=== PATIENT | female | born 2000 | race Caucasian/White ===

== ENCOUNTER 2023-02-05 13:00 | Observation (INO) | payer BC, SELFPAY ==
[2023-02-05 13:21] VITALS: BP 109/66; PULSE 72
--- NOTE | 2023-02-05 14:09 | PC.NURSE ---
Lab called at this time to see if any availability to come draw pt.s bloodwork. Lab states they will be up magda and green tube needed (none in dept.)
--- NOTE | 2023-02-05 14:15 | PC.NURSE ---
Pt. updated on plan of care and lab delay. Apologies made and pt. given snack and more water.
--- NOTE | 2023-02-05 14:45 | PC.NURSE ---
Lab in room to draw pt.s blood, urine specimen taken down as well.
[2023-02-05 15:00] LABS: Basophils Percent Auto 0.1 % (0.2-2.0); Eosinophils Percent Auto 0.2 % (0.9-7.0); Hematocrit 33.5 % (36.0-48.0); Immature Granulocytes Abs Auto 0.04 10^3/uL (0.00-0.03); Immature Granulocytes Pct Auto 0.5 % (0.0-0.5); Lymphocytes Absolute Auto 1.3 10^3/uL (1.2-3.8); Lymphocytes Percent Auto 15.5 % (20.5-60.0); Mean Corpuscular HGB Conc 32.8 g/dL (29.9-35.2); Mean Corpuscular Hemoglobin 30.5 pg (26.7-34.0); Mean Corpuscular Volume 92.8 fL (81.0-99.0); Mean Platelet Volume 9.8 fL (9.5-13.5); Monocytes Absolute Auto 0.6 10^3/uL (0.3-0.8); Monocytes Percent Auto 6.9 % (1.7-12.0); Neutrophils Absolute Auto 6.5 10^3/uL (1.4-6.5); Neutrophils Percent Auto 76.8 % (43.0-75.0); Platelet Count 220 10^3/uL (150-450); Red Blood Count 3.61 10^6/uL (4.20-5.40); Red Cell Distribution Width 11.9 % (11.0-15.0); White Blood Count 8.5 10^3/uL (4.0-11.0)
[2023-02-05 15:17] LABS: Alanine Aminotransferase 23 U/L (14-59); Albumin Globulin Ratio 0.6; Albumin Level 2.4 g/dL (3.4-5.0); Alkaline Phosphatase 124 U/L (46-116); Anion Gap 9.3; Aspartate Amino Transferase 20 U/L (15-37); BUN Creatinine Ratio 17.8; Bilirubin Total 0.2 mg/dL (0.2-1.0); Calcium 8.8 mg/dL (8.5-10.1); Carbon Dioxide 24.7 mmol/L (21.0-32.0); Chloride 103 mmol/L (98-107); Estimated GFR (African America >60 (>=60); Estimated GFR (Non-African Ame >60 (>=60); Globulin 3.9 g/dL; Glucose 92 mg/dL (74-106); Sodium 133 mmol/L (136-145); Total Protein 6.3 g/dL (6.4-8.2)
[2023-02-05 15:41] LABS: Bilirubin Urine NEGATIVE (NEGATIVE); Blood Urine NEGATIVE (NEGATIVE); Clarity Urine CLEAR (CLEAR); Color Urine LT. YELLOW (YELLOW); Glucose Urine UA NEGATIVE (NEGATIVE); Ketones Urine NEGATIVE (NEGATIVE); Leukocyte Esterase Urine MODERATE (NEGATIVE); Nitrite Urine NEGATIVE (NEGATIVE); Protein Urine NEGATIVE (NEG/TRACE); Urobilinogen Urine 0.2 EU/dL (0.2-1.0); pH Urine 7.5 (5.0-9.0)
[2023-02-05 15:42] LABS: Urine Microscopic Indicated YES
[2023-02-05 16:05] LABS: Bacteria Urine SMALL #/HPF (NONE SEEN); Cast Seen? NONE SEEN #/LPF (NONE SEEN); Crystals Seen? None Seen #/HPF (None Seen); Mucus Urine TRACE (NONE SEEN); RBC Urine 0-2 #/HPF (0-2); Squamous Epithelial Cell Urine FEW #/LPF (NONE/RARE)
[2023-02-05 16:06] LABS: Urine Culture Indicated YES
== END 2023-02-05 16:01 | disposition home or self-care (01) ==
LOC: FBC 13:03
PROVIDERS: Admitting Provider Midwife; PCP Family Medicine; Visit Provider Midwife
DX: O26.893 Other specified pregnancy related conditions, third trimester (principal); R42 Dizziness and giddiness; H53.8 Other visual disturbances; G90.A Postural orthostatic tachycardia syndrome [POTS]; Z3A.30 30 weeks gestation of pregnancy
CPT/HCPCS: 36415; 59025; 80053; 81001; 85025; 87086; G0378; G0379

== ENCOUNTER 2023-02-18 10:59 | Emergency (ER) | payer BC, SELFPAY ==
[2023-02-18 11:06] VITALS: BP 107/74; PULSE 100; RESP 18; TEMP 36.8; O2SAT 99; BMI 26.6
[2023-02-18 11:16] LABS: Glucometer 112 mg/dL (74-106)
--- NOTE | 2023-02-18 11:24 | ED.NAVMDI1 ---
HPI - Nausea/Vomiting/Diarrhea General Chief complaint: Nausea/Vomiting/Diarrhea Stated complaint: NAUSEA Time Seen by Provider: 02/18/23 11:20 Source: patient Mode of arrival: walk-in Limitations: no limitations History of Present Illness HPI Narrative: to 2-year-old female who is 32 weeks presents for nausea and vomiting. She has had no contractions today or any bleeding. She was seen in a hospital in another state yesterday for similar circumstances. She has not had known ill contacts and has not had a fever. no diarrhea. Related Data Home Medications Medication Instructions Recorded Confirmed docusate sodium 100 mg capsule 100 mg PO BID 02/18/23 02/18/23 ferrous sulfate 325 mg (65 mg 325 mg PO DAILY 02/18/23 02/18/23 iron) tablet (FeroSul) Previous Rx's Medication Instructions Recorded ondansetron 4 mg disintegrating 4 mg PO Q6H PRN nausea and 02/18/23 tablet vomiting #20 tabs Allergies Allergy/AdvReac Type Severity Reaction Status Date / Time Sulfa (Sulfonamide Allergy Intermediate Verified 02/18/23 11:09 Antibiotics) Review of Systems ROS Narrative A ten point review of systems is negative except as noted above. PFSH PFSH Social History Smoking status: Never smoker Exam Narrative Exam Narrative: Nurses note and vital signs reviewed and patient is not hypoxic. General: The patient appears well and in no apparent distress. Patient is resting comfortably on cart. Skin: Warm, dry, no pallor noted. There is no rash noted. Head: Normocephalic, atraumatic Eye: Normal conjunctiva, no drainage Ears, Nose, Mouth, and Throat: oral mucosa is moist. Nares patent. Cardiovascular: Regular Rate and Rhythm Respiratory: Patient is in no distress, no accessory muscle use, lungs are clear to auscultation, no wheezing, rales or rhonchi Back: non-tender GI: gravid and nontender Musculoskeletal: The patient has no evidence of calf tenderness, no pitting edema, symmetrical pulses noted bilaterally Neurological: A&O, normal speech Psychiatric: Cooperative Constitutional Vital Signs, click to edit/add: Last Vital Signs Temp 98.3 F 02/18/23 11:06 Pulse 95 H 02/18/23 12:52 Resp 16 02/18/23 12:52 BP 117/89 02/18/23 12:52 Pulse Ox 98 02/18/23 12:52 O2 Del Method Room Air 02/18/23 11:06 Course Vital Signs Vital signs: Vital Signs Temperature 98.3 F 02/18/23 11:06 Pulse Rate 100 H 02/18/23 11:06 Respiratory Rate 18 02/18/23 11:06 Blood Pressure 107/74 02/18/23 11:06 Pulse Oximetry 99 02/18/23 11:06 Oxygen Delivery Method Room Air 02/18/23 11:06 Temperature 98.3 F 02/18/23 11:06 Pulse Rate 95 H 02/18/23 12:52 Respiratory Rate 16 02/18/23 12:52 Blood Pressure 117/89 02/18/23 12:52 Pulse Oximetry 98 02/18/23 12:52 Oxygen Delivery Method Room Air 02/18/23 11:06 MDM - Nausea/Vomiting/Diarrhea MDM Narrative Medical decision making narrative: the patient's laboratory analysis is unremarkable. She feels improved and is able to be discharged home. Treatment diagnosis and follow-up were discussed with the patient. Differential Diagnosis Differential diagnosis: Likely food poisoning, gastroenteritis and dehydration Lab Data Attestation: I reviewed the patient's lab results. Labs: Lab Results 02/18/23 02/18/23 Range/Units 11:15 11:31 WBC 8.1 (4.0-11.0) 10^3/uL RBC 3.11 L (4.20-5.40) 10^6/uL Hgb 9.6 L (12.0-16.0) g/dL Hct 29.6 L (36.0-48.0) % MCV 95.2 (81.0-99.0) fL MCH 30.9 (26.7-34.0) pg MCHC 32.4 (29.9-35.2) g/dL RDW 12.1 (11.0-15.0) % Plt Count 200 (150-450) 10^3/uL MPV 9.6 (9.5-13.5) fL Neut % (Auto) 84.2 H (43.0-75.0) % Lymph % (Auto) 9.5 L (20.5-60.0) % [place] % (Auto) 5.6 (1.7-12.0) % Eos % (Auto) 0.0 L (0.9-7.0) % Baso % (Auto) 0.1 L (0.2-2.0) % Neut # (Auto) 6.8 H (1.4-6.5) 10^3/uL Lymph # (Auto) 0.8 L (1.2-3.8) 10^3/uL [place] # (Auto) 0.5 (0.3-0.8) 10^3/uL Eos # (Auto) 0.0 (0.0-0.7) 10^3/uL Baso # (Auto) 0.0 (0.0-0.1) 10^3/uL Abs Immat Gran (auto) 0.05 H (0.00-0.03) 10^3/uL Imm/Tot Granulo (auto) 0.6 H (0.0-0.5) % Sodium 136 (136-145) mmol/L Potassium 3.3 L (3.5-5.1) mmol/L Chloride 103 (98-107) mmol/L Carbon Dioxide 23.5 (21.0-32.0) mmol/L Anion Gap 12.8 BUN 9.0 (7.0-18.0) mg/dL Creatinine 0.70 (0.55-1.02) mg/dL Est GFR ( Amer) >60 (>=60) Est GFR (Non-Af Amer) >60 (>=60) BUN/Creatinine Ratio 12.9 Glucose 107 H (74-106) mg/dL Calcium 8.1 L (8.5-10.1) mg/dL Urine Color Yellow (YELLOW) Urine Clarity Slightly cloudy A (CLEAR) Urine pH 6.5 (5.0-9.0) Ur Specific [place] 1.025 (1.005-1.025) Urine Protein 30 A (NEG/TRACE) mg/dL Urine Glucose (UA) Negative (NEGATIVE) mg/dL Urine Ketones >=80 A (NEGATIVE) mg/dL Urine Occult Blood Moderate A (NEGATIVE) Urine Nitrite Negative (NEGATIVE) Urine Bilirubin Negative (NEGATIVE) Urine Urobilinogen 0.2 (0.2-1.0) EU/dL Ur Leukocyte Esterase Trace A (NEGATIVE) Urine RBC 0-2 (0-2) #/HPF Urine WBC 0-2 A (NONE SEEN) #/HPF Ur Squamous Epith Cells Moderate A (NONE/RARE) #/LPF Urine Crystals None seen (None Seen) #/HPF Urine Bacteria Moderate A (NONE SEEN) #/HPF Urine Casts None seen (NONE SEEN) #/LPF Urine Mucus None seen (NONE SEEN) Ur Culture Indicated? Yes POC Glucose 112 H (74-106) mg/dL Discharge Plan Discharge Chief Complaint: Nausea/Vomiting/Diarrhea Clinical Impression: Nausea and vomiting during Patient Disposition: Home, Self-Care Time of Disposition Decision: 13:20 Condition: Good Mode of Transportation: Private Vehicle Prescriptions / Home Meds: New ondansetron 4 mg tablet,disintegrating 4 mg PO Q6H PRN (Reason: nausea and vomiting) Qty: 20 0RF No Action ferrous sulfate [FeroSul] 325 mg (65 mg iron) tablet 325 mg PO DAILY docusate sodium 100 mg capsule 100 mg PO BID Instructions: Nausea and Vomiting in (ED) Stand Alone Forms: Portal Instructions Referrals: EVELYN VALDES [Primary Care Provider] - 1 week
[2023-02-18] MEDS: ONDANSETRON PF 4 MG/2 ML VIAL IV (11:38)
[2023-02-18] MEDS: 0.9 % SODIUM CHLORIDE 1,000 ML 1000 ML IV (11:38)
[2023-02-18 11:41] LABS: Basophils Percent Auto 0.1 % (0.2-2.0); Hematocrit 29.6 % (36.0-48.0); Hemoglobin 9.6 g/dL (12.0-16.0); Immature Granulocytes Abs Auto 0.05 10^3/uL (0.00-0.03); Immature Granulocytes Pct Auto 0.6 % (0.0-0.5); Lymphocytes Absolute Auto 0.8 10^3/uL (1.2-3.8); Lymphocytes Percent Auto 9.5 % (20.5-60.0); Mean Corpuscular HGB Conc 32.4 g/dL (29.9-35.2); Mean Corpuscular Hemoglobin 30.9 pg (26.7-34.0); Mean Corpuscular Volume 95.2 fL (81.0-99.0); Mean Platelet Volume 9.6 fL (9.5-13.5); Monocytes Absolute Auto 0.5 10^3/uL (0.3-0.8); Monocytes Percent Auto 5.6 % (1.7-12.0); Neutrophils Absolute Auto 6.8 10^3/uL (1.4-6.5); Neutrophils Percent Auto 84.2 % (43.0-75.0); Platelet Count 200 10^3/uL (150-450); Red Blood Count 3.11 10^6/uL (4.20-5.40); Red Cell Distribution Width 12.1 % (11.0-15.0); White Blood Count 8.1 10^3/uL (4.0-11.0)
[2023-02-18 11:45] LABS: Bilirubin Urine NEGATIVE (NEGATIVE); Blood Urine MODERATE (NEGATIVE); Clarity Urine SLIGHTLY CLOUDY (CLEAR); Color Urine YELLOW (YELLOW); Glucose Urine UA NEGATIVE (NEGATIVE); Ketones Urine >=80 mg/dL (NEGATIVE); Leukocyte Esterase Urine TRACE (NEGATIVE); Nitrite Urine NEGATIVE (NEGATIVE); Protein Urine 30 mg/dL (NEG/TRACE); Specific Gravity Urine 1.025 (1.005-1.025); Urobilinogen Urine 0.2 EU/dL (0.2-1.0); pH Urine 6.5 (5.0-9.0)
[2023-02-18 11:46] LABS: Anion Gap 12.8; BUN Creatinine Ratio 12.9; Calcium 8.1 mg/dL (8.5-10.1); Carbon Dioxide 23.5 mmol/L (21.0-32.0); Chloride 103 mmol/L (98-107); Estimated GFR (African America >60 (>=60); Estimated GFR (Non-African Ame >60 (>=60); Glucose 107 mg/dL (74-106); Potassium 3.3 mmol/L (3.5-5.1); Sodium 136 mmol/L (136-145)
[2023-02-18 11:50] LABS: Bacteria Urine MODERATE #/HPF (NONE SEEN); Crystals Seen? None Seen #/HPF (None Seen); Mucus Urine NONE SEEN (NONE SEEN); RBC Urine 0-2 #/HPF (0-2); Squamous Epithelial Cell Urine MODERATE #/LPF (NONE/RARE); WBC Urine 0-2 #/HPF (NONE SEEN)
[2023-02-18 11:51] LABS: Cast Seen? NONE SEEN #/LPF (NONE SEEN); Urine Culture Indicated YES
[2023-02-18 12:52] VITALS: BP 117/89; PULSE 95; RESP 16; O2SAT 98
[2023-02-18 13:29] VITALS: BP 104/74; PULSE 84; RESP 16; O2SAT 98
== END 2023-02-18 13:31 | disposition home or self-care (01) ==
PROVIDERS: Emergency Provider Emergency Medicine; PCP Family Medicine
DX: O26.893 Other specified pregnancy related conditions, third trimester (principal); R11.2 Nausea with vomiting, unspecified; Z3A.32 32 weeks gestation of pregnancy
CPT/HCPCS: 36415; 80048; 81001; 85025; 87086; 96361; 96374; 99285

== ENCOUNTER 2023-04-02 17:15 | Observation (INO) | payer BC, SELFPAY ==
[2023-04-04 22:11] LABS: Neisseria gonorrhoeae, NAA Negative (Negative)
== END 2023-04-02 17:50 | disposition home or self-care (01) ==
LOC: FBC 17:16
PROVIDERS: Admitting Provider Midwife; PCP Family Medicine; Visit Provider Midwife
DX: O36.8390 Maternal care for abnormalities of the fetal heart rate or rhythm, unspecified trimester, not applicable or unspecified (principal); Z3A.00 Weeks of gestation of pregnancy not specified
CPT/HCPCS: 59025; 87491; 87591; G0378; G0379

== ENCOUNTER 2023-04-06 05:23 | Inpatient (IN) | payer BC, SELFPAY ==
[2023-04-06] VITALS (41 sets, daily range): BP systolic 105–151; BP diastolic 54–105; PULSE 64–84; RESP 6–55; TEMP 36.3–36.9; O2SAT 98–100
[2023-04-06] MEDS: LACTATED RINGER'S SOLUTION 1,000 ML 1000 ML IV ×2 (05:59→07:30)
[2023-04-06 06:17] LABS: Basophils Percent Auto 0.1 % (0.2-2.0); Eosinophils Percent Auto 0.3 % (0.9-7.0); Hematocrit 37.3 % (36.0-48.0); Hemoglobin 12.5 g/dL (12.0-16.0); Immature Granulocytes Abs Auto 0.04 10^3/uL (0.00-0.03); Immature Granulocytes Pct Auto 0.5 % (0.0-0.5); Lymphocytes Absolute Auto 2.2 10^3/uL (1.2-3.8); Lymphocytes Percent Auto 27.9 % (20.5-60.0); Mean Corpuscular HGB Conc 33.5 g/dL (29.9-35.2); Mean Corpuscular Hemoglobin 31.6 pg (26.7-34.0); Mean Corpuscular Volume 94.2 fL (81.0-99.0); Mean Platelet Volume 11.7 fL (9.5-13.5); Monocytes Absolute Auto 0.7 10^3/uL (0.3-0.8); Monocytes Percent Auto 8.2 % (1.7-12.0); Platelet Count 153 10^3/uL (150-450); Red Blood Count 3.96 10^6/uL (4.20-5.40); Red Cell Distribution Width 13.5 % (11.0-15.0); White Blood Count 7.9 10^3/uL (4.0-11.0)
[2023-04-06 06:20] LABS: Bilirubin Urine NEGATIVE (NEGATIVE); Blood Urine NEGATIVE (NEGATIVE); Clarity Urine CLEAR (CLEAR); Color Urine LT. YELLOW (YELLOW); Glucose Urine UA NEGATIVE (NEGATIVE); Ketones Urine NEGATIVE (NEGATIVE); Leukocyte Esterase Urine MODERATE (NEGATIVE); Nitrite Urine NEGATIVE (NEGATIVE); Protein Urine NEGATIVE (NEG/TRACE); Urobilinogen Urine 0.2 EU/dL (0.2-1.0)
[2023-04-06 06:28] LABS: Amphetamine Screen Urine NEGATIVE (NEGATIVE); Bacteria Urine MODERATE #/HPF (NONE SEEN); Barbiturates Screen Urine NEGATIVE (NEGATIVE); Benzodiazepines Screen Urine NEGATIVE (NEGATIVE); Buprenorphine Screen Urine NEGATIVE (NEGATIVE); Cannabinoid Screen Urine NEGATIVE (NEGATIVE); Cast Seen? NONE SEEN #/LPF (NONE SEEN); Cocaine Screen Urine NEGATIVE (NEGATIVE); Crystals Seen? None Seen #/HPF (None Seen); Methadone Screen Urine NEGATIVE (NEGATIVE); Methamphetamines Screen Urine NEGATIVE (NEGATIVE); Mucus Urine NONE SEEN (NONE SEEN); Opiate Screen Urine NEGATIVE (NEGATIVE); Oxycodone Screen Urine NEGATIVE (NEGATIVE); Phencyclidine Screen Urine NEGATIVE (NEGATIVE); RBC Urine 0-2 #/HPF (0-2); Squamous Epithelial Cell Urine FEW #/LPF (NONE/RARE); Tricyclic Antidepressant Urine NEGATIVE (NEGATIVE); Urine Culture Indicated YES
--- NOTE | 2023-04-06 07:08 | P.OBHP_ITS ---
OB - H&P: HPI History of Present Illness Chief complaint: INDUCTION : 1 Para: 0 Gestational age based on last menstrual period: 38.4 History of Present Dating criteria: LMP confirmed by 1st trimester US care: good care Ultrasounds: normal 1st trimester US and normal mid trimester US complications: gestational diabetes and other (anxiety, POTS, gestational diabetes ) Narrative: POTS, gestational diabetes Labs Blood type: O (+) positive Rubella: nonimmune RPR/VDLR: nonreactive GBS status: negative HBsAG: negative Review of Systems ROS Status of ROS 10 or more systems reviewed and unremarkable except as noted in history and below [facility] Medical History (Updated 04/06/23 @ 07:13 by BRYSON COLVIN APRN, CNM) POTS (postural orthostatic tachycardia syndrome) ?G90.A - Postural orthostatic tachycardia syndrome [POTS] (ICD-10) Seizure ?R56.9 - Unspecified convulsions (ICD-10) Surgical History (Updated 04/06/23 @ 06:02 by Lindsay Frias) History of removal of cyst ?Z98.890 - Other specified postprocedural states (ICD-10) [place] teeth extracted ?K08.409 - Partial loss of teeth, unspecified cause, unspecified class (ICD- 10) Family History (Updated 04/06/23 @ 06:03 by Lindsay Frias) Grandmother Family history of CHF (congestive heart failure) Family history of COPD (chronic obstructive pulmonary disease) Grandfather Family history of CHF (congestive heart failure) Family history of COPD (chronic obstructive pulmonary disease) Family history of cancer Other Family history of hypertension Family history of myocardial infarction Family history of stroke Social History (Updated 04/06/23 @ 06:05 by Lindsay Frias) Within the past year, how often did you have a drink containing alcohol: monthly or less Within the past year, how many standard drinks containing alcohol did you have on a typical day: 1 or 2 Within the past year, how often did you have six or more drinks on one occasion: never Total score: 0 Score interpretation: A score less than 3 is consistent with normal alcohol consumption. Smoking status: Never smoker Non-prescribed substance use: denies use Highest level of school completed/degree received: Associate degree: academic program Are you now , , , , never or living with a partner: Little interest or pleasure in doing things: not at all Feeling down, depressed, or hopeless: not at all Feel stressed/tense/nervous/anxious/difficulty sleeping: not at all Do you think of yourself as: straight/heterosexual Gender Identity: female Meds Home Medications and Allergies Home Medications Medication Instructions Recorded Confirmed Type docusate sodium 100 mg capsule 100 mg PO BID 02/18/23 04/06/23 History ferrous sulfate 325 mg (65 mg 325 mg PO DAILY 02/18/23 04/06/23 History iron) tablet (FeroSul) ondansetron 4 mg disintegrating 4 mg PO Q6H PRN nausea and 02/18/23 Rx tablet vomiting #20 tabs vit no.95-ferrous 1 tab PO DAILY 04/06/23 04/06/23 History fumarate 28 mg-folic acid 800 mcg tablet () Allergies Allergy/AdvReac Type Severity Reaction Status Date / Time Sulfa (Sulfonamide Allergy Intermediate Verified 02/18/23 11:09 Antibiotics) Exam Constitutional Vital Signs, click to edit/add: Last Vital Signs Temp 97.3 F L 04/06/23 05:55 Resp 16 04/06/23 05:44 Common normals: no apparent distress and oriented x3 General appearance: cooperative Orientation/consciousness: Yes awake HENMT Common normals: normocephalic Eye Common normals: EOMs intact bilaterally Neck & C-Spine Common normals: full ROM Lymph Lymphatic: no lymphadenopathy noted Chest Common normals: inspection of chest normal Respiratory Common normals: normal respiratory effort Cardio Common normals: regular rate and regular rhythm Rate: regular rate Rhythm: regular rhythm GI Common normals: Normal to inspection, nondistended, normoactive bowel sounds present Back & Pelvis Common normals: no CVA tenderness Extremity Common normals: normal to inspection and full ROM Neuro Common normals: oriented x3 Sensorium/orientation: awake, alert, oriented to person, oriented to place and oriented to time Psych Common normals: mental status grossly normal, thought process normal, cooperative, affect normal and speech normal Results Labs Labs: Short CBC 04/06/23 Range/Units 05:51 WBC 7.9 (4.0-11.0) 10^3/uL Hgb 12.5 (12.0-16.0) g/dL Hct 37.3 (36.0-48.0) % Plt Count 153 (150-450) 10^3/uL Urine 04/06/23 Range/Units 05:40 Urine Color Lt. yellow (YELLOW) Urine Clarity Clear (CLEAR) Urine pH 7.0 (5.0-9.0) Ur Specific [place] 1.010 (1.005-1.025) Urine Protein Negative (NEG/TRACE) mg/dL Urine Glucose (UA) Negative (NEGATIVE) mg/dL OB - A/P Assessment and Plan (1) Term : (2) Gestational diabetes:
[2023-04-06] MEDS: METOCLOPRAMIDE HCL 10 MG/2 ML VIAL IVP (07:20)
[2023-04-06] MEDS: FAMOTIDINE/PF 20 MG/2 ML VIAL IV (07:20)
[2023-04-06] MEDS: CITRIC ACID/SODIUM CITRATE 30 ML SOLUTION ORACIT SHOHL'S SOLN PO (07:21)
[2023-04-06] MEDS: CEFAZOLIN SODIUM/DEXTROSE,ISO 2 GM/50 ML PIGGYBACK IV ×2 (07:31→14:03)
--- NOTE | 2023-04-06 07:32 | W.PC.ACHO ---
Registration Status: ADM IN Primary Language: Mauritanian Preferred Language: Mauritanian Report given to Ayaka Simon. Active Medications Generic Name Dose Route Start Last Admin Trade Name Freq PRN Reason Stop Dose Admin Lactated Ringer's 1,000 mls @ 125 mls/hr 04/06/23 05:30 Lactated Ringers IV .Q8H CORNELIUS Consults Category Date Time Status Consult to Anesthesiology Routine Cons 04/06/23 Ordered IV Insertion/Site Date of IV Line Insertion [ 04/06/23 Short PIV (<1.75 in) 20g left Hand] IV Insertion Time [Short PIV ( 05:50 <1.75 in) 20g left Hand] Neurology Patient orientation (short person,place,time,situation list)
--- NOTE | 2023-04-06 08:32 | PM.ONB ---
Brief Operative Note Date of procedure: 04/06/23 Pre-op diagnosis: iup at 38 4/7wks, gdm a1, elective c/s Post-op diagnosis: same as pre-op Procedure: NAME OF PROCEDURE: [ section ] PROCEDURE: Patient was taken back to the Operating Room where she was given a spinal anesthesia with Duramorph without difficulty. She was prepped and draped in the normal sterile fashion. A Pfannenstiel skin incision was then made 2 cm above the symphysis pubis and carried down to underlying rectus fascia using a Bovie. The fascia was incised in the midline and extended laterally using Ruiz scissors. Two [place] clamps were placed on the superior aspect of the fascia and dissected off the underlying rectus muscles. The same was performed on the inferior aspect as well. The muscles were then in the midline. Peritoneum was identified and entered bluntly. The peritoneum was then extended superiorly and inferiorly with good visualization of the bladder. The bladder blade was inserted. A low transverse incision was made on the patient's uterus and extended laterally digitally. The infant was then delivered atraumatically after the bladder blade was removed in the cephalic position. The cord was clamped and cut. Cord blood was obtained. The infant was handed off to awaiting team. The patient's placenta was spontaneously delivered. The uterus was then exteriorized. The uterus was cleared of all clots and debris. The bladder blade was reinserted. The patient's uterine incision was closed using #0 Vicryl in a running lock fashion. Excellent hemostasis was assured. The uterus was then returned to the patient's abdomen. The patient's abdomen was copiously irrigated using warm saline. Peritoneal gutters were cleared of all clots and debris. Again excellent hemostasis was assured. The patient's peritoneum was closed using 3-0 Vicryl in a running fashion. The patient's fascia was closed using #0 Vicryl in a running fashion. The patient's skin was closed using 4-0 Vicryl subcuticularly. The patient tolerated the procedure well. Sponge, lap, and needle counts were correct x2. The patient was taken to the Recovery Room in stable condition. Anesthesia: spinal Surgeon: John Garcia Mower Mechanic: BRYSON COLVIN Estimated blood loss (mL): 575 Pathology: other (placenta) Condition: stable Disposition: PACU
--- NOTE | 2023-04-06 08:34 | PM.OBPRCCS ---
Procedure Pre-op/Post-op diagnoses: Pre-Op/Post-Op Diagnoses Operation Date: 04/06/23 07:30 <No data on this case meets the specified criteria> Procedure: Procedures Operation Date: 04/06/23 07:30 Actual Procedure Side Surgeon p , viable baby girl born Not Applicable John Garcia DO Establishment Guide: BRYSON COLVIN Estimated blood loss (mL): 575 Disposition: PACU Anesthesia type: Spinal
[2023-04-06] MEDS: OXYTOCIN/0.9 % SODIUM CHLORIDE 20 UNITS/1,000 ML PLAST..BAG 200 UNIT IV (09:13)
--- NOTE | 2023-04-06 11:42 | P.EN_ITS ---
Event Note Event Note: [employer]erg[employer] Ski Maker Note: i first assisted Dr Garcia with primary elective section. I first assisted as directed by physician. I independently closed the SQ layer with 3-0 vicryl without difficulty. I then independently closed the skin incision with 4-0 vicryl Kevin needle without difficulty. Hemostasis noted at completion. Patient tolerated procedure well.
[2023-04-06] MEDS: KETOROLAC TROMETHAMINE 30 MG/ML VIAL IVP ×2 (15:16→22:06)
--- NOTE | 2023-04-06 16:17 | RESP.RT ---
Done per nursing
[2023-04-07 05:55] LABS: Basophils Percent Auto 0.2 % (0.2-2.0); Eosinophils Percent Auto 0.2 % (0.9-7.0); Hematocrit 31.2 % (36.0-48.0); Hemoglobin 10.4 g/dL (12.0-16.0); Immature Granulocytes Abs Auto 0.04 10^3/uL (0.00-0.03); Immature Granulocytes Pct Auto 0.4 % (0.0-0.5); Lymphocytes Absolute Auto 1.8 10^3/uL (1.2-3.8); Lymphocytes Percent Auto 17.4 % (20.5-60.0); Mean Corpuscular HGB Conc 33.3 g/dL (29.9-35.2); Mean Corpuscular Hemoglobin 31.8 pg (26.7-34.0); Mean Corpuscular Volume 95.4 fL (81.0-99.0); Mean Platelet Volume 11.2 fL (9.5-13.5); Monocytes Absolute Auto 0.8 10^3/uL (0.3-0.8); Monocytes Percent Auto 7.5 % (1.7-12.0); Neutrophils Absolute Auto 7.8 10^3/uL (1.4-6.5); Neutrophils Percent Auto 74.3 % (43.0-75.0); Platelet Count 130 10^3/uL (150-450); Red Blood Count 3.27 10^6/uL (4.20-5.40); Red Cell Distribution Width 13.6 % (11.0-15.0); White Blood Count 10.5 10^3/uL (4.0-11.0)
[2023-04-07] MEDS: KETOROLAC TROMETHAMINE 30 MG/ML VIAL IVP ×3 (05:57→20:08)
--- NOTE | 2023-04-07 07:13 | PC.NURSE ---
Report given to Sergio Trinh RN.
[2023-04-07 08:25] VITALS: RESP 16; TEMP 36.8
[2023-04-07 08:27] VITALS: BP 120/66
[2023-04-07] MEDS: DOCUSATE SODIUM 100 MG CAPSULE PO ×2 (09:44→20:08)
[2023-04-07] MEDS: ACETAMINOPHEN 500 MG TABLET 1000 MG PO ×3 (09:44→21:20)
[2023-04-07] MEDS: ONDANSETRON 4 MG RAPDIS TABLET PO (09:59)
--- NOTE | 2023-04-07 11:40 | PC.NURSE ---
0950 c/o headache 4-5 and medicated for same, then feels nauseated and medicated for same, pumps breasts as baby is reluctant to eat presently
--- NOTE | 2023-04-07 11:41 | PC.NURSE ---
104 Headache improving, nausea gone, finger feeds baby with syringe with assist
--- NOTE | 2023-04-07 11:49 | PM.OBPN ---
OB - PN: Subj Subjective Patient comments: no complaints Wilson status: doing well Wilson feeding status: breast and bottle feeding Exam Constitutional Vital Signs, click to edit/add: Last Vital Signs Temp 98.3 F 04/07/23 08:25 Pulse 68 04/06/23 09:40 Resp 16 04/07/23 08:25 BP 120/66 04/07/23 08:27 Pulse Ox 99 04/06/23 11:30 O2 Del Method Room Air 04/06/23 23:45 Documenting provider has reviewed patient's vital signs: yes Common normals: no apparent distress, oriented x3 and no limitations HENMT Common normals: normocephalic and head/scalp atraumatic Eye Pupil: PERRL and accommodation reflex normal Neck & C-Spine Common normals: full ROM and supple Respiratory Common normals: normal respiratory effort Cardio Common normals: regular rate and regular rhythm GI Common normals: Normal to inspection, nondistended, normoactive bowel sounds present Common normals: no CVA tenderness Extremity Common normals: normal to inspection, full ROM, no clubbing, cyanosis or edema and no calf tenderness Neuro Common normals: CN's II-XII intact bilaterally, moves all extremities, no focal motor deficits and no sensory deficits noted Results Labs Labs: Short CBC 04/07/23 Range/Units 05:38 WBC 10.5 (4.0-11.0) 10^3/uL Hgb 10.4 L (12.0-16.0) g/dL Hct 31.2 L (36.0-48.0) % Plt Count 130 L (150-450) 10^3/uL OB - PN: A/P Assessment and Plan (1) Delivery by section: Assessment and Plan: POST OP DAY ONE DOING WELL. AFEBRILE, VSS. VOICING NO COMPLAINTS Plan ROUTINE POST POST C SECTION CARE Plan - day: 1 Plan: routine postop care Time Spent with Patient Time: Total time spent is greater than 50% in coordination of care (as documented) at patient's floor/unit and/or counseling patient: Total time spent with greater than 50% in coordination of care (as documented) at patient's floor/unit and/or counseling patient: less than 15 minutes
--- NOTE | 2023-04-07 13:43 | PC.NURSE ---
states headache is getting worse again, medicated with toradol and two ice packs given-denies visual distubances and denies change in headache with positioning, family at [facility]
[2023-04-07 16:06] VITALS: BP 131/85; RESP 18; TEMP 36.4
[2023-04-07 16:19] VITALS: RESP 18
--- NOTE | 2023-04-07 17:58 | RESP.RT ---
Rx given per nursing
[2023-04-07 20:00] VITALS: BP 114/81
[2023-04-08 00:22] VITALS: BP 106/54; PULSE 80; TEMP 36.2
[2023-04-08 00:25] VITALS: RESP 18; TEMP 36.2; O2SAT 99
[2023-04-08] MEDS: KETOROLAC TROMETHAMINE 30 MG/ML VIAL IVP (04:12)
[2023-04-08] MEDS: OXYCODONE HCL/ACETAMINOPHEN 5MG/325MG 1 TAB PO ×2 (04:39→10:08)
--- NOTE | 2023-04-08 04:56 | PC.NURSE ---
0410- Patient states Headache is getting worse. Rates pain 6-7/10 at this time. States it is across the forehead and gets better while lying flat. Denies visual changes.
[2023-04-08 05:35] VITALS: TEMP 36.1
[2023-04-08 05:36] VITALS: BP 108/54; PULSE 67
--- NOTE | 2023-04-08 05:45 | PC.NURSE ---
0545- Patient states her headache is improving after the Percocet. taken to nursery so mom may rest.
[2023-04-08 07:15] VITALS: RESP 14; TEMP 37.1
[2023-04-08 07:18] VITALS: BP 127/66; PULSE 82
[2023-04-08] MEDS: DOCUSATE SODIUM 100 MG CAPSULE PO (10:08)
[2023-04-08] MEDS: IBUPROFEN 400 MG TABLET 800 MG PO (10:08)
--- NOTE | 2023-04-08 10:54 | PM.OBDS ---
DS: Providers Provider Date of admission: 04/06/23 05:23 Primary care physician: EVELYN VALDES Attending physician on admission: John Garcia Consults: 04/06/23 Consult to Anesthesiology Routine Consulting Provider: Jose Antonio Sears Reason for consultation: Spinal Attending physician on discharge: Christi Cook DS: Diagnosis Discharge Diagnosis (1) Delivery by section: Assessment and plan: CONDITION GOOD, REQUESTING DISCHARGE Plan S/P ELECTIVE CS. CLINICAL EXAM NONFOCAL. INSTRUCTIONS GIVEN WITH STATED UNDERSTANDING. FOLLOW UP IN ONE WEEK FOR INCISION CHECK. SCRIPTS PROVIDED FOR PAIN AND COLACE. OB - DS: Summary Hospital Course Hospital Course: UNCOMPLICATED Time spent discussing smoking cessation with patient: 3 to 10 minutes Peripartum Data - Procedures: Procedures Operation Date: 04/06/23 07:30 Actual Procedure Side Surgeon p , viable baby girl born Not Applicable John Garcia DO Peripartum Data - Vaginal Delivery Procedures: Procedures Operation Date: 04/06/23 07:30 Actual Procedure Side Surgeon p , viable baby girl born Not Applicable John Garcia DO Complications complications: none Delivery method: elective section Gender: female Discharge plan: home Status at Discharge Functional status at discharge: independent ambulation Overall status at discharge: patient is back to baseline Time Spent with Patient Time attestation: Total time spent providing and/or coordinating discharge services: Time spent: less than 30 minutes Exam Constitutional Vital Signs, click to edit/add: Last Vital Signs Temp 98.8 F 04/08/23 07:15 Pulse 82 04/08/23 07:18 Resp 14 04/08/23 07:15 BP 127/66 04/08/23 07:18 Pulse Ox 99 04/08/23 00:25 O2 Del Method Room Air 04/08/23 07:15 Documenting provider has reviewed patient's vital signs: yes Common normals: no apparent distress, oriented x3, healthy appearing and alert General appearance: cooperative, comfortable and well kempt HENMT Common normals: normocephalic and head/scalp atraumatic Eye Pupil: PERRL and accommodation reflex normal Neck & C-Spine Common normals: full ROM and supple Respiratory Common normals: normal respiratory effort Cardio Common normals: regular rate and regular rhythm GI Common normals: Normal to inspection, nondistended, normoactive bowel sounds present Common normals: no CVA tenderness Extremity Common normals: normal to inspection, full ROM and no calf tenderness Neuro Common normals: CN's II-XII intact bilaterally, moves all extremities, no focal motor deficits and no sensory deficits noted Psych Common normals: mental status grossly normal, thought process normal, cooperative and affect normal Discharge Plan Discharge Disposition: Home, Self-Care Condition: Good Assessment: HEADACHE RESOLVED WITH PERCOCET, VSS, AFEBRILE, INCISION DRY AND INTACT, AMBULATING VOIDING AND EATING, READY FOR DISCHARGE Discharge Medications: Continued ferrous sulfate [FeroSul] 325 mg (65 mg iron) tablet 325 mg PO DAILY docusate sodium 100 mg capsule 100 mg PO BID PNV cmb#95-ferrous fumarate-FA [] 28 mg iron- 800 mcg tablet 1 tab PO DAILY Activity: resume usual activities as tolerated Diet: regular diet Patient Instructions: (DC) Forms: Portal Instructions Follow Up Appointments: SCHEDULE INCISION CHECK IN ONE WEEK Discharge location: HOME
== END 2023-04-08 12:18 | disposition home or self-care (01) | DRG 787 ==
PROVIDERS: Obstetrics & Gynecology; Admitting Provider Midwife; PCP Family Medicine; Visit Provider Obstetrics & Gynecology
PROC: 10D00Z1 Extraction of Products of Conception, Low, Open Approach (ICD-10-PCS; CPT 59514; principal; 2023-04-06 07:30)
DX: O24.420 Gestational diabetes mellitus in childbirth, diet controlled (principal); O99.354 Diseases of the nervous system complicating childbirth; G90.A Postural orthostatic tachycardia syndrome [POTS]; O99.02 Anemia complicating childbirth; D50.9 Iron deficiency anemia, unspecified; Z3A.38 38 weeks gestation of pregnancy; Z37.0 Single live birth; Z23 Encounter for immunization; Z88.2 Allergy status to sulfonamides; Z79.899 Other long term (current) drug therapy; Z82.61 Family history of arthritis
CPT/HCPCS: 36415; 80307; 81001; 85025; 86850; 86900; 86901; 87086; 88307; 94667; 94668; 96374; 96375; 96376

== ENCOUNTER 2023-04-10 08:56 | Outpatient (OUT) | payer BC, SELFPAY ==
--- NOTE | 2023-04-10 11:59 | PC.NURSE ---
Family arrives for follow up visit, Parents states doing well, we think States has support at home and mom has been able to rest. Dad is hands on assisting with diapers and care. Sloane states continues to breastfeed, baby is getting better at latching well each feed. Still difficult to latch on right breast. Feeds every 3-4 hours, for 20 min total, usually both breasts per feed. Encouraged parents to feed baby every 2-3 hours or on demand for 8-12 feeds in 24 hours. Verbalized understanding. Baby to right breast slight adjustments to positioning made, nipple to nose and asymmetrical latch demo'd with doll and mom able to return demo independently. Right nipple noted to have blisters on time and is tender with latch. Using lanolin and soothies well. No further concerns noted. Family aware of MOMS group and to call for questions or concerns as needed.
[2023-04-10 12:05] VITALS: BP 122/78; PULSE 90; RESP 18; TEMP 36.8; O2SAT 97
--- NOTE | 2023-04-10 12:20 | PC.NURSE ---
Pt states it feels like a lot of fluid moving back and forth here points to area of incision and just above. No redness or drainage noted no edema of incision felt. Area clean, dry, no bruising or redness, steri strips intact.
== END 2023-04-10 11:45 | disposition home or self-care (01) ==
LOC: FBCO 08:59
PROVIDERS: PCP Family Medicine; Visit Provider Obstetrics & Gynecology
DX: Z39.2 Encounter for routine postpartum follow-up (principal)

== ENCOUNTER 2024-06-05 12:55 | Outpatient (OUT) | payer BC, SELFPAY ==
--- NOTE | 2024-06-05 12:57 | US_ITS ---
[place] [id number] Patient Name: ARMANDO HAMPTON MRN: [id number] date: 2000 Sex: F Assigned Patient Location: US Current Patient Location: US Accession/Order Number: [id number] Exam Date: 06/05/2024 13:00 Report Date: 06/05/2024 13:56 At the request of: BRYSON COLVIN Procedure: US OB transvaginal EXAMINATION: US OB transvaginal HISTORY: Amenorrhea, Positive Test COMPARISON: No relevant comparison available. FINDINGS: [place] intrauterine gestation Gestational sac: 2.23 cm, 6 weeks 6 CRL: 8.2 mm, 6 weeks 5 days Yolk sac: 2.2 mm Heart rate: Not visualized The uterus is normal, anteverted The right ovary is not visualized. The left ovary measures 2.1 x 2.1 x 1.5 cm Cervix, closed, 3.9 cm Clinical age: 8 weeks 6 days Clinical JAS: 01/09/2025 Ultrasound age: 6 weeks 5 days Ultrasound JAS: 01/24/2025 US/US OB transvaginal IMPRESSION: No cardiac activity observed, possibly related to early gestation. Continued surveillance recommended Electronically authenticated by: ADALBERTO MELTON Date: 06/05/2024 13:56
== END 2024-06-05 12:56 | disposition home or self-care (01) ==
LOC: US 12:55
PROVIDERS: PCP Family Medicine; Visit Provider Midwife
DX: Z32.01 Encounter for pregnancy test, result positive (principal); N91.2 Amenorrhea, unspecified
CPT/HCPCS: 76817

== ENCOUNTER 2024-06-19 08:23 | Outpatient (OUT) | payer OTHER, SELFPAY ==
--- NOTE | 2024-06-19 08:25 | US_ITS ---
[address] [address] Patient Name: ARMANDO HAMPTON MRN: [id number] date: 2000 Sex: F Assigned Patient Location: [place] Current Patient Location: US Accession/Order Number: [id number] Exam Date: 06/19/2024 08:35 Report Date: 06/19/2024 09:39 At the request of: BRYSON COLVIN Procedure: US OB transvaginal EXAMINATION: US OB transvaginal HISTORY: Amenorrhea COMPARISON: 06/05/24 FINDINGS: [place] intrauterine gestation Findings gestational sac: 2.28 cm, 6 weeks 6 days CRL: 8.6 mm, 6 weeks 6 days Yolk sac: Not visualized Heart rate: Cardiac activity not observed Cervix: Closed, 3.8 cm The uterus is normal, anteverted The ovaries are not visualized Clinical age: 10 weeks 6 days Clinical JAS: 01/09/2025 Ultrasound age: 6 weeks 6 days Ultrasound JAS: 02/06/2025 US/US OB transvaginal IMPRESSION: No interval growth in 2 weeks. Findings are consistent with demise Electronically authenticated by: ADALBERTO MELTON Date: 06/19/2024 09:39
--- OUTSIDE RECORDS SUMMARY | 2024-06-19 08:31 | XMS_ITS | CCD ---
Author Organization [facility] Inform ion Partnership [facility] Care Team Providers Care Microsoft Dynamics Manager Architect Name Role Phone Unavailable Primary Care Provider Unavailag Rosario MD, Joey Hinojosa Unavailable Gris Valdes MD Primary Care Provider BRYSON LARSEN Attending Unavailable GRIS VALDES Attending Unavailable BRYSON LARSEN Attending Unavailable BRYSON LARSEN Referring Unavailable Allergies Allergy Classification Reported Allergen(s) Allergy Type Date of Onset Reaction(s) Facility (1 source) Sulfacetamide Drug Allergy 05-11-20 20 [facility] Work Phone: (6 sources) Sulfamethoxazole / Trimethoprim Drug Allergy 01-02-20 17 [facility] (6 sources) Sulfonamides (Antibiotic) Drug Intolerance 01-02-20 17 Unknown [facility] Medications Current Medications Medication Drug Class(es) Dates Sig (Normalized) Sig (Original) fluticasone propionate 0.05 mg/actuat metered dose nasal spray (6 sources) Corticosteroid Start: 09-25-2023 End: 09-24-2024 take 1 spray(s) nasal route once daily fluticasone (Flonase) 50 MCG/ACT nasal spray Indications: Nasal congestion Administer 1 spray into each nostril Daily Shake gently. Before first use, prime pump. After use, clean tip and replace cap. 16 g 2 09/25/2023 09/24/2024 Active LORazepam 0.5 mg oral tablet (5 sources) Benzodiazepine Start: 04-30-2024 End: 05-10-2024 take 1 tablet by mouth every six hours as needed for anxiety and anxiety and anxiety LORazepam (Ativan) 0.5 MG tablet Indications: Anxiety Take 1 tablet (0.5 mg) by mouth every 6 (six) hours if needed for anxiety for up to 10 days 10 tablet 04/30/2024 Active Completed/Discontinued Medications Medication Drug Class(es) Dates Sig (Normalized) Sig (Original) meloxicam 15 mg oral tablet (1 source) Nonsteroidal Anti-inflammatory Drug Start: 05-14-2020 MOBIC 15 MG TABS one a day MELOXICAM [id number] Joey Rosario MD norethindrone 0.35 mg oral tablet (5 sources) Start: 01-14-2024 End: 01-13-2025 take 1 tablet by mouth once daily norethindrone (Micronor) 0.35 MG tablet Indications: Encounter for surveillance of contraceptive pills Take 1 tablet (0.35 mg) by mouth Daily 28 tablet 11 01/14/2024 05/06/2024 Discontinued (Therapy completed) 12 hr orphenadrine citrate 100 mg extended release oral tablet (1 source) Muscle Relaxant Start: 05-11-2020 ORPHENADRINE CITRATE ER 100 MG [id number]-LRT 1 tablet twice daily ORPHENADRINE CITRATE [id number] Zoe Savage LPN predniSONE 10 mg oral tablet (1 source) Start: 05-11-2020 PREDNISONE 10 MG TABS 4 tablets once daily PREDNISONE [id number] Zoe Savage LPN Problems Active Problems Problem Classification Problem Date Documented Date Episodic/Chronic Anxiety disorders (7 sources) Anxiety; Translations: [Anxiety disorder, unspecified] Onset: 09-25-2023 09-25-2023 Chronic Cardiac dysrhythmias (6 sources) Postural orthostatic tachycardia syndrome ; Translations: [Postural orthostatic tachycardia syndrome] Onset: 01-04-2023 09-25-2023 Chronic Esophageal disorders (6 sources) Gastroesophageal reflux disease; Translations: [Gastro-esophageal reflux disease without esophagitis] Onset: 09-25-2023 09-25-2023 Chronic Menstrual disorders (14 sources) Disorder of menstruation; Translations: [Irregular menstruation, unspecified] Onset: 09-25-2023 09-25-2023 Chronic Other acquired deformities (6 sources) Scoliosis deformity of spine; Translations: [Scoliosis, unspecified] Onset: 09-25-2023 09-25-2023 Chronic Other endocrine disorders (6 sources) Hypoglycemia; Translations: [Hypoglycemia, unspecified] Onset: 09-25-2023 09-25-2023 Chronic Past or Other Problems Problem Classification Problem Date Documented Da te Episodic/Chronic Diabetes or abnormal glucose tolerance complicating ; childbirth; or the puerperium (6 sources) Gestational diabetes mellitus; Translations: [Gestational diabetes mellitus in , unspecified control] Onset: 09-25-2023 09-25-2023 Episodic Other complications of (6 sources) Vomiting of , unspecified; Translations: [Unspecified vomiting of , unspecified as to episode of care or not applicable] Onset: 09-25-2023 09-25-2023 Episodic Other and delivery including normal (6 sources) Term ; Translations: [Encounter for supervision of normal , unspecified, unspecified trimester] Onset: 09-25-2023 09-25-2023 Episodic Spondylosis; intervertebral disc disorders; other back problems (19 sources) Low back pain; Translations: [Acute back pain with sciatica] Onset: 05-14-2020 05-14-2020 Episodic Tuberculosis (6 sources) Tuberculosis of vertebral column; Translations: [Tuberculosis of spine] Onset: 09-25-2023 09-25-2023 Episodic Unclassified (1 source) Problem Results Test Name Value Interpretation Reference Range Facility HCG ( test) Ql (U)o n 05-06-2024 Interpretation and review of laboratory results Normal [facility] Preg Test, Ur Negative Negative [facility] US OB < 14 WEEKS EARLYon US OB < 14 WEEKS EARLY EXAM: Pelvic Ultrasound, Transvaginal. REASON FOR EXAM: Dates. COMPARISON: None TECHNIQUE: High-resolution ultrasound is performed in the pelvis with color Doppler. FINDINGS: Transabdominal Imaging Not performed. Transvaginal Imaging: Endometrium is thickened at 1.2 cm. No intrauterine gestation is demonstrated. No gestational sac, pole, yolk sac or cardiac activity are present at this time. A cleft in the anterior myometrium relates to prior . Neither ovary is visualized. Measurements: Uterus: 8.6 x 5.2 x 4.3 cm EM: 1.2 cm Right Ovary: Not visualized Left Ovary: Not visualized Cervix: 3 cm IMPRESSION: No intrauterine gestation is demonstrated at this time. Recommend clinical follow-up and surveillance. If is clinically confirmed, repeat ultrasound in 1-2 weeks could be used to reassess. *This report is generated using voice recognition reporting (Deolan). On occasion [employer] erroneously drops words from the report or replaces the spoken word with similar sounding words. Please call with any questions/concerns regarding this report.* Dictated and transcribed 05/07/24/dpd This report has been electronically signed and approved by the interpreting radiologist. Normal Not Available XR Knee Complete Left*on XR Knee Complete Left* FINDINGS: Minimal patellofemoral joint space loss. No cortical or subchondral fracture. No suprapatellar effusion. IMPRESSION: 1. Minimal arthritis. 2. No cortical or subchondral fracture or effusion. Report reported and signed by Maksim Shukla on 03/30/2022 1345 Normal [facility] XR Knee Complete Right*on XR Knee Complete Right* FINDINGS: Minimal patellofemoral joint space loss. No cortical or subchondral fracture. No suprapatellar effusion IMPRESSION: 1. Minimal arthritis. 2. No cortical or subchondral fracture or effusion. Report reported and signed by Maksim Shukla on 03/30/2022 1346 Normal [facility] Complete Blood Counton 09-08 Erythrocyte distribution width (RBC) [Ratio] 11.7 % Normal 11.0-15.0 [facility] Comment on above: Performed By: #### E SR, CBC, RF, CMP #### [facility] [address], [place] [id number] Hematocrit (Bld) [Volume fraction] 43.8 % Normal 35.0-47.0 [facility] Comment on above: Performed By: #### E SR, CBC, RF, CMP #### [facility] [address], [place] [id number] Hemoglobin (Bld) [Mass/Vol] 14.3 g/dL Normal 11.6-15.5 [facility] Specialist Comment on above: Performed By: #### E SR, CBC, RF, CMP #### [facility] [address], [place] [id number] MCH (RBC) [Entitic mass] 30.3 pg Normal 27.0-33.0 [facility] Special[facility] Comment on above: Performed By: #### E SR, CBC, RF, CMP #### [facility] [address], [place] [id number] MCHC (RBC) [Mass/Vol] 32.6 g/dL Normal 32.0-36.0 [facility] Comment on above: Performed By: #### E SR, CBC, RF, CMP #### [facility] [address], [place] [id number] MCV (RBC) [Entitic vol] 93 fL Normal 80-100 [facility] Comment on above: Performed By: #### E SR, CBC, RF, CMP #### [facility] [address], [place] [id number] Platelet mean volume (Bld) [Entitic vol] 9.60 fL Normal 7.50-12.50 [facility] Comment on above: Performed By: #### E SR, CBC, RF, CMP #### [facility] [address], [place] [id number] Platelets (Bld) [#/Vol] 267 10*3/uL Normal 140-400 [facility] Comment on above: Performed By: #### E SR, CBC, RF, CMP #### [facility] [address], [place] [id number] RBC (Bld) [#/Vol] 4.72 10*6/uL Normal 3.90-5.20 [facility] Comment on above: Performed By: #### E SR, CBC, RF, CMP #### [facility] [address], [place] [id number] RDW-SD 40.3 fL Normal 37.0-50.0 [facility] Comment on above: Performed By: #### E SR, CBC, RF, CMP #### [facility] [address], [place] [id number] WBC (Bld) [#/Vol] 7.1 10*3/uL Normal 3.8-11.0 [facility] Comment on above: Performed By: #### E SR, CBC, RF, CMP #### [facility] [address], [place] [id number] Comprehensive Metabolic Pane amy 09-08-2021 Albumin [Mass/Vol] 5.0 g/dL Normal 3.6-5.1 [facility] Comment on above: Performed By: #### E SR, CBC, RF, CMP #### [facility] [address], [place] [id number] Albumin/Globulin [Mass ratio] 1.9 {ratio} Normal 1.0-2.5 [facility] Comment on above: Performed By: #### E SR, CBC, RF, CMP #### [facility] [address], [place] [id number] ALP [Catalytic activity/Vol] 91 U/L Normal 35-119 [facility] Comment on above: Performed By: #### E SR, CBC, RF, CMP #### [facility] [address], [place] [id number] ALT [Catalytic activity/Vol] 12 U/L Normal 6-33 [facility] Comment on above: Result Comment: 04/27 Female reference range changed. Performed By: #### E SR, CBC, RF, CMP #### [facility] [address], [place] [id number] Anion gap [Moles/Vol] 19 mmol/L Normal 12-20 [facility] Comment on above: Result Comment: Effe ctive 06/02/2019 reference range changed. Performed By: #### E SR, CBC, RF, CMP #### [facility] [address], [place] [id number] AST [Catalytic activity/Vol] 19 U/L Normal 9-34 [facility] Comment on above: Performed By: #### E SR, CBC, RF, CMP #### [facility] [address], [place] [id number] Bilirubin [Mass/Vol] 0.74 mg/dL Normal 0.30-1.20 [facility] Comment on above: Performed By: #### E SR, CBC, RF, CMP #### [facility] [address], [place] [id number] BUN/CREA 22 Ratio Normal 6-22 [facility] Comment on above: Performed By: #### E SR, CBC, RF, CMP #### [facility] [address], [place] [id number] Calcium [Mass/Vol] 9.7 mg/dL Normal 8.6-10.2 [facility] Comment on above: Performed By: #### E SR, CBC, RF, CMP #### [facility] [address], [place] [id number] Chloride [Moles/Vol] 104 mmol/L Normal 98-107 [facility] Comment on above: Performed By: #### E SR, CBC, RF, CMP #### [facility] [address], [place] [id number] CO2 [Moles/Vol] 22 mmol/L Normal 20-31 [facility] Comment on above: Performed By: #### E SR, CBC, RF, CMP #### [facility] [address], [place] [id number] Creatinine [Mass/Vol] 0.6 mg/dL Normal 0.6-1.4 [facility] Comment on above: Performed By: #### E SR, CBC, RF, CMP #### [facility] [address], [place] [id number] eGFRAA 156 mL/min/1.73m2 Normal >60 [facility] Specialist Comment on above: Performed By: #### E SR, CBC, RF, CMP #### [facility] [address], [place] [id number] eGFRNAA 129 mL/min/1.73m2 Normal >60 [facility] Specialist Comment on above: Performed By: #### E SR, CBC, RF, CMP #### [facility] [address], [place] [id number] Globulin (S) [Mass/Vol] 2.7 g/dL Normal 1.9-3.7 [facility] Comment on above: Performed By: #### E SR, CBC, RF, CMP #### [facility] [address], [place] [id number] Glucose [Mass/Vol] 79 mg/dL Normal 65-99 [facility] Comment on above: Result Comment: For FASTING Glucose --- ADA reference ranges: Normal 65-99 mg/dl Prediabetes 100-125 Diabetes >/= 126 Performed By: #### E SR, CBC, RF, CMP #### [facility] [address], [place] [id number] Potassium [Moles/Vol] 4.1 mmol/L Normal 3.5-5.5 [facility] Comment on above: Performed By: #### E SR, CBC, RF, CMP #### [facility] [address], [place] [id number] Protein [Mass/Vol] 7.7 g/dL Normal 6.1-8.1 [facility] Comment on above: Performed By: #### E SR, CBC, RF, CMP #### [facility] [address], [place] [id number] Sodium [Moles/Vol] 141 mmol/L Normal 135-146 [facility] Comment on above: Performed By: #### E SR, CBC, RF, CMP #### [facility] [address], [place] [id number] Urea nitrogen [Mass/Vol] 13 mg/dL Normal 7-25 [facility] Comment on above: Performed By: #### E SR, CBC, RF, CMP #### [facility] [address], [place] [id number] Q - LORRIE SCREEN IFA W/RFL TIT ER AND PATTERNon 09-08-2021 LORRIE SCREEN, IFA Negative Normal NEGATIVE [facility] Comment on above: Order Comment: [facility] performed at: [facility], [facility], [address] [place] [address], [address] [place] [address], [phone], [employer]: Kurt Cardona MD [facility] Date/Time: [id number] [facility] Results Received Date/Time: [id number] [facility] Reported Date/Time: Result Comment: LORRIE IFA is a first line screen for detecting the presence of up to approximately 150 autoantibodies in various autoimmune diseases. A negative LORRIE IFA result suggests an LORRIE-associated autoimmune disease is not present at this time, but is not definitive. If there is high clinical suspicion for Sjogren's syndrome, testing for anti-SS-A/Ro antibody should be considered. Anti-Lilia-1 antibody should be considered for clinically suspected inflammatory myopathies. AC-0: Negative International Consensus on LORRIE Patterns (https://doi.org/10.1515/zvhs-0040-6867) For additional information, please refer to http://education.Analytics Engines/faq/RPW819 (This link is being provided for informational/ educational purposes only.) Performed By: #### 2 49 #### [facility] [address] [place] [address] RBC Sedimentation Rateon ESR (Bld) [Velocity] 15.00 mm/h Normal 0.00-20.00 [facility] Special[facility] Comment on above: Performed By: #### E SR, CBC, RF, CMP #### [facility] [address] [place], [place] [id number] Rheumatoid Factoron 09-09-19 RF <10 Normal [facility] Special[facility] Comment on above: Performed By: #### E SR, CBC, RF, CMP #### [facility] [address] [place], [place] [id number] Q - THINPREP(R) TIS AND HPV MRNA E6/E7 RFL HPV 16/18/45on 06-13-2021 CLINICAL INFORMATION: None given Normal [facility] Comment on above: Order Comment: [facility] performed at: [email or web address], [address] [place] [address], [address] [place] [address], [phone], [place] [place] [employer]: Kurt Cardona MD [facility] Date/Time: [facility] Results Received Date/Time: [facility] Reported Date/Time: Performed By: #### 9 1414 #### [facility] [address] [place] [address] COMMENT SEE NOTE Normal [facility] Comment on above: Order Comment: [facility] performed at: [email or web address], [address] [place] [address], [address] [place] [address], [phone], [place] [place] [employer]: Kurt Cardona MD [facility] Date/Time: [facility] Received Date/Time: [facility] Reported Date/Time: Result Comment: EXPL ANATORY NOTE: The Pap is a screening test for cervical cancer. It is not a diagnostic test and is subject to false negative and false positive results. It is most reliable when a satisfactory sample, regularly obtained, is submitted with relevant clinical findings and history, and when the Pap result is evaluated along with historic and current clinical information. Performed By: #### 9 1414 #### [facility] [address] [place] [address] COMMENT: This Pap test has be en evaluated with computer assisted technology. Normal [facility] Comment on above: Order Comment: [facility] performed at: [facility], [address] [place] [address], [address] [place] [address], [address] [place] [address], [place] [place] [employer]: Kurt Cardona MD [facility] Date/Time: [facility] Received Date/Time: [facility] Reported Date/Time: Performed By: #### 9 1414 #### [facility] [address] [place] [address] SAND WHEELER: SEE NOTE Normal [facility] Specialist Comment on above: Order Comment: [facility] performed at: [facility], [address] [place] [address], [address] [place] [address], [address] [place] [address], [place] [place] [employer]: Kurt Cardona MD [facility] Date/Time: [facility] Results Received Date/Time: [facility] Reported Date/Time: Result Comment: DMK, CT(ASCP) CT screening location: [place] [address]. Performed By: #### 9 1414 #### [facility] [address] [place] [address] HPV mRNA E6/E7 Not detected Normal Not Detected [facility] Comment on above: Order Comment: [facility] performed at: [facility], [address] [place] [address], [address] [place] [address], [phone], [place]: Kurt Cardona MD [facility] Date/Time: [facility] Results Received Date/Time: [facility] Reported Date/Time: Result Comment: Meth odology: Job Site Superintendent-Mediated Amplification This assay detects E6/E7 viral messenger RNA (mRNA) from 14 high-risk HPV types (16,18,31,33,35,39,45,51,52,56,58,59,66,68). The analytical performance characteristics of this assay have been determined by [employer]. The modifications have not been cleared or approved by the FDA. This assay has been validated pursuant to the CLIA regulations and is used for clinical purposes. For additional information, please refer to http://education.Zomato/faq/WDX592c3 (This link if provided for information/ educational purposes only.) Performed By: #### 9 1414 #### [facility] [address] [place] [address] INTERPRETATION/RE SULT: Negative Normal [facility] Specialist Comment on above: Order Comment: [facility] performed at: [id number], [phone], [place] [employer]: Kurt Cardona MD [facility] Date/Time: [facility] Results Received Date/Time: [facility] Reported Date/Time: Performed By: #### 9 1414 #### [facility] [address] [place] [address] LMP: None given Normal [facility] Comment on above: Order Comment: [facility] performed at: [id number], [phone], [place] [place] [employer]: Kurt Cardona MD [facility] Date/Time: [facility] Results Received Date/Time: [facility] Reported Date/Time: Performed By: #### 9 1414 #### [facility] [address] [place] [address] PREV. BX: None given Normal [facility] Special[facility] Comment on above: Order Comment: [facility] performed at: [employer], [facility], [address] [place] [address], [address] [place] [address], [address] [place] [address], [place] [place] [employer]: Kurt Cardona MD [facility] Date/Time: [facility] Results Received Date/Time: [facility] Reported Date/Time: Performed By: #### 9 1414 #### [facility] [address] [place] [address] PREV. PAP: None given Normal [facility] Comment on above: Order Comment: [facility] performed at: [email or web address], [facility], [address] [place] [address], [address] [place] [address], [address] [place] [address], [place] [place] [employer]: Kurt Cardona MD [facility] Date/Time: [facility] Results Received Date/Time: [facility] Reported Date/Time: Performed By: #### 9 1414 #### [facility] [address] [place] [id number] SOURCE: None given Normal [facility] Comment on above: Order Comment: [facility] performed at: [facility], [facility], [address] [place] [address], [address] [place] [address], [address] [place] [address], [place] [place] [employer]: Kurt Cardona MD [facility] Date/Time: [facility] Results Received Date/Time: [facility] Reported Date/Time: Performed By: #### 9 1414 #### [facility] [address] [place] [address] STATEMENT OF ADEQUACY: SEE NOTE Normal [facility] Comment on above: Order Comment: [facility] performed at: [email or web address], [facility], [address] [place] [address], [address] [place] [address], [address] [place] [address], [place] [place] [employer]: Kurt Cardona MD [facility] Date/Time: [id number] [facility] Results Received Date/Time: [id number] [facility] Reported Date/Time: Result Comment: Sati sfactory for evaluation. Endocervical/transformation zone component present. Performed By: #### 9 1414 #### [facility] [address] [place] [address] Q - FSHon 05-12-2021 FSH 6.3 mIU/mL Normal [facility] Specialist Comment on above: Order Comment: [facility] performed at: [employer], [employer] [facility], [address] [place] [address], [address] [place] [address], [phone], [place] [place] [employer]: Kurt Cardona MD [facility] Date/Time: [facility] Results Received Date/Time: [facility] Reported Date/Time: FASTING: NO Result Comment: Refe rence Range Follicular Phase 2.5-10.2 Mid-cycle Peak 3.1-17.7 Luteal Phase 1.5- 9.1 Postmenopausal 23.0-116.3 Performed By: #### 2 [id number], [id number], [id number] #### [facility] [address] [place] [address] Q - LHon 05-12-2021 LH 2.6 mIU/mL Normal [facility] Comment on above: Order Comment: [facility] performed at: [employer] [facility], [address] [place] [address], [address] [place] [address], [phone], [place] [place] [employer]: Kurt Cardona MDQuest Collection Date/Time: [id number] Results Received Date/Time: [id number] Reported Date/Time: FASTING: NO Result Comment: Refe rence Range Follicular Phase 1.9-12.5 Mid-Cycle Peak 8.7-76.3 Luteal Phase 0.5-16.9 Postmenopausal 10.0-54.7 Performed By: #### E SR, CBC, RF, CMP #### [facility] [address] [place], [place] [id number] Q - TESTOSTERONE TOTAL LC/MS /MSon 05-12-2021 TESTOSTERONE, TOTAL, MS 20 ng/dL Normal 2-45 [facility] Comment on above: Order Comment: [facility] performed at: [facility], [facility], [address], [place], [place], , [place]: Damir Chavarria M.D.,PhDQuest Collection Date/Time: [id number] Results Received Date/Time: [id number] Reported Date/Time: [id number] FASTING: NO Result Comment: For additional information, please refer to http://education.Zomato/faq/ JtfmcOvfvqjzdaadlPZBZUKOPX585 (This link is being provided for informational/ educational purposes only.) This test was developed and its analytical performance characteristics have been determined by [employer] [place], [place]. It has not been cleared or approved by the U.S. Food and Drug Administration. This assay has been validated pursuant to the CLIA regulations and is used for clinical purposes. Performed By: #### E SR, CBC, RF, CMP #### [facility] [address] [place] [id number] TSH w/ Reflex to Free T4on 1 07-13-2020 TSH 0.644 uIU/mL Normal 0.400-4.500 [facility] [employer] Comment on above: Performed By: #### T SH reflex FT4 #### [facility] [address], [place] [id number] Clinical Summary: HMSPatient IDon 05-14-2020 OOP [facility] jean claude [facility] Work Phone: Clinical Summary: Scanned Hi story Summaryon 05-14-2020 adl form etoh alcohol performance beer, wine, liquor [facility] Work Phone: Beta HCG ( test) Ql (U) 1 time per year [facility] Work Phone: consumes three or more drinks of alcohol (beer, wine, liquor) daily or almost daily less than 1 drink per day Sandie huizar [facility] Work Phone: Data entered by patient, additional medical problems Tachycardia arrhythmia [facility] Work Phone: data entered by patient, alcohol (ethanol or ETOH) use Yes [facility] Work Phone: Data entered by patient, allergy list Sulfa drugs [facility] Work Phone: data entered by patient, drug (of abuse) use No [facility] Work Phone: data entered by patient, Employer Name employed [facility] Work Phone: data entered by patient, exercise history No [facility] Work Phone: data entered by patient, father's medical history ArthritisHigh blood pressureOsteoporosis [facility] Work Phone: Data entered by patient, history of past surgeries Wrist surgery [facility] Work Phone: Data entered by patient, medication list [id number] [facility] Work Phone: data entered by patient, mother's medical history Arthritis [facility] Work Phone: data entered by patient, past medical history ArthritisSeizuresStomach ulcers [facility] Work Phone: data entered by patient, 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, current smoker never smoker [facility] Work Phone: data entered by patient, 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, marital status single 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 Work Phone: father of patient is alive or Alive [facility] Work Phone: Housing Type: apartment, house, prison, trailer, none house [facility] Work Phone: housing unit size (asthma environmental history, housing) (from single family to don't know) [address] [facility] Work Phone: mother of patient is alive or Alive [facility] Work Phone: Number of dependent children No [facility] Work Phone: Office Visit: New - visi t with practice, Rm: 2305-14-2020 NEGATED: Highlighted rowMRI (magnetic resonance imaging) history of the Lumbar spine on 05/07/2020 at [facility] imaging [facility] Work Phone: Clinical Lists Update: Prelo ad Extendedon 05-11-2020 Tobacco smoking status NHIS Tobacco smoking status [facility] Work Phone: Clinical Summary: Scanned Hi story Summaryon 05-11-2020 adl form etoh alcohol performance beer, wine, liquor [facility] Work Phone: Beta HCG ( test) Ql (U) 1 time per year [facility] Work Phone: consumes three or more drinks of alcohol (beer, wine, liquor) daily or almost daily less than 1 drink per day Sandie [facility] Work Phone: Data entered by patient, additional medical problems Tachycardia arrhythmia [facility] Work Phone: data entered by patient, alcohol (ethanol or ETOH) use Yes [facility] Work Phone: Data entered by patient, allergy list Sulfa drugs [facility] Work Phone: data entered by patient, drug (of abuse) use No [facility] Work Phone: data entered by patient, Employer Name employed [facility] Work Phone: data entered by patient, exercise history No [facility] Work Phone: data entered by patient, father's medical history ArthritisHigh blood pressureOsteoporosis [facility] Work Phone: Data entered by patient, history of past surgeries Wrist surgery [facility] Work Phone: Data entered by patient, medication list [id number] [facility] Work Phone: data entered by patient, mother's medical history Arthritis [facility] Work Phone: data entered by patient, past medical history ArthritisSeizuresStomach ulcers [facility] Work Phone: data entered by patient, 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, current smoker never smoker [facility] Work Phone: data entered by patient, 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, marital status single 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 Work Phone: father of patient is alive or Alive [facility] Work Phone: Housing Type: apartment, house, prison, trailer, none house [facility] Work Phone: housing unit size (asthma environmental history, housing) (from single family to don't know) [address] [facility] Work Phone: mother of patient is alive or Alive [facility] Work Phone: Number of dependent children No [facility] Work Phone: adl form etoh alcohol performance beer, wine, liquor [facility] Work Phone: Beta HCG ( test) Ql (U) 1 time per year [facility] Work Phone: consumes three or more drinks of alcohol (beer, wine, liquor) daily or almost daily less than 1 drink per day Sandie [facility] Work Phone: Data entered by patient, additional medical problems Tachycardia arrhythmia [facility] Work Phone: data entered by patient, alcohol (ethanol or ETOH) use Yes [facility] Work Phone: Data entered by patient, allergy list Sulfa drugs [facility] Work Phone: data entered by patient, drug (of abuse) use No [facility] Work Phone: data entered by patient, Employer Name employed [facility] Work Phone: data entered by patient, exercise history No [facility] Work Phone: data entered by patient, father's medical history ArthritisHigh blood pressureOsteoporosis [facility] Work Phone: Data entered by patient, history of past surgeries Wrist surgery [facility] Work Phone: Data entered by patient, medication list [id number] [facility] Work Phone: data entered by patient, mother's medical history Arthritis [facility] Work Phone: data entered by patient, past medical history ArthritisSeizuresStomach ulcers [facility] Work Phone: data entered by patient, 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, current smoker never smoker 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 Work Phone: Housing Type: apartment, house, prison, trailer, none house [facility] Work Phone: housing unit size (asthma environmental history, housing) (from single family to don't know) 2 floors [facility] Work Phone: mother of patient is alive or Alive [facility] Work Phone: Number of dependent children No [facility] Work Phone: Vital Signs Date Time Vital Sign Value Performing Clinician Facility 05-06-2024 11:33-0500 Body mass index (BMI) [Ratio] 24.98 kg/m2 [facility] Work Phone: [facility] 05-06-2024 11:33-0500 Body weight 63.96 kg [facility] Work Phone: [facility] NEGATED: Highlighted [id number] 08:24-0500 BMI (Body Mass Index) 23.11 kg/m2 Natalia Ruiz [facility] Work Phone: NEGATED: Highlighted [id number] 08:24-0500 Body weight 58.97 kg Natalia Ruiz [facility] Work Phone: NEGATED: Highlighted [id number] 08:24-0500 Body weight 59 kg Natalia Ruiz COUNTY MANAGER [facility] Work Phone: NEGATED: Highlighted [id number] 08:24-0500 Height 160.02 cm Natalia Ruiz [facility] Work Phone: NEGATED: Highlighted [id number] 08:24-0500 Height 160 cm Natalia Ruiz LPN [facility] [place] [facility] Work Phone: Encounters Encounter Date Encounter Type Care Provider Facility Start: 06-05-2024 End: 06-05-2024 Telephone encounter Gris Valdes MD Work Phone: [facility] Start: 05-06-2024 End: 05-06-2024 Bamboo flowsheet Bryson L Floro CNM Work Phone: [facility] Start: 05-06-2024 End: 05-06-2024 Bamboo flowsheet Bryson L Floro CNM Work Phone: [facility] Start: 05-06-2024 End: 05-06-2024 ambulatory BRYSON L FLORO Not Available Start: 05-06-2024 End: 05-06-2024 Office outpatient visit 15 minutes Bryson L Floro CNM Work Phone: [facility] Comment on above: GA: [id number] Start: 05-06-2024 End: 05-06-2024 ambulatory BRYSON L FLORO Not Available Start: 04-30-2024 End: 04-30-2024 Telephone encounter Gris Valdes MD Work Phone: [facility] Comment on above: Anxiety (Primary Dx) Start: 09-25-2023 End: 09-25-2023 ambulatory GRIS VALDES Not Available Start: 05-23-2023 End: 05-23-2023 ambulatory BRYSON L FLORO Not Available Start: 05-14-2020 End: 05-14-2020 Patient encounter procedure Joey Rosario MD Work Phone: [facility] Work Phone: Start: 05-14-2020 End: 05-14-2020 Pt evaluation Joey Rosario MD Work Phone: [facility] Work Phone: Start: 05-10-2020 End: 05-10-2020 Patient encounter procedure External Provider [facility] Start: 05-10-2020 Results Only External Provider Exter nal-NonCCF Procedures Date Procedure Procedure Detail Performing Clinician Start: 05-06-2024 Urine test visual color cmprsn rob Larsen CNM Work Phone: Start: 05-14-2020 End: 05-14-2020 Blood pressure screening not performed - reason not given Joey Rosario MD Work Phone: Start: 05-14-2020 End: 05-14-2020 BMI documented within normal parameters - no follow-up plan is required Joey Rosario MD Work Phone: Start: 05-14-2020 End: 05-14-2020 Documentation of current medications Joey Rosario MD Work Phone: Start: 05-14-2020 End: 05-14-2020 Pain assessment documented as positive - follow-up documented Joey Rosario MD Work Phone: Start: 05-14-2020 End: 05-14-2020 Tobacco non-user Joey Rosario MD Work Phone: Start: 05-10-2020 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 al Provider NEGATED: Highlighted rowStart: 05-14-2020 End: 05-14-2020 Documentation of current medications Natalia Ruiz COUNTY MANAGER Plan of Treatment Date Care Activity Detail Author Start: 05-06-2024 End: 05-06-2025 US for [facility] Work Phone: Comment on above: Expected: 05/06/2024 , Expires: 05/06/2025 Start: 05-06-2024 End: 05-06-2024 ambulatory 05/06/2024 11:15 AM EST Initial [facility] [address] [place] [address] Bryson Larsen CNM [address] [place] [address] Arrived [facility] Comment on above: Arrived Start: 01-27-2024 Influenza vaccination Influenza Vacc ine (#1) [facility] Start: 05-14-2020 End: 05-14-2020 Appointment Appointment [facility] Work Phone: Patient Education Medications [facility] Work Phone: Payers Date Payer Category Payer Blue Cross Blue Shield [id number] 2019 Unknown [employer] PPO [id number] 2019-Present PPO [id number] 2019 Unknown [id number] 1998 Unknown [id number] 1998 Unknown [id number] 1998 Unknown [id number] 1998 Unknown [id number] Social History Date Type Detail Facility Tobacco smoking stat [facility] Unknown if ever smoked [facility] Start: 2000 Sex Assigned At Not on file [facility] Start: 05-14-2020 End: 05-14-2020 Assertion Unknown if ever smoked [facility] Work Phone: Start: 10-26-2022 Tobacco smoking status MOIS Never smoked tobacco [facility] Start: 10-26-2022 Tobacco use and exposure Smokeless tobacco non-user [facility] Start: 09-25-2023 End: 05-06-2024 Alcoholic beverage intake Lifetime non-drinker (finding) [facility] Start: 05-23-2023 End: 09-25-2023 History of Social function [facility] Start: 05-23-2023 End: 09-25-2023 Tobacco use panel [facility] The thought of merle quiroz myself has occurred to me Never [facility] Start: 11-27-2022 Alcohol Comment caffeine: none; drinks herbal teas [facility] Start: 2000 Sex assigned at Female [facility] Start: 09-15-2023 Gender identity Identifies as female gender (finding) [facility] Start: 09-15-2023 Sexual orientation Heterosexual (finding) [facility] Start: 02-28-2024 [facility] Telephone encounter Note 06-05-2024 Telephone Encounter - Kenya Argenis - 06/05/2024 4:31 PM EST Note Date & Type Note Facility 06-05-2024 Telephone encount er Note Hugo left at 4:27 Hi, this is Page Beechy. I needed a makeup appointment with Elicia Larsen. My phone number is [phone], thank you. [facility] Note 06-05-2024 Telephone Encounter - Kenya More - 06/05/2024 4:31 PM EST Note Date & Type Note Facility 06-05-2024 Miscellaneous Notes Formattin g of this note might be different from the original. Hugo left at 4:27 Hi, this is Page Beechy. I needed a makeup appointment with Elicia Larsen. My phone number is [phone], thank you. documented in this encounter [facility] History of Present illness Narrative 05-06-2024 Bryson Larsen CNM - 05/06/2024 11:15 AM EST Note Date & Type Note Facility 05-06-2024 History of Presen t illness Narrative Subjective Sloane Solis is a 24 y.o. at Unknown with a working estimated date of delivery of Not found. who presents for an initial visit. Patient Care Team: Gris Valdes MD as PCP - General (Family Medicine) OB History Para Term AB Living 2 1 1 1 1 SAB IAB Ectopic Multiple Live Births 1 1 # Outcome Date GA Lbr Jony/2nd Weight Sex Type Anes PTL Lv 2 Term 04/06/23 38w4d 6 lb 14 oz F CS-LTranv KARLA 1 SAB Her is complicated by: unsure of LMP Urine test in office is negative US done today in office today is negative for intrauterine Gynecology History Last Pap 06/13/21 The following portions of the chart were reviewed this encounter and updated as appropriate: @RULESMARTLINK([id number],TOBYESPROV)@@R ULESMARTLINK([id number],ALGYESPROV)@@RUL ESM ARTLINK([id number],MEDYESPROV)@@RULESMAR TLINK([id number],PROBYESPROV)@@RULESMART NICOLE K([id number],MHYESPROV)@@RULESMARTLINK([id number],SHYESPROV)@@RULESMARTLINK([id number], FHYESPROV)@@RULESMARTLINK([id number],SOH YESPROV)@ Review of Systems Negative Objective Physical Exam Expected Total Weight Gain: Could not be calculated Pregravid BMI: Could not be calculated Urine protein Urine glucose Labs Assessment/Plan Problem List Items Addressed This Visit Genitourinary Amenorrhea Relevant Orders POCT , urine (Completed) US OB less than 14 weeks early documented in this encounter [facility] Telephone encounter Note 04-30-2024 Telephone Encounter - Debbie Mahoney - 04/30/2024 9:52 AM EST Note Date & Type Note Facility 04-30-2024 Telephone encount er Note Pt said she is hoping to get her Lorazepam filled. She said it's been a couple years since it's been filled. I did let her know that she may have to be seen since it's been so long since she's been on it... and she hasn't been here in 8 months. :) But I told her that I will send this off to you and we can let her know what you decide. [facility] Note 04-30-2024 Telephone Encounter - Debbie Mahoney - 04/30/2024 9:52 AM EST Note Date & Type Note Facility 04-30-2024 Miscellaneous Notes Formattin g of this note might be different from the original. Pt said she is hoping to get her Lorazepam filled. She said it's been a couple years since it's been filled. I did let her know that she may have to be seen since it's been so long since she's been on it... and she hasn't been here in 8 months. :) But I told her that I will send this off to you and we can let her know what you decide. documented in this encounter [facility] Evaluation note Note Date & Type Note Facility Evaluation note Diagnosis Anxiety- Primary Anxiety state, unspecified documented in this encounter [facility] Evaluation note Note Date & Type Note Facility Evaluation note Diagnosis Amenorrhea Absence of menstruation documented in this encounter [facility] Chief Complaint Chief Complaint Description Start Date lower back pain Preliminary chief co mplaint data, not yet signed by the author as of Instructions Instruction Description Start Date Completed Advance Directives There may be information available, but it has not been provided by the sender. No Advanced Directives Records FoundNo Advanced Directives Records Found Assessments There may be information available, but it has not been provided by the sender. Review of System There may be information available, but it has not been provided by the sender. Family History There may be information available, but it has not been provided by the sender.No Family History Records FoundNo Family History Records Found History of Present Illness There may be information available, but it has not been provided by the sender. Summary Purpose Additional Source Comments Source Comments (unrecognize d section and content) In the event this informatio n is protected by the Federal Confidentiality of Alcohol and Drug Abuse Patient Records regulations: The Federal rules restrict any use of the information to criminally investigate or prosecute any alcohol or drug abuse patient.[facility] Reason for Visit (unrecogniz ed section and content) Reason For Visit Description New - 1st visit with practice Preliminary reason f or visit data, not yet signed by the author as of lower back pain INFORMATION SOURCE (unrecogn ized section and content) DATE CREATED AUTHOR 03/31/2022 [facility] dical Specialist DATE CREATED AUTHOR AUTHOR'S ORGANIZ ATION 05/12/2024 [facility] dical Specialists EPIC Care Teams (unrecognized sec tion and content) [employer] Manager Architect Relationship Specialty Start Date End Date Gris Valdes MD [address] [place] [address] PCP - General Family Medicine 10/26/22 [employer] Manager Architect Relationship Specialty Start Date End Date Gris Valdes MD [address] [place] [address] PCP - General Family Medicine 10/26/22 [employer] Manager Architect Relationship Specialty Start Date End Date Gris Valdes MD [address] [place] [address] PCP - General Family Medicine 10/26/22 FOR RECORDS PERTAINING TO PATIENTS WHO ARE OR HAVE BEEN ENROLLED IN A CHEMICAL DEPENDENCY/SUBSTANCEABUSE PROGRAM, SOME INFORMATION MAY BE OMITTED. This clinical summary was aggregated from multiple sources. Caution should be exercised in using it in the provision of clinical care. This summary normalizes information from multiple sources, and as a consequence, information in this document may materially change the coding, format and clinical context of patient data. In addition, data may be omitted in some cases. CLINICAL DECISIONS SHOULD BE BASED ON THE PRIMARY CLINICAL RECORDS. [facility] [employer] provides no warranty or guarantee of the accuracy or completeness of information in this document.
== END 2024-06-19 08:24 | disposition home or self-care (01) ==
PROVIDERS: PCP Family Medicine; Visit Provider Midwife
DX: Z32.01 Encounter for pregnancy test, result positive (principal); N91.2 Amenorrhea, unspecified; Z01.818 Encounter for other preprocedural examination; O02.1 Missed abortion
CPT/HCPCS: 76817; G0463

== ENCOUNTER 2024-06-19 14:27 | Outpatient (OUT) | payer OTHER, SELFPAY ==
--- NOTE | 2024-06-19 14:56 | PM.PRESUREVA ---
History of Present Illness History of Present Illness Chief complaint: missed AB Narrative: Mrs. Sloane Solis a 24 year old female presents to presurgical testing for diagnosis of missed AB. She had an in office ultrasound done which was negative for intrauterine she presents today for D&C with suction. Review of Systems ROS Narrative REVIEW OF SYSTEMS: Negative except as stated in HPI, ten or more systems reviewed. Constitutional: No fever, chills, weakness ENT: No sore throat or epistaxis Cardiovascular: No edema, chest pain, palpitations, or activity intolerance Respiratory: No shortness of breath, cough, or wheezing Musculoskeletal: No joint pain or swelling Gastrointestinal: No abdominal pain, constipation, diarrhea, or vomiting Genitourinary: No dysuria or hematuria Neurological: No numbness, tingling, weakness, or headache Psychiatric: No mood changes PFSH PFSH Medical History (Updated 06/19/24 @ 14:59 by Eun Cardozo) Seizure ?R56.9 - Unspecified convulsions (ICD-10) POTS (postural orthostatic tachycardia syndrome) ?G90.A - Postural orthostatic tachycardia syndrome [POTS] (ICD-10) Surgical History History of section ?Z98.891 - History of uterine scar from previous surgery (ICD-10) History of removal of cyst ?Z98.890 - Other specified postprocedural states (ICD-10) [place] teeth extracted ?K08.409 - Partial loss of teeth, unspecified cause, unspecified class (ICD-10) Family History (Updated 06/19/24 @ 14:43 by Eun Cardozo) Grandmother Family history of CHF (congestive heart failure) Family history of COPD (chronic obstructive pulmonary disease) Grandfather Family history of cancer Family history of CHF (congestive heart failure) Family history of COPD (chronic obstructive pulmonary disease) Other Family history of MS (multiple sclerosis) Family history of brain cancer Family history of hypertension Family history of myocardial infarction Family history of stroke Social History (Updated 06/19/24 @ 14:41 by Eun Cardozo) Within the past year, how often did you have a drink containing alcohol: monthly or less Within the past year, how many standard drinks containing alcohol did you have on a typical day: 1 or 2 Within the past year, how often did you have six or more drinks on one occasion: never Total score: 0 Score interpretation: A score less than 3 is consistent with normal alcohol consumption. Smoking status: Never smoker Non-prescribed substance use: denies use Previous occupational history: [employer] Highest level of school completed/degree received: Associate degree: academic program Are you now , , , , never or living with a partner: Little interest or pleasure in doing things: not at all Feeling down, depressed, or hopeless: not at all Feel stressed/tense/nervous/anxious/difficulty sleeping: not at all Do you think of yourself as: straight/heterosexual Gender Identity: female Meds Home Medications and Allergies Allergies Allergy/AdvReac Type Severity Reaction Status Date / Time Sulfa (Sulfonamide Allergy Severe Anaphylaxis Verified 06/19/24 14:40 Antibiotics) Exam Narrative Exam Narrative: Constitutional: Awake, alert, comfortable, well-appearing, nontoxic, interactive, vital signs as charted Head: Normocephalic, atraumatic Eyes: Conjunctiva and lids normal to inspection, pupils normal ENT: Tympanic membranes pearly echeverria, nonerythematous, noninjected, naris patent, posterior oropharynx clear, oral mucosa moist Neck: Supple, normal appearance, normal range of motion, no meningeal signs, no lymphadenopathy Respiratory: No respiratory distress, breath sounds clear Cardiovascular: Regular rate and rhythm, strong and regular heart tones Abdomen: Nontender, normal bowel sounds, soft, no CVA tenderness Musculoskeletal: Normal gait, no swelling or edema Skin: No rashes or induration, no lesions, only visible skin inspected Neuro: No neurological deficits, normal sensation Psychiatric: Oriented ?3, normal affect Assessment and Plan Assessment and Plan (1) Missed : Plan Mrs. Solis is scheduled for D&C with suction with Dr. Garcia on 06/20/2024 for the diagnosis of missed AB.
== END 2024-06-19 14:28 | disposition home or self-care (01) ==
LOC: PST 14:29
PROVIDERS: PCP Family Medicine; Visit Provider Obstetrics & Gynecology
DX: Z01.818 Encounter for other preprocedural examination (principal); O02.1 Missed abortion
CPT/HCPCS: G0463

== ENCOUNTER 2024-06-20 09:43 | Day surgery (SDC) | payer OTHER, SELFPAY ==
[2024-06-19 14:41] VITALS: PULSE 76; TEMP 36.4; O2SAT 100; BMI 24.4
--- OUTSIDE RECORDS SUMMARY | 2024-06-20 09:49 | XMS_ITS | CCD ---
Author Organization [facility] Inform ion Partnership [facility] Care Team Providers Care Escalator Installer Name Role Phone Unavailable Primary Care Provider Unavailag Rosario MD, Joey Hinojosa Unavailable [phone] Gris Valdes MD Primary Care Provider BRYSON LARSEN Attending Unavailable GRIS VALDES Attending Unavailable BRYSON LARSEN Attending Unavailable BRYSON LARSEN Referring Unavailable Allergies Allergy Classification Reported Allergen(s) Allergy Type Date of Onset Reaction(s) Facility (1 source) Sulfacetamide Drug Allergy 05-11-20 20 [facility] Work Phone: (6 sources) Sulfamethoxazole / Trimethoprim Drug Allergy 01-02-20 17 [facility] Healthcare (6 sources) Sulfonamides (Antibiotic) Drug Intolerance 01-02-20 17 Unknown [facility] Healthcare Medications Current Medications Medication Drug Class(es) [...] 15 MG TABS one a day MELOXICAM [id number] Joey Rosario MD norethindrone 0.35 mg oral [...] Start: 05-11-2020 ORPHENADRINE CITRATE ER 100 MG [id number] 1 tablet twice daily ORPHENADRINE CITRATE [id number] Zoe Savage LPN predniSONE 10 mg oral tablet (1 source) Start: 05-11-2020 PREDNISONE 10 MG TABS 4 tablets once daily PREDNISONE [id number] Zoe Savage LPN Problems Active Problems Problem [...] Interpretation and review of laboratory results Normal [facility] Preg Test, Ur Negative Negative [facility] US OB < 14 WEEKS EARLYon US [...] report is generated using voice recognition reporting ([employer]). On occasion [employer] erroneously drops words from the report or [...] by Maksim Shukla on 03/30/2022 1345 Normal [facility] XR Knee Complete Right*on XR Knee Complete Right* FINDINGS: Minimal patellofemoral joint space loss. No cortical or subchondral fracture. No suprapatellar effusion IMPRESSION: 1. Minimal arthritis. 2. No cortical or subchondral fracture or effusion. Report reported and signed by Maksim Shukla on 03/30/2022 1346 Normal [facility] Complete Blood Counton 09-08 Erythrocyte distribution width (RBC) [Ratio] 11.7 % Normal 11.0-15.0 [facility] Comment on above: Performed By: #### E SR, CBC, RF, CMP #### [facility] [address], [place] [id number] Hematocrit (Bld) [Volume fraction] 43.8 % Normal 35.0-47.0 [facility] Comment on above: Performed By: #### E SR, CBC, RF, CMP #### [facility] [address], [place] [id number] Hemoglobin (Bld) [Mass/Vol] 14.3 g/dL Normal 11.6-15.5 [facility] Comment on above: Performed By: #### E SR, CBC, RF, CMP #### [facility] [address], [place] [id number] MCH (RBC) [Entitic mass] 30.3 pg Normal 27.0-33.0 [facility] Comment on above: Performed By: #### E SR, CBC, RF, CMP #### [facility] [address], [place] [id number] MCHC (RBC) [Mass/Vol] 32.6 g/dL Normal 32.0-36.0 [facility] Comment on above: Performed By: #### E SR, CBC, RF, CMP #### [facility] [address], [place] [id number] MCV (RBC) [Entitic vol] 93 fL Normal 80-100 [facility] Comment on above: Performed By: #### E SR, CBC, RF, CMP #### [facility] [address], [place] [id number] Platelet mean volume (Bld) [Entitic vol] 9.60 fL Normal 7.50-12.50 [facility] Comment on above: Performed By: #### E SR, CBC, RF, CMP #### [facility] [address], [place] [id number] Platelets (Bld) [#/Vol] 267 10*3/uL Normal 140-400 [facility] Comment on above: Performed By: #### E SR, CBC, RF, CMP #### [facility] [address], [place] [id number] RBC (Bld) [#/Vol] 4.72 10*6/uL Normal 3.90-5.20 [facility] Comment on above: Performed By: #### E SR, CBC, RF, CMP #### [facility] [address], [place] [id number] RDW-SD 40.3 fL Normal 37.0-50.0 [facility] Comment on above: Performed By: #### E SR, CBC, RF, CMP #### [facility] [address], [place] [id number] WBC (Bld) [#/Vol] 7.1 10*3/uL Normal 3.8-11.0 [facility] Comment on above: Performed By: #### E SR, CBC, RF, CMP #### [facility] [address], [place] [id number] Comprehensive Metabolic Pane amy 09-08-2021 Albumin [Mass/Vol] 5.0 g/dL Normal 3.6-5.1 [facility] Comment on above: Performed By: #### E SR, CBC, RF, CMP #### [facility] [address], [place] [id number] Albumin/Globulin [Mass ratio] 1.9 {ratio} Normal 1.0-2.5 [facility] Comment on above: Performed By: #### E SR, CBC, RF, CMP #### [facility] [address], [place] [id number] ALP [Catalytic activity/Vol] 91 U/L Normal 35-119 [facility] Comment on above: Performed By: #### E SR, CBC, RF, CMP #### [facility] [address], [place] [id number] ALT [Catalytic activity/Vol] 12 U/L Normal 6-33 [facility] Comment on above: Result Comment: 04/27 Female reference range changed. Performed By: #### E SR, CBC, RF, CMP #### [facility] [address], [place] [id number] Anion gap [Moles/Vol] 19 mmol/L Normal 12-20 [facility] Comment on above: Result Comment: Effe ctive 06/02/2019 reference range changed. Performed By: #### E SR, CBC, RF, CMP #### [facility] [address], [place] [id number] AST [Catalytic activity/Vol] 19 U/L Normal 9-34 [facility] Comment on above: Performed By: #### E SR, CBC, RF, CMP #### [facility] [address], [place] [id number] Bilirubin [Mass/Vol] 0.74 mg/dL Normal 0.30-1.20 [facility] Comment on above: Performed By: #### E SR, CBC, RF, CMP #### [facility] [address], [place] [id number] BUN/CREA 22 Ratio Normal 6-22 [facility] Comment on above: Performed By: #### E SR, CBC, RF, CMP #### [facility] [address], [place] [id number] Calcium [Mass/Vol] 9.7 mg/dL Normal 8.6-10.2 [facility] Comment on above: Performed By: #### E SR, CBC, RF, CMP #### [facility] [address], [place] [id number] Chloride [Moles/Vol] 104 mmol/L Normal 98-107 [facility] Comment on above: Performed By: #### E SR, CBC, RF, CMP #### [facility] [address], [place] [id number] CO2 [Moles/Vol] 22 mmol/L Normal 20-31 [facility] Comment on above: Performed By: #### E SR, CBC, RF, CMP #### [facility] [address], [place] [id number] Creatinine [Mass/Vol] 0.6 mg/dL Normal 0.6-1.4 [facility] Comment on above: Performed By: #### E SR, CBC, RF, CMP #### [facility] [address], [place] [id number] eGFRAA 156 mL/min/1.73m2 Normal >60 [facility] Comment on above: Performed By: #### E SR, CBC, RF, CMP #### [facility] [address], [place] [id number] eGFRNAA 129 mL/min/1.73m2 Normal >60 [facility] Comment on above: Performed By: #### E SR, CBC, RF, CMP #### [facility] [address], [place] [id number] Globulin (S) [Mass/Vol] 2.7 g/dL Normal 1.9-3.7 [facility] Comment on above: Performed By: #### E SR, CBC, RF, CMP #### [facility] [address], [place] [id number] Glucose [Mass/Vol] 79 mg/dL Normal 65-99 [facility] Comment on above: Result Comment: For FASTING Glucose --- ADA reference ranges: Normal 65-99 mg/dl Prediabetes 100-125 Diabetes >/= 126 Performed By: #### E SR, CBC, RF, CMP #### [facility] [address], [place] [id number] Potassium [Moles/Vol] 4.1 mmol/L Normal 3.5-5.5 [facility] Comment on above: Performed By: #### E SR, CBC, RF, CMP #### [facility] [address], [place] [id number] Protein [Mass/Vol] 7.7 g/dL Normal 6.1-8.1 [facility] Comment on above: Performed By: #### E SR, CBC, RF, CMP #### [facility] [address], [place] [id number] Sodium [Moles/Vol] 141 mmol/L Normal 135-146 [facility] Comment on above: Performed By: #### E SR, CBC, RF, CMP #### [facility] [address], [place] [id number] Urea nitrogen [Mass/Vol] 13 mg/dL Normal 7-25 [facility] Comment on above: Performed By: #### E SR, CBC, RF, CMP #### [facility] [address], [place] [id number] Q - LORRIE SCREEN IFA W/RFL TIT ER AND PATTERNon 09-08-2021 LORRIE SCREEN, IFA Negative Normal NEGATIVE [facility] Comment on above: Order Comment: [facility] performed at: [facility], [facility], [address] [place] [address], [address] [place] [address], [phone], Gamma Operator: Kurt Cardona MD [facility] Collection Date/Time: [id number] [facility] Results Received Date/Time: [id number] [facility] Reported Date/Time: Result Comment: LORRIE IFA [...] AC-0: Negative International Consensus on LORRIE Patterns (https://doi.org/10.1515/wrns-7286-6920) For additional information, please refer to http://education.Navdy/faq/LUX671 (This link is being provided for informational/ educational purposes only.) Performed By: #### 2 49 #### [facility] [address] [place] [address] RBC Sedimentation Rateon ESR (Bld) [Velocity] 15.00 mm/h Normal 0.00-20.00 [facility] Comment on above: Performed By: #### E SR, CBC, RF, CMP #### [facility] [address] [place], [place] [id number] Rheumatoid Factoron 09-09-19 RF <10 Normal [facility] Comment on above: Performed By: #### E SR, CBC, RF, CMP #### [facility] [address] [place], [place] [id number] Q - THINPREP(R) TIS AND HPV MRNA E6/E7 RFL HPV 16/18/45on 06-13-2021 CLINICAL INFORMATION: None given Normal [facility] Comment on above: Order Comment: [facility] performed at: [facility], [address] [place] [address], [address] [place] [address], [phone], Gamma Operator: Kurt Cardona MD [facility] Date/Time: [facility] Results Received Date/Time: [facility] Reported Date/Time: Performed By: #### 9 1414 #### [facility] [address] [place] [address] COMMENT SEE NOTE Normal [facility] Comment on above: Order Comment: [facility] performed at: [facility], [address] [place] [address], [address] [place] [address], [phone], Gamma Operator: Kurt Cardona MD [facility] Date/Time: [facility] [...] 9 1414 #### [facility] [address] [place] [address] COMMENT: This Pap test has be en evaluated with computer assisted technology. Normal [facility] Comment on above: Order Comment: [facility] performed at: [facility], [address] [place] [address], [address] [place] [address], [address] [place] [address], Gamma Operator: Kurt Cardona MD [facility] Date/Time: [facility] Results Received Date/Time: [facility] Reported Date/Time: Performed By: #### 9 1414 #### [facility] [address] [place] [address] NEEDLE GRINDER: SEE NOTE Normal [facility] Comment on above: Order Comment: [facility] performed at: [facility], [address] [place] [address], [address] [place] [address], [address] [place] [address], Gamma Operator: Kurt Cardona MD [facility] Date/Time: [facility] Results Received Date/Time: [facility] Reported Date/Time: Result Comment: DMK, CT(ASCP) CT screening location: [facility] [place] [address]. Performed By: #### 9 1414 #### [facility] [address] [place] [address] HPV mRNA E6/E7 Not detected Normal Not Detected [facility] Comment on above: Order Comment: [facility] performed at: [facility], [address] [place] [address], [address] [place] [address], [phone], Gamma Operator: Kurt Cardona MD [facility] Date/Time: [facility] Results Received Date/Time: [facility] Reported Date/Time: Result Comment: Meth odology: Superintendent Recreation-Mediated Amplification This assay detects E6/E7 viral messenger RNA (mRNA) from 14 high-risk HPV types (16,18,31,33,35,39,45,51,52,56,58,59,66,68). The analytical performance characteristics of this assay have been determined by [facility]. The modifications have not been cleared or approved by the FDA. This assay has been validated pursuant to the CLIA regulations and is used for clinical purposes. For additional information, please refer to http://education.Omaha/faq/RUM682j6 (This link if provided for information/ educational purposes only.) Performed By: #### 9 1414 #### [facility] [address] [place] [address] INTERPRETATION/RE SULT: Negative Normal [facility] Comment on above: Order Comment: [facility] performed at: [facility], [phone], Gamma Operator: Kurt Cardona MD [facility] Date/Time: [facility] Results Received Date/Time: [facility] Reported Date/Time: Performed By: #### 9 1414 #### [facility] [address] [place] [address] LMP: None given Normal [facility] Comment on above: Order Comment: [facility] performed at: [facility], [phone], Gamma Operator: Kurt Cardona MD [facility] Date/Time: [facility] Results Received Date/Time: [facility] Reported Date/Time: Performed By: #### 9 1414 #### [facility] [address] [place] [address] PREV. BX: None given Normal [facility] Comment on above: Order Comment: [facility] performed at: [facility], [facility], [address] [place] [address], [address] [place] [address], [address] [place] [address], Gamma Operator: Kurt Cardona MD [facility] Collection Date/Time: [facility] Results Received Date/Time: [facility] Reported Date/Time: Performed By: #### 9 1414 #### [facility] [address] [place] [address] PREV. PAP: None given Normal [facility] Comment on above: Order Comment: [facility] performed at: [facility], [facility], [address] [place] [address], [address] [place] [address], [address] [place] [address], Gamma Operator: Kurt Cardona MD [facility] Date/Time: [facility] Results Received Date/Time: [facility] Reported Date/Time: Performed By: #### 9 1414 #### [facility] [address] [place] [id number] SOURCE: None given Normal [facility] Comment on above: Order Comment: [facility] performed at: [facility], [facility], [address] [place] [address], [address] [place] [address], [address] [place] [address], Gamma Operator: Kurt Cardona MD [facility] Date/Time: [facility] Results Received Date/Time: [facility] Reported Date/Time: Performed By: #### 9 1414 #### [facility] [address] [place] [address] STATEMENT OF ADEQUACY: SEE NOTE Normal [facility] Comment on above: Order Comment: [facility] performed at: [facility], [facility], [address] [place] [address], [address] [place] [address], [address] [place] [address], Gamma Operator: Kurt Cardona MD [facility] Collection Date/Time: [id number] [facility] Results Received Date/Time: [id number] [facility] Reported Date/Time: Result Comment: Sati sfactory for evaluation. Endocervical/transformation zone component present. Performed By: #### 9 1414 #### [facility] [address] [place] [address] Q - FSHon 05-12-2021 FSH 6.3 mIU/mL Normal [facility] Comment on above: Order Comment: [facility] performed at: [employer], [facility], [address] [place] [address], [address] [place] [address], [phone], Gamma Operator: Kurt Cardona MD [facility] Date/Time: [facility] Results Received Date/Time: [facility] Reported Date/Time: FASTING: NO Result Comment: Refe rence Range Follicular Phase 2.5-10.2 Mid-cycle Peak 3.1-17.7 Luteal Phase 1.5- 9.1 Postmenopausal 23.0-116.3 Performed By: #### 2 [id number], 40214H, 52409Y #### [facility] [address] [place] [address] Q - LHon 05-12-2021 LH 2.6 mIU/mL Normal [facility] Comment on above: Order Comment: [facility] performed at: [address] [facility], [address] [place] [address], [address] [place] [address], [phone], Gamma Operator: Kurt Cardona MDQuest Collection Date/Time: [id number] Results Received Date/Time: [id number] Reported Date/Time: FASTING: NO Result Comment: Refe rence Range Follicular Phase 1.9-12.5 Mid-Cycle Peak 8.7-76.3 Luteal Phase 0.5-16.9 Postmenopausal 10.0-54.7 Performed By: #### E SR, CBC, RF, CMP #### [facility] [address] [place], [place] [id number] Q - TESTOSTERONE TOTAL LC/MS /MSon 05-12-2021 TESTOSTERONE, TOTAL, MS 20 ng/dL Normal 2-45 [facility] Comment on above: Order Comment: [facility] performed at: [facility], [facility], [address], [place], [place], , Gamma Operator: Damir Chavarria M.D.,PhDQuest Collection Date/Time: [id number] Results Received Date/Time: [id number] Reported Date/Time: [id number] FASTING: NO Result Comment: For additional information, please refer to http://education.[place]maha/faq/ HgxzbTulatzqfrfoyJPDGAIKIZ895 (This link is being provided for informational/ educational purposes only.) This test was developed and its analytical performance characteristics have been determined by [facility] [place], [place]. It has not been cleared or approved by the U.S. Food and Drug Administration. This assay has been validated pursuant to the CLIA regulations and is used for clinical purposes. Performed By: #### E SR, CBC, RF, CMP #### [facility] [address], [place] [id number] TSH w/ Reflex to Free T4on 1 07-13-2020 TSH 0.644 uIU/mL Normal 0.400-4.500 [facility] Comment on above: Performed By: #### T SH reflex FT4 #### [facility] [address], [place] [id number] Clinical Summary: HMSPatient IDon 05-14-2020 OOP [facility] jean claude [facility] Work Phone: Clinical Summary: Scanned Hi story Summaryon 05-14-2020 adl form etoh alcohol performance beer, wine, liquor [facility] Work Phone: Beta HCG ( test) Ql (U) 1 time per year [facility] Work Phone: consumes three or more drinks of alcohol (beer, wine, liquor) daily or almost daily less than 1 drink per day Sandie huizar [facility] Work Phone: Data entered by patient, additional medical problems Tachycardia arrhythmia [facility] Work Phone: data entered by patient, alcohol (ethanol or ETOH) use Yes [facility] Work Phone: Data entered by patient, allergy list Sulfa drugs [facility] Work Phone: data entered by patient, drug (of abuse) use No [facility] Work Phone: data entered by patient, Employer Name employed [facility] Work Phone: data entered by patient, exercise history No [facility] Work Phone: data entered by patient, father's medical history ArthritisHigh blood pressureOsteoporosis [facility] Work Phone: Data entered by patient, history of past surgeries Wrist surgery [facility] Work Phone: Data entered by patient, medication list [id number] [facility] Work Phone: data entered by patient, mother's medical history Arthritis [facility] Work Phone: data entered by patient, past medical history ArthritisSeizuresStomach ulcers [facility] Work Phone: data entered by patient, 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, current smoker never smoker [facility] Work Phone: data entered by patient, 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, marital status single [facility] Work Phone: data entered by patient, 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 Work Phone: housing unit size (asthma environmental history, housing) (from single family to don't know) 2 floors [facility] Work Phone: mother of patient is alive or Alive [facility] Work Phone: Number of dependent children No [facility] Work Phone: Office Visit: New - visi t with practice, Rm: [id number] NEGATED: Highlighted rowMRI (magnetic resonance imaging) history of the Lumbar spine on 05/07/2020 at [facility] imaging [facility] Work Phone: Clinical Lists Update: Prelo ad Extendedon 05-11-2020 Tobacco smoking status NHIS Tobacco smoking status [facility] Work Phone: Clinical Summary: Scanned Hi story Summaryon 05-11-2020 adl form etoh alcohol performance beer, wine, liquor [facility] Work Phone: Beta HCG ( test) Ql (U) 1 time per year [facility] Work Phone: consumes three or more drinks of alcohol (beer, wine, liquor) daily or almost daily less than 1 drink per day Sandie [facility] Work Phone: Data entered by patient, additional medical problems Tachycardia arrhythmia [facility] Work Phone: data entered by patient, alcohol (ethanol or ETOH) use Yes [facility] Work Phone: Data entered by patient, allergy list Sulfa drugs [facility] Work Phone: data entered by patient, drug (of abuse) use No [facility] Work Phone: data entered by patient, Employer Name employed [facility] Work Phone: data entered by patient, exercise history No [facility] Work Phone: data entered by patient, father's medical history ArthritisHigh blood pressureOsteoporosis [facility] Work Phone: Data entered by patient, history of past surgeries Wrist surgery [facility] Work Phone: Data entered by patient, medication list [id number] [facility] Work Phone: data entered by patient, mother's medical history Arthritis [facility] Work Phone: data entered by patient, past medical history ArthritisSeizuresStomach ulcers [facility] Work Phone: data entered by patient, 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, current smoker never smoker [facility] Work Phone: data entered by patient, 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, marital status single [facility] Work Phone: data entered by patient, 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, 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 [facility] Work Phone: father of patient is alive or Alive [facility] Work Phone: Housing Type: apartment, house, retirement, trailer, none house [facility] Work Phone: housing unit size (asthma environmental history, housing) (from single family to don't know) 2 floors [facility] Work Phone: mother of patient is alive or Alive [facility] Work Phone: Number of dependent children No [facility] Work Phone: adl form etoh alcohol performance beer, wine, liquor [facility] Work Phone: Beta HCG ( test) Ql (U) 1 time per year [facility] Work Phone: consumes three or more drinks of alcohol (beer, wine, liquor) daily or almost daily less than 1 drink per day Sandie [facility] Work Phone: Data entered by patient, additional medical problems Tachycardia arrhythmia [facility] Work Phone: data entered by patient, alcohol (ethanol or ETOH) use Yes [facility] Work Phone: Data entered by patient, allergy list Sulfa drugs [facility] Work Phone: data entered by patient, drug (of abuse) use No [facility] Work Phone: data entered by patient, Employer Name employed [facility] Work Phone: data entered by patient, exercise history No [facility] Work Phone: data entered by patient, father's medical history ArthritisHigh blood pressureOsteoporosis [facility] Work Phone: Data entered by patient, history of past surgeries Wrist surgery [facility] Work Phone: Data entered by patient, medication list [id number] [facility] Work Phone: data entered by patient, mother's medical history Arthritis [facility] Work Phone: data entered by patient, past medical history ArthritisSeizuresStomach ulcers [facility] Work Phone: data entered by patient, 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, current smoker never smoker [facility] Work Phone: data entered by patient, 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, marital status single [facility] Work Phone: data entered by patient, 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, 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 [facility] Work Phone: father of patient is alive or Alive [facility] Work Phone: Housing Type: apartment, house, retirement, trailer, none house [facility] Work Phone: housing unit size (asthma environmental history, housing) (from single family to don't know) 2 floors [facility] Work Phone: mother of patient is alive or Alive [facility] Work Phone: Number of dependent children No [facility] Work Phone: Vital Signs Date Time Vital Sign Value Performing Clinician Facility 05-06-2024 11:33-0500 Body mass index (BMI) [Ratio] 24.98 kg/m2 [facility] Work Phone: [facility] 05-06-2024 11:33-0500 Body weight 63.96 kg [facility] Work Phone: [facility] NEGATED: Highlighted [id number] 08:24-0500 BMI (Body Mass Index) 23.11 kg/m2 Natalia Ruiz [facility] Work Phone: NEGATED: Highlighted [id number] 08:24-0500 Body weight 58.97 kg Natalia Ruiz [facility] Work Phone: NEGATED: Highlighted [id number] 08:24-0500 Body weight 59 kg 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 [facility] Work Phone: NEGATED: Highlighted [id number] 08:24-0500 Height 160.02 cm Natalia Ruiz [facility] Work Phone: NEGATED: Highlighted [id number] 08:24-0500 Height 160 cm Natalia Ruiz LPN [facility] Work Phone: Encounters [...] encounter procedure Joey Rosario MD Work Phone: [facility] Work Phone: Start: 05-14-2020 End: 05-14-2020 Pt evaluation Joey Rosario MD Work Phone: [facility] Work Phone: Start: 05-10-2020 End: 05-10-2020 Patient encounter procedure External Provider [facility] Start: 05-10-2020 Results Only External Provider Exter [...] MD Work Phone: Start: 05-10-2020 EXTERNAL IMAGING Access Liaison al Provider NEGATED: Highlighted rowStart: 05-14-2020 End: 05-14-2020 Documentation of current medications 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 Plan of Treatment Date Care Activity Detail Author Start: 05-06-2024 End: 05-06-2025 US for [facility] Work Phone: Comment on above: Expected: 05/06/2024 , Expires: 05/06/2025 Start: 05-06-2024 End: 05-06-2024 ambulatory 05/06/2024 11:15 AM EST Initial [facility] [address] [place] [address] Bryson Larsen CNM [address] [place] [address] Arrived [facility] Comment on above: Arrived Start: 01-27-2024 Influenza vaccination Influenza Vacc ine (#1) [facility] Start: 05-14-2020 End: 05-14-2020 Appointment Appointment [facility] Work Phone: Patient Education Medications [facility] Work Phone: Payers Date Payer Category Payer Blue [employer] Blue Shield [id number] 2019 Unknown [employer] PPO [id number] 2019-Present PPO [id number] 2019 Unknown [id number] 1998 Unknown [id number] 1998 Unknown [id number] 1998 Unknown [id number] 1998 Unknown [id number] Social History Date Type Detail Facility Tobacco smoking stat [facility] Unknown if ever smoked [facility] Start: 2000 Sex Assigned At Not on file [facility] Start: 05-14-2020 End: 05-14-2020 Assertion Unknown if ever smoked [facility] Work Phone: Start: 10-26-2022 Tobacco smoking status SDIS Never smoked tobacco [facility] Start: 10-26-2022 Tobacco use and exposure Smokeless tobacco non-user [facility] Start: 09-25-2023 End: 05-06-2024 Alcoholic beverage intake Lifetime non-drinker (finding) [facility] Start: 05-23-2023 End: 09-25-2023 History of Social function [facility] Start: 05-23-2023 End: 09-25-2023 Tobacco use panel [facility] The thought of merle quiroz myself has occurred to me Never [facility] Start: 11-27-2022 Alcohol Comment caffeine: none; drinks herbal teas [facility] Start: 2000 Sex assigned at Female [...] with Elicia Larsen. My phone number is [phone], thank you. [facility] Note 06-05-2024 Telephone Encounter - Kenya More - 06/05/2024 4:31 PM EST Note Date & Type Note Facility 06-05-2024 Miscellaneous Notes Formattin g of this note might be different from the original. Hugo left at 4:27 Hi, this is Page Beechy. I needed a makeup appointment with Elicia Larsen. My phone number is [phone], thank you. documented in this encounter [facility] History of Present illness Narrative 05-06-2024 Bryson [...] reviewed this encounter and updated as appropriate: @RULESMARTLINK([id number],TOBYESPROV)@@R ULESMARTLINK([id number],ALGYESPROV)@@RUL ESM ARTLINK([id number],MEDYESPROV)@@RULESMAR TLINK([id number],PROBYESPROV)@@RULESMART NICOLE K([id number],MHYESPROV)@@RULESMARTLINK([id number],SHYESPROV)@@RULESMARTLINK([id number], FHYESPROV)@@RULESMARTLINK([id number],SOH YESPROV)@ Review of Systems Negative Objective Physical Exam Expected Total Weight Gain: Could not be calculated Pregravid BMI: Could not be calculated Urine protein Urine glucose Labs Assessment/Plan Problem List Items Addressed This Visit Genitourinary Amenorrhea Relevant Orders POCT , urine (Completed) US OB less than 14 weeks early documented in this encounter [facility] Telephone encounter Note 04-30-2024 Telephone Encounter [...] can let her know what you decide. [facility] Note 04-30-2024 Telephone Encounter - Debbie [...] what you decide. documented in this encounter [facility] Evaluation note Note Date & Type Note Facility Evaluation note Diagnosis Anxiety- Primary Anxiety state, unspecified documented in this encounter [facility] Evaluation note Note Date & Type Note Facility Evaluation note Diagnosis Amenorrhea Absence of menstruation documented in this encounter [facility] Chief Complaint Chief Complaint Description Start [...] or prosecute any alcohol or drug abuse patient.[facility] Reason for Visit (unrecogniz ed section and content) Reason For Visit Description New - 1st visit with practice Preliminary reason f or visit data, not yet signed by the author as of lower back pain INFORMATION SOURCE (unrecogn ized section and content) DATE CREATED AUTHOR 03/31/2022 [facility] DATE CREATED AUTHOR AUTHOR'S ORGANIZ ATION 05/12/2024 [facility] EPIC Care Teams (unrecognized sec tion and content) Escalator Installer Relationship Specialty Start Date End Date Gris Valdes MD [address] [place] [address] PCP - General Family Medicine 10/26/22 Escalator Installer Relationship Specialty Start Date End Date Gris Valdes MD [address] [place] [address] PCP - General Family Medicine 10/26/22 Escalator Installer Relationship Specialty Start Date End Date Gris Valdes MD [address] [place] [address] PCP - General Family Medicine 10/26/22 FOR [...] BE BASED ON THE PRIMARY CLINICAL RECORDS. [facility] [employer] provides no warranty or guarantee of the accuracy or completeness of information in this document.
[2024-06-20 09:59] LABS: Basophils Percent Auto 0.3 % (0.2-2.0); Eosinophils Percent Auto 0.6 % (0.9-7.0); Hematocrit 42.7 % (36.0-48.0); Hemoglobin 14.3 g/dL (12.0-16.0); Immature Granulocytes Abs Auto 0.01 10^3/uL (0.00-0.03); Immature Granulocytes Pct Auto 0.1 % (0.0-0.5); Lymphocytes Absolute Auto 2.3 10^3/uL (1.2-3.8); Lymphocytes Percent Auto 32.6 % (20.5-60.0); Mean Corpuscular HGB Conc 33.5 g/dL (29.9-35.2); Mean Corpuscular Hemoglobin 30.4 pg (26.7-34.0); Mean Corpuscular Volume 90.9 fL (81.0-99.0); Monocytes Absolute Auto 0.5 10^3/uL (0.3-0.8); Monocytes Percent Auto 6.8 % (1.7-12.0); Neutrophils Absolute Auto 4.2 10^3/uL (1.4-6.5); Neutrophils Percent Auto 59.6 % (43.0-75.0); Platelet Count 291 10^3/uL (150-450); Red Cell Distribution Width 12.1 % (11.0-15.0)
[2024-06-20 10:32] VITALS: BP 128/69; PULSE 77; TEMP 36.3; O2SAT 99; BMI 24.4
[2024-06-20 10:42] LABS: HCG Quantitative 26100 mIU/mL
[2024-06-20] MEDS: LACTATED RINGER'S SOLUTION 1,000 ML 50 ML IV (10:51)
--- NOTE | 2024-06-20 12:42 | PM.ONB ---
Brief Operative Note Date of procedure: 06/20/24 Pre-op diagnosis general: first trimester missed Post-op diagnosis: same as pre-op Procedure: NAME OF PROCEDURE: [D&C suction ] PROCEDURE: The patient was taken back to the OR where she was given general anesthesia without difficulty. She was then placed in dorsal lithotomy position, prepped and draped in the normal sterile fashion. A weighted speculum was placed in the patient's vagina and the anterior lip of the cervix was identified and grasped with a single-tooth tenaculum. The patient was then gently dilated using Hegar dilators after we had sounded roughly to 12 cm. The suction curette was then tested. The suction curette was then placed in the patient's uterus and products of conception were removed using an 10-Norwegian suction curette. ?Excellent hemostasis was noted. The patient tolerated the procedure well. Sponge, lap, and needle counts were correct x 2. All instruments were then removed from the patient's vagina. The patient was taken to the Recovery Room in stable condition. ?? Anesthesia: MAC Surgeon: John Garcia Estimated blood loss (mL): 10 Pathology: other (poc) Condition: stable Disposition: PACU Urinary Catheter Management Urinary Catheter Management Straight: Cath placed during this visit: no
[2024-06-20 12:47] VITALS: BP 117/75; PULSE 95; TEMP 36.4; O2SAT 99
[2024-06-20 13:02] VITALS: BP 124/77; PULSE 64; O2SAT 100
[2024-06-20] MEDS: HYDROCODONE/ACET 5-325 MG TABLET 1 TAB PO (13:07)
[2024-06-20 13:18] VITALS: BP 114/70; PULSE 74; O2SAT 100
[2024-06-20 13:33] VITALS: BP 110/74; PULSE 64; O2SAT 99
[2024-06-20 13:48] VITALS: BP 115/69; PULSE 62; O2SAT 99
== END 2024-06-20 13:55 | disposition home or self-care (01) ==
PROVIDERS: PCP Family Medicine; Visit Provider Obstetrics & Gynecology
PROC: (CPT 1965; principal; 2024-06-20 11:05)
DX: O02.1 Missed abortion (principal); G90.A Postural orthostatic tachycardia syndrome [POTS]
CPT/HCPCS: 59820; 36415; 84702; 85025; 88305; J1100; J1885; J2250; J2405; J2704; J3010

== ENCOUNTER 2024-06-24 22:49 | Emergency (ER) | payer OTHER, SELFPAY ==
[2024-06-24 22:53] VITALS: PULSE 75; TEMP 36.7; O2SAT 100; BMI 23.9
--- OUTSIDE RECORDS SUMMARY | 2024-06-24 22:54 | XMS_ITS | CCD ---
Author Organization [facility] Care Team Providers Care Package Drier Name Role Phone Unavailable Primary Care Provider Unavailag Rosario MD, Joey Hinojosa Unavailable Gris Valdes MD Primary Care Provider BRYSON LARSEN Attending Unavailable GRIS VALDES Attending Unavailable BRYSON LARSEN Attending Unavailable BRYSON LARSEN Referring Unavailable John Garcia Attending Unavailable John Garcia Admitting Unavailable John Garcia DO Attending Provider Allergies Allergy Classification Reported Allergen(s) Allergy Type Date of Onset Reaction(s) Facility (1 source) Sulfacetamide Drug Allergy 05-11-20 20 [facility] Work Phone: (7 sources) Sulfamethoxazole / Trimethoprim Drug Allergy 01-02-20 17 [facility] (7 sources) Sulfonamides (Antibiotic) Drug Intolerance 01-02-20 17 Unknown [facility] (1 source) Sulfonamides (Antibiotic) Drug allergy (disorder) 12-01-19 21 [facility] Repository Medications Current Medications Medication Drug Class(es) Dates Sig (Normalized) Sig (Original) fluticasone propionate 0.05 mg/actuat metered dose nasal spray (7 sources) Corticosteroid Start: 09-25-2023 End: 09-24-2024 take 1 spray(s) nasal route once daily fluticasone (Flonase) 50 MCG/ACT nasal spray Indications: Nasal congestion Administer 1 spray into each nostril Daily Shake gently. Before first use, prime pump. After use, clean tip and replace cap. 16 g 2 09/25/2023 09/24/2024 Active LORazepam 0.5 mg oral tablet (6 sources) Benzodiazepine Start: 04-30-2024 End: 05-10-2024 take [...] 15 MG TABS one a day MELOXICAM [id number] Joey Rosario MD norethindrone 0.35 mg oral [...] Start: 05-11-2020 ORPHENADRINE CITRATE ER 100 MG [id number] 1 tablet twice daily ORPHENADRINE CITRATE [id number] Zoe Savage LPN predniSONE 10 mg oral tablet (1 source) Start: 05-11-2020 PREDNISONE 10 MG TABS 4 tablets once daily PREDNISONE [id number] Zoe Savage LPN Problems Active Problems Problem Classification Problem Date Documented Date Episodic/Chronic Anxiety disorders (8 sources) Anxiety; Translations: [Anxiety disorder, unspecified] Onset: 09-25-2023 09-25-2023 Chronic Cardiac dysrhythmias (7 sources) Postural orthostatic tachycardia syndrome ; Translations: [Postural orthostatic tachycardia syndrome] Onset: 01-04-2023 09-25-2023 Chronic Esophageal disorders (7 sources) Gastroesophageal reflux disease; Translations: [Gastro-esophageal reflux disease without esophagitis] Onset: 09-25-2023 09-25-2023 Chronic Menstrual disorders (16 sources) Disorder of menstruation; Translations: [Irregular menstruation, unspecified] Onset: 09-25-2023 09-25-2023 Chronic Other acquired deformities (7 sources) Scoliosis deformity of spine; Translations: [Scoliosis, unspecified] Onset: 09-25-2023 09-25-2023 Chronic Other endocrine disorders (7 sources) Hypoglycemia; Translations: [Hypoglycemia, unspecified] Onset: 09-25-2023 09-25-2023 Chronic Past or Other Problems Problem Classification Problem Date Documented Da te Episodic/Chronic Diabetes or abnormal glucose tolerance complicating ; childbirth; or the puerperium (7 sources) Gestational diabetes mellitus; Translations: [Gestational diabetes mellitus in , unspecified control] Onset: 09-25-2023 09-25-2023 Episodic Other complications of (7 sources) Vomiting of , unspecified; Translations: [Unspecified vomiting of , unspecified as to episode of care or not applicable] Onset: 09-25-2023 09-25-2023 Episodic Other and delivery including normal (7 sources) Term ; Translations: [Encounter for supervision of normal , unspecified, unspecified trimester] Onset: 09-25-2023 09-25-2023 Episodic Spondylosis; intervertebral disc disorders; other back problems (20 sources) Low back pain; Translations: [Acute back pain with sciatica] Onset: 05-14-2020 05-14-2020 Episodic Tuberculosis (7 sources) Tuberculosis of vertebral column; Translations: [Tuberculosis of spine] Onset: 09-25-2023 09-25-2023 Episodic Unclassified (1 source) Problem Results Test Name Value Interpretation Reference Range Facility ALL CBC WITH AUTO DIFFon BASOPHILS ABSOLUTE AUTO 0 [facility] Basophils/100 WBC (Bld) 0.3 % 0.2 - 2.0 % [facility] Eosinophils/100 WBC (Bld) 0.6 % Low 0.9 - 7.0 % [facility] Erythrocyte distribution width (RBC) [Ratio] 12.1 % 11.0 - 15.0 % [facility] Hematocrit (Bld) [Volume fraction] 42.7 % 36.0 - 48.0 % [facility] Hemoglobin (Bld) [Mass/Vol] 14.3 g/dL 12.0 - 16.0 g/dL [facility] IMMATURE GRANULOCYTES ABS AUTO 0.01 [facility] Immature granulocytes/100 WBC (Bld) 0.1 % 0.0 - 0.5 % [facility] Interpretation and review of laboratory results Abnormal [facility] LYMPHOCYTES ABSOLUTE AUTO 2.3 [facility] Lymphocytes/100 WBC (Bld) 32.6 % 20.5 - 60.0 % [facility] MCH (RBC) [Entitic mass] 30.4 pg 26.7 - 34.0 pg [facility] MCHC (RBC) [Mass/Vol] 33.5 g/dL 29.9 - 35.2 g/dL [facility] MCV (RBC) [Entitic vol] 90.9 fL 81.0 - 99.0 fL [facility] MONOCYTES ABSOLUTE AUTO 0.5 [facility] Monocytes/100 WBC (Bld) 6.8 % 1.7 - 12.0 % [facility] NEUTROPHILS ABSOLUTE AUTO 4.2 [facility] Neutrophils/100 WBC (Bld) 59.6 % 43.0 - 75.0 % [facility] Platelet mean volume (Bld) [Entitic vol] 9 fL Low 9.5 - 13.5 fL [facility] TBH EO # 0 [facility] TBH PLT 291 [facility] RBC 4.7 [facility] WBC 7 [facility] HCG ( test) Ql (U)o n 05-06-2024 Interpretation and review of laboratory results Normal [facility] Preg Test, Ur Negative Negative [facility] US OB < 14 WEEKS EARLYon US [...] report is generated using voice recognition reporting ([email or web address]). On occasion [employer] erroneously drops words from the report or replaces the spoken word with similar sounding words. Please call with any questions/concerns regarding this report.* Dictated and transcribed 05/07/24/dpalicia This report has been electronically signed and approved by the interpreting radiologist. Normal Not Available XR Knee Complete Left*on XR Knee Complete Left* FINDINGS: Minimal patellofemoral joint space loss. No cortical or subchondral fracture. No suprapatellar effusion. IMPRESSION: 1. Minimal arthritis. 2. No cortical or subchondral fracture or effusion. Report reported and signed by Maksim Shukla on 03/30/2022 1345 Normal [facility] XR Knee Complete Right*on XR Knee Complete Right* FINDINGS: Minimal patellofemoral joint space loss. No cortical or subchondral fracture. No suprapatellar effusion IMPRESSION: 1. Minimal arthritis. 2. No cortical or subchondral fracture or effusion. Report reported and signed by Maksim Shukla on 03/30/2022 1346 Normal [facility] Complete Blood Counton 09-08 Erythrocyte distribution width (RBC) [Ratio] 11.7 % Normal 11.0-15.0 [facility] [employer] Comment on above: Performed By: #### E SR, CBC, RF, CMP #### [facility] [address] [place], [place] [id number] Hematocrit (Bld) [Volume fraction] 43.8 % Normal 35.0-47.0 [facility] Specialist Comment on above: Performed By: #### E SR, CBC, RF, CMP #### [facility] [address] [place], [place] [id number] Hemoglobin (Bld) [Mass/Vol] 14.3 g/dL Normal 11.6-15.5 [facility] Specialist Comment on above: Performed By: #### E SR, CBC, RF, CMP #### [facility] [address] [place], [place] [id number] MCH (RBC) [Entitic mass] 30.3 pg Normal 27.0-33.0 [facility] Specialist Comment on above: Performed By: #### E SR, CBC, RF, CMP #### [facility] [address] [place], [place] [id number] MCHC (RBC) [Mass/Vol] 32.6 g/dL Normal 32.0-36.0 [facility] Comment on above: Performed By: #### E SR, CBC, RF, CMP #### [facility] [address] [place], [place] [id number] MCV (RBC) [Entitic vol] 93 fL Normal 80-100 [facility] Comment on above: Performed By: #### E SR, CBC, RF, CMP #### [facility] [address] [place], [place] [id number] Platelet mean volume (Bld) [Entitic vol] 9.60 fL Normal 7.50-12.50 [facility] Comment on above: Performed By: #### E SR, CBC, RF, CMP #### [facility] [address] [place], [place] [id number] Platelets (Bld) [#/Vol] 267 10*3/uL Normal 140-400 [facility] Comment on above: Performed By: #### E SR, CBC, RF, CMP #### [facility] [address] [place], [place] [id number] RBC (Bld) [#/Vol] 4.72 10*6/uL Normal 3.90-5.20 [facility] Comment on above: Performed By: #### E SR, CBC, RF, CMP #### [facility] [address] [place], [place] [id number] RDW-SD 40.3 fL Normal 37.0-50.0 [facility] Comment on above: Performed By: #### E SR, CBC, RF, CMP #### [facility] [address] [place], [place] [id number] WBC (Bld) [#/Vol] 7.1 10*3/uL Normal 3.8-11.0 [facility] Comment on above: Performed By: #### E SR, CBC, RF, CMP #### [facility] [address] [place], [place] [id number] [facility] 09-08-2021 Albumin [Mass/Vol] 5.0 g/dL Normal 3.6-5.1 [facility] [employer] Comment on above: Performed By: #### E SR, CBC, RF, CMP #### [facility] [address] [place], [place] [id number] Albumin/Globulin [Mass ratio] 1.9 {ratio} Normal 1.0-2.5 [facility] [employer] Comment on above: Performed By: #### E SR, CBC, RF, CMP #### [facility] [address] [place], [place] [id number] ALP [Catalytic activity/Vol] 91 U/L Normal 35-119 [facility] Specialist Comment on above: Performed By: #### E SR, CBC, RF, CMP #### [facility] [address] [place], [place] [id number] ALT [Catalytic activity/Vol] 12 U/L Normal 6-33 [facility] Specialist Comment on above: Result Comment: 04/27 Female reference range changed. Performed By: #### E SR, CBC, RF, CMP #### [facility] [address] [place], [place] [id number] Anion gap [Moles/Vol] 19 mmol/L Normal 12-20 [facility] [employer] Comment on above: Result Comment: Effe ctive 06/02/2019 reference range changed. Performed By: #### E SR, CBC, RF, CMP #### [facility] [address] [place], [place] [id number] AST [Catalytic activity/Vol] 19 U/L Normal 9-34 [facility] [employer] Comment on above: Performed By: #### E SR, CBC, RF, CMP #### [facility] [address] [place], [place] [id number] Bilirubin [Mass/Vol] 0.74 mg/dL Normal 0.30-1.20 [facility] [employer] Comment on above: Performed By: #### E SR, CBC, RF, CMP #### [facility] [address] [place], [place] [id number] BUN/CREA 22 Ratio Normal 6-22 [facility] [employer] Comment on above: Performed By: #### E SR, CBC, RF, CMP #### [facility] [address] [place], [place] [id number] Calcium [Mass/Vol] 9.7 mg/dL Normal 8.6-10.2 [facility] Specialist Comment on above: Performed By: #### E SR, CBC, RF, CMP #### [facility] [address] [place], [place] [id number] Chloride [Moles/Vol] 104 mmol/L Normal 98-107 [facility] Specialist Comment on above: Performed By: #### E SR, CBC, RF, CMP #### [facility] [address] [place], [place] [id number] CO2 [Moles/Vol] 22 mmol/L Normal 20-31 [facility] Specialist Comment on above: Performed By: #### E SR, CBC, RF, CMP #### [facility] [address] [place], [place] [id number] Creatinine [Mass/Vol] 0.6 mg/dL Normal 0.6-1.4 [facility] Specialist Comment on above: Performed By: #### E SR, CBC, RF, CMP #### [facility] [address] [place], [place] [id number] eGFRAA 156 mL/min/1.73m2 Normal >60 [facility] Specialist Comment on above: Performed By: #### E SR, CBC, RF, CMP #### [facility] [address] [place], [place] [id number] eGFRNAA 129 mL/min/1.73m2 Normal >60 [facility] Specialist Comment on above: Performed By: #### E SR, CBC, RF, CMP #### [facility] [address] [place], [place] [id number] Globulin (S) [Mass/Vol] 2.7 g/dL Normal 1.9-3.7 [facility] Specialist Comment on above: Performed By: #### E SR, CBC, RF, CMP #### [facility] [address] [place], [place] [id number] Glucose [Mass/Vol] 79 mg/dL Normal 65-99 [facility] Specialist Comment on above: Result Comment: For FASTING Glucose --- ADA reference ranges: Normal 65-99 mg/dl Prediabetes 100-125 Diabetes >/= 126 Performed By: #### E SR, CBC, RF, CMP #### [facility] [address] [place], [place] [id number] Potassium [Moles/Vol] 4.1 mmol/L Normal 3.5-5.5 [facility] [employer] Comment on above: Performed By: #### E SR, CBC, RF, CMP #### [facility] [address] [place], [place] [id number] Protein [Mass/Vol] 7.7 g/dL Normal 6.1-8.1 [facility] [employer] Comment on above: Performed By: #### E SR, CBC, RF, CMP #### [facility] [address] [place], [place] [id number] Sodium [Moles/Vol] 141 mmol/L Normal 135-146 [facility] [employer] Comment on above: Performed By: #### E SR, CBC, RF, CMP #### [facility] [address] [place], [place] [id number] Urea nitrogen [Mass/Vol] 13 mg/dL Normal 7-25 [facility] [employer] Comment on above: Performed By: #### E SR, CBC, RF, CMP #### [facility] [address] [place], [place] [id number] Q - LORRIE SCREEN IFA W/RFL TIT ER AND PATTERNon 09-08-2021 LORRIE SCREEN, IFA Negative Normal NEGATIVE [facility] [employer] Comment on above: Order Comment: [facility] performed at: Q, [facility], [address] [place] [address], [address] [place] [address], [phone], Bmx Rider: Kurt Cardona MD [facility] Date/Time: [id number] [facility] Results Received Date/Time: [id number] [facility] Reported Date/Time: Result Comment: LORRIE IFA [...] AC-0: Negative International Consensus on LORRIE Patterns (https://doi.org/10.1515/dmtk-[email or web address]) For additional information, please refer to http://education.[employer]/faq/XGA821 (This link is being provided for informational/ educational purposes only.) Performed By: #### 2 49 #### [facility] [address] [place] [address] RBC Sedimentation Rateon ESR (Bld) [Velocity] 15.00 mm/h Normal 0.00-20.00 [facility] Specialist Comment on above: Performed By: #### E SR, CBC, RF, CMP #### [facility] [address] [place], [place] [id number] Rheumatoid Factoron 09-09-19 RF <10 Normal [facility] Specialist Comment on above: Performed By: #### E SR, CBC, RF, CMP #### [facility] [address] [place], [place] [id number] Q - THINPREP(R) TIS AND HPV MRNA E6/E7 RFL HPV 16/18/45on 06-13-2021 CLINICAL INFORMATION: None given Normal [facility] Specialist Comment on above: Order Comment: [facility] performed at: [email or web address], [address] [place] [address], [address] [place] [address], Bmx Rider: Kurt Cardona MD [facility] Date/Time: [facility] Results Received Date/Time: [facility] Reported Date/Time: Performed By: #### 9 1414 #### [facility] [address] [place] [address] COMMENT SEE NOTE Normal [facility] [employer] Comment on above: Order Comment: [facility] performed at: [email or web address], [address] [place] [address], [phone], Bmx Rider: Kurt Cardona MD [facility] Date/Time: [facility] [...] 9 1414 #### [facility] [address] [place] [address] COMMENT: This Pap test has be en evaluated with computer assisted technology. Normal [facility] [employer] Comment on above: Order Comment: [facility] performed at: [place] [email or web address], [address] [place] [address], [address] [place] [address], [address] [place] [address], Bmx Rider: Kurt Cardona MD [facility] Date/Time: [facility] Results Received Date/Time: [facility] Reported Date/Time: Performed By: #### 9 1414 #### [facility] [address] [place] [address] HOLISTIC NUTRITIONIST: SEE NOTE Normal [facility] Specialist Comment on above: Order Comment: [facility] performed at: [place] [email or web address] [facility], [address] [place] [address], [address] [place] [address], [address] [place] [address], Bmx Rider: Kurt Cardona MD [facility] Date/Time: [facility] Results Received Date/Time: [facility] Reported Date/Time: Result Comment: DMK, CT(ASCP) CT screening location: [place] [address]. Performed By: #### 9 1414 #### [facility] [address] [place] [address] HPV mRNA E6/E7 Not detected Normal Not Detected [facility] [employer] [facility] Comment on above: Order Comment: [facility] performed at: [place] [employer], [employer] [place], [address] [place] [address], [address] [place] [address], [address] [place] [address], Bmx Rider: Kurt Cardona MD [facility] Date/Time: [facility] Results Received Date/Time: [facility] Reported Date/Time: Result Comment: Meth odology: Outsole Cutter Machine-Mediated Amplification This assay detects E6/E7 viral messenger RNA (mRNA) from 14 high-risk HPV types (16,18,31,33,35,39,45,51,52,56,58,59,66,68). The analytical performance characteristics of this assay have been determined by [employer]. The modifications have not been cleared or approved by the FDA. This assay has been validated pursuant to the CLIA regulations and is used for clinical purposes. For additional information, please refer to http://education.[employer]/faq/VUU790a2 (This link if provided for information/ educational purposes only.) Performed By: #### 9 1414 #### [facility] [address] [place] [address] INTERPRETATION/RE SULT: Negative Normal [facility] Comment on above: Order Comment: [facility] performed at: [facility] [address], Bmx Rider: Kurt Cardona MD [facility] Date/Time: [facility] Results Received Date/Time: [facility] Reported Date/Time: Performed By: #### 9 1414 #### [facility] [address] [place] [address] LMP: None given Normal [facility] [place] Specialist Comment on above: Order Comment: [facility] performed at: [facility], [address] [place] [address], [phone], Bmx Rider: Kurt Cardona MD [facility] Date/Time: [facility] Results Received Date/Time: [facility] Reported Date/Time: Performed By: #### 9 1414 #### [facility] [address] [place] [address] PREV. BX: None given Normal [facility] [place] Specialist Comment on above: Order Comment: [facility] performed at: [employer], [employer] [place], [address] [place] [address], [address] [place] [address], [address] [place] [address], Bmx Rider: Kurt Cardona MD [facility] Date/Time: [facility] Results Received Date/Time: [facility] Reported Date/Time: Performed By: #### 9 1414 #### [facility] [address] [place] [address] PREV. PAP: None given Normal [facility] Specialist Comment on above: Order Comment: [facility] performed at: [employer], [employer], [address] [place] [address], [address] [place] [address], [address] [place] [address], Bmx Rider: Kurt Cardona MD [facility] Date/Time: [facility] Results Received Date/Time: [facility] Reported Date/Time: Performed By: #### 9 1414 #### [facility] [address] [place] [address] SOURCE: None given Normal [facility] [employer] Comment on above: Order Comment: [facility] performed at: [employer], [employer], [address] [place] [address], [address] [place] [address], [address] [place] [address], Bmx Rider: Kurt Cardona MD [facility] Date/Time: [facility] Results Received Date/Time: [facility] Reported Date/Time: Performed By: #### 9 1414 #### [facility] [address] [place] [address] STATEMENT OF ADEQUACY: SEE NOTE Normal [facility] [employer] Comment on above: Order Comment: [facility] performed at: [employer], [employer], [address] [place] [address], [address] [place] [address], [address] [place] [address], Bmx Rider: Kurt Cardona MD [facility] Date/Time: [facility] Results Received Date/Time: [facility] Reported Date/Time: Result Comment: Sati sfactory for evaluation. Endocervical/transformation zone component present. Performed By: #### 9 1414 #### [facility] [address] [place] [address] Q - FSHon 05-12-2021 FSH 6.3 mIU/mL Normal [facility] [employer] Comment on above: Order Comment: [facility] performed at: [employer], [employer] [facility], [address] [place] [address], [address] [place] [address], [address] [place] [address], Bmx Rider: Kurt Cardona MD [facility] Date/Time: [facility] Results Received Date/Time: [facility] Reported Date/Time: FASTING: NO Result Comment: Refe rence Range Follicular Phase 2.5-10.2 Mid-cycle Peak 3.1-17.7 Luteal Phase 1.5- 9.1 Postmenopausal 23.0-116.3 Performed By: #### 2 [id number], [id number], [id number] #### [facility] [address] [place] [address] Q - LHon 05-12-2021 LH 2.6 mIU/mL Normal [facility] [employer] Comment on above: Order Comment: [facility] performed at: [employer], [employer] [facility], [address] [place] [address], [address] [place] [address], [address] [place] [address], Bmx Rider: Kurt Cardona MDQuest Collection Date/Time: [id number] Results Received Date/Time: [id number] Reported Date/Time: FASTING: NO Result Comment: Refe rence Range Follicular Phase 1.9-12.5 Mid-Cycle Peak 8.7-76.3 Luteal Phase 0.5-16.9 Postmenopausal 10.0-54.7 Performed By: #### E SR, CBC, RF, CMP #### [facility] [address] [place], [place] [id number] Q - TESTOSTERONE TOTAL LC/MS /MSon 05-12-2021 TESTOSTERONE, TOTAL, MS 20 ng/dL Normal 2-45 [facility] [employer] Comment on above: Order Comment: [facility] performed at: [facility], [employer], [address], [place], [place], , Bmx Rider: Damir Chavarria M.D.,PhDQuest Collection Date/Time: [id number] Results Received Date/Time: [id number] Reported Date/Time: [id number] FASTING: NO Result Comment: For additional information, please refer to http://education.[employer]/faq/ XrjfbSxnqdefzlkczVLUOPPJNS004 (This link is being provided for informational/ educational purposes only.) This test was developed and its analytical performance characteristics have been determined by [employer] [place], [place]. It has not been cleared or approved by the U.S. Food and Drug Administration. This assay has been validated pursuant to the CLIA regulations and is used for clinical purposes. Performed By: #### E SR, CBC, RF, CMP #### [facility] [address] [place], [place] [id number] TSH w/ Reflex to Free T4on 1 07-13-2020 TSH 0.644 uIU/mL Normal 0.400-4.500 [facility] [employer] Comment on above: Performed By: #### T SH reflex FT4 #### [facility] [address] [place], [place] [id number] Clinical Summary: HMSPatient IDon 05-14-2020 OOP [facility] [facility] Work Phone: Clinical Summary: Scanned Hi story Summaryon 05-14-2020 adl form etoh alcohol performance beer, wine, liquor [facility] Work Phone: Beta HCG ( test) Ql (U) 1 time per year [facility] Work Phone: consumes three or more drinks of alcohol (beer, wine, liquor) daily or almost daily less than 1 drink per day Sandie [facility] Work Phone: Data entered by patient, additional medical problems Tachycardia arrhythmia [facility] Work Phone: data entered by patient, alcohol (ethanol or ETOH) use Yes [facility] Work Phone: Data entered by patient, allergy list Sulfa drugs [facility] Work Phone: data entered by patient, drug (of abuse) use No [facility] Work Phone: data entered by patient, Employer Name employed [facility] Work Phone: data entered by patient, exercise history No [facility] Work Phone: data entered by patient, father's medical history ArthritisHigh blood pressureOsteoporosis [facility] Work Phone: Data entered by patient, history of past surgeries Wrist surgery [facility] Work Phone: Data entered by patient, medication list [id number] [facility] Work Phone: data entered by patient, mother's medical history Arthritis [facility] Work Phone: data entered by patient, past medical history ArthritisSeizuresStomach ulcers [facility] Work Phone: data entered by patient, 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, current smoker never smoker [facility] Work Phone: data entered by patient, 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, marital status single [facility] Work Phone: data entered by patient, 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, 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 [facility] Work Phone: father of patient is alive or Alive [facility] Work Phone: Housing Type: apartment, house, correction, trailer, none house [facility] Work Phone: housing unit size (asthma environmental history, housing) (from single family to don't know) 2 floors [facility] Work Phone: mother of patient is alive or Alive [facility] Work Phone: Number of dependent children No [facility] Work Phone: Office Visit: New - 1st visi t with practice, Rm: [id number] NEGATED: Highlighted rowMRI (magnetic resonance imaging) history of the Lumbar spine on 05/07/2020 at [facility] Work Phone: Clinical Lists Update: Prelo ad Extendedon 05-11-2020 Tobacco smoking status NHIS Tobacco smoking status [facility] Work Phone: Clinical Summary: Scanned Hi story Summaryon 05-11-2020 adl form etoh alcohol performance beer, wine, liquor [facility] Work Phone: Beta HCG ( test) Ql (U) 1 time per year [facility] Work Phone: consumes three or more drinks of alcohol (beer, wine, liquor) daily or almost daily less than 1 drink per day [facility] Work Phone: Data entered by patient, additional medical problems Tachycardia arrhythmia [facility] Work Phone: data entered by patient, alcohol (ethanol or ETOH) use Yes [facility] Work Phone: Data entered by patient, allergy list Sulfa drugs [facility] Work Phone: data entered by patient, drug (of abuse) use No [facility] Work Phone: data entered by patient, Employer Name employed [facility] Work Phone: data entered by patient, exercise history No [facility] Work Phone: data entered by patient, father's medical history ArthritisHigh blood pressureOsteoporosis [facility] Work Phone: Data entered by patient, history of past surgeries Wrist surgery [facility] Work Phone: Data entered by patient, medication list [id number] [facility] Work Phone: data entered by patient, mother's medical history Arthritis [facility] Work Phone: data entered by patient, past medical history ArthritisSeizuresStomach ulcers [facility] Work Phone: data entered by patient, 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, current smoker never smoker [facility] Work Phone: data entered by patient, 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, marital status single [facility] Work Phone: data entered by patient, 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, 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 [facility] Work Phone: father of patient is alive or Alive [facility] Work Phone: Housing Type: apartment, house, correction, trailer, none house [facility] Work Phone: housing unit size (asthma environmental history, housing) (from single family to don't know) 2 floors [facility] Work Phone: mother of patient is alive or Alive [facility] Work Phone: Number of dependent children No [facility] Work Phone: adl form etoh alcohol performance beer, wine, liquor [facility] Work Phone: Beta HCG ( test) Ql (U) 1 time per year [facility] Work Phone: consumes three or more drinks of alcohol (beer, wine, liquor) daily or almost daily less than 1 drink per day Sandie [facility] Work Phone: Data entered by patient, additional medical problems Tachycardia arrhythmia [facility] Work Phone: data entered by patient, alcohol (ethanol or ETOH) use Yes [facility] Work Phone: Data entered by patient, allergy list Sulfa drugs [facility] Work Phone: data entered by patient, drug (of abuse) use No [facility] Work Phone: data entered by patient, Employer Name employed [facility] Work Phone: data entered by patient, exercise history No [facility] Work Phone: data entered by patient, father's medical history ArthritisHigh blood pressureOsteoporosis [facility] Work Phone: Data entered by patient, history of past surgeries Wrist surgery [facility] Work Phone: Data entered by patient, medication list [id number] [facility] Work Phone: data entered by patient, mother's medical history Arthritis [facility] Work Phone: data entered by patient, past medical history ArthritisSeizuresStomach ulcers [facility] Work Phone: data entered by patient, 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, current smoker never smoker [facility] Work Phone: data entered by patient, 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, marital status single [facility] Work Phone: data entered by patient, 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 Work Phone: Number of dependent children No [facility] Work Phone: Vital Signs Date Time Vital Sign Value Performing Clinician Facility 05-06-2024 11:33-0500 Body mass index (BMI) [Ratio] 24.98 kg/m2 [facility] Work Phone: [facility] 05-06-2024 11:33-0500 Body weight 63.96 kg [facility] Work Phone: [facility] NEGATED: Highlighted [id number] 08:24-0500 BMI (Body Mass Index) 23.11 kg/m2 Natalia Ruiz [facility] Work Phone: NEGATED: Highlighted [id number] 08:24-0500 Body weight 58.97 kg Natalia Ruiz [facility] Work Phone: NEGATED: Highlighted [id number] 08:24-0500 Body weight 59 kg Natalia Ruiz [facility] Work Phone: NEGATED: Highlighted [id number] 08:24-0500 Height 160.02 cm Natalia Ruiz [facility] Work Phone: NEGATED: Highlighted [id number] 08:24-0500 Height 160 cm Natalia Ruiz LPN [facility] Work Phone: Encounters Encounter Date Encounter Type Care Provider Facility Start: 06-20-2024 End: 06-20-2024 Clinisync Result Encounter Generic External Data Provider [facility] External Department Unsolicited Start: 06-20-2024 End: 06-20-2024 Clinisync Result Encounter Generic External Data Provider [facility] External [facility] Unsolicited Start: 06-20-2024 End: 06-20-2024 ambulatory John Radha Facility:[facility] Start: 06-20-2024 End: 06-20-2024 Departed Referred John Radha DO Work Phone: [facility] Start: 06-05-2024 End: 06-05-2024 Telephone encounter Gris [...] Available Start: 05-23-2023 End: 05-23-2023 ambulatory BRYSON LARSEN Not Available Start: 05-14-2020 End: 05-14-2020 Patient encounter procedure Joey Rosario MD Work Phone: [facility] Work Phone: Start: 05-14-2020 End: 05-14-2020 Pt evaluation Joey Rosario MD Work Phone: [facility] Work Phone: Start: 05-10-2020 End: 05-10-2020 Patient encounter procedure External Provider [facility] Start: 05-10-2020 Results Only External Provider Exter nal-NonCCF Procedures Date Procedure Procedure Detail Performing Clinician Start: 06-20-2024 ALL CBC WITH AUTO DIFF Johnspike Garcia DO Work Phone: Start: 05-06-2024 Urine test visual color cmprsn meths Bryson Larsen CNM Work Phone: Start: 05-14-2020 End: [...] MD Work Phone: Start: 05-10-2020 EXTERNAL IMAGING [employer] Provider NEGATED: Highlighted rowStart: 05-14-2020 End: 05-14-2020 Documentation of current medications Natalia Ruiz DIVER ASSISTANT Plan of Treatment Date Care Activity Detail Author Start: 05-06-2024 End: 05-06-2025 US for [facility] Work Phone: Comment on above: Expected: 05/06/2024 , Expires: 05/06/2025 Start: 05-06-2024 End: 05-06-2024 ambulatory 05/06/2024 11:15 AM EST Initial [facility] [address] [place] [address] Bryson Larsen, MARQUISM [address] [place] [address] Arrived [facility] Comment on above: Arrived Start: 01-27-2024 Influenza vaccination Influenza Vacc ine (#1) [facility] Start: 05-14-2020 End: 05-14-2020 Appointment Appointment [facility] Work Phone: Patient Education Medications [facility] Work Phone: Payers Date Payer Category Payer Self-pay 2019 [employer] Blue [employer] [id number] 2019 Unknown [employer] PPO [id number] 2019-Present PPO [id number] 2019 Unknown [id number] 1998 Unknown [id number] 1998 Unknown [id number] 1998 Unknown [id number] 1998 Unknown [id number] Social History Date Type Detail Facility Tobacco smoking stat us NHIS Unknown if ever smoked [facility] Start: 2000 Sex Assigned At Not on file [facility] Start: 05-14-2020 End: 05-14-2020 Assertion Unknown if ever smoked [facility] Work Phone: Start: 10-26-2022 Tobacco smoking status NHIS Never smoked tobacco [facility] Start: 10-26-2022 Tobacco use and exposure Smokeless tobacco non-user [facility] Start: 09-25-2023 End: 05-06-2024 Alcoholic beverage intake Lifetime non-drinker (finding) [facility] Start: 05-23-2023 End: 09-25-2023 History of Social function [facility] Start: 05-23-2023 End: 09-25-2023 Tobacco use panel [facility] The thought of merle quiroz myself has occurred to me Never [facility] Start: 11-27-2022 Alcohol Comment caffeine: none; drinks herbal teas [facility] Start: 2000 Sex assigned at Female [facility] Start: 09-15-2023 Gender identity Identifies as female gender (finding) [facility] Start: 09-15-2023 Sexual orientation Heterosexual (finding) [facility] Start: 02-28-2024 [facility] Start: 06-24-2024 Sex Female (finding) [facility] Telephone encounter Note 06-05-2024 Telephone Encounter - Kenya More - 06/05/2024 4:31 PM EST Note Date & Type Note Facility 06-05-2024 Telephone encount er Note Hugo left at 4:27 Hi, this is Page Beechy. I needed a makeup appointment with Elicia Larsen. My phone number is [phone], thank you. [facility] Note 06-05-2024 Telephone Encounter - Kenya More - 06/05/2024 4:31 PM EST Note Date & Type Note Facility 06-05-2024 Miscellaneous Notes Formattin g of this note might be different from the original. Vm left at 4:27 Hi, this is Page Beechy. I needed a makeup appointment with Elicia Larsen. My phone number is [phone], thank you. documented in this encounter [facility] History of Present illness Narrative 05-06-2024 Bryson [...] reviewed this encounter and updated as appropriate: @RULESMARTLINK([id number],TOBYESPROV)@@R RICHARDTLROMEO([id number],ALGYESPROV)@@RUL ESM ARTLINK([id number],MEDYESPROV)@@RULESMELISSA TLINK([id number],PROBYESPROV)@@BROOKE NICOLE K([id number],MHYESPROV)@@RULESMARTLINK([id number],SHYESPROV)@@RULESMARTLINK([id number], FHYESPROV)@@RULESMARTLINK([id number],SOH YESPROV)@ Review of Systems Negative Objective Physical Exam Expected Total Weight Gain: Could not be calculated Pregravid BMI: Could not be calculated Urine protein Urine glucose Labs Assessment/Plan Problem List Items Addressed This Visit Genitourinary Amenorrhea Relevant Orders POCT , urine (Completed) US OB less than 14 weeks early documented in this encounter [facility] Telephone encounter Note 04-30-2024 Telephone Encounter - Debbie Maru - 04/30/2024 9:52 AM EST Note Date [...] can let her know what you decide. [facility] Note 04-30-2024 Telephone Encounter - Debbie [...] what you decide. documented in this encounter [facility] Evaluation note Note Date & Type Note Facility Evaluation note Diagnosis Anxiety- Primary Anxiety state, unspecified documented in this encounter [facility] Evaluation note Note Date & Type Note Facility Evaluation note Diagnosis Amenorrhea Absence of menstruation documented in this encounter [facility] Evaluation note Note Date & Type Note Facility Evaluation note No assessment information availa [facility] Work Phone: Chief Complaint Chief Complaint Description Start Date lower back pain Preliminary chief co mplaint data, not yet signed by the author as of Instructions Instruction Description Start Date Completed Advance Directives There may be information available, but it has not been provided by the sender. No Advanced Directives Records FoundNo Advanced Directives Records FoundNo Advanced Directives Records Found Assessments There may be information available, but it has not been provided by the sender. Review of System There may be information available, but it has not been provided by the sender. Family History There may be information available, but it has not been provided by the sender.No Family History Records FoundNo Family History Records FoundNo Family History Records [...] or prosecute any alcohol or drug abuse patient.[facility] Reason for Visit (unrecogniz ed section and content) Reason For Visit Description New - 1st visit with practice Preliminary reason f or visit data, not yet signed by the author as of lower back pain INFORMATION SOURCE (unrecogn ized section and content) DATE CREATED AUTHOR 03/31/2022 [facility] dical Specialist DATE CREATED AUTHOR AUTHOR'S ORGANIZ ATION 05/12/2024 [facility] dical Specialists EPIC DATE CREATED AUTHOR AUTHOR'S ORGANIZ ATION 06/24/2024 [facility] Care Teams (unrecognized sec tion and content) Package Drier Relationship Specialty Start Date End Date Gris Valdes MD [address] [place] [address] PCP - General Family Medicine 10/26/22 Package Drier Relationship Specialty Start Date End Date Gris Valdes MD [address] [place] [address] PCP - General Family Medicine 10/26/22 Package Drier Relationship Specialty Start Date End Date Gris Valdes MD [address] [place] [address] PCP - General Family Medicine 10/26/22 Package Drier Relationship Specialty Start Date End Date Gris Valdes MD [address] [place] [address] PCP - General Family Medicine 10/26/22 Team Status: Inactive Member Role Status Dates John Garcia DO Attending Provider Active Start : June 20, 2024 End: June 20, 2024 Goals (unrecognized section and content) Goals may be documented in a n alternate section FOR RECORDS PERTAINING TO PATIENTS WHO ARE [...] BE BASED ON THE PRIMARY CLINICAL RECORDS. [facility] [employer] provides no warranty or guarantee of the accuracy or completeness of information in this document.
--- NOTE | 2024-06-24 23:15 | PC.NURSE ---
This nurse accompanied Dr. Wliburn during vaginal exam Pt tolerated procedure well and was given necessary supplies to clean and redress Pt then back to ER bed and given a warm blanket Pt's remains at bedside
[2024-06-24 23:31] LABS: Basophils Percent Auto 0.2 % (0.2-2.0); Eosinophils Absolute Auto 0.1 10^3/uL (0.0-0.7); Eosinophils Percent Auto 0.9 % (0.9-7.0); Hematocrit 38.1 % (36.0-48.0); Hemoglobin 12.5 g/dL (12.0-16.0); Immature Granulocytes Abs Auto 0.02 10^3/uL (0.00-0.03); Immature Granulocytes Pct Auto 0.2 % (0.0-0.5); Lymphocytes Absolute Auto 3.1 10^3/uL (1.2-3.8); Lymphocytes Percent Auto 34.3 % (20.5-60.0); Mean Corpuscular HGB Conc 32.8 g/dL (29.9-35.2); Mean Corpuscular Hemoglobin 30.1 pg (26.7-34.0); Mean Corpuscular Volume 91.8 fL (81.0-99.0); Mean Platelet Volume 8.9 fL (9.5-13.5); Monocytes Absolute Auto 0.7 10^3/uL (0.3-0.8); Monocytes Percent Auto 7.4 % (1.7-12.0); Neutrophils Absolute Auto 5.1 10^3/uL (1.4-6.5); Platelet Count 286 10^3/uL (150-450); Red Blood Count 4.15 10^6/uL (4.20-5.40); Red Cell Distribution Width 12.3 % (11.0-15.0)
--- NOTE | 2024-06-24 23:36 | ED_ITS ---
HPI HPI - General Adult General Chief complaint: OB/Uterine Contractions Stated complaint: vaginal bleeding Time Seen by Provider: 06/24/24 22:58 Source: patient Mode of arrival: walk-in Limitations: no limitations History of Present Illness HPI narrative: Patient presents with a 2-hour history of lower abdominal cramping and heavy vaginal bleeding. She has used more than 2 pads an hour. She is 3 para 1 AB 2. She underwent suction curettage for missed 4 days ago and was advised to come to the ED if she experiences heavy bleeding. Related Data Previous Rx's ?Medication ?Instructions ?Recorded doxycycline hyclate 100 mg capsule 100 mg PO BID 7 days #14 caps 06/20/24 ibuprofen 800 mg tablet 800 mg PO Q8H PRN pain 14 days #40 06/20/24 tabs Allergies Allergy/AdvReac Type Severity Reaction Status Date / Time Sulfa (Sulfonamide Allergy Severe Anaphylaxis Verified 06/24/24 22:55 Antibiotics) Opioid HPI Opioid Management Most Recent Opioid Data: Last Pain Scale 6 06/20/24 13:33 06/20/24 Last Pain Assessment 06/20/24 13:48 Last MAR Pain Assessment 06/20/24 13:07 Ur Phencyclidine Scrn Negative (NEGATIVE) 04/06/23 05:40 03/28 Review of Systems ROS Status of ROS 10 or more systems reviewed and unremark able except as noted in history and below PFSH PFSH Medical History Seizure ?R56.9 - Unspecified convulsions (ICD-10) POTS (postural orthostatic tachycardia syndrome) ?G90.A - Postural orthostatic tachycardia syndrome [POTS] (ICD-10) Surgical History History of section ?Z98.891 - History of uterine scar from previous surgery (ICD-10) History of removal of cyst ?Z98.890 - Other specified postprocedural states (ICD-10) [place] teeth extracted ?K08.409 - Partial loss of teeth, unspecified cause, unspecified class (ICD- 10) Family History Grandmother Family history of CHF (congestive heart failure) Family history of COPD (chronic obstructive pulmonary disease) Grandfather Family history of cancer Family history of CHF (congestive heart failure) Family history of COPD (chronic obstructive pulmonary disease) Other Family history of MS (multiple sclerosis) Family history of brain cancer Family history of hypertension Family history of myocardial infarction Family history of stroke Social History Within the past year, how often did you have a drink containing alcohol: monthly or less Within the past year, how many standard drinks containing alcohol did you have on a typical day: 1 or 2 Within the past year, how often did you have six or more drinks on one occasion: never Total score: 0 Score interpretation: A score less than 3 is consistent with normal alcohol consumption. Smoking status: Never smoker Non-prescribed substance use: denies use Previous occupational history: [employer] Highest level of school completed/degree received: Associate degree: academic program Are you now , , , , never or living with a partner: Little interest or pleasure in doing things: not at all Feeling down, depressed, or hopeless: not at all Feel stressed/tense/nervous/anxious/difficulty sleeping: not at all Do you think of yourself as: straight/heterosexual Gender Identity: female Exam Narrative Exam Narrative: Patient does not appear acutely distressed. She is not tachycardic or hypotensive. There is no pallor or icterus. HEENT exam is normal to inspection. Neck is supple. Lung sounds are clear to auscultation bilaterally with good air entry. Heart has regular rate and rhythm. S1 and S2 are normal. Abdomen is soft with some fullness over the lower abdomen and underlying tenderness. She does not have peritoneal signs. Pelvic examination reveals small amount of old blood staining the introitus. Speculum examination of the vault revealed dark blood and some blood clot but no fresh blood or active bleeding is noted. The cervix is closed. The uterus is bulky and tender. Constitutional Vital Signs, click to edit/add: Last Vital Signs Temp 98.0 F 06/24/24 22:53 Pulse 75 06/24/24 22:53 Resp 16 06/24/24 22:53 BP 121/79 06/24/24 23:38 Pulse Ox 100 06/24/24 22:53 O2 Del Method Room Air 06/24/24 22:53 Course Vital Signs Vital signs: Vital Signs Temperature 98.0 F 06/24/24 22:53 Pulse Rate 75 06/24/24 22:53 Respiratory Rate 16 06/24/24 22:53 Pulse Oximetry 100 06/24/24 22:53 Oxygen Delivery Method Room Air 06/24/24 22:53 Temperature 98.0 F 06/24/24 22:53 Pulse Rate 75 06/24/24 22:53 Respiratory Rate 16 06/24/24 22:53 Blood Pressure 121/79 06/24/24 23:38 Pulse Oximetry 100 06/24/24 22:53 Oxygen Delivery Method Room Air 06/24/24 22:53 Medical Decision Making MDM Narrative Medical decision making narrative: Patient presents with a short bout of heavy vaginal bleeding 3-1/2 days after she underwent suction curettage for missed . At the time my examination she is not actively bleeding. Her white count is 9000 with a hemoglobin of 12.5. Her quantitative hCG is down to 781 from a level greater than 12,003 days ago. Bleeding is not ongoing and she is not hemodynamically unstable. The likelihood of retained products of conception is low. This was discussed with Dr. Garcia. Patient was treated with IV Toradol and IV fluids in the ED. She feels better and does not feel that she is bleeding heavily anymore. She is discharged and is to contact Dr. Garcia's office in the morning to arrange for the follow-up. She is to return for any heavy bleeding. Lab Data Labs: Lab Results 06/24/24 Range/Units 23:20 WBC 9.0 (4.0-11.0) 10^3/uL RBC 4.15 L (4.20-5.40) 10^6/uL Hgb 12.5 (12.0-16.0) g/dL Hct 38.1 (36.0-48.0) % MCV 91.8 (81.0-99.0) fL MCH 30.1 (26.7-34.0) pg MCHC 32.8 (29.9-35.2) g/dL RDW 12.3 (11.0-15.0) % Plt Count 286 (150-450) 10^3/uL MPV 8.9 L (9.5-13.5) fL Neut % (Auto) 57.0 (43.0-75.0) % Lymph % (Auto) 34.3 (20.5-60.0) % Blaine % (Auto) 7.4 (1.7-12.0) % Eos % (Auto) 0.9 (0.9-7.0) % Baso % (Auto) 0.2 (0.2-2.0) % Neut # (Auto) 5.1 (1.4-6.5) 10^3/uL Lymph # (Auto) 3.1 (1.2-3.8) 10^3/uL Blaine # (Auto) 0.7 (0.3-0.8) 10^3/uL Eos # (Auto) 0.1 (0.0-0.7) 10^3/uL Baso # (Auto) 0.0 (0.0-0.1) 10^3/uL Abs Immat Gran (auto) 0.02 (0.00-0.03) 10^3/uL Imm/Tot Granulo (auto) 0.2 (0.0-0.5) % HCG, Quant 781 mIU/mL Discharge Plan Discharge Chief Complaint: OB/Uterine Contractions Clinical Impression: Vaginal bleeding Patient Disposition: Home, Self-Care Time of Disposition Decision: 00:03 Condition: Good Mode of Transportation: Private Vehicle Prescriptions / Home Meds: No Action doxycycline hyclate 100 mg capsule 100 mg PO BID 7 Days Qty: 14 0RF ibuprofen 800 mg tablet 800 mg PO Q8H PRN (Reason: pain) 14 Days Qty: 40 0RF Print Language: Indonesian Instructions: Abnormal (Dysfunctional) Uterine Bleeding (ED) Additional Instructions: Contact Dr. Garcia's office in the morning to arrange further follow-up. Return for heavy vaginal bleeding. Referrals: John Garcia DO [Physician] - As soon as possible EVELYN VALDES [Primary Care Provider] - 1 week
[2024-06-24 23:38] VITALS: BP 121/79
[2024-06-24] MEDS: 0.9 % SODIUM CHLORIDE 1,000 ML 1000 ML IV (23:39)
[2024-06-24] MEDS: KETOROLAC TROMETHAMINE 30 MG/ML VIAL 15 MG IVP (23:39)
[2024-06-24 23:54] LABS: HCG Quantitative 781 mIU/mL
== END 2024-06-25 00:26 | disposition home or self-care (01) ==
PROVIDERS: Emergency Provider Emergency Medicine; PCP Family Medicine
DX: N93.9 Abnormal uterine and vaginal bleeding, unspecified (principal); Z98.890 Other specified postprocedural states
CPT/HCPCS: 36415; 84702; 85025; 96374; 99284; J1885

== ENCOUNTER 2024-10-03 14:02 | Outpatient (OUT) | payer OTHER, SELFPAY ==
[2024-10-03 14:22] LABS: BOX Test Reference Lab UNITY; BOX Test Sent Out UNITY BOX
== END 2024-10-03 14:03 | disposition home or self-care (01) ==
LOC: LAB 14:03
PROVIDERS: PCP Family Medicine; Visit Provider Midwife
DX: Z36.0 Encounter for antenatal screening for chromosomal anomalies (principal)
CPT/HCPCS: 36415

== ENCOUNTER 2025-04-13 15:43 | Observation (INO) | payer OTHER, SELFPAY ==
--- OUTSIDE RECORDS SUMMARY | 2025-04-13 15:50 | XMS_ITS | CCD ---
Author Organization [facility] ion Partnership [facility] Care Team Providers Care Mate Relief Name Role Phone Unavailable Primary Care Provider Unavailag Rosario MD, Joey Hinojosa Unavailable Gris Valdes MD Primary Care Provider John Garcia DO Attending Provider John Garcia Attending Unavailable John Garcia Admitting Unavailable FLORO, BRYSON L Attending Unavailable FLORO, BRYSON L Referring Unavailable FLORO, BRYSON L Attending Unavailable FLORO, BRYSON L Attending Unavailable FLORO, BRYSON L Attending Unavailable FLORO, BRYSON L Referring Unavailable FLORO, BRYSON L Attending Unavailable FLORO, BRYSON L Referring Unavailable FLORO, BRYSON L Referring Unavailable FLORO, BRYSON L Attending Unavailable KAMPFERSILVINO Attending Unavailable FLORO, BRYSON L Attending Unavailable FLORO, BRYSON L Attending Unavailable FLORO, BRYSON L Referring Unavailable FLORO, BRYSON L Referring Unavailable FLORO, BRYSON L Attending Unavailable FLORO, BRYSON L Attending Unavailable FLORO, BRYSON L Referring Unavailable FLORO, BRYSON L Attending Unavailable FLORO, BRYSON L Attending Unavailable FLORO, BRYSON L Referring Unavailable Allergies Allergy ClassificationReported Allergen(s)Allergy TypeDate of OnsetReaction(s) Facility (1 source)SulfacetamideDrug Cehczgm23-45-2751Fxpfetg [facility] Work Phone: (20 sources)Sulfamethoxazole / TrimethoprimDrug Jlpyxtf99-61-5185[facility] (20 sources)Sulfonamides (Antibiotic)Drug Lozwjbvbdcr85-12-2374XarktgqXAQT Healthcare (1 source)Sulfonamides (Antibiotic)Drug allergy (disorder)99-80-1451OhvhffwzcOhiohealth [facility] Medications Current Medications MedicationDrug Class(es)DatesSig (Normalized)Sig (Original) Zvfzhhxl-Etz-Mf-FA ( 1 + IRON PO) (20 sources) Ocbmyagd-Huz-Uv-FA ( 1 + IRON PO) Take by mouth Active Completed/Discontinued Medications MedicationDrug Class(es)DatesSig (Normalized)Sig (Original)doxycycline hyclate 100 mg oral capsule (5 sources)Tetracycline-class DrugStart: 06-20-2024 End: 62-33-9450nkrn 1 capsule by mouth in the morningdoxycycline (Vibramycin) 100 MG capsule Take 100 mg by mouth in the morning and 100 mg before bedtime. 06/20/2024 09/11/2024 Discontinued (Therapy completed)fluticasone propionate 0.05 mg/actuat metered dose nasal spray (12 sources)CorticosteroidStart: 09-25-2023 End: 85-84-6405wjjr 1 spray(s) nasal route once dailyfluticasone (Flonase) 50 MCG/ACT nasal spray Indications: Nasal congestion Administer 1 spray into each nostril Daily Shake gently. Before first use, prime pump. After use, clean tip and replace cap.16 g 2 09/25/2023 09/11/2024 Discontinued (Therapy completed) LORazepam 0.5 mg oral tablet (11 sources)BenzodiazepineStart: 04-30-2024 End: 40-58-0971dpju 1 tablet by mouth every six hours as needed for anxiety and anxiety and anxietyLORazepam (Ativan) 0.5 MG tablet Indications: Anxiety Take 1 tablet (0.5 mg) by mouth every 6 (six)hours if needed for anxiety for up to 10 days 10 tablet 04/30/2024 09/11/2024 Discontinued (Therapycompleted)meloxicam 15 mg oral tablet (1 source)Nonsteroidal Anti-inflammatory DrugStart: 60-18-6483AYRFI 15 MG TABS one a day MELOXICAM [id number] Joey Rosario MDnorethindrone 0.35 mg oral tablet (5 sources)Start: 01-14-2024 End: 88-30-9366atjw 1 tablet by mouth once dailynorethindrone (Micronor) 0.35 MG tablet Indications: Encounter for surveillance of contraceptive pills Take 1 tablet (0.35 mg) by mouth Daily 28 tablet 11 01/14/2024 05/06/2024 Discontinued (Therapy completed)12 hr orphenadrine citrate 100 mg extended release oral tablet (1 source)Muscle RelaxantStart: 64-76-9760UAIOCUUKPCJD CITRATE ER 100 MG XR12H- TAB 1 tablet twice daily ORPHENADRINE CITRATE [id number] Zoe Savage LPNpredniSONE 10 mg oral tablet (1 source)Start: 86-95-2177VOTASEBDPG 10 MG TABS 4 tablets once daily PREDNISONE [id number] Zoe Savage LPNprogesterone 200 mg oral capsule (3 sources)ProgesteroneStart: 08-25-2024 End: 40-60-3444ennhjcplcsod 200 MG capsule Indications: History of loss in prior , currently in first trimester Use as directed- daily 90 capsule 3 08/25/2024 09/11/2024 Discontinued (Therapy completed) Problems Active Problems Problem ClassificationProblemDateDocumented DateEpisodic/ChronicAcute bronchitis (2 sources)Acute bronchitis; Translations: [Acute bronchitis, unspecified] 89-04-2863PvfbjuleCllgzmq disorders (20 sources)Anxiety; Translations: [Anxiety disorder, unspecified]Onset: 855241-14-2131FutesnsPeeepys dysrhythmias (20 sources)Postural orthostatic tachycardia syndrome ; Translations: [Postural orthostatic tachycardia syndrome]Onset: 370560-46-6012PmcsrjzQmuoncvy mellitus without complication (2 sources)Abnormal glucose tolerance test; Translations: [Other abnormal glucose]88-30-4177RymgqjigFlkacujihb disorders (20 sources)Gastroesophageal reflux disease; Translations: [Gastro-esophageal reflux disease without esophagitis]Onset: 196412-16-9403JslwnrwYkkmmvpxu disorders (20 sources)Disorder of menstruation; Translations: [Irregular menstruation, unspecified]Onset: 651125-03-4174YakkbvoDgmsm acquired deformities (20 sources)Scoliosis deformity of spine; Translations: [Scoliosis, unspecified] Onset: 230093-46-6607UqgtutjSpcfl complications of (1 source)History of with abortive outcome; Translations: [Supervision of with other poorreproductive or obstetric history, first trimester] 06-74-2649EhdynqtoFaqmz complications of (2 sources)Missed miscarriage; Translations: [Missed ]86-75-9953Hkioboty Other complications of (6 sources)Finding related to ; Translations: [ related conditions, unspecified, second trimester]11-87-3199VcygdytrXxnhv endocrine disorders (20 sources)Hypoglycemia; Translations: [Hypoglycemia, unspecified]Onset: 291411-13-3961BleuvgrKopnn lower respiratory disease (2 sources)Cough; Translations: [Acute cough]67-25-9540RhknmbmmJlnzc and delivery including normal (20 sources)Term ; Translations: [Encounter for supervision of normal , unspecified, unspecified trimester]Onset: EpisodicOther screening for suspected conditions (not mental disorders or infectious disease) (8 sources) care status; Translations: [Patient encounter status] 08-23-0328ZdjwxpopRwlifjzctipu (20 sources)OB RemindersOnset: [id number] Past or Other Problems Problem ClassificationProblemDateDocumented DateEpisodic/ChronicDiabetes or abnormal glucose tolerance complicating ; childbirth; or the puerperium (20 sources)Gestational diabetes mellitus; Translations: [Gestational diabetes mellitus in , unspecified control]Onset: 035398-77-6195Uxtgxmde Other complications of (20 sources)Vomiting of , unspecified; Translations: [Unspecified vomiting of , unspecified as to episode of care or not applicable] Onset: 165995-66-2193MfbyqfsvKgpaklfrqtq; intervertebral disc disorders; other back problems (20 sources)Low back pain; Translations: [Acute back pain with sciatica]Onset: 300211-22-9915OypvjvndPohvetpustji (20 sources)Tuberculosis of vertebral column; Translations: [Tuberculosis of spine]Onset: 557814-60-0279YywjsnkhQcnvdtqolsir (1 source)Problem Results Test NameValueInterpretationReference RangeFacilityUS OB FOLLOW UP TRANSABDOMINAL APPROACHon 99-52-5164LV OB FOLLOW UP TRANSABDOMINAL APPROACH FINDINGS: A single, live intrauterine is present with normal cardiac rate of 174 beats per minute. Normal activity and amniotic fluid volume. Amniotic fluid index is 14 cm. Morphology is grossly normal. The cervix is long and closed, 7.0 cm. The placenta is anterior, Grade 1 not associated with the cervical os. The current sonographic age is 30 weeks and 5 days, based on the followingmeasurements: BPD 7.7 cm (30 weeks, 5 days) Head Circumference 28.2cm ( 30 weeks,6 days) Abdominal Circumference 36.5cm ( 30weeks, 5 days) Femur Length 5.8cm ( 30weeks, 3days) Presentation Cephalic Placenta Grade 1 Weight (g) by Percentile 39.0% * These measurements result in an estimated date of delivery of April 24, 2025 The current estimated weight is 1607 grams ( 3 pound, 9 ounces). Prior examination of December 10, 2024 had a delivery date of April 28, 2025. IMPRESSION: Single, live intrauterine , current sonographic age of 30 weeks and 5 days, with an estimated date of delivery of April 24, 2025. * Estimated Weight (g) by Percentile is based upon an accurate estimated age based on last menstrual period. TRANSCRIBED BY: ELECTRONICALLY SIGNED BY: Maksim Shukla MDNormalNot AvailableLaboratory - Microbiology and Antimicrobial susceptibilityon 68-96-3068CNZF-CoV-2 (COVID-19) RNA TATE+probe Ql (Unsp spec)-[facility]OM[facility] HealthcareNo Panel Informationon 77-98-0959RTD A-NOMS HealthcareFLU B-NOMS HealthcareInterpretation and review of laboratory resultsNormalNOMS St. Rita'S HospitalNONH HealthcareUS for pregnancyon 42-88-7443Abxyet, live intrauterine , current sonographic age of 20 weeks and 1 days, with an estimated date of delivery of April 28, 2025. * Estimated Weight (g) by Percentile is based upon an accurate estimated age based on last menstrual period. TRANSCRIBED BY: ELECTRONICALLY SIGNED BY: Maksim Shukla MDIMAGINGEXAM: OB PELVIC US FINDINGS: A single, live intrauterine is present with normal cardiac rate of 139 beats per minute. Normal activity and amniotic fluid volume. Amniotic fluid index is 12.0 cm. Morphology is grossly normal. The cervix is long and closed, 5.0cm. The placenta is anterior, not associated with the cervical os. The current sonographic age is 20 weeks and 1 days, based on the following measurements: BPD 4.6cm ( 20weeks, 0days) Head Circumference 17.5cm (20 weeks, 0 days) Abdominal Circumference 15.2cm (22 weeks, 0days) Femur Length 3.3cm (20 weeks, 0 days) Presentation Cephalic Placenta Anterior Grade 0 Weight (g) by Percentile 31.9% * These measurements result in an estimated date of delivery of April 28, 2025 The current estimated weight is 347 grams ( pound,12 ounces). IMAGINGSpirMaksim ramos MD - 12/11/2024 EXAM: OB PELVIC US FINDINGS: A single, live intrauterine is present with normal cardiac rate of 139 beats per minute. Normal activity and amniotic fluid volume. Amniotic fluid index is 12.0 cm. Morphology is grossly normal. The cervix is long and closed, 5.0cm. The placenta is anterior, not associated with the cervical os. The current sonographic age is 20 weeks and 1 days, based on the following measurements: BPD 4.6cm ( 20weeks, 0days) Head Circumference 17.5cm (20 weeks, 0 days) Abdominal Circumference 15.2cm (22 weeks, 0days) Femur Length 3.3cm (20 weeks, 0 days) Presentation Cephalic Placenta Anterior Grade 0 Weight (g) by Percentile 31.9% * These measurements result in an estimated date of delivery of April 28, 2025 The current estimated weight is 347 grams ( pound,12 ounces). IMPRESSION: Single, live intrauterine , current sonographic age of 20 weeks and 1 days, with an estimated date of delivery of April 28, 2025. * Estimated Weight (g) by Percentile is based upon an accurate estimated age based on last menstrual period. TRANSCRIBED BY: ELECTRONICALLY SIGNED BY: Maksim Shukla MD NOMS HealthcareUS for pregnancyOrdered By: Maksim Shukla on 97-98-1184[facility] Work Phone: US OB 14+ WEEKS ANATOMY SCANon 40-06-0173AD OB 14+ WEEKS ANATOMY SCANEXAM: OB PELVIC US FINDINGS: A single, live intrauterine is present with normal cardiac rate of 139 beats per minute. Normal activity and amniotic fluid volume. Amniotic fluid index is 12.0 cm. Morphology is grossly normal. The cervix is long and closed, 5.0cm. The placenta is anterior, not associated with the cervical os. The current sonographic age is 20 weeks and 1 days, based on the following measurements: BPD 4.6cm ( 20weeks, 0days) Head Circumference 17.5cm (20 weeks, 0 days) Abdominal Circumference 15.2cm (22 weeks, 0days) Femur Length 3.3cm (20 weeks, 0 days) Presentation Cephalic Placenta Anterior Grade 0 Weight (g) by Percentile 31.9% * These measurements result in an estimated date of delivery of April 28, 2025 The current estimated weight is 347 grams ( pound,12 ounces). IMPRESSION: Single, live intrauterine , current sonographic age of 20 weeks and 1 days, with an estimated date of delivery of April 28, 2025. * Estimated Weight (g) by Percentile is based upon an accurate estimated age based on last menstrual period. TRANSCRIBED BY: ELECTRONICALLY SIGNED BY: Maksim Shukla MDNormalNot AvailableUS for pregnancyon 02-43-5733Uuylyaefw Study observation (narrative)NOMS HealthcareBOX TESTon 79-87-3499MSE TEST SENT OUTUNITY BOXNONH LgfrqyvjcqWSO7PFOROYBBC KfmwvbjpzpYVK92/9/25NONH HealthcareCLINISYNCNOMS HealthcareUS OB < 14 WEEKS EARLYon 02-88-8905EK OB < 14 WEEKS EARLYEXAM: US OB < 14 WEEKS EARLY HISTORY: Amenorrhea. COMPARISON: Ob ultrasound 05/06/2024. TECHNIQUE: Two-dimensional transvaginal grayscale ultrasound imaging of the pelvis was performed. Color Doppler evaluation of the ovaries was also performed. FINDINGS: The uterus measures 10.2 x 5.4 x 7.5 demonstrates a normal homogeneous echotexture. The cervix measures 3.9 cm in length and the cervical os is closed. The right ovary is not visualized due to overlying bowel gas. The left ovary measures 2.8 x 1.4 x 2.1 cm and demonstrates a normal echotexture. There is normal color Doppler flow. No fluid is present within the cul-de-sac. There is a single, live intrauterine gestation identified with a heart rate of 143 beats per minute and a crown-rump length measurement of 1.1 cm, correlating to a gestational age of 7 weeks 6 days. A yolk sac is visualized. There is no subchorionic hemorrhage visualized. IMPRESSION: 1. Single, live intrauterine gestation 7 weeks, 5 days by LMP. Today's ultrasound measurements correlate with a gestational age of 7 weeks 6 days. JAS by today's ultrasound is 03/24/2025. 2. Normal color Doppler evaluation of the left ovary, the right ovary was not visualized. Interpreted by: Electronically signed by CLARISSA SAHU II, MD, PHD at 13-Sep-2024 06:52:45 PM [facility] TeleradiologyNormalNot AvailableLaboratory - Chemistry and Chemistry - challengeon 30-97-2021KTF.beta subunit Qn50 m[IU]/mLHighmIU/mLNOMS HealthcareComment on above:Reference Range Non or premenopausal <5 Postmenopausal <10 Values from different assay methods may vary. The use of this assay to monitor or to diagnose patients with cancer or any condition unrelated to has not been cleared or approved by the FDA or the aircraft hydraulic equipment mechanic of the assay. No Panel Informationon 70-42-0550Rzuvkgmfwykvar and review of laboratory results ChristianaCarePerforming Organization Information Site ID: QPT Name: [facility] Address: [address] [place] [phone] Director: Kurt Cardona MDMercy Hospital Washington HealthcareALL CBC WITH AUTO DIFFon 05-38-7627TQBBQYTSF ABSOLUTE GYJC9STEB HealthcareBasophils/100 WBC (Bld)0.3 % 0.2 - 2.0 %NOMS HealthcareEosinophils/100 WBC (Bld)0.6 %Low0.9 - 7.0 %NOMS HealthcareErythrocyte distribution width (RBC) [Ratio]12.1 %11.0 - 15.0 %NOMS HealthcareHematocrit (Bld) [Volume fraction]42.7 %36.0 - 48.0 %[facility] Hemoglobin (Bld) [Mass/Vol]14.3 g/dL12.0 - 16.0 g/dLSullivan County Memorial HospitalIMMATURE GRANULOCYTES ABS AUTO0.01NOCitizens Memorial HealthcareImmature granulocytes/100 WBC (Bld)0.1 % 0.0 - 0.5 %[facility] HospitalInterpretation and review of laboratory results AbnormalSullivan County Memorial HospitalLYMPHOCYTES ABSOLUTE AUTO2.3N[facility] Lymphocytes/100 WBC (Bld)32.6 %20.5 - 60.0 %[facility]ettH (RBC) [Entitic mass]30.4 pg26.7 - 34.0 pgCox MonettHC (RBC) [Mass/Vol]33.5 g/dL29.9 - 35.2 g/dLCox MonettV (RBC) [Entitic vol]90.9 fL81.0 - 99.0 fLSullivan County Memorial HospitalMONOCYTES ABSOLUTE AUTO0.5NOCitizens Memorial HealthcareMonocytes/100 WBC (Bld)6.8 % 1.7 - 12.0 %[facility] HospitalNEUTROPHILS ABSOLUTE AUTO4.2N[facility]S [facility] Neutrophils/100 WBC (Bld)59.6 %43.0 - 75.0 %[facility] HospitalPlatelet mean volume (Bld) [Entitic vol]9 fLLow9.5 - 13.5 fLSullivan County Memorial HospitalTB EO #0NOMS [facility] YKH431WWKGSaint Louis University Hospital RBC4.7NOMS [facility] STX6TMWGCitizens Memorial Healthcare CLINISYNCSullivan County Memorial HospitalLon 06-20-2024 Specimen: [id number] Received: 06/23/24-484 Status: LYNNETTE Sultana Num: [id number] Spec Type: Surgical Subm Dr: John Garcia Tissues: A Products of Conception - Spontaneous or Missed (POC) Procedures: HE/2, Gross/Micro L4 Age/ Patient Sex Location Account Attending Physician Armando Solis LABELL [id number] John Garcia SPEC NUM: [id number] RECD: 06/23/24 STATUS: LYNNETTE SULTANA NUM: [id number] [place]: 06/20/24-[address] [facility] [address]: John Garcia ENTERED: 06/23/24-[address] [facility] [address]: [place],Lab SPEC TYPE: Surgical DEPT: [place] C[place] ENTERED BY: [id number] RECV BY: [id number] ORDERED: HE/2, Gross/Micro L4 ORDERED: HE/2, Gross/Micro L4 Pathological Diagnosis Products of conception: Immature chorionic villi and decidua, consistent with products of conception. Clinical Information Missed Gross Description Part A is received in formalin labeled with the patients name, date of , and products of conception are redd-pink fragments of glistening tissue, admixed with a small amount of hemorrhagic material, 5.5 x 4 x 1.5 cm in aggregate. Within the fragmented tissue is a portion of pale echeverria, feathery tissue, possibly consistent with chorionic villi, 2 x 1 x 0.7 cm. The entirety of the possible chorionic villi is submitted in A1 with hostess party sales representative sections of the decidua submitted in A2. (2, ss, BS25-55 A) CPT Codes 60486 Specimen: [id number] Received: 06/23/24 Status: LYNNETTE Sultana Num: [id number] Spec Type: Surgical Subm Dr: John Garcia Tissues: A Products of Conception - Spontaneous or Missed (POC) Procedures: ILAN/Adenike, Gross/Micro L4 Patient: Armando Solis [id number] (Continued) Signed (signature on file) Seble Hager MD 06/24/[address] [place] [address] Physician GroupUS OB TRANSVAGINALon 06-19-2024 [place] [address] Ultrasound Report Signed Patient: ARMANDO SOLIS MR#: [id number] : 2000 Acct:[id number] Age/Sex: 24 / F ADM Date: 06/19/24 Loc: US Attending Dr: BRYSON LARSEN APRN, CNM Ordering Physician: BRYSON LARSEN APRN, CNM Date of Service: 06/19/24 Procedure(s): US OB transvaginal Accession Number(s): [id number] cc: BRYSON LARSEN APRN, CNM; GRIS VALDES [place] [id number] Patient Name: ARMANDO SOLIS MRN: [id number] date: 2000 Sex: F Assigned Patient Location: US Current Patient Location: US Accession/Order Number: [id number] Exam Date: 06/19/2024 08:35 Report Date: 06/19/2024 09:39 At the request of: BRYSON LARSEN Procedure: US OB transvaginal EXAMINATION: US OB transvaginal HISTORY: Amenorrhea COMPARISON: 06/05/24 FINDINGS: [place] intrauterine gestation Findings gestational sac: 2.28 cm, 6 weeks 6 days CRL: 8.6 mm, 6 weeks 6 days Yolk sac: Not visualized Heart rate: Cardiac activity not observed Cervix: Closed, 3.8 cm The uterus is normal, anteverted The ovaries are not visualized Clinical age: 10 weeks 6 days Clinical JAS: 01/09/2025 Ultrasound age: 6 weeks 6 days Ultrasound JAS: 02/06/2025 US/US OB transvaginal IMPRESSION: No interval growth in 2 weeks. Findings are consistent with demise Electronically authenticated by: ADALBERTO MELTON Date: 06/19/2024 09:39 Dictated By: Adalberto Melton M.D. Signed By: 06/19/2442 DD/ TD/TT: Front End Web Developer:BRANDINadiologspike, Radiologist, - 06/19/2024 [place] [address] Ultrasound Report Signed Patient: ARMANDO SOLIS MR#: [id number] : 2000 Acct:[id number] Age/Sex: 24 / F ADM Date: 06/19/24 Loc: US Attending Dr: BRYSON LARSEN APRN, CNM Ordering Physician: BRYSON LARSEN APRN, CNM Date of Service: 06/19/24 Procedure(s): US OB transvaginal Accession Number(s): [id number] cc: BRYSON LARSEN APRN, CNM; GRIS VALDES [place] [id number] Patient Name: ARMANDO SOLIS MRN: [id number] date: 2000 Sex: F Assigned Patient Location: US Current Patient Location: US Accession/Order Number: [id number] Exam Date: 06/19/2024 08:35 Report Date: 06/19/2024 09:39 At the request of: BRYSON LARSEN Procedure: US OB transvaginal EXAMINATION: US OB transvaginal HISTORY: Amenorrhea COMPARISON: 06/05/24 FINDINGS: [place] intrauterine gestation Findings gestational sac: 2.28 cm, 6 weeks 6 days CRL: 8.6 mm, 6 weeks 6 days Yolk sac: Not visualized Heart rate: Cardiac activity not observed Cervix: Closed, 3.8 cm The uterus is normal, anteverted The ovaries are not visualized Clinical age: 10 weeks 6 days Clinical JAS: 01/09/2025 Ultrasound age: 6 weeks 6 days Ultrasound JAS: 02/06/2025 US/US OB transvaginal IMPRESSION: No interval growth in 2 weeks. Findings are consistent with demise Electronically authenticated by: ADALBERTO MELTON Date: 06/19/2024 09:39 Dictated By: Adalberto Melton M.D. Signed By: 06/19/2442 DD/ 8 TD/TT: Front End Web Developer: CECI HealthcareRadiology Study observation (narrative)CECI GarciaUS OB TRANSVAGINALOrdered By: Radiologist Radiology on 98-49-5630KWMR Healthcare Work Phone: US OB TRANSVAGINALon [phone] [address] Ultrasound Report Signed Patient: ARMANDO SOLIS MR#: [id number] : 2000 Acct:[id number] Age/Sex: 24 / F ADM Date: 06/05/24 Loc: US Attending Dr: BRYSON LARSEN APRN, CNM Ordering Physician: BRYSON LARSEN APRN, CNM Date of Service: 06/05/24 Procedure(s): US OB transvaginal Accession Number(s): [id number] cc: BRYSON LARSEN APRN, CNM; GRIS VALDES [address] [address] Patient Name: ARMANDO SOLIS MRN: [id number] date: 2000 Sex: F Assigned Patient Location: US Current Patient Location: US Accession/Order Number: [id number] Exam Date: 06/05/2024 13:00 Report Date: 06/05/2024 13:56 At the request of: BRYSON LARSEN Procedure: US OB transvaginal EXAMINATION: US OB transvaginal HISTORY: Amenorrhea, Positive Test COMPARISON: No relevant comparison available. FINDINGS: [place] intrauterine gestation Gestational sac: 2.23 cm, 6 weeks 6 CRL: 8.2 mm, 6 weeks 5 days Yolk sac: 2.2 mm Heart rate: Not visualized The uterus is normal, anteverted The right ovary is not visualized. The left ovary measures 2.1 x 2.1 x 1.5 cm Cervix, closed, 3.9 cm Clinical age: 8 weeks 6 days Clinical JAS: 01/09/2025 Ultrasound age: 6 weeks 5 days Ultrasound JAS: 01/24/2025 US/US OB transvaginal IMPRESSION: No cardiac activity observed, possibly related to early gestation. Continued surveillance recommended Electronically authenticated by: ADALBERTO MELTON Date: 06/05/2024 13:56 Dictated By: Adalberto Melton M.D. Signed By: 06/05/24 1359 DD/ 1356 TD/TT: Front End Web Developer:[facility]-CLINISYNCRadiology, Radiologist, MD - 06/05/2024 [place] [address] Ultrasound Report Signed Patient: ARMANDO SOLIS MR#: [id number] : 2000 Acct:[id number] Age/Sex: 24 / F ADM Date: 06/05/24 Loc: US Attending Dr: BRYSON LARSEN APRN, CNM Ordering Physician: BRYSON LARSEN APRN, CNM Date of Service: 06/05/24 Procedure(s): US OB transvaginal Accession Number(s): [id number] cc: BRYSON LARSEN APRN, CNM; GRIS VALDES [place] [id number] Patient Name: ARMANDO SOLIS MRN: [facility]:[id number] date: 2000 Sex: F Assigned Patient Location: US Current Patient Location: US Accession/Order Number: [id number] Exam Date: 06/05/2024 13:00 Report Date: 06/05/2024 13:56 At the request of: BRYSON LARSEN Procedure: US OB transvaginal EXAMINATION: US OB transvaginal HISTORY: Amenorrhea, Positive Test COMPARISON: No relevant comparison available. FINDINGS: [place] intrauterine gestation Gestational sac: 2.23 cm, 6 weeks 6 CRL: 8.2 mm, 6 weeks 5 days Yolk sac: 2.2 mm Heart rate: Not visualized The uterus is normal, anteverted The right ovary is not visualized. The left ovary measures 2.1 x 2.1 x 1.5 cm Cervix, closed, 3.9 cm Clinical age: 8 weeks 6 days Clinical JAS: 01/09/2025 Ultrasound age: 6 weeks 5 days Ultrasound JAS: 01/24/2025 US/US OB transvaginal IMPRESSION: No cardiac activity observed, possibly related to early gestation. Continued surveillance recommended Electronically authenticated by: ADALBERTO MELTON Date: 06/05/2024 13:56 Dictated By: Adalberto Melton M.D. Signed By: 06/05/24 1359 DD/ 2586 TD/TT: Front End Web Developer: [facility]PITALAshly HealthcareRadiology Study observation (narrative)NOMS HealthcareUS OB TRANSVAGINALOrdered By: Radiologist Radiology on 23-25-5366LMRB On-Q-ity Work Phone: HCG ( test) Ql (U)on 23-91-9713Hzqypkddjpmkcy and review of laboratory resultsNormalNOMS HealthcarePreg Test, UrNegative NegativeNOMS HealthcareNONH HealthcareUS OB < 14 WEEKS EARLYon 10-66-5745UN OB < 14 WEEKS EARLYEXAM: Pelvic Ultrasound, Transvaginal. REASON FOR EXAM: Dates. [...] report is generated using voice recognition reporting (Wantworthy). On occasion MycoTechnology[employer] erroneously drops words from the report or replaces the spoken word with similar sounding words. Please call with any questions/concerns regarding this report.* Dictated and transcribed 05/07/24/dpd This report has been electronically signed and approved by the interpreting radiologist.NormalNot AvailableXR Knee Complete Left*on 63-81-5862NZ Knee Complete Left*FINDINGS: Minimal patellofemoral joint space loss. No cortical or subchondral fracture. No suprapatellar effusion. IMPRESSION: 1. Minimal arthritis. 2. No cortical or subchondral fracture or effusion. Report reported and signed by Maksim Shukla on 03/30/2022 1345NoAvita Health System Bucyrus HospitalXR Knee Complete Right*on 55-89-0275NN Knee Complete Right*FINDINGS: Minimal patellofemoral joint space loss. No cortical or subchondral fracture. No suprapatellar effusion IMPRESSION: 1. Minimal arthritis. 2. No cortical or subchondral fracture or effusion. Report reported and signed by Maksim Shukla on 03/30/2022 1346NoMercy Healthplete Blood Counton 24-27-3062Icjjunsqpjh distribution width (RBC) [Ratio]11.7 %Nczhko67.0-15.0The Metrohealth SystemComment on above:Performed By: #### ESR, CBC, RF, CMP #### [facility] [address], [place] [id number] (Bld) [Volume fraction]43.8 %Rxgkrb49.0-47.0 The Metrohealth SystemComment on above:Performed By: #### ESR, CBC, RF, CMP #### [facility] [address], [place] [id number] (Bld) [Mass/Vol]14.3 g/oPTftugd36.6-15.5[facility] SpecialistComment on above:Performed By: #### ESR, CBC, RF, CMP #### [facility] [address], [place] [id number] (RBC) [Entitic mass]30.3 tbQgesjq85.0-33.0NoVan [facility]ert [facility] Hospital SpecialistComment on above:Performed By: #### ESR, CBC, RF, CMP #### [facility] [address], [place] [id number] (RBC) [Mass/Vol]32.6 g/jBTcroqs73.0-36.0[facility] SpecialistComment on above:Performed By: #### ESR, CBC, RF, CMP #### [facility] [address], [place] [id number] (RBC) [Entitic vol]93 kLAmpbos20-594Crbzkrtn [facility] SpecialistComment on above:Performed By: #### ESR, CBC, RF, CMP #### [facility] [address], [place] [id number] mean volume (Bld) [Entitic vol]9.60 fLNormal 7.50-12.50NoVan Wert [facility] Hospital SpecialistComment on above:Performed By: #### ESR, CBC, RF, CMP #### [facility] [address], [place] [id number] (Bld) [#/Vol]267 10*3/uZPelvye612-916Twpnxdrk [facility] SpecialistComment on above:Performed By: #### ESR, CBC, RF, CMP #### [facility] [address], [place] [id number] (Bld) [#/Vol]4.72 10*6/uLNormal3.90-5.20NoVan [facility]ert [facility] Hospital SpecialistComment on above:Performed By: #### ESR, CBC, RF, CMP #### [facility] [address], [place] [id number]-ST69.3 mPMekmbq73.0-50.0NoVan [facility]ert [facility] Hospital Specialist Comment on above:Performed By: #### ESR, CBC, RF, CMP #### [facility] [address], [place] [id number] (Bld) [#/Vol]7.1 10*3/uLNormal3.8-11.0NoVan Wert [facility] Hospital SpecialistComment on above:Performed By: #### ESR, CBC, RF, CMP #### [facility] [address], [place] [id number] Metabolic Panelon 29-63-6932Kaxjoom [Mass/Vol] 5.0 g/dLNormal3.6-5.1[facility] SpecialistComment on above:Performed By: #### ESR, CBC, RF, CMP #### [facility] [address], [place] [id number]/Globulin [Mass ratio]1.9 {ratio}Normal1.0-2.5NoVan Wert [facility] Hospital SpecialistComment on above:Performed By: #### ESR, CBC, RF, CMP #### [facility] [address], [place] [id number] [Catalytic activity/Vol]91 U/QUkfkli21-226Vuzfljme [facility] SpecialistComment on above:Performed By: #### ESR, CBC, RF, CMP #### [facility] [address], [place] [id number] [Catalytic activity/Vol]12 U/LNormal6-33NortThe [facility] Hospital SpecialistComment on above:Result Comment: 04/27/2021 Female reference range changed.Performed By: #### ESR, CBC, RF, CMP #### [facility] [address], [place] [id number] gap [Moles/Vol]19 mmol/IJlejwo10-60Lochlacu [facility] SpecialistComment on above:Result Comment: Effective 06/02/2019 reference range changed.Performed By: #### ESR, CBC, RF, CMP #### [facility] [address], [place] [id number] [Catalytic activity/Vol]19 U/LNormal9-34NortThe [facility] SpecialistComment on above:Performed By: #### ESR, CBC, RF, CMP #### [facility] [address], [place] [id number] [Mass/Vol]0.74 mg/dLNormal0.30-1.20NortThe [facility] SpecialistComment on above:Performed By: #### ESR, CBC, RF, CMP #### [facility] [address], [place] [id number]/CREA22 RatioNormal6-22NoVan Wert [facility] Hospital Specialist Comment on above:Performed By: #### ESR, CBC, RF, CMP #### [facility] [address], [place] [id number] [Mass/Vol]9.7 mg/dLNormal8.6-10.2[facility] SpecialistComment on above:Performed By: #### ESR, CBC, RF, CMP #### [facility] [address], [place] [id number] [Moles/Vol]104 mmol/SAkojnx63-765Nrwijgnm [facility] SpecialistComment on above:Performed By: #### ESR, CBC, RF, CMP #### [facility] [address], [place] [id number] [Moles/Vol]22 mmol/MQrmwzy50-08Limgfiur [facility] SpecialistComment on above:Performed By: #### ESR, CBC, RF, CMP #### [facility] [address], [place] [id number] [Mass/Vol]0.6 mg/dLNormal0.6-1.4Nortflorence community healthcaren [facility] SpecialistComment on above:Performed By: #### ESR, CBC, RF, CMP #### [facility] [address], [place] [id number] mL/min/1.03c8Ouvzem>60[facility]ortThe [facility] SpecialistComment on above:Performed By: #### ESR, CBC, RF, CMP #### [facility] [address], [place] [id number] mL/min/1.49s3Gfjdcx>60NortThe [facility] SpecialistComment on above:Performed By: #### ESR, CBC, RF, CMP #### [facility] [address], [place] [id number] (S) [Mass/Vol]2.7 g/dLNormal1.9-3.7NortThe [facility] SpecialistComment on above:Performed By: #### ESR, CBC, RF, CMP #### [facility] [address], [place] [id number] [Mass/Vol]79 mg/kECnvmkb59-88Urjunrir [facility] SpecialistComment on above:Result Comment: For FASTING Glucose --- ADA reference ranges: Normal 65-99 mg/dl Prediabetes 100-125 Diabetes >/= 126Performed By: #### ESR, CBC, RF, CMP #### [facility] [address], [place] [id number] [Moles/Vol]4.1 mmol/LNormal3.5-5.5Nortflorence community healthcaren [facility] SpecialistComment on above:Performed By: #### ESR, CBC, RF, CMP #### [facility] [address], [place] [id number] [Mass/Vol]7.7 g/dLNormal6.1-8.1[facility] SpecialistComment on above:Performed By: #### ESR, CBC, RF, CMP #### [facility] [address], [place] [id number] [Moles/Vol]141 mmol/JLxzpcf889-056Tasmdkgw [facility] SpecialistComment on above:Performed By: #### ESR, CBC, RF, CMP #### [facility] [address], [place] [id number] nitrogen [Mass/Vol]13 mg/dLNormal7-25NortThe [facility] SpecialistComment on above:Performed By: #### ESR, CBC, RF, CMP #### [facility] [address], [place] [id number] - LORRIE SCREEN IFA W/RFL TITER AND PATTERNon 65-19-8043HQV SCREEN, IFANegativeNormalNEGATIVENoVan Wert County Hospital SpecialistComment on above:Order Comment: [facility] Testing performed at: QPT, [employer] [facility], [address] [facility], [address] [place] [address], [place], [address], Television Production Clerk: Kurt Cardona MD [facility] Collection Date/Time: [id number] [facility] Results Received Date/Time: [facility] Reported Date/Time: [id number] Comment: LORRIE IFA is a first line [...] AC-0: Negative International Consensus on LORRIE Patterns (https://doi.org/10.1515/ftfb-2368-3877) For additional information, please refer to http://education.YoBucko.Bluetector/faq/QDH050 (This link is being provided for informational/ educational purposes only.)Performed By: #### 249 #### [facility] [address] [place], [place] [address]VRZ Sedimentation Rateon 46-55-9930UYJ (Bld) [Velocity]15.00 mm/h Normal0.00-20.00NortKettering Health TroyComment on above:Performed By: #### ESR, CBC, RF, CMP #### [facility] [address] [place], [place] [id number] Factoron 78-56-6521CB<10NormalNortKettering Health TroyComment on above:Performed By: #### ESR, CBC, RF, CMP #### [facility] [address] [place], [place] [id number] - THINPREP(R) TIS AND HPV MRNA E6/E7 RFL HPV 16/18/45on 48-35-7990EUIFPLFT INFORMATION:None givenNormalNoCity of [facility] Chef Saucier Comment on above:Order Comment: [facility] performed at: [employer], [facility], [address] [place] [address], [address] [place] [address] [place], [address], Television Production Clerk: Kurt Cardona MD [facility] Collection Date/Time: [id number] [facility] Results Received Date/Time: [id number] [facility] Reported Date/Time: [id number] By: #### [id number] #### [facility] [address] [place], [place] [address]OIGRMNEXPG NOTENormalNoVan Wert County Hospital SpecialistComment on above:Order Comment: [facility] Testing performed at: [employer], [employer], [address] [place] [address], [address] [place] [address], [address] [place] [address], Television Production Clerk: Kurt Cardona MD [facility] Collection Date/Time: [facility] Results Received Date/Time: [facility] Reported Date/Time: [id number] Comment: EXPLANATORY NOTE: The Pap is a screening test for cervical cancer. It is not a diagnostic test and is subject to false negative and false positive results. It is most reliable when a satisfactory sample, regularly obtained, is submitted with relevant clinical findings and history, and when the Pap result is evaluated along with historic and current clinical information.Performed By: #### [id number] #### [facility] [address] [place], [place] [address]CKBPHIZ:This Pap test has been evaluated with computer assisted technology.NormalNortGenesis Hospital Medical SpecialistComment on above:Order Comment: [facility] performed at: [employer], [address] [place] [address], [address] [place] [address], [address] [place] [address], Television Production Clerk: Kurt Cardona MD [facility] Collection Date/Time: [facility] Results Received Date/Time: [facility] Reported Date/Time: [id number] By: #### [id number] #### [facility] [address] [place], [place] [address]MKXAFOOTXRPWCZCC:SEE NOTENormalNortflorence community healthcaren [place] Chef Saucier Comment on above:Order Comment: [facility] performed at: [employer], [employer], [address] [place] [address], [address] [place] [address], [address] [place] [address], Television Production Clerk: Kurt Cardona MD [facility] Collection Date/Time: [facility] Results Received Date/Time: [facility] Reported Date/Time: [id number] Comment: DMK, CT(ASCP) CT screening location: [place] [address].Performed By: #### [id number] #### [facility] [address] [place], [place] [address]ZDJ mRNA E6/E7Not detectedNormalNot DetectedNortKettering Health TroyComment on above:Order Comment: [facility] Testing performed at: [employer], [address] [place] [address], [address] [place] [address], Television Production Clerk: Kurt Cardona MD [facility] Collection Date/Time: [facility] Results Received Date/Time: [facility] Reported Date/Time: [id number] Comment: Methodology: Oil Exploration Engineer-Mediated Amplification This assay detects E6/E7 viral messenger RNA (mRNA) from 14 high-risk HPV types (16,18,31,33,35,39,45,51,52,56,58,59,66,68). The analytical performance characteristics of this assay have been determined by [employer]. The modifications have not been cleared or approved by the FDA. This assay has been validated pursuant to the CLIA regulations and is used for clinical purposes. For additional information, please refer to http://education.[employer]/faq/TXM986m6 (This link if provided for information/ educational purposes only.)Performed By: #### [id number] #### [facility] [address] [place], [place] [address]LVYUYBMJAAYKFR/RESULT:NegativeNormalNortflorence community healthcaren [facility] ConnecticutComment on above:Order Comment: [facility] Testing performed at: [employer], [address] [place] [address], [address] [place] [address], [address] [place] [address], Television Production Clerk: Kurt Cardona MD [facility] Collection Date/Time: [facility] Results Received Date/Time: [facility] Reported Date/Time: [id number] By: #### [id number] #### [facility] [address] [place], [place] [address]HWV:None givenNormalNorthern [facility] SpecialistComment on above:Order Comment: [facility] performed at: [employer] [facility], [address] [place] [address], [address] [place] [address], [address] [place] [address], Television Production Clerk: Kurt Cardona MD [facility] Collection Date/Time: [facility] Results Received Date/Time: [facility] Reported Date/Time: [id number] By: #### [id number] #### [facility] [address] [place], [place] [address]JTBP. BX:None givenNormalNorthern [facility] SpecialistComment on above:Order Comment: [facility] Testing performed at: [employer], [facility], [address] [place] [address], [address] [place] [address], [address] [place] [address], Television Production Clerk: Kurt Cardona MD [facility] Collection Date/Time: [facility] Results Received Date/Time: [facility] Reported Date/Time: [id number] By: #### [id number] #### [facility] [address] [place], [place] [address]MUTC. PAP:None givenNormalNorthern [facility] SpecialistComment on above:Order Comment: [facility] Testing performed at: [employer], [employer], [address] [place] [address], [address] [place] [address], [address] [place] [address], Television Production Clerk: Kurt Cardona MD [facility] Collection Date/Time: [facility] Results Received Date/Time: [facility] Reported Date/Time: [id number] By: #### 29591 #### [facility] [address] [place] [address]SOURCE:None givenNormalNorthern [facility] SpecialistComment on above:Order Comment: [facility] Testing performed at: [employer], [facility], [address] [place] [address], [address] [place] [address], [address] [place] [address], Television Production Clerk: Kurt Cardona MD [facility] Collection Date/Time: [facility] Results Received Date/Time: [facility] Reported Date/Time: [id number] By: #### [id number] #### [facility] [address] [place], [place] [address]WXEMFOTYM OF ADEQUACY:SEE NOTENormalNorthern [facility] Center SpecialistComment on above:Order Comment: [facility] Testing performed at: [place], [facility], [address] [place] [address], [address] [place] [address], [address] [place] [address], Television Production Clerk: Kurt Cardona MD [facility] Collection Date/Time: [id number] [facility] Results Received Date/Time: [facility] Reported Date/Time: [id number] Comment: Satisfactory for evaluation. Endocervical/transformation zone component present.Performed By: #### [id number] #### [facility] [address] [place], [place] [address]O - FSHon 65-57-5981QAE7.3 mIU/mLNormalNorthern [facility]conte [facility] Center SpecialistComment on above:Order Comment: [facility] Testing performed at: [employer], [facility], [address] [place] [address], [address] [place] [address], [address] [place] [address], Television Production Clerk: Kurt Cardona MD [facility] Collection Date/Time: [facility] Results Received Date/Time: [id number] [facility] Reported Date/Time: FASTING: NOResult Comment: Reference Range Follicular Phase 2.5-10.2 Mid-cycle Peak 3.1-17.7 Luteal Phase 1.5- 9.1 Postmenopausal 23.0-116.3Performed By: #### 44235E, 72669E, 16159V #### [facility] [address] [place], [place] [address]M - LHon 72-94-5511GD6.6 mIU/mLNormalNorthern Leconte [facility] Center SpecialistComment on above:Order Comment: Quest performed at: [employer], [facility], [address] [place] [address], [address] [place] [address], [address] [place] [address], Television Production Clerk: Kurt Merati MDQuest Collection Date/Time: [id number] Results Received Date/Time: [id number] Reported Date/Time: FASTING: NO Result Comment: Reference Range Follicular Phase 1.9-12.5 Mid-Cycle Peak 8.7-76.3 Luteal Phase 0.5-16.9 Postmenopausal 10.0-54.7Performed By: #### ESR, CBC, RF, CMP #### [facility] [address], [place] [address]M - TESTOSTERONE TOTAL LC/MS/MSon 80-45-3736LSXNBRMOMKRW, TOTAL, MS20 ng/dLNormal2-45Northern [facility] ConnecticutComment on above: Order Comment: [facility] performed at: [facility], [employer], [address], [place], [place], , Television Production Clerk: Damir Chavarria M.D.,PhDQuest Collection Date/Time: [id number] Results Received Date/Time: [id number] Reported Date/Time: FASTING: NOResult Comment: For additional information, please refer to http://education.SoSocio.Bluetector/faq/ KmaysVqhjmrvrvospGFEONFPVF643 (This link is being provided for informational/ educational purposes only.) This test was developed and its analytical performance characteristics have been determined by [employer] [place], [place]. It has not been cleared or approved by the U.S. Food and Drug Administration. This assay has been validated pursuant to the CLIA regulations and is used for clinical purposes.Performed By: #### ESR, CBC, RF, CMP #### [facility] [address], [place] [id number] w/ Reflex to Free T4on 87-56-6221PMB1.644 uIU/mLNormal 0.400-4.500Northern [facility] Of Central ConnecticutComment on above:Performed By: #### TSH reflex FT4 #### [facility] [address], [place] [id number] Summary: HMSPatientIDon 70-48-7999rigzcds number [id number] OOPCrystACMC Healthcare System [facility] Work Phone: Clinical Summary: Scanned History Summaryon 05-14-2020 adl form etoh alcohol performancebeer, wine, liquorPremier Health [facility] Work Phone: Beta HCG ( test) Ql (U)1 time per yearPremier Health [facility] Work Phone: consumes three or more drinks of alcohol (beer, wine, liquor) daily or almost dailyless than 1 drink per dayPremier Health [facility] Work Phone: Data entered by patient, additional medical problems Tachycardia arrhythmiaCrystACMC Healthcare System Clinic Work Phone: data entered by patient, alcohol (ethanol or ETOH) use YesCrOhioHealth Marion General Hospital Clinic Work Phone: Data entered by patient, allergy listSulfa drugs [facility] Work Phone: data entered by patient, drug (of abuse) useNoCrystACMC Healthcare System Clinic Work Phone: data entered by patient, Employer NameemployedC[facility] Work Phone: data entered by patient, exercise historyNoCrystACMC Healthcare System Clinic Work Phone: data entered by patient, father's medical history ArthritisHigh blood pressureOsteoporosisCrystal [facility] Work Phone: Data entered by patient, history of past surgeries Wrist surgeryC[facility] Work Phone: Data entered by patient, medication list [id number] Work Phone: data entered by patient, mother's medical history ArthritisCrystal [facility] Work Phone: data entered by patient, past medical history ArthritisSeizuresStomach ulcersPrem[facility] Work Phone: data entered by patient, 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, current smokernever smokerPremier Health [facility] Work Phone: data entered by patient, 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, marital statussingleCWilson Health [facility] Work Phone: data entered by patient, 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, 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 [facility] Work Phone: Office Visit: New - 1st visit with practice, Rm: [phone]: Highlighted rowMRI (magnetic resonance imaging) [facility]of the [facility] imagingPrem[facility] Work Phone: Clinical Lists Update: Preload Extendedon 05-11-2020 Tobacco smoking status NHISTobacco smoking statusPremier Health [facility] Work Phone: Clinical Summary: Scanned History Summaryon 05-11-2020 adl form etoh alcohol performancebeer, wine, liquorPremier Health [facility] Work Phone: Beta HCG ( test) Ql (U)1 time per yearCrystACMC Healthcare System Clinic Work Phone: consumes three or more drinks of alcohol (beer, wine, liquor) daily or almost dailyless than 1 drink per dayPremier Health [facility] Work Phone: Data entered by patient, additional medical problems Tachycardia arrhythmiaCrystACMC Healthcare System [facility] Work Phone: data entered by patient, alcohol (ethanol or ETOH) use YesCrystACMC Healthcare System Clinic Work Phone: Data entered by patient, allergy listSulfa drugs [facility] Work Phone: data entered by patient, drug (of abuse) useNoPrem[facility] Health [facility] Work Phone: data entered by patient, Employer NameemployedC[facility] Work Phone: data entered by patient, exercise historyNoPrem[facility] Work Phone: data entered by patient, father's medical history ArthritisHigh blood pressureOsteoporosisPrem[facility] Health [facility] Work Phone: Data entered by patient, history of past surgeries Wrist surgeryCrOhioHealth Marion General Hospital [facility] Work Phone: Data entered by patient, medication list [id number] [facility] Work Phone: data entered by patient, mother's medical history ArthritisPremier Health [facility] Work Phone: data entered by patient, past medical history ArthritisSeizuresStomach ulcersCrOhioHealth [facility] Hospital [facility] Work Phone: data entered by patient, 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, current smokernever smokerPrem[facility] Health [facility] Work Phone: data entered by patient, 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, marital statussingleCWilson Health [facility] Work Phone: data entered by patient, 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, occupationVet [facility] Work Phone: father of patient is alive or deceasedSalem [facility] Work Phone: Housing Type: apartment, house, longterm, trailer, none housePremier Health [facility] Work Phone: housing unit size (asthma environmental history, housing) (from single family to don't know)[facility] Work Phone: mother of patient is alive or deceasedSal[facility] Work Phone: Number of dependent [facility]St[facility] Work Phone: adl form etoh alcohol performancebeer, wine, liquor [facility] Work Phone: Beta HCG ( test) Ql (U)1 time per yearPremier Health [facility] Work Phone: consumes three or more drinks of alcohol (beer, wine, liquor) daily or almost dailyless than 1 drink per dayPrem[facility] Health [facility] Work Phone: Data entered by patient, additional medical problems Tachycardia arrhythmiaPrem[facility] Health [facility] Work Phone: data entered by patient, alcohol (ethanol or ETOH) use YesPrem[facility] Health [facility] Work Phone: Data entered by patient, allergy listSulfa drugs [facility] Work Phone: data entered by patient, drug (of abuse) [facility]No[facility] Work Phone: data entered by patient, Employer NameemployedCrystUK [facility] Work Phone: data entered by patient, exercise historyNoPrem[facility] Work Phone: data entered by patient, father's medical history ArthritisHigh blood pressureOsteoporosisPrem[facility] Work Phone: Data entered by patient, history of past surgeries Wrist surgeryCrOhio[facility] Work Phone: Data entered by patient, medication list [id number] Health [facility] Work Phone: data entered by patient, mother's medical history ArthritisPrem[facility] Health [facility] Work Phone: data entered by patient, past medical history ArthritisSeizuresStomach ulcersPrem[facility] Work Phone: data entered by patient, 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, current smokernever smokerPrem[facility] Work Phone: data entered by patient, 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, marital statussingleCWilson Health Clinic Work Phone: data entered by patient, 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, occupationVet techWilson Memorial Hospital [facility] Work Phone: father of patient is alive or deceasedAliveCWilson Health Clinic Work Phone: Housing Type: apartment, house, longterm, trailer, none housePrem[facility] Health [facility] Work Phone: housing unit size (asthma environmental history, housing) (from single family to don't know)2 floorsC[facility] Work Phone: mother of patient is alive or deceasedAliTrinity Health System [facility] Work Phone: Number of dependent childrenNoWilson [facility] Work Phone: Vital Signs Date TimeVital SignValuePerforming FlazqfmqzRhjswaci34-38-9411 09:26-0500Body mass index (BMI) [Ratio]29.76 kg/d6Tnphgnq Floro CNM Work Phone: 1([phone])[address]11-06-2025 09:26-0500Body oihqmm20.2 kg Bryson Floro CNM Work Phone: 1([phone])[address] [place] [address]-06-2025 09:26-0500Diastolic blood tvrywkfb70 mm[Hg]Bryson Floro CNM Work Phone: [phone] [address]-06-2025 09:26-0500Systolic blood ojboqjnt299 mm[Hg]Bryson Floro CNM Work Phone: 1([phone])[address]10-27-2025 13:36-0400Body mass index (BMI) [Ratio]29.05 kg/b9Txelasw Floro CNM Work Phone: 1([phone])[address]10-27-2025 13:36-0400Body kyzhww71.39 kgValerie Floro CNM Work Phone: 1(937)917-[address] [place] [address]-27-2025 13:36-0400Diastolic blood mm[Hg]Bryson Floro CNM Work Phone: [phone])910[place] [address]-27-2025 13:36-0400Systolic blood mm[Hg]Bryson Floro CNM Work Phone: 1(756)[address] [place] [address]-14-2025 09:42-0400Body mass index (BMI) [Ratio]28.52 kg/r5Oppwnoq Floro CNM Work Phone: 1(464)[address] [place] [address]-14-2025 09:42-0400Body gtzant90.03 kgValerie Floro CNM Work Phone: [phone] HospitalZpqpcjflre81-95-6313 09:42-0400Diastolic blood vyjaitcn44 mm[Hg]Bryson Floro CNM Work Phone: 1(922)508-[address] [place], [place] [address]Asltrspruo98-21-6855 09:42-0400Systolic blood lnrihvsh631 mm[Hg]Bryson Floro CNM Work Phone: 1(031)662-[address] [place], [place] [address]Gkwgcmkxuq93-25-1152 11:12-0400Body mass index (BMI) [Ratio]28.17 kg/f4Rctdsip Floro CNM Work Phone: [phone] [address]-24-2025 11:12-0400Body qrriwm83.12 kgIrmarie Natalio CNM Work Phone: 1(863)[address] [place] [address]-24-2025 11:12-0400Diastolic blood rwqfukvi17 mm[Hg]Bryson Floro CNM Work Phone: 1(333)383-[address] [place], [place] [address]Tpfdxsvwvx13-05-2644 11:12-0400Systolic blood kcblfylu213 mm[Hg]Bryson Floro CNM Work Phone: 1(271)[address]09-04-2025 13:36-0400Body mass index (BMI) [Ratio]27.1 kg/d5Bmhrvux Floro CNM Work Phone: 1(413)[address]09-04-2025 13:36-0400Body wduvyc17.4 kg Bryson Floro CNM Work Phone: 1(039)[address]09-04-2025 13:36-0400Diastolic blood yoferjby78 mm[Hg]Bryson Floro CNM Work Phone: 1(306)766-[address] [place] [address]-04-2025 13:36-0400Systolic blood sljxhwal076 mm[Hg]Bryson Floro CNM Work Phone: 1(074)[address] [place], [place] 2967308-26-2025 18:15-0400Body mass index (BMI) [Ratio]27.39 kg/a6KybzaSilvino Garcia NP Work Phone: 1(860)[address]08-26-2025 18:15-0400Body temperature 97.81 [degF]Silvino Garcia APPEALS COORDINATOR Work Phone: [phone] [place] [address]-26-2025 18:15-0400Body qfieiy54.13 kgSilvino Garcia APPEALS COORDINATOR Work Phone: 1(250)[facility] [place] [address]-26-2025 18:15-0400Diastolic blood gfnhtsic70 mm[Hg]Silvino Garcia APPEALS COORDINATOR Work Phone: 1(364)[facility] [place] [address]-26-2025 18:15-0400Heart rate79 /min Silvino Garcia APPEALS COORDINATOR Work Phone: 1(588)[facility] [place] [address]-26-2025 18:15-2581UiD7% (BldA) [Mass fraction]98 %Silvino Garcia APPEALS COORDINATOR Work Phone: 1(125)[facility] [place] [address]-26-2025 18:15-0400Systolic blood bnkazwki195 mm[Hg]Silvino Garcia APPEALS COORDINATOR Work Phone: 1(741)[facility] [place] [address]-07-2025 09:31-0400Body mass index (BMI) [Ratio]26.57 kg/k3VzubesoBryson Perezo CNM Work Phone: 1(978)[facility] [place] [address]-07-2025 09:31-0400Body mcabmg17.04 kgBryson Preezo CNM Work Phone: 1(541)[facility] [place] [address]-07-2025 09:31-0400Diastolic blood txhvzemg20 mm[Hg]Bryson Natalio CNM Work Phone: 1(041)[facility] [place] [address]-07-2025 09:31-0400Systolic blood ygfapjpd617 mm[Hg]Bryson Perezo CNM Work Phone: 1(453)[facility] [place], [place] [address]Ideezuipnz37-92-0904 11:30-0400Body mass index (BMI) [Ratio]26.39 kg/k0Hlmxrfu Natalio CNM Work Phone: 1(079)[facility] [place], [place] [address]Mighazmxya57-72-8103 11:30-0400Body dwwbdi74.59 kgBryson Perezo CNM Work Phone: 1(930)[address] [place] [address]-16-2025 11:30-0400Diastolic blood zbiujktn35 mm[Hg]Bryson Floro CNM Work Phone: 1(640)[address] [place], [place] 2967307-16-2025 11:30-0400Systolic blood mm[Hg]Bryson Floro CNM Work Phone: 1(122)[address] [place], [place] 2967306-16-2025 12:58-0400Body mass index (BMI) [Ratio]25.86 kg/k3Iqpbncg Floro CNM Work Phone: 1(863)[address] [place], [place] 2967306-16-2025 12:58-0400Body dhzwuw79.22 kgValerie Natalio CNM Work Phone: 1(258)[address] [place], [place] 2967306-16-2025 12:58-0400Diastolic blood wilzliuh10 mm[Hg]Bryson Floro CNM Work Phone: 1(059)[address] [place], [place] 2967306-16-2025 12:58-0400Systolic blood wivwnbty096 mm[Hg]Bryson Floro CNM Work Phone: 1(428)[address] [place], [place] 2967305-15-2025 09:37-0400Body mass index (BMI) [Ratio]25.15 kg/g3Wiadrpu Floro CNM Work Phone: 1(828)[address] [place], [place] 2967305-15-2025 09:37-0400Body bilfey15.41 kgIrmarie Natalio CNM Work Phone: 1(495)[address] [place], [place] 2967305-15-2025 09:37-0400Diastolic blood eqlztsua12 mm[Hg]Bryson Floro CNM Work Phone: 1(428)[address] [place], [place] 2967305-15-2025 09:37-0400Systolic blood mm[Hg]Bryson Floro CNM Work Phone: 1(967)[address] [place], [place] 2967304-17-2025 09:31-0400Body mass index (BMI) [Ratio]25.69 kg/o4Sufvwke Floro CNM Work Phone: 1(577)[address] [place], [place] 29[address]304-17-2025 09:31-0400Body xhraze95.77 kgValerie Natalio CNM Work Phone: noCitizens Memorial HealthcareLxklihtnew08-72-0571 09:31-0400Diastolic blood hbgcgyyc27 mm[Hg]Bryson Larsen CNM Work Phone: [facility] HospitalTabbnfwxmc60-31-6407 09:31-0400Systolic blood jktxswdo691 mm[Hg]Bryson Larsen CNM Work Phone: [facility] HospitalDftbczhihj78-94-5834 11:33-0500Body mass index (BMI) [Ratio]24.98 kg/u7IogaxesBryson Larsen CNM Work Phone: noCitizens Memorial HealthcareCksdzproqa47-69-7664 11:33-0500Body mzqzfu63.96 kgBryson CHOM Work Phone: noCitizens Memorial HealthcareNEGATED: Highlighted nsh08-47-0761 08:24-0500BMI (Body Mass Index)23.11 kg/s3Zkedxe RuizAdena [facility] Work Phone: NEGATED: Highlighted cjk16-80-3758 08:24-0500Body qgicay18.97 kgKrista RuizAdena Regional [facility] Work Phone: NEGATED: Highlighted sak12-38-6253 08:24-0500Body ywzhbj30 kgKrista [facility] Work Phone: NEGATED: Highlighted vrw93-08-3772 08:24-0500Height 160.02 cmKrista RuizAdena Regional [facility] Center [facility] Work Phone: NEGATED: Highlighted jjq49-24-1883 08:24-3377Edkewi489 cmKrista RuizAdena Regional [facility] Work Phone: Encounters Encounter DateEncounter TypeCare ProviderFacilityStart: 04-02-2025 End: 20-73-7100Bshnbv flowsheetBryson CHOM Work Phone: [facility] [place] [facility]BGYNStart: 04-02-2025 End: 96-86-6352Ankrnk flowsheetValerie Joseph Perezo CNM Work Phone: noMS [place] OBGYNStart: 04-02-2025 End: 27-22-3283Kxwpfzcmic care visitValerie Joseph Larsen CN Work Phone: noms [place] OBGYNComment on above:Encounter for supervision of other normal , third trimester ([facility]) (Primary Dx); screening for streptococcus B ([facility]); History of section; POTS (postural orthostatic tachycardia syndrome)Start: 04-02-2025 End: 01-98-9107zvypixgeivSSCVOPX L FLORONot AvailableStart: 03-23-2025 End: 25-70-6034Glzobx flowsheetValerie L Natalio CNM Work Phone: [facility] [place] [facility]BGYNStart: 03-23-2025 End: 95-13-5717Dcterk flowsheetValerie L Natalio CNM Work Phone: [facility] [place] [facility]BGYNStart: 03-23-2025 End: 78-81-8499Gfxsetouue care visitValerie Joseph Perezo CN Work Phone: noms [place] OBGYNComment on above:Encounter for supervision of other normal , third trimester ([facility]) (Primary Dx); History of section; POTS (postural orthostatic tachycardia syndrome)Start: 03-23-2025 End: 54-94-0866rzgfatxrjoRCJVMNT L FLORONot AvailableStart: 03-10-2025 End: 72-07-4104Tfodwy flowsheetValerie L Floro CNM Work Phone: [facility] [place] [facility]BGYNStart: 03-10-2025 End: 06-13-2655Puupnv flowsheetValerie L Floro CNM Work Phone: [facility] [place] [facility]BGYNStart: 03-10-2025 End: 88-33-3221Idpckffwab care visitValerie L Natalio CNM Work Phone: [facility] [place] OBGYNComment on above:Encounter for supervision of other normal , third trimester ([facility]) (Primary Dx); History of section; POTS (postural orthostatic tachycardia syndrome); Elevated glucose tolerance testStart: 03-10-2025 End: 17-09-9980bjomhvbbqoFOEPAKP L FLORONot AvailableStart: 02-18-2025 End: 99-12-5106Sanqad flowsheetValerie L Floro CNM Work Phone: noMS [place] OBGYNStart: 02-18-2025 End: 60-55-7167Rtxtes flowsheetValerie L Floro CNM Work Phone: [facility]oms [place] [facility]BGYNStart: 02-18-2025 End: 19-20-4982Baurmlnccl care visitValerie L Floro CNM Work Phone: noMS [place] OBGYNComment on above:Encounter for routine care ([facility]) (Primary Dx); Encounter for supervision of other normal , third trimester ([facility]) Start: 02-18-2025 End: 20-09-4455rargdtbowpPOKCZLY L FLORONot AvailableStart: 01-29-2025 End: 66-43-7579Hmaafn flowsheetValerie L Floro CNM Work Phone: [facility] [place] [facility]BGYNStart: 01-29-2025 End: 99-46-6307Qoiceg flowsheetValerie L Floro CNM Work Phone: [facility] [place] OBGYNStart: 01-29-2025 End: 91-36-6211lskijmxwcyRPFAJVI L FLORONot AvailableStart: 01-29-2025 End: 40-05-7088Mnvavoqjnt care visitValerie L Floro CNM Work Phone: noMS [place] OBGYNComment on above:Screening for iron deficiency anemia; Screening for diabetes mellitus (DM); related condition in third trimester ([facility])Start: 01-20-2025 End: 73-30-0214Tmtpey outpatient visit 15 minutesSilvino Garcia NP Work Phone: noGeneral acute hospital MedicineComment on above:Acute cough (Primary Dx); Acute bronchitis, unspecified organismStart: 01-20-2025 End: 27-63-4367qmbgkhneffZPJZB KAMPFERNot AvailableStart: 01-20-2025 End: 92-82-2190Xqwexg flowsPat Garcia APPEALS COORDINATOR Work Phone: noms [facility] MedicineStart: 01-20-2025 End: 70-15-3768Nlsrby Marilyn Garcia APPEALS COORDINATOR Work Phone: noms [facility] MedicineStart: 01-01-2025 End: 62-74-7099Abgnpx flowsheetValerie L Floro CNM Work Phone: [facility] [place] [facility]BGYNStart: 01-01-2025 End: 45-62-2215Laqlws flowsheetValerie L Floro CNM Work Phone: [facility] [place] OBGYNStart: 01-01-2025 End: 16-25-6649Lgalvtjnhq care visitValerie L Floro CNM Work Phone: noMS [place] OBGYNComment on above:Encounter for routine care ([facility]) (Primary Dx); POTS (postural orthostatic tachycardia syndrome); Encounter for supervision of other normal , second trimester ([facility]); History of sectionStart: 01-01-2025 End: 47-44-4068exzegzmpjzKFOMBCQ L FLORONot AvailableStart: 12-10-2024 End: 44-84-4880Hiokea flowsheetValerie L Floro CNM Work Phone: noms [facility] OBStart: 12-10-2024 End: 40-82-0613Lgcfyl flowsheetValerie L Floro CNM Work Phone: noms [facility] OBStart: 12-10-2024 End: 55-88-9570yssjcadpnhRZRLSEJ L FLORONot AvailableStart: 12-10-2024 End: 23-70-8900Jaarzrrzzs care visitValerie L Floro CNM Work Phone: noms FNR OBComment on above:Encounter for routine care ([facility]) (Primary Dx); POTS (postural orthostatic tachycardia syndrome); related condition in second trimester ([facility])Start: 11-10-2024 End: 92-29-1118Dinzol flowsheetValerie L Floro CNM Work Phone: NOFE FNR OBStart: 11-10-2024 End: 17-94-8465Aaovph flowsheetValerie L Floro CNM Work Phone: noms FNR OBStart: 11-10-2024 End: 56-58-5500Ufmdymmqjl care visitValerie L Floro CNM Work Phone: [facility] [place] OBGYNComment on above:Encounter for routine care ([facility]); examination or test, positive result ([facility]); related condition in second trimester ([facility])Start: 11-10-2024 End: 40-45-1468xpzkxwhcplHZLMNSK L FLORONot AvailableStart: 10-09-2024 End: 65-73-1069Xnfoxg flowsheetValerie L Floro CNM Work Phone: NOIV FNR OBStart: 10-09-2024 End: 53-42-1460Feapqu flowsheetValerie L Floro CNM Work Phone: noms FNR OBStart: 10-09-2024 End: 57-78-6607xlfytmjitpTSAHRWB L FLORONot AvailableStart: 10-09-2024 End: 96-41-2852Veeaurfnxs care visitValerie L Floro CNM Work Phone: NOTK FNR OBComment on above:Encounter for routine care; examination or test, positive resultStart: 10-03-2024 End: 38-89-5930Dpwkuxhuf Result EncounterBryson Larsen CNM Work Phone: noms External Department UnsolicitedStart: 10-03-2024 End: 59-67-3106Ciavkgbvt Result EncounterValekevin Larsen CNM Work Phone: noms External Department UnsolicitedStart: 09-11-2024 End: 48-86-8659Fwbzdoi care visitValekevin Larsen CNM Work Phone: noms FNR OBComment on above:GA: 8u8rIjqtt: 09-11-2024 End: 41-30-1266ctmhwqygwyJRIIKCB Joseph PEREZONot AvailableStart: 08-25-2024 End: 60-79-7414Uohcqw OnlyValekevin Larsen CNM Work Phone: noms FNR OBComment on above:History of loss in prior , currently in first trimester (Primary Dx)Start: 06-26-2024 End: 50-51-0012wtqsnwlafeLOFJIQF L FLORONot AvailableStart: 06-26-2024 End: 53-63-2401Qyfekdl encounter procedureBryson Larsen CNM Work Phone: noms FNR OBComment on above:Missed abortionStart: 06-20-2024 End: 33-84-5198Nauojstli Result EncounterGeneric External Data ProviderNOMS External Department UnsolicitedStart: 06-20-2024 End: 44-43-8985Zspdpkvjh Result EncounterGeneric External Data ProviderNOMS External Department UnsolicitedStart: 06-20-2024 End: 61-30-8819epxpqizftxSpxxc FaUniversity [facility] Work Phone: Start: 06-20-2024 End: 76-08-4176Bgevdnrh ReferredCorey Radha DO Work Phone: [facility]-LAB Path Spec [facility] HospStart: 06-19-2024 End: 36-62-2542Etfdodtso Result EncounterValerie L Floro CNM Work Phone: noms External Department UnsolicitedStart: 06-19-2024 End: 79-99-6464Rbbocxitb Result EncounterValerie L Floro CNM Work Phone: noms External Department UnsolicitedStart: 06-05-2024 End: 12-41-2914Mmpuucdgk Result EncounterValerie L Floro CNM Work Phone: noms External Department UnsolicitedStart: 06-05-2024 End: 19-41-6205Fcjhtmqbu Result EncounterValerie L Natalio CNM Work Phone: noms External Department UnsolicitedStart: 06-05-2024 End: 24-74-8695Toblzcjko encounterGris Valdes MD Work Phone: noms FNR FMStart: 05-06-2024 End: 34-24-3590Oozmyl flowsheetValerie L Floro CNM Work Phone: noms FNR OBStart: 05-06-2024 End: 71-12-3657Pkhwph flowsheetValerie L Floro CNM Work Phone: NOYL FNR OBStart: 05-06-2024 End: 80-72-9287afcwturggrWAFSCWI L FLORONot AvailableStart: 05-06-2024 End: 91-74-4170Gzfsfn outpatient visit 15 minutesValerie L Floro CNM Work Phone: NOMS FNR OBComment on above:GA: 59h9nXzjhj: 05-06-2024 End: 89-73-8696pzpqjimravIGCEMEY L FLORONot AvailableStart: 04-30-2024 End: 55-67-3196Hzabggfzc Adama Valdes MD Work Phone: NOFR FNR FMComment on above:Anxiety (Primary Dx)Start: 05-14-2020 End: 54-22-4220Kafixao encounter procedureDouglas M Ehrler MD Work Phone: [facility] Work Phone: Start: 05-14-2020 End: 28-14-5875Dq evaluationDomaricel Rosario MD Work Phone: [facility] Work Phone: Start: 05-10-2020 End: 82-95-8693Ufsvxta encounter procedureExternal ProviderMercy Hospital Start: 87-76-5323Oqpfcwe OnlyExternal ProviderExternal-NonCCF Procedures DateProcedureProcedure DetailPerforming ClinicianStart: 42-51-7716HVWKWP COVID-19/Yumiko Garcia APPEALS COORDINATOR Work Phone: Start: 72-79-7663DLG TESTValerie L Floro CNM Work Phone: Start: 24-89-4511Jzakysesovkr chorionic quantitative Bryson L Floro CNM Work Phone: Start: 17-82-7154FAO CBC WITH AUTO DIFFCorey Radha DO Work Phone: Start: 15-95-8413UE OB TRANSVAGINALValerie L Floro CNM Work Phone: Start: 41-83-1722ZG OB TRANSVAGINALValerie L Floro CNM Work Phone: Start: 19-66-8146Ppqrq test visual color cmprsn methsValerie L Floro CNM Work Phone: Start: 05-14-2020 End: 80-68-5839Dvimc pressure screening not performed - reason not givenDomaricel Rosario MD Work Phone: Start: 05-14-2020 End: 86-14-7915HEO documented within normal parameters - no follow-up plan is requiredJoey Rosario MD Work Phone: Start: 05-14-2020 End: 83-70-9458Jictllpjvbknk of current medicationsJoey Roasrio MD Work Phone: Start: 05-14-2020 End: 82-75-2350Xkbm assessment documented as positive - follow-up documented Joey Rosario MD Work Phone: Start: 05-14-2020 End: 92-58-1974Lgbsdus non-userJoey Rosario MD Work Phone: Start: 51-96-7559MQYLRCVL IMAGINGExternal ProviderH/O: sectionHistory of sectionIrmaricharity Larsen CNM Work Phone: H/O: sectionHistory of section Bryson Perezaakash CNM Work Phone: H/O: sectionHistory of section Bryson Larsen CNM Work Phone: H/O: sectionHistory of section Bryson Larsen CNM Work Phone: NEGATED: Highlighted rowStart: 05-14-2020 End: 93-82-1141Xerxbjplbcleu of current medicationsKrista Ruiz PAYROLL ADMINISTRATOR Plan of Treatment DateCare ActivityDetailAuthorStart: 04-14-2025 End: 85-20-3539Msvmkzm encounter /18/2025 11:30 AM EST Routine [facility] [place] [facility] [address] [place] [phone] Bryson Larsen CNM [address] [place] [address] [facility] [place] [facility]BGYNStart: 04-09-2025 End: 27-56-1848Ligwuaj encounter yucfqvpmy43/13/2025 9:30 AM EST Routine [facility] [place] [facility] [address] [place] [phone] Bryson Larsen CNM [address] [place] [address] [facility] [place] [facility]BGYNStart: 04-02-2025 End: 71-54-5247ORCHZMEFRUPG, GROUP B CULTURESTREPTOCCOUS, GROUP B CULTURE Lab Routine screening for streptococcus B ([facility]) Expected: 04/02/2025 (Approximate), Expires: 04/02/2026[facility] Work Phone: Comment on above:Expected: 04/02/2025 (Approximate), Expires: 04/02/2026Start: 04-02-2025 End: 65-07-5337Cuodpbs encounter procedureNOMS [place] OBGYNComment on above: ArrivedStart: 03-23-2025 End: 78-02-9730Pygzzzx encounter procedureNOMS [place] OBGYNComment on above: ArrivedStart: 03-10-2025 End: 53-01-9807Dqejwox encounter fzluwnuud26/14/2025 9:45 AM EDT Routine [facility] [place] [facility] [address] [place] [phone] Bryson Larsen CN [address] [place] [address] ArrivedNOMS [place] OBGYNComment on above:ArrivedStart: 02-18-2025 End: 84-62-9162Wkhbzcrteecx / ancillary services zrwvwmkumd69/24/2025 11:45 AM EDT Ancillary Procedure [facility] [place] [facility] [address] [address] QWVD [place] ImagingStart: 02-18-2025 End: 38-15-7853Mjeqiuk encounter wyiodchkf37/24/2025 11:15 AM EDT Routine [facility] [place] [facility] [address] [place] [phone] Bryson Larsen CN [address] [place] [address] ArrivedNOMS [place] OBGYNComment on above:ArrivedStart: 01-29-2025 End: 93-11-0384REZ panel - Blood by Automated countCBC Lab Routine Screening for iron deficiency anemia Expected: 01/29/2025 (Approximate), Expires: 01/29/2026 [facility] Work Phone: Comment on above:Expected: 01/29/2025 (Approximate), Expires: 01/29/2026Start: 01-29-2025 End: 12-79-1458OELBDFN, GESTATIONAL SCREEN (50G)-135 CUTOFFGLUCOSE, GESTATIONAL SCREEN (50G)-135 CUTOFF Lab Routine Screening for diabetes mellitus (DM) Expect ed: 01/29/2025 (Approximate), Expires: 01/29/2026[facility] HealthcareComment on above:Expected: 01/29/2025 (Approximate), Expires: 01/29/2026Start: 01-29-2025 End: 53-48-8427UE for pregnancyUS OB follow up transabdominal approach Imaging Routine related condition in third trimester ([facility]) Expected: 01/29/2025, Expires: 01/29/2026[facility] HealthcareComment on above:Expected: 01/29/2025, Expires: 01/29/2026Start: 01-29-2025 End: 59-49-2552Nkwmrbz encounter procedureWest [facility] OBGYNStart: 01-26-2025 COVID-19 Vaccine ( season)COVID-19 Vaccine ( season)[facility] HealthcareStart: 41-56-1006Wttszofer vaccinationNONH HealthcareStart: 01-20-2025 End: 12-21-2061Xcjpuqe encounter lntwyomvo12/26/2025 6:30 PM EDT Office Visit [facility] [address] [place] [address] Silvino Garcia NP [address] [place] [address] ArrivedMease Dunedin HospitalComment on above:Arrived Start: 01-01-2025 End: 91-64-5183Ermbacm encounter csqdeqylt87/07/2025 11:30 AM EDT Routine [facility] [address] [place] [address] Bryson Larsen, CNM [address] [facility] [place] [address] NOMS FNR OBStart: 01-01-2025 End: 01-26-4504Kawbqnx encounter ykvtkazjr13/07/2025 9:30 AM EDT Routine [facility] [place] [facility] [address] [place] [phone] Bryson Larsen, CNM [address] [facility] [place] [address] [facility]rivedNOMerrick [facility] OBGYNComment on above:ArrivedStart: 12-10-2024 End: 69-73-1573Wwbeadcrbokr / ancillary services asagdrceap85/16/2025 11:30 AM EDT Ancillary Procedure [facility] [address] [place] [address] UE[facility] FNR ULTRASOUNDStart: 11-10-2024 End: 18-94-3640Fyabkmp encounter procedureNOMS FNR OBComment on above:Encounter for routine care ([facility]); examination or test, positive result ([facility])Start: 10-09-2024 End: 51-87-3336Bthsejj encounter xdhryhowp27/15/2025 1:00 PM EDT Routine [facility] [address] [place] [id number] Bryson Larsen, CNM [address] [facility] [place] [address] [facility] F[facility] OBStart: 09-11-2024 End: 88-71-1619HXW/RhABO/Rh Lab Routine Encounter for routine care examination or test, positive result Expected: 09/11/2024 (Approximate), Expires: 09/11/2025[facility] HealthcareComment on above:Expected: 09/11/2024 (Approximate), Expires: 09/11/2025Start: 09-11-2024 End: 29-23-6391Pmdhzmfk screenAntibody screen Lab Routine Encounter for routine care examination or test, positive result Expected: 09/11/2024 (Approximate), Expires: 09/11/2025[facility] HealthcareComment on above: Expected: 09/11/2024 (Approximate), Expires: 09/11/2025Start: 09-11-2024 End: 06-67-5974Jjtettzf identified in Urine by CultureUrine culture Microbiology Routine Encounter for routine care examination or test, positive result Expected: 09/11/2024 (Approximate), Expires: 09/11/2025[facility] HealthcareComment on above:Expected: 09/11/2024 (Approximate), Expires: 09/11/2025Start: 09-11-2024 End: 17-88-6096ILK panel - Blood by Automated countCBC Lab Routine Encounter for routine care examination or test, positive result Expected: 09/11/2024 (Approximate), Expires: 09/11/2025[facility] HealthcareComment on above: Expected: 09/11/2024 (Approximate), Expires: 09/11/2025Start: 09-11-2024 End: 01-72-6723LBEL TOX MONITORIGN 6 W/ CONF,URINEDRUG TOX MONITORIGN 6 W/ CONF,URINE Lab Routine Encounter for routine care examination or test, positive result Expected: 09/11/2024 (Approximate), Expires: 09/11/2025[facility] HealthcareComment on above:Expected: 09/11/2024 (Approximate), Expires: 09/11/2025Start: 09-11-2024 End: 32-84-5988Tbxyrseosj A1c/Hemoglobin.total in BloodHemoglobin A1c Lab Routine Encounter for routine care examination or test, positive result Expected: 09/11/2024 (Approximate), Expires: 09/11/2025[facility] HealthcareComment on above:Expected: 09/11/2024 (Approximate), Expires: 09/11/2025Start: 09-11-2024 End: 82-43-7949Bwpfmxikb B virus surface Ag [Presence] in Serum or Plasma by ImmunoassayHepatitis B surface antigen Lab Routine Encounter for routine care examination or test, positive result Expected: 09/11/2024 (Approximate), Expires: 09/11/2025[facility] Work Phone: Comment on above:Expected: 09/11/2024 (Approximate), Expires: 09/11/2025Start: 09-11-2024 End: 76-45-5403Dhtbiwemg C virus Ab [Presence] in Serum or Plasma by Immunoassay Hepatitis C antibody Lab Routine Encounter for routine care examination or test,positive result Expected: 09/11/2024 (Approximate), Expires: 09/11/2025[facility] HealthcareComment on above:Expected: 09/11/2024 (Approximate), Expires: 09/11/2025Start: 09-11-2024 End: 72-16-5204TWP-1/HIV-2 antigen/antibody combination immunoassayHIV-1 and HIV-2 antibodies Lab Routine Encounter for routine care examination ortest, positive result Expected: 09/11/2024 (Approximate), Expires: 09/11/2025[facility] HealthcareComment on above:Expected: 09/11/2024 (Approximate), Expires: 09/11/2025Start: 09-11-2024 End: 45-08-6945Rxckqqqds gonorrhoeae DNA [Presence] in Cervical mucus by TATE with probe detectionC. trachomatis / N. gonorrhoeae, DNA probe Pathology and Cytology Routine Encounter for routine care examination or test, positive result Expected: 09/11/2024 (Approximate), Expires: 09/11/2025 [facility] HealthcareComment on above:Expected: 09/11/2024 (Approximate), Expires: 09/11/2025Start: 09-11-2024 End: 18-58-1578Mgbadc Ab [Presence] in Serum by RPRRPR Lab Routine Encounter for routine care examination or test, positive result Expected: 09/11/2024 (Approximate), Expires: 09/11/2025[facility] HealthcareComment on above: Expected: 09/11/2024 (Approximate), Expires: 09/11/2025Start: 09-11-2024 End: 20-62-9853Dgjmimk antibody, IgGRubella antibody, IgG Lab Routine Encounter for routine care examination or test, positive result Expected: 09/11/2024 (Approximate), Expires: 09/11/2025[facility] HealthcareComment on above:Expected: 09/11/2024 (Approximate), Expires: 09/11/2025Start: 09-11-2024 End: 69-06-0571YEF W/REFLEX TO FT4TSH W/REFLEX TO FT4 Lab Routine Encounter for routine care examination or test, positive result Expected: 09/11/2024 (Approximate), Expires: 09/11/2025[facility] HealthcareComment on above: Expected: 09/11/2024 (Approximate), Expires: 09/11/2025Start: 09-11-2024 End: 98-27-1890ANONGTRGMN MICROSCOPICURINALYSIS MICROSCOPIC Lab Routine Encounter for routine care examination or test, positive result Expected: 09/11/2024 (Approximate), Expires: 09/11/2025[facility] Comment on above:Expected: 09/11/2024 (Approximate), Expires: 09/11/2025Start: 07-10-2024 End: 01-06-9708dFG, quantitative, pregnancyhCG, quantitative, Lab Routine Missed Expected: 07/10/2024 (Approximate), Expires: 06/26/2025 [facility] Work Phone: Comment on above:Expected: 07/10/2024 (Approximate), Expires: 06/26/2025Start: 05-06-2024 End: 18-78-7058JA for pregnancyNOMS Healthcare Work Phone: Comment on above:Expected: 05/06/2024, Expires: 05/06/2025Start: 05-06-2024 End: 04-83-0987laqazlzjsd18/10/2024 11:15 AM EST Initial [facility] [address] [place] [address] Bryson Larsen CN [address] [place] [address] ArrivedNOMS FNR OBComment on above:ArrivedStart: 20-19-3968Rgvnoyjfb vaccinationInfluenza Vaccine (#1)[facility] HealthcareStart: 05-14-2020 End: 27-49-7243FvcmfwsmanpXupgnwjcfflHzcavvf [facility] Work Phone: Start: 44-49-0963Euteacajt B Vaccines (1 of 3 - 19+ 3- dose series)Hepatitis B Vaccines (1 of 3 - 19+ 3-dose series)[facility] Start: 99-51-8058RXR Vaccines (1 - 3-dose series)HPV Vaccines (1 - 3-dose series)[facility] HealthcareStart: 08-55-9196Eofoyvw of varicella vaccinationVaricella Vaccines (1 of 2 - 13+ 2-dose series)[facility]OM HealthcareStart: 2005 DTaP/Tdap/Td Vaccines (1 - Tdap)DTaP/Tdap/Td Vaccines (1 - Tdap)[facility] Start: 64-80-0803ODP Vaccines (1 of 1 - Standard series)MMR Vaccines (1 of 1 - Standard series)[facility] HealthcarePatient EducationMedicationsCrystal [facility] Work Phone: Payers DatePayer CategoryPayerPolicy [id number] Health InsuranceMEDICAL MUTUAL [id number] [id number] Cross Blue Shield [id number] BLUE CARD PPO [id number] 2019-Present [id number] [id number] 2.160.1.496375.3.57[id number] 2.16840.1.380061.3.57[id number] 2.0.1.485871.3.57[id number] 2.840.1.861348.3.57[id number] 2.16840.1.839377.3.57[id number] 2.16.840.1.915418.3.57[id number] 2.16840.1.404881.3.57[id number] 2.16840.1.166486.3.57[id number] 2.16840.1.589145.3.57[id number] 2.16840.1.195067.3.57[id number] 2.16840.1.441370.3.57[id number] 2..840.1.855477.3.57[id number] 2.16.840.1.087523.3.57[id number] 2.16.840.1.668360.3.57[id number] 2..840.1.530740.3.57[id number] 2..0.1.719110.3.57[id number] 2..840.1.774543.3.579.2.1259 Social History DateTypeDetailFacilityTobacco smoking status NHISUnknown if ever smokedOhioHealth Dublin Methodist Hospitaltart: 11-03-5296Nqc Assigned At BirthNot on fileOhioHealth Dublin Methodist Hospitaltart: 05-14-2020 End: 75-34-6831AgdwbftadEnvcisv if ever smokedMount [facility]el [facility] Work Phone: Start: 60-88-0090Ypdfyqf smoking status NHISNever smoked tobaccoNOMS HealthcareStart: 76-34-7076Wesmtpw use and exposureSmokeless tobacco non-userNOMS HealthcareStart: 09-25-2023 End: 28-98-8873Uoapkjvyp beverage intakeLifetime non-drinker (finding)[facility] HealthcareStart: 05-23-2023 End: 28-32-9539Qztzuwl of Social functionNOMS HealthcareStart: 05-23-2023 End: 89-74-6600Ddrywyw use panelNOMS HealthcareThe thought of harming myself has occurred to meNeverNOMS HealthcareStart: 18-41-1492Lrfomrz Commentcaffeine: none; drinks herbal teasNOMS HealthcareStart: 48-07-5693Etx assigned at FemaleNOMS HealthcareStart: 93-46-6048Ukdmhn identityIdentifies as female gender (finding)[facility] HealthcareStart: 88-12-1136Uioevq orientationHeterosexual (finding)[facility] HealthcareStart: 31-08-1932EvheoculmXRYE HealthcareStart: 35-54-9886RluUrcfat (finding)[facility]tart: 08-09-2022 SexFemaleNONH Healthcare Goals DatePatient GoalDesired Activity/StatePersonal health goal Functional Status GdqsLmhdfvkjtqZxwtaqKazqohov18-13-3226Xpouatc Health Questionnaire 2 item (PHQ- 2) [Reported][facility] Clinical Notes 04-30-2024 to 04-02-2025 Note Date & XaftNktvFiktxtdx59-81-3724 History of Present illness Narrative* Bryson Larsen CNM - 04/02/2025 9:30 AM EST Subjective No chief complaint on file. Armando Solis is a 25 y.o. at 36w4d with a working estimated date of delivery [...] POTS, scoliosis, hypoglycemia Objective Physical Exam Weight: 168 lb Expected Total Weight Gain: 15 lb-25 lb Pregravid BMI: 25.69 BP: 110/70 Urine protein-negative Urine glucose-negative Assessment/Plan Continue vitamin. Labs reviewed. GBS done today Patient not checking blood sugars after 2-3 weeks of normal levels Expected mode of delivery repeat C/S with bilateral salpingectomy Follow up in 1 week for a routine visit. documented in this encounterSullivan County Memorial HospitalKlrajptxbh76-67-0518 History of Present illness Narrative* Bryson Larsen CNM - 03/23/2025 1:45 PM EDT Subjective No chief complaint on file. Armando Solis is a 24 y.o. at 35w1d with a working estimated date of delivery [...] 1 SAB Her is complicated by: POTS, hypoglycemia, scoliosis. Pt states she has a rash that comes and goes on her forearm and face. Objective Physical Exam Weight: 164 lb Expected Total Weight Gain: 15 lb-25 lb Pregravid BMI: 25.69 BP: 100/60 Urine protein-negative Urine glucose-negative Assessment/Plan Diagnoses and all orders for this visit: Encounter for supervision of other normal , third trimester ([facility]) History of section POTS (postural orthostatic tachycardia syndrome) Continue vitamin. Labs reviewed Expected mode of delivery repeat section Patient does desire permanent sterilization with C/S Follow up in 1 week for a routine visit. documented in this encounterSullivan County Memorial HospitalOabgaastow12-92-4611 History of Present illness Narrative* Bryson Larsen CNM - 03/10/2025 9:45 AM EDT Subjective No chief complaint on file. Armando Solis is a 24 y.o. at 33w2d with a working estimated date of delivery [...] POTS, scoliosis, hypoglycemia Objective Physical Exam Weight: 161 lb Expected Total Weight Gain: 15 lb-25 lb Pregravid BMI: 25.69 BP: 100/60 Patient failed her 1 hr gtt at 144 and did refuse 3 hr gtt testing. She agreed to finger stick testher glucose 4x a day as she states the drink makes me so sick . Glucose log reviewed and all bloodsugar levels are normal. From 02/06 to 03/07 all labs are normal. Fasting are all under 95 and all post prandials are less than 140. 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 She is leaving tomorrow for another show and states that she has packed her drinks, Gatorade, salty snacks and snacks. Urine protein-negative Urine glucose-negative Assessment/Plan Continue vitamin. Labs reviewed. GBS at 36 weeks Expected mode of delivery repeat with bilateral salpingectomy Patient continues to desire permanent sterilization Follow up in 1 week for a routine visit. documented in this encounterSullivan County Memorial HospitalRodrssjxde14-19-2980 History of Present illness Narrative* Bryson Larsen CNM - 02/18/2025 11:15 AM EDT Subjective No chief complaint on file. Armando Solis is a 24 y.o. at 30w3d with a working estimated date of delivery [...] SAB Her is complicated by: POTS, scoliosis, hypoglycemia, failed 1 hr glucose test The following portions of the chart were reviewed this encounter and updated as appropriate: Objective Physical Exam Weight: 159 lb Expected Total Weight Gain: 15 lb-25 lb Pregravid BMI: 25.69 BP: 112/60 Urine protein-negative Urine glucose-negative Labs: reviewed Imaging Assessment/Plan Diagnoses and all orders for this visit: Encounter for routine care ([facility]) Encounter for supervision of other normal , third trimester ([facility]) Patient failed her 1 hr gtt 144 and refused to have the 3 hr gtt done and drawn. She is checking her blood sugars at home and will do this for 3 weeks. She did not bring her glucose log today, but has a screen shot of it on her phone. Continue vitamin. Labs reviewed. Rhogam not needed patient is O+ positive GTT -failed 1 hr and self testing glucose levels x3 weeks Discussion with patient regarding C/S and salpingectomy. She does desire permanent sterilization and states whatever you can do so that I don't get ever again. We discussed methods of control, and patient desires permanent sterilization. Will let Dr Garcia's training generalist know that patient would like bilateral salpingectomy with repeat C/S. Follow up in 2 weeks for a routine visit. documented in this encounterSullivan County Memorial HospitalZfhahuvala87-35-3271 History of Present illness Narrative* Bryson Larsen CNM - 01/29/2025 1:30 PM EDT Subjective No chief complaint on file. Armando Solis is a 24 y.o. at 27w4d with a working estimated date of delivery [...] 02/17/23 1 SAB Her is complicated by: Acharya, scoliosis, hypoglycemia, history of mono Objective Physical Exam Weight: 153 lb Expected Total Weight Gain: 15 lb-25 lb Pregravid BMI: 25.69 Urine protein negative Urine glucose negative Assessment/Plan Diagnoses and all orders for this visit: Screening for iron deficiency anemia - CBC; Future Screening for diabetes mellitus (DM) - GLUCOSE, GESTATIONAL SCREEN (50G)-135 CUTOFF; Future related condition in third trimester ([facility]) - US OB follow up transabdominal approach; Future Continue vitamin. Labs reviewed. GBS at 36 weeks Expected mode of delivery repeat section Follow up in 2 weeks for a growth scan and then 4 weeks for a routine visit. documented in this encounterSullivan County Memorial HospitalTwdvfsqbjc67-03-2646 History of Present illness Narrative* Silvino Garcia NP - 01/20/2025 6:30 PM EDT Images from the original note were not included. Subjective ?Quick Links Last Note in Specialty Snapshot Edit RFV/CC Edit Screenings Current Meds Patient ID: Armando Solis is a 24 y.o. female who presents for Nasal Congestion (Mainly chest pressure ). HPI History of Present Illness The patient presents to the office today with complaints of nasal congestion, cough, and chest pressure. She reports experiencing intermittent coughing spells throughout the day, which started a couple ofdays ago. She has not been using any gity-gen-koerhls medications for these symptoms. Her daughter is also sick. She has not experienced any changes in her weight or increased swelling in her legs. She contacted her QM NURSE who was concerned and wanted to have it checked out. She describes a sensation of chest pressure, but it does not feel like someone sitting on her chest. It hurts to take a deep breath. She also mentions slight wheezing but notes that she does not respond well to inhalers. ?Quick Review Review Full History Edit History Meds - Irpdyhzm-Qxf-Kw-FA ( 1 + IRON PO) --- PMH - Abnormal Pap smear of cervix Hypoglycemia Mononucleosis POTS (postural orthostatic tachycardia syndrome) Scoliosis Objective ?Quick Links Add Vitals Timeline (Adult) Labs Imaging Results Review Trend Vitals ?? Avoid pulling in long tables of results. Comment on relevant results to support your medical decision making. BP 118/60 (BP Location: Right arm, Patient Position: Sitting, BP Cuff Size: Small adult) Pulse 79 Temp 97.8 F (Oral) Wt 154 lb 9.6 oz LMP 07/20/2024 (Exact Date) SpO2 98% BMI 27.39 kg/m Physical Exam Vitals reviewed. HENT: Head: Normocephalic and atraumatic. Right Ear: Tympanic membrane normal. Left Ear: Tympanic membrane normal. Nose: Congestion present. Right Turbinates: Swollen. Left Turbinates: Swollen. Mouth/Throat: Mouth: Mucous membranes are moist. Pharynx: Postnasal drip present. Eyes: Pupils: Pupils are equal, round, and reactive to light. Cardiovascular: Rate and Rhythm: Normal rate and regular rhythm. Pulses: Normal pulses. Heart sounds: Normal heart sounds. Pulmonary: Effort: Pulmonary effort is normal. Breath sounds: Normal breath sounds. Musculoskeletal: Cervical back: Normal range of motion and neck supple. Skin: General: Skin is warm and dry. Capillary Refill: Capillary refill takes less than 2 seconds. Findings: No rash. Neurological: General: No focal deficit present. Mental Status: She is alert and oriented to person, place, and time. Physical Exam ?Quick Links Full Problem List Back Pain Cardiology Diabetes GI Assessment & Plan Assessment & Plan 1. Cough: - Intermittent coughing spells have been reported throughout the day for the past couple of days. - No weight change or increased leg swelling. Her QM NURSE was concerned and recommended further evaluation. - Symptoms more bronchitis in nature. Offered steroids and zpak, she states she already has it at home and will start. Offered albuterol inhaler however she declines. Instructed to notify office if symptoms persist or worsen. 2. Chest pressure: - Chest pressure worsens with deep breaths but does not feel like someone sitting on her chest. - Slight wheezing is noted. documented in this encounterSullivan County Memorial HospitalIotdyrqvjh74-21-2006 History of Present illness Narrative* Bryson Larsen CNM - 01/01/2025 9:30 AM EDT .Subjective No chief complaint on file. Armando Solis is a 24 y.o. at 23w4d with a working estimated date of delivery [...] 1 SAB Her is complicated by: POTS, hypoglycemia, scoliosis The following portions of the chart were reviewed this encounter and updated as appropriate: Objective Physical Exam Weight: 150 lb Expected Total Weight Gain: 15 lb-25 lb Pregravid BMI: 25.69 BP: 100/60 Urine protein-negative Urine glucose-negative Labs: reviewed Imaging Assessment/Plan Diagnoses and all orders for this visit: Encounter for routine care ([facility]) POTS (postural orthostatic tachycardia syndrome) Encounter for supervision of other normal , second trimester ([facility]) History of section Continue vitamin. Labs reviewed. Rhogam GTT at 28 weeks Follow up in 2 weeks for a routine visit. documented in this encounterSullivan County Memorial HospitalQsunisonen54-30-4655 History of Present illness Narrative* Bryson Larsen CNM - 12/10/2024 11:00 AM EDT Subjective No chief complaint on file. Armando Solis is a 24 y.o. at 20w3d with a working estimated date of delivery [...] 1 SAB Her is complicated by: POTS, hypoglycemia, scoliosis The following portions of the chart were reviewed this encounter and updated as appropriate: Objective Physical Exam Weight: 149 lb Expected Total Weight Gain: 15 lb-25 lb Pregravid BMI: 25.69 BP: 120/78 Urine protein-negative Urine glucose-negative Labs: reviewed Imaging Assessment/Plan Continue vitamin. Labs reviewed. Rhogam GTT . Follow up in 2 weeks for a routine visit. documented in this encounterSullivan County Memorial HospitalUznyqfmdxr69-51-2630 History of Present illness Narrative* Gris Benedict MA - 11/10/2024 1:00 PM EDT Subjective No chief complaint on file. Armando Solis is a 24 y.o. at 16w1d with a working estimated date of delivery [...] 02/17/23 1 SAB Her is complicated by: ACHARYA, hypoglycemia, scoliosis The following portions of the chart were reviewed this encounter and updated as appropriate: Objective Physical Exam Weight: 146 lb Expected Total Weight Gain: 15 lb-25 lb Pregravid BMI: 25.69 BP: 110/70 Urine protein Urine glucose Labs: reviewed Imaging Assessment/Plan Continue vitamin. Labs reviewed. Rhogam GTT . Follow up in 2 weeks for a routine visit. documented in this encounterSullivan County Memorial HospitalRqgvrfcrga97-59-8710 History of Present illness Narrative* Bryson Larsen CNM - 10/09/2024 9:30 AM EDT Subjective No chief complaint on file. Armando Solis is a 24 y.o. at 11w4d with a working estimated date of delivery of 04/26/2025, by Last Menstrual Period who presents for a routine visit. She denies vaginal bleeding, leakage of fluid, decreased movements, and contractions. OB History Para Term AB Living 4 1 1 2 1 SAB IAB Ectopic Multiple Live Births 2 1 # Outcome Date GA Lbr Jony/2nd Weight Sex Type Anes PTL Lv 4 Current 3 Term 04/06/23 38w0d 6 lb F CS-LTranv KARLA 2 SAB 02/17/23 1 SAB Her is complicated by: No problems today The following portions of the chart were reviewed this encounter and updated as appropriate: Objective Physical Exam Weight: 142 lb, Pregravid BMI: 25.69 Expected Total Weight Gain: 15 lb-25 lb BP: 100/50 Labs done Imaging Assessment/Plan Urine protein-negative Urine glucose-negative visit today. Patient is doing well, reports frequent, no regular movement. No c/o at this visit. Denies pain, states her previous incision is numb and she still occasionally feels pain over the muscle layer. Continue vitamin. Labs reviewed Order placed for anatomy scan at 20 weeks. Patient has h/o Pots, hypoglycemia and scoliosis. She is going to refuse 1 ht gtt and agrees to poke her finger and check her blood sugars at home 4x a day. She does not want cardiology recheck nor M visit this Follow up in 4 weeks for a routine visit. documented in this encounterSullivan County Memorial HospitalVujpogdwxt42-86-7486 History of Present illness Narrative* Bryson Larsen CNM - 09/11/2024 9:45 AM EDT Subjective Armando Solis is a 24 y.o. at 7w4d with a working estimated date of delivery of 04/26/2025, by Last Menstrual Period who presents for an initial visit. This is planned. Patient Care Team: Gris Valdes MD as PCP - General (Family Medicine) OB History Para Term AB Living 4 1 1 2 1 SAB IAB Ectopic Multiple Live Births 2 1 # Outcome Date GA Lbr Jony/2nd Weight Sex Type Anes PTL Lv 4 Current 3 Term 04/06/23 38w0d 6 lb F CS-LTranv KARLA 2 SAB 02/17/23 1 SAB Her is complicated by: POTS Cramping, history of scoliosis, hypoglycemia, did take oral progesterone x3 weeks for history of one loss, last . Patient referred by Gynecology History Last Pap 06/13/21 We did discuss her management of POTS for this , increasing water, salty snacks, keeping blood pressure up. PVU. Patient states she hated the glucose testing and that much glucose made her sick for two days, so she is going to refuse that test this . I did educate her on the importance of glucose testing and diabetes. She does agree that if she does not do the glucose testing she will test her blood sugars 4x a day for 2-3 weeks. The following portions of the chart were reviewed this encounter and updated as appropriate: Review of Systems Negative except Objective Physical Exam weight: 145 lb Expected Total Weight Gain: 15 lb-25 lb Pregravid BMI: 25.69 Patient is going to be having a repeat section with Dr Garcia and myself first assisting. Patient desires permanent sterilization and we discussed salpingectomy. Patient states she does want to have a salpingectomy done at the time of delivery. She does realize it is permanent and not reversible and desires to proceed. Urine protein-negative Urine glucose-negative Labs Assessment/Plan Diagnoses and all orders for this visit: Encounter for routine care - Hepatitis B surface antigen; Future - Rubella antibody, IgG; Future - CBC; Future - Antibody screen; Future - RPR; Future - Hemoglobin A1c; Future - TSH W/REFLEX TO FT4; Future - HIV-1 and HIV-2 antibodies; Future - ABO/Rh; Future - DRUG TOX MONITORIGN 6 W/ CONF,URINE; Future - Hepatitis C antibody; Future - Urine culture; Future - URINALYSIS MICROSCOPIC; Future - C. trachomatis / N. gonorrhoeae, DNA probe; Future examination or test, positive result - Hepatitis B surface antigen; Future - Rubella antibody, IgG; Future - CBC; Future - Antibody screen; Future - RPR; Future - Hemoglobin A1c; Future - TSH W/REFLEX TO FT4; Future - HIV-1 and HIV-2 antibodies; Future - ABO/Rh; Future - DRUG TOX MONITORIGN 6 W/ CONF,URINE; Future - Hepatitis C antibody; Future - Urine culture; Future - URINALYSIS MICROSCOPIC; Future - C. trachomatis / N. gonorrhoeae, DNA probe; Future Blue education folder given. Patient educated on safe medication list. Genetic testing information given. Discussed the do's and don'ts in the blue folder. We discussed labs and what we draw and what we are testing for. Patient is also informed that we do a urine drug test. Patient also given office phone number and [facility] number to call in case of an emergency or after hours needs. PVU and all questions answered. We did discuss place of delivery. Patient should plan to go to [facility] for all services unless an emergency and they need to go to the closest ER. We can make other arrangements possibly ifpatient would like to deliver at another facility but I did explain I am now at [facility] 100% of the time and would like to do all deliveries there. documented in this encounterSullivan County Memorial [id number] History of Present illness Narrative* Gris Benedict MA - 06/26/2024 1:30 PM EST PROBLEM VISIT Armando Gunterpaolaspike is 24 y.o. a patient of [facility]M NURSE Here for miscarriage follow up Last pap: Last mammogram: Patient's last menstrual period was 02/14/2024 (exact date). History: Past Medical History: Diagnosis Date Abnormal Pap smear of cervix thinks she had HPV pap a few years ago Hypoglycemia Mononucleosis POTS (postural orthostatic tachycardia syndrome) Scoliosis Past Surgical History: Procedure Laterality Date CYST REMOVAL Right wrist HM MAMMOGRAPHY date n/a PAP SMEAR few years ago in [place] Family History Problem Relation Name Age of Onset Arthritis Mother Arthritis Father Arthritis Other grandparents @SOCHX@ Allergies: Allergies Allergen Reactions Sulfa Antibiotics Unknown Sulfamethoxazole-Trimethoprim Medications: Current Outpatient Medications on File Prior to Visit Medication Sig Dispense Refill doxycycline (Vibramycin) 100 MG capsule Take 100 mg by mouth in the morning and 100 mg before bedtime. fluticasone (Flonase) 50 MCG/ACT nasal spray Administer 1 spray into each nostril Daily Shake gently. Before first use, prime pump. After use, clean tip and replace cap. 16 g 2 LORazepam (Ativan) 0.5 MG tablet Take 1 tablet (0.5 mg) by mouth every 6 (six) hours if needed for anxiety for up to 10 days 10 tablet 0 No current facility-administered medications on file prior to visit. There were no vitals filed for this visit. HPI: ROS: Review of Systems Physical exam: Physical Exam Assessment and Plan: Armando was seen today for miscarriage. Diagnoses and all orders for this visit: Missed - hCG, quantitative, ; Future - hCG, quantitative, No follow-ups on file. There are no Patient Instructions on file for this visit. Gris Benedict MA,06/26/2024 1:52 PM documented in this [facility]01-09-2025 Telephone encounter Note* Telephone Encounter - Kenya More - 06/05/2024 4:31 PM EST Hugo left at 4:27 Hi, this is Page Beechy. I needed a makeup appointment with Elicia Larsen. My phone number is [phone], thank you. [facility] [id number] Miscellaneous Notes* Telephone Encounter - Kenya More - 06/05/2024 4:31 PM EST Hugo left at 4:27 Hi, this is Page Beechy. I needed a makeup appointment with Elicia Larsen. My phone number is [phone], thank you. documented in this [facility]12-10-2024 History of Present illness Narrative* MARQUIS Connors - 05/06/2024 11:15 AM EST Subjective Armando Solis is a 24 y.o. at Unknown [...] reviewed this encounter and updated as appropriate: @RULESMARTLINK([id number],TOBYESPROV)@@RULESMARTLINK([id number],ALGYESPROV)@@RULESM ARTLINK([id number],MEDYESPROV)@@RULESMARTLINK([id number],PROBYESPROV)@@RULESMARTLIN K([id number],MHYESPROV)@@RULESMARTLINK([id number],SHYESPROV)@@RULESMARTLINK([id number], FHYESPROV)@@RULESMARTLINK([id number],SOHYESPROV)@ Review of Systems Negative Objective Physical Exam Expected Total Weight Gain: Could not be calculated Pregravid BMI: Could not be calculated Urine protein Urine glucose Labs Assessment/Plan Problem List Items Addressed This Visit Genitourinary Amenorrhea Relevant Orders POCT , urine (Completed) US OB less than 14 weeks early documented in this encounterSullivan County Memorial [id number] Telephone encounter Note* Telephone Encounter - Debbie Mahoney - 04/30/2024 9:52 AM EST Pt said she is hoping to get [...] can let her know what you decide. [facility] HospitalQhnahtfivz08-30-0499 Miscellaneous Notes* Telephone Encounter - Debbie Mahoney - 04/30/2024 9:52 AM EST Pt said she is hoping to get [...] know what you decide. documented in this encounterNONH HealthcareEvaluation note* Diagnosis Anxiety- Primary Anxiety state, unspecified [facility]* Diagnosis Amenorrhea Absence of menstruation documented in this encounter [facility] HealthcareEvaluation noteNo assessment information availableSelect Medical Special[facility] Work Phone: Evaluation note* Diagnosis History of loss in prior , currently in first trimester- Primary documented in this encounter [facility]* Diagnosis Encounter for routine care examination or test, positive result documented in this encounter [facility]* Diagnosis Encounter for routine care examination or test, positive result documented in this encounter [facility]* Diagnosis Missed documented in this encounter [facility]* Diagnosis Encounter for routine care ([facility])- Primary POTS (postural orthostatic tachycardia syndrome) Unspecified tachycardia related condition in second trimester ([facility]) documented in this encounter [facility]* Diagnosis Encounter for routine care ([facility])- Primary POTS (postural orthostatic tachycardia syndrome) Unspecified tachycardia Encounter for supervision of other normal , second trimester ([facility]) History of section Other postprocedural status documented in this encounter [facility]* Diagnosis Acute cough- Primary Acute bronchitis, unspecified organism documented [facility] this encounter [facility]* Diagnosis Screening for iron deficiency anemia Screening for diabetes mellitus (DM) Screening for diabetes mellitus related condition in third trimester ([facility]) documented in this encounter [facility]* Diagnosis Encounter for routine care ([facility])- Primary Encounter for supervision of other normal , third trimester ([facility]) documented in this encounter [facility]* Diagnosis Encounter for supervision of other normal , third trimester ([facility])- Primary History of section Other postprocedural status POTS (postural orthostatic tachycardia syndrome) Unspecified tachycardia Elevated glucose tolerance test Impaired glucose tolerance test documented in this encounter [facility]* Diagnosis Encounter for supervision of other normal , third trimester ([facility])- Primary History of section Other postprocedural status POTS (postural orthostatic tachycardia syndrome) Unspecified tachycardia documented [facility] this [facility]* Diagnosis Encounter for supervision of other normal , third trimester ([facility])- Primary screening for streptococcus B ([facility]) screening for Streptococcus B History of section Other postprocedural status POTS (postural orthostatic tachycardia syndrome) Unspecified tachycardia documented [facility] this [facility]* Diagnosis Encounter for routine care ([facility]) examination or test, positive result ([facility]) examination or test, positive result related condition in second trimester ([facility]) related condition in second trimester ([facility]) documented in this encounter [facility] HealthcareReason for visit Narrative* Maternity Services (Routine) - AuthorizedSpecialtyDiagnoses / ProceduresReferred By ContactReferred To ContactObstetrics and Gynecology Diagnoses Encounter for routine care ([facility]) examination or test, positive result ([facility]) Procedures [place] OFFICE/OUTPATIENT [facility] HIGH [facility] 60 MINUTES Bryson Larsen CNM [address] [place] [address] Phone: tel: fax: Bryson Larsen CNM [address] [place] [address] Phone: tel: fax: Referral IDStatRegurwinderStjudith DateExpiration DateVisits RequestedVisits [id number] Specialty Services Required [id number] [facility] Chief Complaint Chief Complaint Description Start Date lower back pain Preliminary chief complaint data, not yet signed by the author [...] or prosecute any alcohol or drug abuse patient.[facility] Reason for Visit (unrecogniz ed section and content) Reason For Visit Description New - 1st visit with practice Preliminary reason for visit data, not yet signed by the author as of lower back [id number] VisitReasonComments MiscarriageReasonCommentsNasal CongestionMainly chest pressure INFORMATION SOURCE (unrecogn ized section and content) DATE CREATED AUTHOR 03/31/2022 [facility] Chef Saucier DATE CREATED AUTHOR AUTHOR'S ORGANIZ ATION 06/26/2024 [facility] DATE CREATED AUTHOR AUTHOR'S ORGANIZ ATION 04/04/2025 [facility] EPIC Care Teams (unrecognized sec tion and content) Team MemberRelationshipSpecialtyStart DateEnd Date Gris Valdes MD [address] [place] [address] PCP - GeneralFamily Medicine10/26/22Team MemberRelationshipSpecialtyStart DateEnd Date Gris Valdes MD [address] [place] [address] PCP - GeneralFamily Medicine10/26/22Team MemberRelationshipSpecialtyStart DateEnd Date Gris Valdes MD [address] [place] [address] PCP - GeneralFamily Medicine10/26/22Team MemberRelationshipSpecialtyStart DateEnd Date Gris Valdes MD [address] [place] [address] PCP - GeneralFamily Medicine10/26/22 Team Status: Inactive Member Role Status Dates John Garcia DO Attending Provider Active Start : June 20, 2024 End: June 20, 2024Team MemberRelationshipSpecialtyStart DateEnd Date Gris Valdes MD [address] [place] [address] PCP - GeneralFamily Medicine10/26/22Team MemberRelationshipSpecialtyStart DateEnd Date Gris Valdes MD [address] [place] [address] PCP - GeneralFamily Medicine10/26/22Te MemberRelationshipSpecialtyStart DateEnd Date Gris Valdes MD [address] [place] [address] PCP - GeneralFamily Medicine10/26/22 MemberRelationshipSpecialtyStart DateEnd Date Gris Valdes MD [address] [place] [address] PCP - GeneralFamily Medicine10/26/22 MemberRelationshipSpecialtyStart DateEnd Date Gris Valdes MD [address] [place] [address] PCP - Generalmily Medicine10/26/22 MemberRelationshipSpecialtyStart DateEnd Date Gris Valdes MD [address] [place] [address] PCP - GeneralFamily Medicine10/26/22 MemberRelationshipSpecialtyStart DateEnd Date Gris Valdes MD [address] [place] [address] PCP - GeneralFamily Medicine10/26/22Team MemberRelationshipSpecialtyStart DateEnd Date Gris Valdes MD [address] [place] [address] PCP - GeneralFamily Medicine10/26/22Team MemberRelationshipSpecialtyStart DateEnd Date Gris Valdes MD [address] [place] [address] PCP - GeneralFami Medicine10/26/22Te MemberRelationshipSpecialtyStart DateEnd Gris Valdes MD [address] [place] [address] PCP - [facility]10/26/22Te MemberRelationshipSpecialtyStcarrs[place] DateEnd Date Gris Valdes MD [address] [place] [address] [facility]10/26/22Te MemberRelationshipSpecialtyStcarrsville DateEnd Gris Valdes MD [address] [place] [address] [facility]10/26/22 Goals (unrecognized section and content) Goals may [...] BE BASED ON THE PRIMARY CLINICAL RECORDS. [facility]. provides no warranty or guarantee of the accuracy or completeness of information in this document.
[2025-04-13 16:00] VITALS: BP 112/72; PULSE 79
[2025-04-13 16:14] LABS: Glucose Urine UA NEGATIVE (NEGATIVE)
[2025-04-13 16:23] LABS: Cast Seen? NONE SEEN #/LPF (NONE SEEN); Crystals Seen? None Seen #/HPF (None Seen); Urine Culture Indicated YES-FRMC
== END 2025-04-13 16:53 | disposition home or self-care (01) ==
PROVIDERS: Admitting Provider Midwife; PCP Family Medicine; Visit Provider Midwife
DX: O99.891 Other specified diseases and conditions complicating pregnancy (principal); R10.9 Unspecified abdominal pain; Z3A.38 38 weeks gestation of pregnancy
CPT/HCPCS: 59025; 81001; 87086; G0378; G0379

== ENCOUNTER 2025-04-21 05:35 | Inpatient (IN) | payer OTHER, SELFPAY ==
--- OUTSIDE RECORDS SUMMARY | 2025-04-09 09:30 | XMS_ITS | Encounter Summary ---
Author Organization [facility] Address [address] [place] [address] Care Team Providers Care Pharmacist'S Aide Name Role Phone Gris Dean MD Primary Care Provider [phone] Encounter Details DateTypeDepartmentCare Team (Latest Contact Info)Dgyvsnoldgr46/13/2025 9:30 [facility] [address] [place] [address] Delaney Larsen, CN [address] [place], [place] [id number] POTS (postural orthostatic tachycardia syndrome) (Primary Dx); Encounter for supervision of other normal , third trimester ([facility]); History of section Social History Tobacco UseTypesPacks/DayYears UsedDateSmoking Tobacco: NeverSmokeless Tobacco: NeverAlcohol UseStandard Drinks/WeekCommentsNever0 (1 standard drink = 0.6 oz pure alcohol)caffeine: none; drinks herbal teasPHQ-2AnswerDate RecordedPatient Health Questionnaire-2 Mcqwh290Edinburgh Depression Scale AnswerDate RecordedEdinburgh Depression Scale Aiizi34607/24/2022The thought of harming myself has occurred to me.Never3Estimated Date of DtegamnyEfsqiaqnEvj37/30/2025ased on last menstrual period of 07/20/2024 (Exact Date)Sex and Gender InformationValueDate RecordedSex Assigned at Xkgruk7809/15/2023 11:02 PM EDTLegal ZvkLqihwf10/ 9:44 PM EDTGender PgqddbkaKojnhk60/20/2024 11:02 PM EDTSexual SjnwzvqidpwCdldcgjs58/20/2024 11:02 PM EDTdocumented as of this encounter Last Filed Vital Signs Vital SignReadingTime TakenCommentsBlood Qdmibixq733/7011 9:22 AM EST Pulse--Temperature--Respiratory Rate--Oxygen Saturation--Inhaled Oxygen Concentration--Pyawcx74.6 kg (171 lb)04/09/2025 9:22 AM ESTHeight--Body Mass Index30.29009/25/2023 10:27 AM EDTdocumented in this encounter Progress Notes * Delaney Larsen CNM - 04/09/2025 9:30 AM EST Subjective No chief complaint on file. Sloane Solis is a 25 y.o. at 37w4d with a working estimated date of delivery of 04/26/2025, by Last Menstrual Period who presents for a routine visit. She denies vaginal bleeding, leakage of fluid, decreased movements, or contractions. OB History Para Term AB Living 4 1 1 2 1 SAB IAB Ectopic Multiple Live Births 2 1 # Outcome Date GA Lbr Jony/2nd Weight Sex Type Anes PTL Lv 4 Current 3 Term 04/06/23 38w0d 6 lb F CS-LTranv KARLA 2 SAB 02/17/23 1 SAB Her is complicated by: POTS, scoliosis, hypoglycemia Objective Physical Exam Weight: 171 lb Expected Total Weight Gain: 15 lb-25 lb Pregravid BMI: 25.69 BP: 110/70 Urine protein-negative Urine glucose-negative Assessment/Plan Diagnoses and all orders for this visit: POTS (postural orthostatic tachycardia syndrome) Encounter for supervision of other normal , third trimester ([facility]) History of section Continue vitamin. Labs reviewed. GBS taken. Expected mode of delivery Follow up in 1 week for a routine visit. documented in this encounter Plan of Treatment DateTypeDepartmentCare Team (Latest Contact Info)Ekljitszror86/01/2025 1:00 PM ESTOffice Visit [facility] [address] [place] [id number] Delaney Larsen CNM [address] [place], [place] [id number] documented as of this encounter Goals GoalPatient Goal TypeAssociated ProblemsRecent ProgressPatient-Stated?Author Reminders Care PlanOB RemindersNoOpen Scheduling, Backgrounddocumented as of this encounter Visit Diagnoses Diagnosis POTS (postural orthostatic tachycardia syndrome)- Primary Unspecified tachycardia Encounter for supervision of other normal , third trimester ([facility]) History of section Other postprocedural status documented in this encounter Additional Health Concerns Active ProblemsNoted DateDiagnosed DateOB Hdtevfkut48/17/2025 documented as of this encounter Care Teams Team MemberRelationshipSpecialtyStart DateEnd Date Gris Dean MD [address] [place] [address] PCP - GeneralFamily Medicine10/26/22documented as of this encounter
--- OUTSIDE RECORDS SUMMARY | 2025-04-13 19:36 | XMS_ITS | Continuity of Care Document ---
Author Organization [facility] Address [address] [place] [address] Phone Care Team Providers Care Rib Puller Name Role Phone NON STAFF Attending Provider Unavailable Care Teams Patient Care Team Team Status: Inactive Member Role/Relationship Status Dates NON STAFF Attending Provider Active Start: No [email or web address] End: April 13, 2025 Allergies, Adverse Reactions, Alerts Allergen Type Severity Reaction Last Updated Verified Status Sulfa (Sulfonamide Antibiotics) Allergy Unknown November 30, 2020 12:04pmYesActive Social History Smoking Status Unknown if ever smoked Observation Status Observation Response Date of Response Legal Sex Female (finding) [facility] 1999 Procedures Procedure Date Performed Status Urine Culture April 13, 2025 active Encounters Encounter Location(s) Arrival/Admit Date Discharge/Departure Date Discharge/Departure Disposition Provider(s) Departed Referred -[facility] April 13, 2025 3:50pm April 13, 2025 3:51pm Discharged to home care or self care (routine discharge) NON STAFF Plan of Treatment Future Tests Future scheduled test information is unavailable Pending Tests Test Name Ordered Date Scheduled Date Urine Culture April 13, 2025 3:50pm Future Visits Future appointment information is unavailable Future Procedures Procedure Name Ordered Date Scheduled Date Urine Culture April 13, 2025 9:34pm Novem 2024 3:50pm Future Medications Future medication information is unavailable Patient Instructions Patient instructions are unavailable
--- OUTSIDE RECORDS SUMMARY | 2025-04-15 08:30 | XMS_ITS | Encounter Summary ---
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 Name Role Phone Gris Dean MD Primary Care Provider [phone] Encounter Details DateTypeDepartmentCare Team (Latest Contact Info)Dobnlerhgik51/19/2025 8:30 AM ESTRoutine [facility] [address] [place] [address] Delaney Larsen, CN [address] [place], [place] [id number] POTS (postural orthostatic tachycardia syndrome) (Primary Dx); Encounter for supervision of other normal , third trimester ([facility]); History of section Social History Tobacco UseTypesPacks/DayYears UsedDateSmoking Tobacco: NeverSmokeless Tobacco: NeverAlcohol UseStandard Drinks/WeekCommentsNever0 (1 standard drink = 0.6 oz pure alcohol)caffeine: none; drinks herbal teasPHQ-2AnswerDate RecordedPatient Health Questionnaire-2 Hohpv491Edinburgh Depression Scale AnswerDate RecordedEdinburgh Depression Scale Iweoh57007/24/2022The thought of harming myself has occurred to me.Never3Estimated Date of CumcwrllQnnwvhaxQye91/30/2025ased on last menstrual period of 07/20/2024 (Exact Date)Sex and Gender InformationValueDate RecordedSex Assigned at Jiwdly6109/15/2023 11:02 PM EDTLegal CkbDbwbxe77/ 9:44 PM EDTGender IdhaqbufJfhgki53/20/2024 11:02 PM EDTSexual GfrfikuzdktClurlkqy51/20/2024 11:02 PM EDTdocumented as of this encounter Last Filed Vital Signs Vital SignReadingTime TakenCommentsBlood Qmxsqcjr929/7011 8:38 AM EST Pulse--Temperature--Respiratory Rate--Oxygen Saturation--Inhaled Oxygen Concentration--Qfnldm00.2 kg (168 lb)04/15/2025 8:38 AM ESTHeight--Body Mass Index29.7604 10:27 AM EDTdocumented in this encounter Progress Notes * Delaney Larsen CNM - 04/15/2025 8:30 AM EST Subjective No chief complaint on file. Sloane Solis is a 25 y.o. at 38w3d with a working estimated date of delivery of 04/26/2025, by Last Menstrual Period who presents for a routine visit. She denies vaginal bleeding, leakage of fluid, decreased movements, or contractions. Her is complicated by: Previous c/s, pots syndrome, The following portions of the chart were reviewed this encounter and updated as appropriate: Objective Physical Exam Weight: 168 lb Expected Total Weight Gain: 15 lb-25 lb Pregravid BMI: 25.69 BP: 124/70 Labs HEMOGLOBIN Date Value Ref Range Status 01/29/2025 11.8 11.7 - 15.5 g/dL Final HEMATOCRIT Date Value Ref Range Status 01/29/2025 35.8 35.0 - 45.0 % Final No results found for: PAPPA , AFP , HCG , ESTRIOL , INHBA GLUCOSE, POSTPRANDIAL/ 1 HOUR Date Value Ref Range Status 02/01/2023 157 See Note: mg/dL Final Comment: Reference Range: Reference Range Not established Any glucose value > or = 200 mg/dL will be flagged as high unless a reference range has been established. Imaging Assessment/Plan Diagnoses and all orders for this visit: POTS (postural orthostatic tachycardia syndrome) Encounter for supervision of other normal , third trimester ([facility]) History of section Continue vitamin. Labs reviewed. GBS taken. Expected mode of delivery repeat C/S Follow up in 1 week for a routine visit. documented in this encounter Plan of Treatment DateTypeDepartmentCare Team (Latest Contact Info)Gcihcztpsog53/01/2025 1:00 PM ESTOffice Visit [facility] [address] [place] [address] Delaney Larsen CNM [address] [place] [address] documented as of this encounter Goals GoalPatient Goal TypeAssociated ProblemsRecent ProgressPatient-Stated?Author Reminders Care PlanOB RemindersNoOpen Scheduling, Backgrounddocumented as of this encounter Visit Diagnoses Diagnosis POTS (postural orthostatic tachycardia syndrome)- Primary Unspecified tachycardia Encounter for supervision of other normal , third trimester ([facility]) History of section Other postprocedural status documented in this encounter Additional Health Concerns Active ProblemsNoted DateDiagnosed DateOB Kxumzngip17/17/2025 documented as of this encounter Care Teams Team MemberRelationshipSpecialtyStart DateEnd Date Gris Dean MD [address] [place] [address] PCP - GeneralFamily Medicine10/26/22documented as of this encounter
[2025-04-21] VITALS (32 sets, daily range): BP systolic 97–136; BP diastolic 59–80; PULSE 60–86; TEMP 36.1–36.8; O2SAT 93–100
--- OUTSIDE RECORDS SUMMARY | 2025-04-21 05:37 | XMS_ITS | CCD ---
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 Name Role Phone Unavailable Primary Care Provider Unavailag Rosario MD, Joey Hinojosa Unavailable Gris Valdes MD Primary Care Provider John Garcia DO Attending Provider [phone] John Garcia Attending Unavailable John Garcia Admitting [...] Allergen(s)Allergy TypeDate of OnsetReaction(s) Facility (1 source)SulfacetamideDrug Ndlrwxm59-92-7163Axl[facility] Work Phone: (20 sources)Sulfamethoxazole / TrimethoprimDrug Orujvml11-94-2200[facility] (20 sources)Sulfonamides (Antibiotic)Drug Mkzotbkkocf96-60-5127QemalirSDCZ Healthcare (1 source)Sulfonamides (Antibiotic)Drug allergy (disorder)79-36-9454WlltlnudrGood Samaritan Hospital Rep[facility] Medications Current Medications MedicationDrug Class(es)DatesSig (Normalized)Sig (Original) Jdoxnxsg-Jxj-Oc-FA ( 1 + IRON PO) (20 sources) Ezpswukt-Zac-Xp-FA ( 1 + IRON PO) Take by mouth Active Completed/Discontinued Medications MedicationDrug Class(es)DatesSig (Normalized)Sig (Original)doxycycline hyclate 100 mg oral capsule (5 sources)Tetracycline-class DrugStart: 06-20-2024 End: 43-48-0707utbb 1 capsule by mouth in the morningdoxycycline (Vibramycin) 100 MG capsule Take 100 mg by mouth in the morning and 100 mg before bedtime. 06/20/2024 09/11/2024 Discontinued (Therapy completed)fluticasone propionate 0.05 mg/actuat metered dose nasal spray (12 sources)CorticosteroidStart: 09-25-2023 End: 06-85-2039phby 1 spray(s) nasal route once dailyfluticasone (Flonase) 50 MCG/ACT nasal spray Indications: Nasal congestion Administer 1 spray into each nostril Daily Shake gently. Before first use, prime pump. After use, clean tip and replace cap.16 g 2 09/25/2023 09/11/2024 Discontinued (Therapy completed) LORazepam 0.5 mg oral tablet (11 sources)BenzodiazepineStart: 04-30-2024 End: 46-44-4475arqh 1 tablet by mouth every six hours as needed for anxiety and anxiety and anxietyLORazepam (Ativan) 0.5 MG tablet Indications: Anxiety Take 1 tablet (0.5 mg) by mouth every 6 (six)hours if needed for anxiety for up to 10 days 10 tablet 04/30/2024 09/11/2024 Discontinued (Therapycompleted)meloxicam 15 mg oral tablet (1 source)Nonsteroidal Anti-inflammatory DrugStart: 70-39-6770PEQTZ 15 MG TABS one a day MELOXICAM [id number] Joey Rosario MDnorethindrone 0.35 mg oral tablet (5 sources)Start: 01-14-2024 End: 40-20-5108gmpl 1 tablet by mouth once dailynorethindrone (Micronor) 0.35 MG tablet Indications: Encounter for surveillance of contraceptive pills Take 1 tablet (0.35 mg) by mouth Daily 28 tablet 11 01/14/2024 05/06/2024 Discontinued (Therapy completed)12 hr orphenadrine citrate 100 mg extended release oral tablet (1 source)Muscle RelaxantStart: 18-38-2377WYEFIVVNKLJQ CITRATE ER 100 MG XR12H- TAB 1 tablet twice daily ORPHENADRINE CITRATE 57462099240 Zoe Savage LPNpredniSONE 10 mg oral tablet (1 source)Start: 28-57-1330JFLFQHPQQZ 10 MG TABS 4 tablets once daily PREDNISONE 15996316485 Zoe Savage LPNprogesterone 200 mg oral capsule (3 sources)ProgesteroneStart: 08-25-2024 End: 72-87-7989pbmnemhkgkho 200 MG capsule Indications: History of loss in prior , currently in first trimester Use as directed- daily 90 capsule 3 08/25/2024 09/11/2024 Discontinued (Therapy completed) Problems Active Problems Problem ClassificationProblemDateDocumented DateEpisodic/ChronicAcute bronchitis (2 sources)Acute bronchitis; Translations: [Acute bronchitis, unspecified] 45-28-2887GadsxhkoOtjtfsl disorders (20 sources)Anxiety; Translations: [Anxiety disorder, unspecified]Onset: 251566-46-6639QxqbfuiZmsgmxl dysrhythmias (20 sources)Postural orthostatic tachycardia syndrome ; Translations: [Postural orthostatic tachycardia syndrome]Onset: 723438-51-7661BqovijnQchivysz mellitus without complication (2 sources)Abnormal glucose tolerance test; Translations: [Other abnormal glucose]46-51-2062TndnnzziPppajehreo disorders (20 sources)Gastroesophageal reflux disease; Translations: [Gastro-esophageal reflux disease without esophagitis]Onset: 303076-65-6445BjaengxBlfnxbkmo disorders (20 sources)Disorder of menstruation; Translations: [Irregular menstruation, unspecified]Onset: 662965-24-5794GdonahaXohwi acquired deformities (20 sources)Scoliosis deformity of spine; Translations: [Scoliosis, unspecified] Onset: 616154-88-7421DoqemamEolzw complications of (1 source)History of with abortive outcome; Translations: [Supervision of with other poorreproductive or obstetric history, first trimester] 26-50-8450NmoymxtzOklcr complications of (2 sources)Missed miscarriage; Translations: [Missed ]87-62-5862Famzxova Other complications of (6 sources)Finding related to ; Translations: [ related conditions, unspecified, second trimester]85-14-2340DiwsqliuGehgj endocrine disorders (20 sources)Hypoglycemia; Translations: [Hypoglycemia, unspecified]Onset: 664435-46-3353BrvwozpTvypv lower respiratory disease (2 sources)Cough; Translations: [Acute cough]80-50-4070EjihyivvUhvhg and delivery including normal (20 sources)Term ; Translations: [Encounter for supervision of normal , unspecified, unspecified trimester]Onset: EpisodicOther screening for suspected conditions (not mental disorders or infectious disease) (8 sources) care status; Translations: [Patient encounter status] 12-69-4985CejhlmxwSkaecwuuzhin (20 sources)OB RemindersOnset: 799266-45-1843 Past or Other Problems Problem ClassificationProblemDateDocumented DateEpisodic/ChronicDiabetes or abnormal glucose tolerance complicating ; childbirth; or the puerperium (20 sources)Gestational diabetes mellitus; Translations: [Gestational diabetes mellitus in , unspecified control]Onset: 209230-42-2365Ucxgamii Other complications of (20 sources)Vomiting of , unspecified; Translations: [Unspecified vomiting of , unspecified as to episode of care or not applicable] Onset: 731548-26-2187WlztwfjdLwygqyopfkm; intervertebral disc disorders; other back problems (20 sources)Low back pain; Translations: [Acute back pain with sciatica]Onset: 517897-19-1360BkozxxhzSdwvbmtapula (20 sources)Tuberculosis of vertebral column; Translations: [Tuberculosis of spine]Onset: 440599-33-1650LlvzphlvTkleibmysips (1 source)Problem Results Test NameValueInterpretationReference RangeFacilityUS OB FOLLOW UP TRANSABDOMINAL APPROACHon 99-69-8171PM OB FOLLOW UP TRANSABDOMINAL APPROACH FINDINGS: A [...] MDNormalNot AvailableLaboratory - Microbiology and Antimicrobial susceptibilityon 36-82-3160HYIK-CoV-2 (COVID-19) RNA TATE+probe Ql (Unsp spec)-[facility]OM[facility] HealthcareNo Panel Informationon 17-40-0820ZTC A-NOMS HealthcareFLU B-NOMS HealthcareInterpretation and review of laboratory resultsNormalNOMS [facility] CenterNOAK HealthcareUS for pregnancyon 70-97-9856Hrxwca, live intrauterine , current sonographic age of [...] HealthcareUS for pregnancyOrdered By: Maksim Shukla on 56-96-0897GWFR Healthcare Work Phone: US OB 14+ WEEKS ANATOMY SCANon 86-71-6587OF OB 14+ WEEKS ANATOMY SCANEXAM: OB PELVIC [...] BY: Maksim Shukla MDNormalNot AvailableUS for pregnancyon 02-77-9086Qlmkufjsn Study observation (narrative)[facility] HealthcareBOX TESTon 29-52-6764QHL TEST SENT OUTUNITY BOXNOAK JrqtkgzngiGCG2TLNTYAEGC BpwaiupzydMOZ82/9/25NOAK HealthcareCLINISYNCNOMS HealthcareUS OB < 14 WEEKS EARLYon 38-69-5866PE OB < 14 WEEKS EARLYEXAM: US OB [...] II, MD, PHD at 13-Sep-2024 06:52:45 PM [facility] TeleradiologyNormalNot AvailableLaboratory - Chemistry and Chemistry - challengeon 29-00-6087TWY.beta subunit Qn50 m[IU]/mLHighmIU/mLNOMS HealthcareComment on above:Reference Range Non or premenopausal <5 Postmenopausal <10 Values from different assay methods may vary. The use of this assay to monitor or to diagnose patients with cancer or any condition unrelated to has not been cleared or approved by the FDA or the animal care provider of the assay. No Panel Informationon 22-23-1814Rvbmntfzvuekox and review of laboratory results [facility] Psychiatric CenterPerforming Organization Information Site ID: QPT Name: [employer] [facility] Address: [address] [place] [phone] Director: Kurt Cardona MDCox Monett HealthcareALL CBC WITH AUTO DIFFon 63-47-8559TNVHEIWCL ABSOLUTE DQXK1NTMF HealthcareBasophils/100 WBC (Bld)0.3 % 0.2 - 2.0 %NOMS HealthcareEosinophils/100 WBC (Bld)0.6 %Low0.9 - 7.0 %NOMS HealthcareErythrocyte distribution width (RBC) [Ratio]12.1 %11.0 - 15.0 %NOMS HealthcareHematocrit (Bld) [Volume fraction]42.7 %36.0 - 48.0 %[facility] Hemoglobin (Bld) [Mass/Vol]14.3 g/dL12.0 - 16.0 g/dLRanken Jordan Pediatric Specialty HospitalIMMATURE GRANULOCYTES ABS AUTO0.01NOBarnes-Jewish West County HospitalImmature granulocytes/100 WBC (Bld)0.1 % 0.0 - 0.5 %[facility]ty HospitalInterpretation and review of laboratory results AbnormalRanken Jordan Pediatric Specialty HospitalLYMPHOCYTES ABSOLUTE AUTO2.3NOMS [facility] Lymphocytes/100 WBC (Bld)32.6 %20.5 - 60.0 %[facility] CenterH (RBC) [Entitic mass]30.4 pg26.7 - 34.0 pgNevada Regional Medical CenterHC (RBC) [Mass/Vol]33.5 g/dL29.9 - 35.2 g/dLNevada Regional Medical CenterV (RBC) [Entitic vol]90.9 fL81.0 - 99.0 fLRanken Jordan Pediatric Specialty HospitalMONOCYTES ABSOLUTE AUTO0.5NOBarnes-Jewish West County HospitalMonocytes/100 WBC (Bld)6.8 % 1.7 - 12.0 %[facility]ty HospitalNEUTROPHILS ABSOLUTE AUTO4.2[facility] Neutrophils/100 WBC (Bld)59.6 %43.0 - 75.0 %[facility]ty HospitalPlatelet mean volume (Bld) [Entitic vol]9 fLLow9.5 - 13.5 fLRanken Jordan Pediatric Specialty HospitalTB EO #0NOMS [facility] WJA760YKKYMissouri Baptist Hospital-Sullivan RBC4.7NOMS [facility] YHB6JXPZBarnes-Jewish West County Hospital CLINISYNCRanken Jordan Pediatric Specialty HospitalLon 06-20-2024 Specimen: [id number] Received: 06/23/24-235 Status: LYNNETTE Sultana Num: [id number] Spec Type: Surgical Subm Dr: John Garcia Tissues: A Products of Conception - Spontaneous or Missed (POC) Procedures: HE/2, Gross/Micro L4 Age/ Patient Sex Location Account Attending Physician Armando Solis LABELL [id number] John Garcia SPEC NUM: [id number] RECD: 06/23/24 STATUS: LYNNETTE SULTANA NUM: [id number] GISSELLE: 06/20/24-[address] [facility] [address]: John Garcia ENTERED: 06/23/24-[address] [facility] DR: [place],Lab SPEC TYPE: Surgical DEPT: [place] ENTERED BY: [id number] RECV BY: [id number] ORDERED: HE/2, Gross/Micro L4 ORDERED: HE/2, Gross/Micro [...] chorionic villi is submitted in A1 with sales representative door to door sections of the decidua submitted in A2. (2, ss, BS25-55 A) CPT Codes 14440 Specimen: [id number] Received: 06/23/24 Status: LYNNETTE Sultana Num: [id number] Spec Type: Surgical Subm Dr: John Garcia Tissues: A Products of Conception - Spontaneous or Missed (POC) Procedures: ILAN/Adenike, Gross/Micro L4 Patient: Armando Solis [id number] (Continued) Signed (signature on file) Seble Hager MD 06/24/[address] [place] [address] Physician GroupUS OB TRANSVAGINALon 06-19-2024 [place] [address] Ultrasound Report Signed Patient: ARMANDO SOLIS MR#: [id number] : 2000 Acct:[id number] Age/Sex: 24 / F ADM Date: 06/19/24 Loc: US Attending Dr: BRYSON LARSEN APRN, CNM Ordering Physician: BRYSON LARSEN APRN, CNM Date of Service: 06/19/24 Procedure(s): US OB transvaginal Accession Number(s): [id number] cc: BRYSON LARSEN APRN, CNM; GRIS VALDES [place] [id number] Patient Name: ARMANDO SOLIS MRN: [id number] date: 2000 Sex: F Assigned Patient Location: US Current Patient Location: US Accession/Order Number: [id number] Exam Date: 06/19/2024 08:35 Report Date: 06/19/2024 [...] Melton M.D. Signed By: 06/19/2442 DD/ TD/TT: Flight Test Data Acquisition Technician:BRANDINadiologspike, Radiologist, - 06/19/2024 [place] [address] Ultrasound Report Signed Patient: ARMANDO SOLIS MR#: [id number] : 2000 Acct:[id number] Age/Sex: 24 / F ADM Date: 06/19/24 Loc: US Attending Dr: BRYSON LARSEN APRN, CNM Ordering Physician: BRYSON LARSEN APRN, CNM Date of Service: 06/19/24 Procedure(s): US OB transvaginal Accession Number(s): [id number] cc: BRYSON LARSEN APRN, CNM; GRIS VALDES [place] [id number] Patient Name: ARMANDO SOLIS MRN: [id number] date: 2000 Sex: F Assigned Patient Location: US Current Patient Location: US Accession/Order Number: [id number] Exam Date: 06/19/2024 08:35 Report Date: 06/19/2024 [...] M.D. Signed By: 06/19/2442 DD/ 8 TD/TT: Flight Test Data Acquisition Technician: CECI HealthcareRadiology Study observation (narrative)CECI GarciaUS OB TRANSVAGINALOrdered By: Radiologist Radiology on 51-03-4868YKLB Healthcare Work Phone: US OB TRANSVAGINALon [phone], [place] [address] Ultrasound Report Signed Patient: ARMANDO SOLIS MR#: [id number] : 2000 Acct:[id number] Age/Sex: 24 / F ADM Date: 06/05/24 Loc: US Attending Dr: BRYSON LARSEN APRN, CNM Ordering Physician: BRYSON LARSEN APRN, CNM Date of Service: 06/05/24 Procedure(s): US OB transvaginal Accession Number(s): [id number] cc: BRYSON LARSEN APRN, CNM; GRIS VALDES [address] [address] Patient Name: ARMANDO SOLIS MRN: [id number] date: 2000 Sex: F Assigned Patient Location: US Current Patient Location: US Accession/Order Number: [id number] Exam Date: 06/05/2024 13:00 Report Date: 06/05/2024 [...] Signed By: 06/05/24 1359 DD/ 1356 TD/TT: Flight Test Data Acquisition Technician:[facility]-CLINISYNCRadiology, Radiologist, MD - 06/05/2024 [place] [address] Ultrasound Report Signed Patient: ARMANDO SOLIS MR#: [id number] : 2000 Acct:[id number] Age/Sex: 24 / F ADM Date: 06/05/24 Loc: US Attending Dr: BRYSON LARSEN APRN, CNM Ordering Physician: BRYSON LARSEN APRN, CNM Date of Service: 06/05/24 Procedure(s): US OB transvaginal Accession Number(s): [id number] cc: BRYSON LARSEN APRN, CNM; GRIS VALDES [place] [id number] Patient Name: ARMANDO SOLIS MRN: [facility]:[id number] date: 2000 Sex: F Assigned Patient Location: US Current Patient Location: US Accession/Order Number: [id number] Exam Date: 06/05/2024 13:00 Report Date: 06/05/2024 [...] Melton M.D. Signed By: 06/05/24 1359 DD/ 6706 TD/TT: Flight Test Data Acquisition Technician: [facility] HOSPITALAshly HealthcareRadiology Study observation (narrative)NOMS HealthcareUS OB TRANSVAGINALOrdered By: Radiologist Radiology on 12-69-0822EHQQ [employer] Work Phone: HCG ( test) Ql (U)on 39-06-0948Mgfzamxkhkcrwm and review of laboratory resultsNormalNOMS HealthcarePreg Test, UrNegative NegativeNOMS HealthcareNOAK HealthcareUS OB < 14 WEEKS EARLYon 29-80-2480ZW OB < 14 WEEKS EARLYEXAM: Pelvic Ultrasound, [...] report is generated using voice recognition reporting (1Mind). On occasion Seeliocribe erroneously drops words from the report or replaces the spoken word with similar sounding words. Please call with any questions/concerns regarding this report.* Dictated and transcribed 05/07/24/dpd This report has been electronically signed and approved by the interpreting radiologist.NormalNot AvailableXR Knee Complete Left*on 75-18-0514SB Knee Complete Left*FINDINGS: Minimal patellofemoral joint space loss. No cortical or subchondral fracture. No suprapatellar effusion. IMPRESSION: 1. Minimal arthritis. 2. No cortical or subchondral fracture or effusion. Report reported and signed by Maksim Shukla on 03/30/2022 1345NoWood County HospitalXR Knee Complete Right*on 79-45-3696ZS Knee Complete Right*FINDINGS: Minimal patellofemoral joint space loss. No cortical or subchondral fracture. No suprapatellar effusion IMPRESSION: 1. Minimal arthritis. 2. No cortical or subchondral fracture or effusion. Report reported and signed by Maksim Shukla on 03/30/2022 1346NoTrinity Health Systemplete Blood Counton 67-37-3100Btdbdokwaev distribution width (RBC) [Ratio]11.7 %Muqfxi25.0-15.0Shelby Memorial HospitalComment on above:Performed By: #### ESR, CBC, RF, CMP #### [facility] [address], [place] [id number] (Bld) [Volume fraction]43.8 %Ohmdyb72.0-47.0 [facility] Memorial HospitalComment on above:Performed By: #### ESR, CBC, RF, CMP #### [facility] [address], [place] [id number] (Bld) [Mass/Vol]14.3 g/vPYraykn24.6-15.5[facility] SpecialistComment on above:Performed By: #### ESR, CBC, RF, CMP #### [facility] [address], [place] [id number] (RBC) [Entitic mass]30.3 vdBwgyvi59.0-33.0NoSumma Health SpecialistComment on above:Performed By: #### ESR, CBC, RF, CMP #### [facility] [address], [place] [id number] (RBC) [Mass/Vol]32.6 g/jCOggcvo17.0-36.0[facility] SpecialistComment on above:Performed By: #### ESR, CBC, RF, CMP #### [facility] [address], [place] [id number] (RBC) [Entitic vol]93 tKDmmvje25-748Kcpleedu [facility] SpecialistComment on above:Performed By: #### ESR, CBC, RF, CMP #### [facility] [address], [place] [id number] mean volume (Bld) [Entitic vol]9.60 fLNormal 7.50-12.50NoSumma Health SpecialistComment on above:Performed By: #### ESR, CBC, RF, CMP #### [facility] [address], [place] [id number] (Bld) [#/Vol]267 10*3/eLSksyns614-449Asfmnwpf [facility] SpecialistComment on above:Performed By: #### ESR, CBC, RF, CMP #### [facility] [address], [place] [id number] (Bld) [#/Vol]4.72 10*6/uLNormal3.90-5.20NoSumma Health SpecialistComment on above:Performed By: #### ESR, CBC, RF, CMP #### [facility] [address], [place] [id number]-ZD90.3 iDBquetw63.0-50.0NoSumma Health Specialist Comment on above:Performed By: #### ESR, CBC, RF, CMP #### [facility] [address], [place] [id number] (Bld) [#/Vol]7.1 10*3/uLNormal3.8-11.0NoSumma Health SpecialistComment on above:Performed By: #### ESR, CBC, RF, CMP #### [facility] [address], [place] [id number] Metabolic Panelon 26-16-4464Ijilhuv [Mass/Vol] 5.0 g/dLNormal3.6-5.1NorthAden[facility] SpecialistComment on above:Performed By: #### ESR, CBC, RF, CMP #### [facility] [address], [place] [id number]/Globulin [Mass ratio]1.9 {ratio}Normal1.0-2.5NoSumma Health SpecialistComment on above:Performed By: #### ESR, CBC, RF, CMP #### [facility] [address], [place] [id number] [Catalytic activity/Vol]91 U/GPmakfd85-613Zxivbyfn [facility] SpecialistComment on above:Performed By: #### ESR, CBC, RF, CMP #### [facility] [address], [place] [id number] [Catalytic activity/Vol]12 U/LNormal6-33NortHocking Valley Community Hospital SpecialistComment on above:Result Comment: 04/27/2021 Female reference range changed.Performed By: #### ESR, CBC, RF, CMP #### [facility] [address], [place] [id number] gap [Moles/Vol]19 mmol/MByhawl68-56Krbnarzv [facility] SpecialistComment on above:Result Comment: Effective 06/02/2019 reference range changed.Performed By: #### ESR, CBC, RF, CMP #### [facility] [address], [place] [id number] [Catalytic activity/Vol]19 U/LNormal9-34NortHocking Valley Community Hospital SpecialistComment on above:Performed By: #### ESR, CBC, RF, CMP #### [facility] [address], [place] [id number] [Mass/Vol]0.74 mg/dLNormal0.30-1.20NortHocking Valley Community Hospital SpecialistComment on above:Performed By: #### ESR, CBC, RF, CMP #### [facility] [address], [place] [id number]/CREA22 RatioNormal6-22NoSumma Health Specialist Comment on above:Performed By: #### ESR, CBC, RF, CMP #### [facility] [address], [place] [id number] [Mass/Vol]9.7 mg/dLNormal8.6-10.2[facility] SpecialistComment on above:Performed By: #### ESR, CBC, RF, CMP #### [facility] [address], [place] [id number] [Moles/Vol]104 mmol/RXtumvi48-107Hjahmxin [facility] SpecialistComment on above:Performed By: #### ESR, CBC, RF, CMP #### [facility] [address], [place] [id number] [Moles/Vol]22 mmol/DJqavah50-49Jlysbrwr [facility] SpecialistComment on above:Performed By: #### ESR, CBC, RF, CMP #### [facility] [address], [place] [id number] [Mass/Vol]0.6 mg/dLNormal0.6-1.4Norttucson va medical centern [facility] SpecialistComment on above:Performed By: #### ESR, CBC, RF, CMP #### [facility] [address], [place] [id number] mL/min/1.36p1Yjjlnk>60NortHocking [facility] SpecialistComment on above:Performed By: #### ESR, CBC, RF, CMP #### [facility] [address], [place] [id number] mL/min/1.53n8Qnsghk>60NortHocking [facility] SpecialistComment on above:Performed By: #### ESR, CBC, RF, CMP #### [facility] [address], [place] [id number] (S) [Mass/Vol]2.7 g/dLNormal1.9-3.7NortHocking Valley [facility] Hospital SpecialistComment on above:Performed By: #### ESR, CBC, RF, CMP #### [facility] [address], [place] [id number] [Mass/Vol]79 mg/yJAkmpvc06-36Peezcamr [facility] SpecialistComment on above:Result Comment: For FASTING Glucose --- ADA reference ranges: Normal 65-99 mg/dl Prediabetes 100-125 Diabetes >/= 126Performed By: #### ESR, CBC, RF, CMP #### [facility] [address], [place] [id number] [Moles/Vol]4.1 mmol/LNormal3.5-5.5Norttucson va medical centern [facility] SpecialistComment on above:Performed By: #### ESR, CBC, RF, CMP #### [facility] [address], [place] [id number] [Mass/Vol]7.7 g/dLNormal6.1-8.1[facility] SpecialistComment on above:Performed By: #### ESR, CBC, RF, CMP #### [facility] [address], [place] [id number] [Moles/Vol]141 mmol/HIgjsgw459-160Wmrjubfl [facility] SpecialistComment on above:Performed By: #### ESR, CBC, RF, CMP #### [facility] [address], [place] [id number] nitrogen [Mass/Vol]13 mg/dLNormal7-25NortHocking [facility] SpecialistComment on above:Performed By: #### ESR, CBC, RF, CMP #### [facility] [address], [place] [id number] - LORRIE SCREEN IFA W/RFL TITER AND PATTERNon 31-15-8448EIP SCREEN, IFANegativeNormalNEGATIVENoSumma Health SpecialistComment on above:Order Comment: [facility] Testing performed at: QPT, [employer], [address] [facility], [address] [place] [address], [place], [address], [facility] Programmer: Kurt Cardona MD [facility] Collection Date/Time: [id number] [facility] Results Received Date/Time: [facility] Reported Date/Time: [id number] Comment: LORRIE IFA is a first line [...] inflammatory myopathies. AC-0: Negative International Consensus on OLRRIE Patterns (https://doi.org/10.1515/lyjb-9240-6902) For additional information, please refer to http://education.[employer].Yapert/faq/IWA681 (This link is being provided for informational/ educational purposes only.)Performed By: #### 249 #### [facility] Default [address] [place], [place] [address]AYR Sedimentation Rateon 03-00-1561OZT (Bld) [Velocity]15.00 mm/h Normal0.00-20.00NortGreen Cross HospitalComment on above:Performed By: #### ESR, CBC, RF, CMP #### [facility] [address] [place], [place] [id number] Factoron 76-74-6931RR<10NormalNortGreen Cross HospitalComment on above:Performed By: #### ESR, CBC, RF, CMP #### [facility] [address] [place], [place] [address]M - THINPREP(R) TIS AND HPV MRNA E6/E7 RFL HPV 16/18/45on 94-03-3535FJZALPCX INFORMATION:None givenNormalNoCamarillo State Mental Hospital E Mail System Administrator Comment on above:Order Comment: [facility] performed at: O6K, [facility], [address] [place] [address], [address] [place] [address] - [place], [address], [facility] Programmer: Kurt Cardona MD [facility] Collection Date/Time: [id number] [facility] Results Received Date/Time: [id number] [facility] Reported Date/Time: [id number] By: #### [id number] #### [facility] Default [address] [place], [place] [address]TMVJQTHFJZ NOTENormalNoSumma Health SpecialistComment on above:Order Comment: [facility] Testing performed at: O6Joobili, [employer], [address] [place] [address], [address] [place] [address], [address] [place] [address], [facility] Programmer: Kurt Cardona MD [facility] Collection Date/Time: [facility] Results Received Date/Time: [facility] Reported Date/Time: [id number] Comment: EXPLANATORY NOTE: The Pap is a screening test for cervical cancer. It is not a diagnostic test and is subject to false negative and false positive results. It is most reliable when a satisfactory sample, regularly obtained, is submitted with relevant clinical findings and history, and when the Pap result is evaluated along with historic and current clinical information.Performed By: #### [id number] #### [facility] [address] [place], [place] [address]TVAAOZC:This Pap test has been evaluated with computer assisted technology.NormalNortThe Jewish Hospital Medical SpecialistComment on above:Order Comment: [facility] performed at: [facility], [address] [place] [address], [address] [place] [address], [address] [place] [address], [facility] Programmer: Kurt Cardona MD [facility] Collection Date/Time: [facility] Results Received Date/Time: [facility] Reported Date/Time: [id number] By: #### [id number] #### [facility] [address] [place], [place] [address]KVBJUYPBXJAGCYVB:SEE NOTENormalNorttucson va medical centern [place] [employer] Administrator Comment on above:Order Comment: [facility] performed at: [facility], [facility], [address] [place] [address], [address] [place] [address], [address] [place] [address], [facility] Programmer: Kurt Cardona MD [facility] Date/Time: [facility] Results Received Date/Time: [facility] Reported Date/Time: [id number] Comment: DMK, CT(ASCP) CT screening location: [employer] [place] [address].Performed By: #### [id number] #### [facility] [address] [place], [place] [address]HMQ mRNA E6/E7Not detectedNormalNot DetectedNortGreen Cross HospitalComment on above:Order Comment: [facility] performed at: [facility] [employer], [address] [place] [address], [address] [place] [address], [facility] Programmer: Kurt Cardona MD [facility] Date/Time: [facility] Results Received Date/Time: [facility] Reported Date/Time: [id number] Comment: Methodology: Nail Assembly Machine Operator-Mediated Amplification This assay detects E6/E7 viral messenger RNA (mRNA) from 14 high-risk HPV types (16,18,31,33,35,39,45,51,52,56,58,59,66,68). The analytical performance characteristics of this assay have been determined by [employer]. The modifications have not been cleared or approved by the FDA. This assay has been validated pursuant to the CLIA regulations and is used for clinical purposes. For additional information, please refer to http://education.[employer]/faq/YNL735o3 (This link if provided for information/ educational purposes only.)Performed By: #### [id number] #### [facility] [address] [place], [place] [address]OQVKLNLOOVTPRS/RESULT:NegativeNormalNorttucson va medical centern [facility]S HospitalComment on above:Order Comment: [facility] performed at: [facility], [address] [place] [address], [address] [place] [address], [address] [place] [address], [facility] Programmer: Kurt Cardona MD [facility] Date/Time: [facility] Results Received Date/Time: [facility] Reported Date/Time: [id number] By: #### [id number] #### [facility] [address] [place], [place] [address]EPC:None givenNormalNorthern Takoma Regional Hospital SpecialistComment on above:Order Comment: [facility] performed at: [facility], [address] [place] [address], [address] [place] [address], [address] [place] [address], [facility] Programmer: Kurt Cardona MD [facility] Date/Time: [facility] Results Received Date/Time: [facility] Reported Date/Time: [id number] By: #### [id number] #### [facility] [address] [place], [place] [address]BHQO. BX:None givenNormalNorthern Takoma Regional Hospital SpecialistComment on above:Order Comment: [facility] performed at: [facility], [address] [place] [address], [address] [place] [address], [address] [place] [address], [facility] Programmer: Kurt Cardona MD [facility] Date/Time: [facility] Results Received Date/Time: [facility] Reported Date/Time: [id number] By: #### [id number] #### [facility] [address] [place], [place] [address]MIJT. PAP:None givenNormalNorthern Takoma Regional Hospital SpecialistComment on above:Order Comment: [facility] performed at: [facility], [employer], [address] [place] [address], [address] [place] [address], [address] [place] [address], [facility] Programmer: Kurt Cardona MD [facility] Date/Time: [facility] Results Received Date/Time: [facility] Reported Date/Time: [id number] By: #### [id number] #### [facility] [address] [place] [id number]:None givenNormalNorthern Takoma [facility] Hospital SpecialistComment on above:Order Comment: [facility] performed at: [facility], [employer] [facility], [address] [place] [address], [address] [place] [address], [address] [place] [address], [facility] Programmer: Kurt Cardona MD [facility] Date/Time: [facility] Results Received Date/Time: [facility] Reported Date/Time: [id number] By: #### [id number] #### [facility] [address] [place], [place] [address]JRDURNNQO OF ADEQUACY:SEE NOTENormalNorthern Takoma Regional Hospital SpecialistComment on above:Order Comment: [facility] performed at: [place], [address] [place] [address], [address] [place] [address], [address] [place] [address], [facility] Programmer: Kurt Cardona MD [facility] Date/Time: [id number] [facility] Results Received Date/Time: [facility] Reported Date/Time: [id number] Comment: Satisfactory for evaluation. Endocervical/transformation zone component present.Performed By: #### [id number] #### [facility] [address] [place], [place] [address]R - FSHon 03-92-0187SKL2.3 mIU/mLNormalNorthern Takoma Regional Hospital SpecialistComment on above:Order Comment: [facility] performed at: [employer], [employer] [facility], [address] [place] [address], [address] [place] [address], [address] [place] [address], [facility] Programmer: Kurt Cardona MD [facility] Date/Time: [facility] Results Received Date/Time: [id number] [facility] Reported Date/Time: FASTING: NOResult Comment: Reference Range Follicular Phase 2.5-10.2 Mid-cycle Peak 3.1-17.7 Luteal Phase 1.5- 9.1 Postmenopausal 23.0-116.3Performed By: #### [id number], [id number], [id number] #### [facility] [address] [place], [place] [address]A - LHon 16-74-4773KT9.6 mIU/mLNormalNorthern Takoma Regional Hospital SpecialistComment on above:Order Comment: [facility] performed at: [employer], [employer] [facility], [address] [place] [address], [address] [place] [address], [address] [place] [address], [facility] Programmer: Kurt Merati MDQuest Collection Date/Time: [id number] Results Received Date/Time: [id number] Reported Date/Time: FASTING: NO Result Comment: Reference Range Follicular Phase 1.9-12.5 Mid-Cycle Peak 8.7-76.3 Luteal Phase 0.5-16.9 Postmenopausal 10.0-54.7Performed By: #### ESR, CBC, RF, CMP #### [facility] [address], [place] [id number] - TESTOSTERONE TOTAL LC/MS/MSon 53-27-8196UCBPIXRMCADB, TOTAL, MS20 ng/dLNormal2-45Northern [facility] Children'S HospitalComment on above: Order Comment: [facility] performed at: [facility], [employer], [address], [place], [place], , [facility] Programmer: Damir Chavarria M.D.,PhDQuest Collection Date/Time: [id number] Results Received Date/Time: [id number] Reported Date/Time: FASTING: NOResult Comment: For additional information, please refer to http://education.Yeexoo.[employer]t/faq/ UhpstHzxoujcapakiRHYRJSWVG835 (This link is being provided for informational/ educational purposes only.) This test was developed and its analytical performance characteristics have been determined by [employer] [place], [place]. It has not been cleared or approved by the U.S. Food and Drug Administration. This assay has been validated pursuant to the CLIA regulations and is used for clinical purposes.Performed By: #### ESR, CBC, RF, CMP #### [facility] [address], [place] [id number] w/ Reflex to Free T4on 74-91-5661CCE5.644 uIU/mLNormal 0.400-4.500Northern [facility] Children'S HospitalComment on above:Performed By: #### TSH reflex FT4 #### [facility] [address] [place], [place] [id number] Summary: HMSPatientIDon [id number] number [id number] [facility] Work Phone: Clinical Summary: Scanned History Summaryon 05-14-2020 adl form etoh alcohol performancebeer, wine, liquorAdena [facility] Work Phone: Beta HCG ( test) Ql (U)1 time per yearAdena [facility] Work Phone: consumes three or more drinks of alcohol (beer, wine, liquor) daily or almost dailyless than 1 drink per dayAdena [facility] Work Phone: Data entered by patient, additional medical problems Tachycardia arrhythmiaCrystUpper Valley Medical Center [facility] Work Phone: data entered by patient, alcohol (ethanol or ETOH) use YesCrMemorial Hospital [facility] Work Phone: Data entered by patient, allergy listSulfa drugs [facility] Work Phone: data entered by patient, drug (of abuse) useNoCrystUpper Valley Medical Center [facility] Work Phone: data entered by patient, Employer NameemployedCrystal [facility] Work Phone: data entered by patient, exercise historyNoCrystUpper Valley Medical Center [facility] Work Phone: data entered by patient, father's medical history ArthritisHigh blood pressureOsteoporosisCrystal [facility] Work Phone: Data entered by patient, history of past surgeries Wrist surgeryCrystal [facility] Work Phone: Data entered by patient, medication list [id number] [facility] Work Phone: data entered by patient, mother's medical history ArthritisCrystal [facility] Work Phone: data entered by patient, past medical history ArthritisSeizuresStomach ulcersAdena [facility] Work Phone: data entered by patient, 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, current smokernever smokerAdena [facility] Work Phone: data entered by patient, 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, marital statussingleCBlanchard [facility] Work Phone: data entered by patient, 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, 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 [facility] Work Phone: father of patient is alive or deceasedSouthern [facility] Work Phone: Housing Type: apartment, house, detention, trailer, none houseA[facility]a [facility] Work Phone: housing unit size (asthma environmental history, housing) (from single family to don't know)2 floorsCBlanchard Valley Health System [facility] Work Phone: mother of patient is alive or deceasedSouthern [facility] Work Phone: Number of dependent childrenSelect [facility] Work Phone: Office Visit: New - 1st visit with practice, Rm: [phone]: Highlighted rowMRI (magnetic resonance imaging) historyof the Lumbar spine on [facility]07/[facility] imagingA[facility] Work Phone: Clinical Lists Update: Preload Extendedon 05-11-2020 Tobacco smoking status NHISTobacco smoking statusAdena [facility] Work Phone: Clinical Summary: Scanned History Summaryon 05-11-2020 adl form etoh alcohol performancebeer, wine, liquorA[facility]a [facility] Work Phone: Beta HCG ( test) Ql (U)1 time per yearCrystUpper Valley Medical Center [facility] Work Phone: consumes three or more drinks of alcohol (beer, wine, liquor) daily or almost dailyless than 1 drink per dayA[facility] Work Phone: Data entered by patient, additional medical problems Tachycardia arrhythmiaCrystUpper Valley Medical Center [facility] Work Phone: data entered by patient, alcohol (ethanol or ETOH) use YesCrystUpper Valley Medical Center [facility] Work Phone: Data entered by patient, allergy listSulfa drugs [facility] Work Phone: data entered by patient, drug (of abuse) useNoA[facility] Work Phone: data entered by patient, Employer NameemployedCrystal [facility] Work Phone: data entered by patient, exercise historyNoA[facility] Work Phone: data entered by patient, father's medical history ArthritisHigh blood pressureOsteoporosisA[facility]a [facility] Work Phone: Data entered by patient, history of past surgeries Wrist surgeryCrMemorial Hospital [facility] Work Phone: Data entered by patient, medication list [id number] [facility] Work Phone: data entered by patient, mother's medical history ArthritisAdena [facility] Work Phone: data entered by patient, past medical history ArthritisSeizuresStomach ulcersCrMemorial Hospital [facility] Work Phone: data entered by patient, 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, current smokernever smokerA[facility]a [facility] Work Phone: data entered by patient, 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, marital statussingleCBlanchard [facility] Work Phone: data entered by patient, 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, occupationVet [facility] Work Phone: father of patient is alive or deceasedSouthern [facility] Work Phone: Housing Type: apartment, house, detention, trailer, none houseA[facility] Work Phone: housing unit size (asthma environmental history, housing) (from single family to don't know)2 floorK[facility] Work Phone: mother of patient is alive or deceasedSouthern [facility] Work Phone: Number of dependent childrenSelect [facility] Work Phone: adl form etoh alcohol performancebeer, wine, liquor [facility] Work Phone: Beta HCG ( test) Ql (U)1 time per yearA[facility] Work Phone: consumes three or more drinks of alcohol (beer, wine, liquor) daily or almost dailyless than 1 drink per dayA[facility]a [facility] Work Phone: Data entered by patient, additional medical problems Tachycardia arrhythmiaA[facility]a [facility] Work Phone: data entered by patient, alcohol (ethanol or ETOH) use YesA[facility] Work Phone: Data entered by patient, allergy listSulfa drugs [facility] Work Phone: data entered by patient, drug (of abuse) useNoAv[facility] Work Phone: data entered by patient, Employer NameemployedCrystSumma [facility] Work Phone: data entered by patient, exercise historyNoA[facility] Work Phone: data entered by patient, father's medical history ArthritisHigh blood pressureOsteoporosisA[facility]a [facility] Work Phone: Data entered by patient, history of past surgeries Wrist surgeryCrMemorial Hospital [facility] Work Phone: Data entered by patient, medication list [id number] [facility]ike [facility] Work Phone: data entered by patient, mother's medical history ArthritisAdena [facility] Work Phone: data entered by patient, past medical history ArthritisSeizuresStomach ulcersA[facility]a [facility] Work Phone: data entered by patient, 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, current smokernever smokerA[facility]a [facility] Work Phone: data entered by patient, 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, marital statussingleCBlanchard [facility] Work Phone: data entered by patient, 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, occupationVet techAvita Health System [facility] Work Phone: father of patient is alive or deceasedAliveCBlanchard Valley Health [facility] Work Phone: Housing Type: apartment, house, detention, trailer, none houseA[facility]a [facility] Work Phone: housing unit size (asthma environmental history, housing) (from single family to don't know)2 floorsCDayton [facility] Work Phone: mother of patient is alive or deceasedAliGrand Lake Joint [facility] Work Phone: Number of dependent childrenNoAv[facility] Health [facility] Work Phone: Vital Signs Date TimeVital SignValuePerforming [id number] 09:26-0500Body mass index (BMI) [Ratio]29.76 kg/q3Eiglhwf Floro CNM Work Phone: [phone])[address]11-06-2025 09:26-0500Body uunzfo78.2 kg Bryson Floro CNM Work Phone: 1(466)[address] [place] [address]-06-2025 09:26-0500Diastolic blood tseecwsx60 mm[Hg]Bryson Floro CNM Work Phone: [phone] [address]-06-2025 09:26-0500Systolic blood rbmohrze995 mm[Hg]Bryson Floro CNM Work Phone: 1(166)[address]10-27-2025 13:36-0400Body mass index (BMI) [Ratio]29.05 kg/f1Cusudji Floro CNM Work Phone: 1(950)[address]10-27-2025 13:36-0400Body dkxogu91.39 kgValerie Floro CNM Work Phone: 1(986)612-[address] [place] [address]-27-2025 13:36-0400Diastolic blood rkvdopcx37 mm[Hg]Bryson Floro CNM Work Phone: [phone] [address]-27-2025 13:36-0400Systolic blood mm[Hg]Bryson Floro CNM Work Phone: 1(792)[address] [place] [address]-14-2025 09:42-0400Body mass index (BMI) [Ratio]28.52 kg/s5Wsepmmv Floro CNM Work Phone: 1(731)[address] [place] [address]-14-2025 09:42-0400Body humiqk77.03 kgValerie Floro CNM Work Phone: [phone] HospitalZzcuckfwiq36-30-6322 09:42-0400Diastolic blood gaxvnbtj14 mm[Hg]Bryson Floro CNM Work Phone: 1(791)356-[address] [place], [place] [address]Xqplrpsdeg54-04-6142 09:42-0400Systolic blood bubddirb384 mm[Hg]Bryson Floro CNM Work Phone: 1(565)857-[address] [place], [place] [address]Lmwdmsylug31-35-1552 11:12-0400Body mass index (BMI) [Ratio]28.17 kg/p7Vpcquvd Floro CNM Work Phone: [phone] [address]-24-2025 11:12-0400Body oacntk89.12 kgIrmarie Natalio CNM Work Phone: 1(971)[address] [place] [address]-24-2025 11:12-0400Diastolic blood xcwgevlb24 mm[Hg]Bryson Floro CNM Work Phone: 1(104)298-[address] [place], [place] [address]Hmtozdlpqa31-78-0361 11:12-0400Systolic blood fnowbrez103 mm[Hg]Bryson Floro CNM Work Phone: 1(354)[address]09-04-2025 13:36-0400Body mass index (BMI) [Ratio]27.1 kg/d6Dcamaas Floro CNM Work Phone: 1(298)[address]09-04-2025 13:36-0400Body .4 kg Bryson Floro CNM Work Phone: 1(020)[address]09-04-2025 13:36-0400Diastolic blood kuzvvpef13 mm[Hg]Bryson Floro CNM Work Phone: 1(027)400-[address] [place] [address]-04-2025 13:36-0400Systolic blood nefnlyej939 mm[Hg]Bryson Floro CNM Work Phone: 1(237)[address] [place], [place] 1821808-26-2025 18:15-0400Body mass index (BMI) [Ratio]27.39 kg/u9KxxbhSilvino Garcia NP Work Phone: [phone])[address]08-26-2025 18:15-0400Body temperature 97.81 [degF]Silvino Garcia SENIOR SOFTWARE TEST ENGINEER Work Phone: [phone] [place] [address]-26-2025 18:15-0400Body rbebxu27.13 kgSilvino Garcia SENIOR SOFTWARE TEST ENGINEER Work Phone: 1(888)[facility] [place] [address]-26-2025 18:15-0400Diastolic blood zuethhny15 mm[Hg]Silvino Garcia SENIOR SOFTWARE TEST ENGINEER Work Phone: 1(371)[facility] [place] [address]-26-2025 18:15-0400Heart rate79 /min Silvino Garcia SENIOR SOFTWARE TEST ENGINEER Work Phone: 1(123)[facility] [place] [address]-26-2025 18:15-6385FeG5% (BldA) [Mass fraction]98 %Silvino Garcia SENIOR SOFTWARE TEST ENGINEER Work Phone: 1(082)[facility] [place] [address]-26-2025 18:15-0400Systolic blood gtsabcmg934 mm[Hg]Silvino Garcia SENIOR SOFTWARE TEST ENGINEER Work Phone: 1(546)[facility] [place] [address]-07-2025 09:31-0400Body mass index (BMI) [Ratio]26.57 kg/l5FnrlwqjBryson Perezo CNM Work Phone: 1(099)[facility] [place] [address]-07-2025 09:31-0400Body ntlyhu85.04 kgBryson Perezo CNM Work Phone: 1(188)[facility] [place] [address]-07-2025 09:31-0400Diastolic blood tevyqqrn95 mm[Hg]Bryson Natalio CNM Work Phone: 1(291)[facility] [place] [address]-07-2025 09:31-0400Systolic blood irgsquwp344 mm[Hg]Bryson Perezo CNM Work Phone: 1(586)[facility] [place], [place] [address]Xiiwzdemhp11-70-7489 11:30-0400Body mass index (BMI) [Ratio]26.39 kg/o2Trqosly Natalio CNM Work Phone: 1(661)[facility] [place], [place] [address]Zdqbwqpbys92-94-5274 11:30-0400Body .59 kgBryson Perezo CNM Work Phone: 1(770)[address] [place] [address]-16-2025 11:30-0400Diastolic blood pxkhikeg06 mm[Hg]Bryson Floro CNM Work Phone: 1(085)[address] [place], [place] 1821807-16-2025 11:30-0400Systolic blood tucppbwi745 mm[Hg]Bryson Floro CNM Work Phone: 1(256)[address] [place], [place] 1821806-16-2025 12:58-0400Body mass index (BMI) [Ratio]25.86 kg/b1Lcsacnp Floro CNM Work Phone: 1(486)[address] [place], [place] 1821806-16-2025 12:58-0400Body gqyyfb39.22 kgValerie Natalio CNM Work Phone: 1(160)[address] [place], [place] 1821806-16-2025 12:58-0400Diastolic blood ytlxmjai74 mm[Hg]Bryson Floro CNM Work Phone: 1(980)[address] [place], [place] 1821806-16-2025 12:58-0400Systolic blood zjkkagop411 mm[Hg]Bryson Floro CNM Work Phone: 1(237)[address] [place], [place] 1821805-15-2025 09:37-0400Body mass index (BMI) [Ratio]25.15 kg/h1Qlxuapt Floro CNM Work Phone: 1(720)[address] [place], [place] 1821805-15-2025 09:37-0400Body gtsere15.41 kgIrmarie Natalio CNM Work Phone: 1(090)[address] [place], [place] 1821805-15-2025 09:37-0400Diastolic blood yhanwrrq34 mm[Hg]Bryson Floro CNM Work Phone: 1(315)[address] [place], [place] 1821805-15-2025 09:37-0400Systolic blood mm[Hg]Bryson Floro CNM Work Phone: 1(701)[address] [place], [place] 1821804-17-2025 09:31-0400Body mass index (BMI) [Ratio]25.69 kg/k8Vtsqnee Floro CNM Work Phone: 1(946)[address] [place], [place] 1821804-17-2025 09:31-0400Body iqooob72.77 kgValerie Natalio CNM Work Phone: noBarnes-Jewish [facility] HospitalKxtcvzyaro80-83-2325 09:31-0400Diastolic blood xpmfxakn46 mm[Hg]Bryson Larsen CNM Work Phone: [facility] HospitalEocjqflkmy77-95-3595 09:31-0400Systolic blood mm[Hg]Bryson Larsen CNM Work Phone: [facility] HospitalEjsmkhyylx85-59-2939 11:33-0500Body mass index (BMI) [Ratio]24.98 kg/a4XodetegBryson Larsen CNM Work Phone: noBarnes-Jewish [facility] HospitalLzwnxyalxo64-19-8055 11:33-0500Body bptnog31.96 kgBryson CHOM Work Phone: noBarnes-Jewish West County HospitalNEGATED: Highlighted ydg64-44-3806 08:24-0500BMI (Body Mass Index)23.11 kg/v5Isydlo [facility]izTr[facility] Work Phone: NEGATED: Highlighted chq22-18-8537 08:24-0500Body mtzexv42.97 kgKrista RuizTrumbull Memorial Hospital [facility] Work Phone: NEGATED: Highlighted sxk94-36-4241 08:24-0500Body kxhdux67 kgKrista [facility] Work Phone: NEGATED: Highlighted rzd97-02-6969 08:24-0500Height 160.02 cmKrista RuizTrumbull Memorial Hospital [facility] Work Phone: NEGATED: Highlighted nmt20-55-4261 08:24-0430Lqfygp965 cmKrista RuizTrumbull Memorial Hospital [facility] Work Phone: Encounters Encounter DateEncounter [employer] ProviderFacilityStart: 04-02-2025 End: 07-25-4371Sqebxh flowsheetBryson CHOM Work Phone: [facility] [place] [facility]Start: 04-02-2025 End: 15-31-9021Untcoz flowsheetValerie Joseph Perezo CNM Work Phone: [facility] [place] [facility]BGYNStart: 04-02-2025 End: 26-11-7580Drsjzcghtp care visitValerie Joseph Larsen CN Work Phone: [facility] [place] OBGYNComment on above:Encounter for supervision of other normal , third trimester ([facility]) (Primary Dx); screening for streptococcus B ([facility]); History of section; POTS (postural orthostatic tachycardia syndrome)Start: 04-02-2025 End: 21-84-3376sgsrtreyuiPIDTZES L FLORONot AvailableStart: 03-23-2025 End: 14-56-0932Dfocfq flowsheetValerie L Natalio CNM Work Phone: [facility] [place] [facility]YNStart: 03-23-2025 End: 61-70-1521Ksklwt flowsheetValerie L Natalio CNM Work Phone: [facility] [place] [facility]YNStart: 03-23-2025 End: 47-67-1652Gzggbihnkl care visitValerie Joseph Perezo CN Work Phone: [facility] [place] OBGYNComment on above:Encounter for supervision of other normal , third trimester ([facility]) (Primary Dx); History of section; POTS (postural orthostatic tachycardia syndrome)Start: 03-23-2025 End: 71-72-4935qpvnagbevuZZUKAWE L FLORONot AvailableStart: 03-10-2025 End: 41-06-3092Dmideu flowsheetValerie L Floro CNM Work Phone: [facility] [place] [facility]YNStart: 03-10-2025 End: 48-64-8669Vqkznq flowsheetValerie L Floro CNM Work Phone: [facility] [place] [facility]YNStart: 03-10-2025 End: 93-70-8623Azborxxyse care visitValerie L Natalio CNM Work Phone: [facility] [place] [facility]BGYNComment on above:Encounter for supervision of other normal , third trimester ([facility]) (Primary Dx); History of section; POTS (postural orthostatic tachycardia syndrome); Elevated glucose tolerance testStart: 03-10-2025 End: 54-39-5417cpcbadvnfiYVTBKON L FLORONot AvailableStart: 02-18-2025 End: 55-71-7263Cnuvih flowsheetValerie L Floro CNM Work Phone: [facility] [place] [facility]YNStart: 02-18-2025 End: 05-59-7141Kdblgs flowsheetValerie L Floro CNM Work Phone: [facility] [place] [facility]YNStart: 02-18-2025 End: 34-01-8862Wqtsessdba care visitValerie L Floro CNM Work Phone: no[facility] [place] OBGYNComment on above:Encounter for routine care ([facility]) (Primary Dx); Encounter for supervision of other normal , third trimester ([facility]) Start: 02-18-2025 End: 98-00-2431cvgvjauqekTZLRNGB L FLORONot AvailableStart: 01-29-2025 End: 77-18-8166Uatdci flowsheetValerie L Floro CNM Work Phone: [facility] [facility]YNStart: 01-29-2025 End: 60-23-5969Jvgmcf flowsheetValerie L Floro CNM Work Phone: [facility] [place] [facility]BGYNStart: 01-29-2025 End: 54-45-6421glqkckzstjTAZQQHS L FLORONot AvailableStart: 01-29-2025 End: 01-23-4787Qsdzborgms care visitValerie L Floro CNM Work Phone: [facility] [place] [facility]BGYNComment on above:Screening for iron deficiency anemia; Screening for diabetes mellitus (DM); related condition in third trimester ([facility])Start: 01-20-2025 End: 87-65-3061Pnhhwq outpatient visit 15 minutesSilvino Garcia NP Work Phone: [facility] MedicineComment on above:Acute cough (Primary Dx); Acute bronchitis, unspecified organismStart: 01-20-2025 End: 55-43-4259ebunkmnenzJOXRN KAMPFERNot AvailableStart: 01-20-2025 End: 84-43-1656Qfiuuq flowsPat Garcia SENIOR SOFTWARE TEST ENGINEER Work Phone: [facility] MedicineStart: 01-20-2025 End: 20-43-7963Apmmct Marilyn Garcia SENIOR SOFTWARE TEST ENGINEER Work Phone: [facility] MedicineStart: 01-01-2025 End: 87-13-9437Jtilgm flowsheetValerie L Floro CNM Work Phone: [facility] [place] [facility]YNStart: 01-01-2025 End: 30-48-2954Reeukb flowsheetValerie L Floro CNM Work Phone: [facility] [place] [facility]BGYNStart: 01-01-2025 End: 48-40-6294Oxeyvxuzja care visitValerie L Floro CNM Work Phone: [facility] [place] OBGYNComment on above:Encounter for routine care ([facility]) (Primary Dx); POTS (postural orthostatic tachycardia syndrome); Encounter for supervision of other normal , second trimester ([facility]); History of sectionStart: 01-01-2025 End: 50-77-1742duldkiwpkvEXVXJGU L FLORONot AvailableStart: 12-10-2024 End: 74-51-7096Jjojor flowsheetValerie L Floro CNM Work Phone: n[facility] OBStart: 12-10-2024 End: 72-42-4747Gzqodq flowsheetValerie L Floro CNM Work Phone: n[facility] OBStart: 12-10-2024 End: 88-62-6032wgishuxqymVOARACN L FLORONot AvailableStart: 12-10-2024 End: 83-07-6000Djfrxtxuai care visitValerie L Floro CNM Work Phone: noms FNR OBComment on above:Encounter for routine care ([facility]) (Primary Dx); POTS (postural orthostatic tachycardia syndrome); related condition in second trimester ([facility])Start: 11-10-2024 End: 82-10-9202Kxurdk flowsheetValerie L Floro CNM Work Phone: NORX FNR OBStart: 11-10-2024 End: 95-19-9549Ohhddc flowsheetValerie L Floro CNM Work Phone: noms [facility] OBStart: 11-10-2024 End: 57-94-4732Jhedkveixo care visitValerie L Floro CNM Work Phone: [facility] [place] OBGYNComment on above:Encounter for routine care ([facility]); examination or test, positive result ([facility]); related condition in second trimester ([facility])Start: 11-10-2024 End: 95-54-5012kmvelkfjdxBPAPJES L FLORONot AvailableStart: 10-09-2024 End: 05-01-2239Sykftt flowsheetValerie L Floro CNM Work Phone: NOEQ FNR OBStart: 10-09-2024 End: 46-91-3119Rehisg flowsheetValerie L Floro CNM Work Phone: noms [facility] OBStart: 10-09-2024 End: 33-20-3014jtijlefqkwIOGNUOW L FLORONot AvailableStart: 10-09-2024 End: 74-43-0668Pypdlmdshq care visitValerie L Floro CNM Work Phone: NOFO FNR OBComment on above:Encounter for routine care; examination or test, positive resultStart: 10-03-2024 End: 97-16-4176Qjbvdknip Result EncounterBryson Larsen CNM Work Phone: noms External Department UnsolicitedStart: 10-03-2024 End: 59-90-3041Tvyzrnsdq Result EncounterValekevin Larsen CNM Work Phone: noms External Department UnsolicitedStart: 09-11-2024 End: 72-71-5596Rhulvtk care visitValekevin Larsen CNM Work Phone: noms FNR OBComment on above:GA: 0b3dDtmwr: 09-11-2024 End: 49-27-2704ikuyxdzoaoUXRGOED Joseph PEREZONot AvailableStart: 08-25-2024 End: 68-47-5325Utbioj OnlyValekevin Larsen CNM Work Phone: noms FNR OBComment on above:History of loss in prior , currently in first trimester (Primary Dx)Start: 06-26-2024 End: 80-90-1020gbqsuyoyzzUBDXTML L FLORONot AvailableStart: 06-26-2024 End: 66-54-7462Fyodtex encounter procedureBryson Larsen CNM Work Phone: noms FNR OBComment on above:Missed abortionStart: 06-20-2024 End: 20-37-2750Lvyybaqvl Result EncounterGeneric External Data ProviderNOMS External Department UnsolicitedStart: 06-20-2024 End: 80-05-2105Tosrsfrom Result EncounterGeneric External Data ProviderNOMS External Department UnsolicitedStart: 06-20-2024 End: 91-64-9847ghechvcmqaOvybc FaC[facility] Work Phone: Start: 06-20-2024 End: 16-96-6981Nyyjqmsg ReferredCorey Radha DO Work Phone: [facility]-LAB Path Spec [facility] HospStart: 06-19-2024 End: 07-94-4699Mqvxraeex Result EncounterValerie L Floro CNM Work Phone: noms External Department UnsolicitedStart: 06-19-2024 End: 84-75-1865Kfoswqkny Result EncounterValerie L Floro CNM Work Phone: noms External Department UnsolicitedStart: 06-05-2024 End: 13-75-1427Jknpgihbt Result EncounterValerie L Floro CNM Work Phone: noms External Department UnsolicitedStart: 06-05-2024 End: 57-40-1599Dsnobshzo Result EncounterValerie L Natalio CNM Work Phone: noms External Department UnsolicitedStart: 06-05-2024 End: 85-40-2927Npbxwqgkq encounterGris Valdes MD Work Phone: noms FNR FMStart: 05-06-2024 End: 96-06-2022Mhzkau flowsheetValerie L Floro CNM Work Phone: noms FNR OBStart: 05-06-2024 End: 13-47-2632Ugzonm flowsheetValerie L Floro CNM Work Phone: NOVS FNR OBStart: 05-06-2024 End: 79-25-3639zsbbhxavhcXVSCCHH L FLORONot AvailableStart: 05-06-2024 End: 45-80-0693Wzqtze outpatient visit 15 minutesValerie L Floro CNM Work Phone: NOM[facility] FNR OBComment on above:GA: 89o5uDyntv: 05-06-2024 End: 48-94-9033guhcrjxbhgPEYPLON L FLORONot AvailableStart: 04-30-2024 End: 98-27-4413Kpsjqkhiy Adama Valdes MD Work Phone: NOWI FNR FMComment on above:Anxiety (Primary Dx)Start: 05-14-2020 End: 88-36-7288Iqgcchr encounter procedureDouglas M Ehrler MD Work Phone: [facility] Work Phone: Start: 05-14-2020 End: 43-04-4258Ct evaluationDomaricel Rosario MD Work Phone: [facility] Work Phone: Start: 05-10-2020 End: 38-42-9099Rwqybfu encounter procedureExternal ProviderPromedica Memorial Hospital Start: 71-80-0667Raajolb OnlyExternal ProviderExternal-NonCCF Procedures DateProcedureProcedure DetailPerforming ClinicianStart: 13-70-8500LTVMIQ COVID-19/Yumiko Garcia SENIOR SOFTWARE TEST ENGINEER Work Phone: Start: 57-57-5328KGR TESTValerie L Floro CNM Work Phone: Start: 45-26-0657Tqbigwsjilri chorionic quantitative Bryson L Floro CNM Work Phone: Start: 15-22-5789ONY CBC WITH AUTO DIFFCorey Radha DO Work Phone: Start: 74-72-6758OC OB TRANSVAGINALValerie L Floro CNM Work Phone: Start: 83-36-4868HK OB TRANSVAGINALValerie L Floro CNM Work Phone: Start: 48-18-8828Olxnl test visual color cmprsn methsValerie L Floro CNM Work Phone: Start: 05-14-2020 End: 58-25-3136Zrmfm pressure screening not performed - reason not givenDomaricel Rosario MD Work Phone: Start: 05-14-2020 End: 49-75-8643NCQ documented within normal parameters - no follow-up plan is requiredJoey Rosario MD Work Phone: Start: 05-14-2020 End: 61-23-1345Jmydtisovfwwk of current medicationsJoey Rosario MD Work Phone: Start: 05-14-2020 End: 34-58-5253Dihl assessment documented as positive - follow-up documented Joey Rosario MD Work Phone: Start: 05-14-2020 End: 63-22-4778Dgpehxw non-userJoey Rosario MD Work Phone: Start: 86-20-3974MWDCNQGM IMAGINGExternal ProviderH/O: sectionHistory of sectionIrmaricharity Larsen CNM Work Phone: H/O: sectionHistory of section Bryson Perezaakash CNM Work Phone: H/O: sectionHistory of section Bryson Larsen CNM Work Phone: H/O: sectionHistory of section Bryson Larsen CNM Work Phone: NEGATED: Highlighted rowStart: 05-14-2020 End: 72-35-9759Srzhgrjqqfoxy of current medicationsKrista Ruiz MELON PACKER Plan of Treatment DateCare ActivityDetailAuthorStart: 04-14-2025 End: 25-84-4119Foqvqga encounter bqsaitqlz53/18/2025 11:30 AM EST Routine [facility] [address] [place] [phone] Bryson Larsen CNM [address] [place] [address] [facility]YNStart: 04-09-2025 End: 22-36-1701Wivudcd encounter uqeupkcxd86/13/2025 9:30 AM EST Routine [facility] [address] [place] [phone] Bryson Larsen CNM [address] [place] [address] [facility]YNStart: 04-02-2025 End: 15-30-2982HKIJNIPGBZNI, GROUP B CULTURESTREPTOCCOUS, GROUP B CULTURE Lab Routine screening for streptococcus B ([facility]) Expected: 04/02/2025 (Approximate), Expires: 04/02/2026[facility] Work Phone: Comment on above:Expected: 04/02/2025 (Approximate), Expires: 04/02/2026Start: 04-02-2025 End: 13-87-2953Cyoxquf encounter procedureNOMS [place] OBGYNComment on above: ArrivedStart: 03-23-2025 End: 44-10-4539Cxovylg encounter procedureNOMS [place] OBGYNComment on above: ArrivedStart: 03-10-2025 End: 20-61-9078Ynxhrfa encounter zxwafwaom99/14/2025 9:45 AM EDT Routine [facility] [address] [place] [phone] Bryson Larsen CN [address] [place] [address] ArrivedNOMS [place] OBGYNComment on above:ArrivedStart: 02-18-2025 End: 93-62-2238Xjjnwmejzrym / ancillary services lwyzxfrttr07/24/2025 11:45 AM EDT Ancillary Procedure [facility] [place] [facility] [address] [address] [facility] [place] ImagingStart: 02-18-2025 End: 37-05-5846Tdjkibs encounter fluobwhhy22/24/2025 11:15 AM EDT Routine [facility] [address] [place] [phone] Bryson Larsen CN [address] [place] [address] ArrivedNOMS [place] OBGYNComment on above:ArrivedStart: 01-29-2025 End: 20-07-4865YRM panel - Blood by Automated countCBC Lab Routine Screening for iron deficiency anemia Expected: 01/29/2025 (Approximate), Expires: 01/29/2026 [facility] Work Phone: Comment on above:Expected: 01/29/2025 (Approximate), Expires: 01/29/2026Start: 01-29-2025 End: 19-73-9565LBGMNHN, GESTATIONAL SCREEN (50G)-135 CUTOFFGLUCOSE, GESTATIONAL SCREEN (50G)-135 CUTOFF Lab Routine Screening for diabetes mellitus (DM) Expect ed: 01/29/2025 (Approximate), Expires: 01/29/2026[facility] HealthcareComment on above:Expected: 01/29/2025 (Approximate), Expires: 01/29/2026Start: 01-29-2025 End: 17-14-1305OZ for pregnancyUS OB follow up transabdominal approach Imaging Routine related condition in third trimester ([facility]) Expected: 01/29/2025, Expires: 01/29/2026[facility] HealthcareComment on above:Expected: 01/29/2025, Expires: 01/29/2026Start: 01-29-2025 End: 90-65-0740Kidugsb encounter procedureGeneral acute hospital OBGYNStart: 01-26-2025 COVID-19 Vaccine ( season)COVID-19 Vaccine ( season)[facility] HealthcareStart: 69-35-3053Exonfnghc vaccinationNOAK HealthcareStart: 01-20-2025 End: 49-52-5340Hpvgwrn encounter yezzkvghj98/26/2025 6:30 PM EDT Office Visit General acute hospital Family Medicine [address] [place] [address] Silvino Garcia NP [address] [place] [address] Ar[facility] HospitalComment on above:Arrived Start: 01-01-2025 End: 22-82-6752Kzjzsjm encounter asdhaaofq40/07/2025 11:30 AM EDT Routine [facility] [address] [facility] [place] [address] Bryson Larsen, CNM [address] [place] [address] NOMS FNR OBStart: 01-01-2025 End: 96-86-6368Osihlgo encounter fvrrouefs57/07/2025 9:30 AM EDT Routine [facility] [address] [facility] [place] [phone] Bryson Larsen, CNM [address] [place] [address] ArrivedNOUn[facility] OBGYNComment on above:ArrivedStart: 12-10-2024 End: 34-40-0439Zwrjuvtfsfgn / ancillary services rduycltcjq78/16/2025 11:30 AM EDT Ancillary Procedure [facility] [address] [place] [address] ANKD FNR ULTRASOUNDStart: 11-10-2024 End: 54-62-4065Vppynnp encounter procedureNOMS FNR OBComment on above:Encounter for routine care ([facility]); examination or test, positive result ([facility])Start: 10-09-2024 End: 16-95-3685Cgxxdmv encounter qeraieutt25/15/2025 1:00 PM EDT Routine [facility] [address] [facility] [place] [phone] Bryson Larsen, CNM [address] [place] [address] NOMS FNR OBStart: 09-11-2024 End: 99-87-9753IEQ/RhABO/Rh Lab Routine Encounter for routine care examination or test, positive result Expected: 09/11/2024 (Approximate), Expires: 09/11/2025N[facility] HealthcareComment on above:Expected: 09/11/2024 (Approximate), Expires: 09/11/2025Start: 09-11-2024 End: 25-52-8384Pokfqvmq screenAntibody screen Lab Routine Encounter for routine care examination or test, positive result Expected: 09/11/2024 (Approximate), Expires: 09/11/2025[facility] HealthcareComment on above: Expected: 09/11/2024 (Approximate), Expires: 09/11/2025Start: 09-11-2024 End: 17-55-6521Dlowvahc identified in Urine by CultureUrine culture Microbiology Routine Encounter for routine care examination or test, positive result Expected: 09/11/2024 (Approximate), Expires: 09/11/2025[facility] HealthcareComment on above:Expected: 09/11/2024 (Approximate), Expires: 09/11/2025Start: 09-11-2024 End: 00-99-8594MER panel - Blood by Automated countCBC Lab Routine Encounter for routine care examination or test, positive result Expected: 09/11/2024 (Approximate), Expires: 09/11/2025[facility] HealthcareComment on above: Expected: 09/11/2024 (Approximate), Expires: 09/11/2025Start: 09-11-2024 End: 26-16-2805GLAP TOX MONITORIGN 6 W/ CONF,URINEDRUG TOX MONITORIGN 6 W/ CONF,URINE Lab Routine Encounter for routine care examination or test, positive result Expected: 09/11/2024 (Approximate), Expires: 09/11/2025[facility] HealthcareComment on above:Expected: 09/11/2024 (Approximate), Expires: 09/11/2025Start: 09-11-2024 End: 09-00-2108Nypnbdptsn A1c/Hemoglobin.total in BloodHemoglobin A1c Lab Routine Encounter for routine care examination or test, positive result Expected: 09/11/2024 (Approximate), Expires: 09/11/2025[facility] HealthcareComment on above:Expected: 09/11/2024 (Approximate), Expires: 09/11/2025Start: 09-11-2024 End: 35-09-5392Kqecaifse B virus surface Ag [Presence] in Serum or Plasma by ImmunoassayHepatitis B surface antigen Lab Routine Encounter for routine care examination or test, positive result Expected: 09/11/2024 (Approximate), Expires: 09/11/2025[facility] Work Phone: Comment on above:Expected: 09/11/2024 (Approximate), Expires: 09/11/2025Start: 09-11-2024 End: 81-52-4870Nwvryblzr C virus Ab [Presence] in Serum or Plasma by Immunoassay Hepatitis C antibody Lab Routine Encounter for routine care examination or test,positive result Expected: 09/11/2024 (Approximate), Expires: 09/11/2025[facility] HealthcareComment on above:Expected: 09/11/2024 (Approximate), Expires: 09/11/2025Start: 09-11-2024 End: 44-01-9203MBK-1/HIV-2 antigen/antibody combination immunoassayHIV-1 and HIV-2 antibodies Lab Routine Encounter for routine care examination ortest, positive result Expected: 09/11/2024 (Approximate), Expires: 09/11/2025[facility] HealthcareComment on above:Expected: 09/11/2024 (Approximate), Expires: 09/11/2025Start: 09-11-2024 End: 88-50-5553Andsbjltn gonorrhoeae DNA [Presence] in Cervical mucus by TATE with probe detectionC. trachomatis / N. gonorrhoeae, DNA probe Pathology and Cytology Routine Encounter for routine care examination or test, positive result Expected: 09/11/2024 (Approximate), Expires: 09/11/2025 [facility] HealthcareComment on above:Expected: 09/11/2024 (Approximate), Expires: 09/11/2025Start: 09-11-2024 End: 29-71-2335Pmrjlr Ab [Presence] in Serum by RPRRPR Lab Routine Encounter for routine care examination or test, positive result Expected: 09/11/2024 (Approximate), Expires: 09/11/2025[facility] HealthcareComment on above: Expected: 09/11/2024 (Approximate), Expires: 09/11/2025Start: 09-11-2024 End: 70-25-0755Ylqhnye antibody, IgGRubella antibody, IgG Lab Routine Encounter for routine care examination or test, positive result Expected: 09/11/2024 (Approximate), Expires: 09/11/2025N[facility] HealthcareComment on above:Expected: 09/11/2024 (Approximate), Expires: 09/11/2025Start: 09-11-2024 End: 43-02-6954GVL W/REFLEX TO FT4TSH W/REFLEX TO FT4 Lab Routine Encounter for routine care examination or test, positive result Expected: 09/11/2024 (Approximate), Expires: 09/11/2025[facility] HealthcareComment on above: Expected: 09/11/2024 (Approximate), Expires: 09/11/2025Start: 09-11-2024 End: 11-20-7162MTVPNIFMGI MICROSCOPICURINALYSIS MICROSCOPIC Lab Routine Encounter for routine care examination or test, positive result Expected: 09/11/2024 (Approximate), Expires: 09/11/2025[facility] Comment on above:Expected: 09/11/2024 (Approximate), Expires: 09/11/2025Start: 07-10-2024 End: 35-92-3790zUS, quantitative, pregnancyhCG, quantitative, Lab Routine Missed Expected: 07/10/2024 (Approximate), Expires: 06/26/2025 [facility] Work Phone: Comment on above:Expected: 07/10/2024 (Approximate), Expires: 06/26/2025Start: 05-06-2024 End: 40-97-1409JJ for pregnancyNOMS Healthcare Work Phone: Comment on above:Expected: 05/06/2024, Expires: 05/06/2025Start: 05-06-2024 End: 03-43-1413hhwsdzrban50/10/2024 11:15 AM EST Initial [facility] [address] [place] [address] Bryson Larsen CN [address] [place] [address] ArrivedNOMS FNR OBComment on above:ArrivedStart: 04-86-8902Etxlutbms vaccinationInfluenza Vaccine (#1)NOM HealthcareStart: 05-14-2020 End: 64-34-6597AxjloxkofgkVztffhaecqmHcjpmaj [facility] Work Phone: Start: 10-38-1968Qeqlxobdf B Vaccines (1 of 3 - 19+ 3- dose series)Hepatitis B Vaccines (1 of 3 - 19+ 3-dose series)[facility] Start: 34-82-5311PBN Vaccines (1 - 3-dose series)HPV Vaccines (1 - 3-dose series)NOM HealthcareStart: 20-86-6652Wapggno of varicella vaccinationVaricella Vaccines (1 of 2 - 13+ 2-dose series)NOM HealthcareStart: 2005 DTaP/Tdap/Td Vaccines (1 - Tdap)DTaP/Tdap/Td Vaccines (1 - Tdap)[facility] Start: 47-39-5230RGR Vaccines (1 of 1 - Standard series)MMR Vaccines (1 of 1 - Standard series)[facility] HealthcarePatient EducationMedicationsC[facility] Work Phone: Payers DatePayer CategoryPayerPolicy [id number] Health InsuranceMEDICAL MUTUAL [id number] [id number] Cross Blue Shield [id number] BLUE CARD PPO [id number] 2019-Present [id number] [id number] 2.160.1.452460.3.57[id number] 2.16840.1.224354.3.57[id number] 2.0.1.589468.3.57[id number] 2.840.1.982606.3.57[id number] 2.16840.1.321334.3.57[id number] 2.16.840.1.039708.3.57[id number] 2.16840.1.314055.3.57[id number] 2.16840.1.686120.3.57[id number] 2.16840.1.794082.3.57[id number] 2.16840.1.013868.3.57[id number] 2.16840.1.159229.3.57[id number] 2..840.1.375396.3.57[id number] 2.16.840.1.449519.3.57[id number] 2.16.840.1.834165.3.57[id number] 2..840.1.548774.3.579.[id number] 2..0.1.635730.3.57[id number] 2..840.1.557506.3.579.2.1259 Social History DateTypeDetailFacilityTobacco smoking status NHISUnknown if ever smokedCorey Hospitaltart: 06-37-4385Kvc Assigned At BirthNot on fileCorey Hospitaltart: 05-14-2020 End: 74-01-5219QpsygmlptSbvntdf if ever smokedBarney [facility] Work Phone: Start: 65-74-4410Nrvvvel smoking status NHISNever smoked tobaccoNOMS HealthcareStart: 15-44-6874Rvfzxul use and exposureSmokeless tobacco non-userNOMS HealthcareStart: 09-25-2023 End: 15-35-0516Yricuzohf beverage intakeLifetime non-drinker (finding)[facility] HealthcareStart: 05-23-2023 End: 28-03-9438Fzfjxlx of Social functionNOMS HealthcareStart: 05-23-2023 End: 22-27-2041Eqrvrjo use panelNOMS HealthcareThe thought of harming myself has occurred to meNeverNOMS HealthcareStart: 60-50-8977Heobtzy Commentcaffeine: none; drinks herbal teasNOMS HealthcareStart: 79-84-3947Vop assigned at FemaleNOMS HealthcareStart: 59-91-8407Wqzygq identityIdentifies as female gender (finding)[facility] HealthcareStart: 63-25-2555Ofmyhw orientationHeterosexual (finding)[facility] HealthcareStart: 45-84-1567KareucwnsFAHI HealthcareStart: 91-24-9797KomZjkknb (finding)[facility] SexFemaleNOAK Healthcare Goals DatePatient GoalDesired Activity/StatePersonal health goal Functional Status SgjzZiipfseiqpQwcaazWtkjmvdw68-84-3915Nguzbbk Health Questionnaire 2 item (PHQ- 2) [Reported][facility] Clinical Notes 04-30-2024 to 04-02-2025 Note Date & NaylMzqzQpyhfmvm51-54-2601 History of Present illness Narrative* Bryson Larsen [...] for a routine visit. documented in this encounterRanken Jordan [facility] HospitalIeytbzcxvt93-07-6813 History of Present illness Narrative* Bryson Larsen [...] supervision of other normal , third trimester ([facility]) History of section POTS (postural orthostatic tachycardia syndrome) Continue vitamin. Labs reviewed Expected mode of delivery repeat section Patient does desire permanent sterilization with C/S Follow up in 1 week for a routine visit. documented in this encounterRanken Jordan Pediatric Specialty HospitalXbfwjwuqif79-94-5150 History of Present illness Narrative* Bryson Larsen [...] for a routine visit. documented in this encounterRanken Jordan Pediatric Specialty HospitalRwhxdovvdf08-94-6054 History of Present illness Narrative* Bryson Larsen [...] for this visit: Encounter for routine care ([facility]) Encounter for supervision of other normal , third trimester ([facility]) Patient failed her 1 hr gtt [...] desires permanent sterilization. Will let Dr Garcia's underwriting support specialist know that patient would like bilateral salpingectomy with repeat C/S. Follow up in 2 weeks for a routine visit. documented in this encounterRanken Jordan Pediatric Specialty HospitalOaspneffsy18-00-4513 History of Present illness Narrative* Bryson Larsen [...] for a routine visit. documented in this encounterRanken Jordan Pediatric Specialty HospitalRbfilelvtx48-29-5858 History of Present illness Narrative* Silvino Garcia [...] ago. She has not been using any dfup-bvz-skwhfws medications for these symptoms. Her daughter is also sick. She has not experienced any changes in her weight or increased swelling in her legs. She contacted her DRIVER ENGINEER who was concerned and wanted to have it checked out. She describes a sensation of chest pressure, but it does not feel like someone sitting on her chest. It hurts to take a deep breath. She also mentions slight wheezing but notes that she does not respond well to inhalers. ?Quick Review Review Full History Edit History Meds - Gqdwvawi-Lfd-Jt-FA ( 1 + IRON PO) --- PMH [...] weight change or increased leg swelling. Her DRIVER ENGINEER was concerned and recommended further evaluation. - [...] Slight wheezing is noted. documented in this encounterRanken Jordan Pediatric Specialty HospitalAfspukkpex17-94-5557 History of Present illness Narrative* Bryson Larsen [...] for this visit: Encounter for routine care ([facility]) POTS (postural orthostatic tachycardia syndrome) Encounter for supervision of other normal , second trimester ([facility]) History of section Continue vitamin. Labs reviewed. Rhogam GTT at 28 weeks Follow up in 2 weeks for a routine visit. documented in this encounterRanken Jordan Pediatric Specialty HospitalJzldcqecxi87-67-7292 History of Present illness Narrative* Bryson Larsen [...] for a routine visit. documented in this encounterRanken Jordan Pediatric Specialty HospitalRsxgblrxpl50-63-3590 History of Present illness Narrative* Gris Benedict [...] for a routine visit. documented in this encounterRanken Jordan Pediatric Specialty HospitalQjyrluylap67-68-4141 History of Present illness Narrative* Bryson Larsen [...] for a routine visit. documented in this encounterRanken Jordan Pediatric Specialty HospitalKgjuormuez60-51-8798 History of Present illness Narrative* Bryson Larsen [...] also given office phone number and [facility] number to call in case of an emergency or after hours needs. PVU and all questions answered. We did discuss place of delivery. Patient should plan to go to [facility] for all services unless an emergency and they need to go to the closest ER. We can make other arrangements possibly ifpatient would like to deliver at another facility but I did explain I am now at [facility] 100% of the time and would like to do all deliveries there. documented in this encounterRanken Jordan Pediatric Specialty HospitalHhoqhzoegw42-81-1377 History of Present illness Narrative* Gris Benedict MA - 06/26/2024 1:30 PM EST PROBLEM VISIT Armando Gunterpaolaspike is 24 y.o. a patient of [facility] DRIVER ENGINEER Here for miscarriage follow up Last pap: [...] n/a PAP SMEAR few years ago in [place] Family History Problem Relation Name Age of [...] Benedict MA,06/26/2024 1:52 PM documented in this [facility]01-09-2025 Telephone encounter Note* Telephone Encounter - Kenya More - 06/05/2024 4:31 PM EST Hugo left at 4:27 Hi, this is Page Beechy. I needed a makeup appointment with Elicia Larsen. My phone number is [phone], thank you. [facility] HospitalNnnseqhqqe99-33-1211 Miscellaneous Notes* Telephone Encounter - Kenya More - 06/05/2024 4:31 PM EST Hugo left at 4:27 Hi, this is Page Beechy. I needed a makeup appointment with Elicia Larsen. My phone number is [phone], thank you. documented in this [facility]12-10-2024 History of Present illness Narrative* MARQUIS [...] reviewed this encounter and updated as appropriate: @RULESMARTLINK([id number],TOBYESPROV)@@RULESMARTLINK([id number],ALGYESPROV)@@RULESM ARTLINK([id number],MEDYESPROV)@@RULESMARTLINK([id number],PROBYESPROV)@@RULESMARTLIN K([id number],MHYESPROV)@@RULESMARTLINK([id number],SHYESPROV)@@RULESMARTLINK([id number], FHYESPROV)@@RULESMARTLINK([id number],SOHYESPROV)@ Review of Systems Negative Objective Physical Exam Expected Total Weight Gain: Could not be calculated Pregravid BMI: Could not be calculated Urine protein Urine glucose Labs Assessment/Plan Problem List Items Addressed This Visit Genitourinary Amenorrhea Relevant Orders POCT , urine (Completed) US OB less than 14 weeks early documented in this encounterRanken Jordan Pediatric Specialty HospitalGotohdrldg70-77-6090 Telephone encounter Note* Telephone Encounter - Debbie [...] can let her know what you decide. [facility] HospitalAtsvmwwwzy46-49-5038 Miscellaneous Notes* Telephone Encounter - Debbie Mahoney [...] know what you decide. documented in this encounterNOAK HealthcareEvaluation note* Diagnosis Anxiety- Primary Anxiety state, unspecified documented [facility] this encounter [facility]* Diagnosis Amenorrhea Absence of menstruation documented in this encounter [facility] HealthcareEvaluation noteNo assessment information availableMemorial Health [facility] Work Phone: Evaluation note* Diagnosis History [...] HealthcareEvaluation note* Diagnosis Encounter for routine care ([facility])- Primary POTS (postural orthostatic tachycardia syndrome) Unspecified tachycardia related condition in second trimester ([facility]) documented in this encounter [facility]* Diagnosis Encounter for routine care ([facility])- Primary POTS (postural orthostatic tachycardia syndrome) Unspecified tachycardia Encounter for supervision of other normal , second trimester ([facility]) History of section Other postprocedural status documented in this encounter [facility]* Diagnosis Acute cough- Primary Acute bronchitis, unspecified organism documented in this encounter [facility]* Diagnosis Screening for iron deficiency anemia Screening for diabetes mellitus (DM) Screening for diabetes mellitus related condition in third trimester ([facility]) documented in this encounter [facility]* Diagnosis Encounter for routine care ([facility])- Primary Encounter for supervision of other normal , third trimester ([facility]) documented in this encounter [facility]* Diagnosis Encounter for supervision of other normal , third trimester ([facility])- Primary History of section Other postprocedural status POTS (postural orthostatic tachycardia syndrome) Unspecified tachycardia Elevated glucose tolerance test Impaired glucose tolerance test documented in this encounter [facility]* Diagnosis Encounter for supervision of other normal , third trimester ([facility])- Primary History of section Other postprocedural status POTS (postural orthostatic tachycardia syndrome) Unspecified tachycardia documented in this encounter [facility]* Diagnosis Encounter for supervision of other normal , third trimester ([facility])- Primary screening for streptococcus B ([facility]) screening for Streptococcus B History of section Other postprocedural status POTS (postural orthostatic tachycardia syndrome) Unspecified tachycardia documented in this encounter [facility]* Diagnosis Encounter for routine care ([facility]) examination or test, positive result ([facility]) examination or test, positive result related condition in second trimester ([facility]) related condition in second trimester ([facility]) documented in this encounter NOM HealthcareReason for visit Narrative* Maternity Services (Routine) - AuthorizedSpecialtyDiagnoses / ProceduresReferred By ContactReferred To ContactObstetrics and Gynecology Diagnoses Encounter for routine care ([facility]) examination or test, positive result ([facility]) Procedures OR OFFICE/OUTPATIENT [facility] 60 MINUTES Bryson Larsen CNM [address] [place] [address] Phone: tel: fax: Bryson Larsen CNM [address] [place] [address] Phone: tel: fax: Referral IDStatRegurwinderStjudith DateExpiration DateVisits RequestedVisits [id number] Specialty Services Required [id number] [facility] Chief Complaint Chief Complaint Description Start [...] or prosecute any alcohol or drug abuse patient.[facility] Reason for Visit (unrecogniz ed section and content) Reason For Visit Description New - 1st visit with practice Preliminary reason for visit data, not yet signed by the author as of lower back [id number] VisitReasonComments MiscarriageReasonCommentsNasal CongestionMainly chest pressure INFORMATION SOURCE (unrecogn ized section and content) DATE CREATED AUTHOR 03/31/2022 [facility] DATE CREATED AUTHOR AUTHOR'S ORGANIZ ATION 06/26/2024 [facility] DATE CREATED AUTHOR AUTHOR'S ORGANIZ ATION 04/04/2025 [facility] EPIC Care Teams (unrecognized sec tion and content) Team MemberRelationshipSpecialtyStart DateEnd Date Gris Valdes MD [address] [place] [address] PCP - GeneralFamily Medicine10/26/22Team MemberRelationshipSpecialtyStart DateEnd Date Gris Valdes MD [address] [place] [address] PCP - GeneralFamily Medicine10/26/22Team MemberRelationshipSpecialtyStart DateEnd Date Gris Valdes MD [address] [place] [address] PCP - GeneralFamily Medicine10/26/22Team MemberRelationshipSpecialtyStart DateEnd Date Gris Valdes MD [address] [place] [address] PCP - GeneralFamily Medicine10/26/22 Team Status: Inactive Member Role Status Dates John Garcia DO Attending Provider Active Start : June 20, 2024 End: June 20, 2024Team MemberRelationshipSpecialtyStart DateEnd Date Gris Valdes MD [address] [place] [address] PCP - GeneralFamily Medicine10/26/22Team MemberRelationshipSpecialtyStart DateEnd Date Gris Valdes MD [address] [place] [address] PCP - GeneralFamily Medicine10/26/22Te MemberRelationshipSpecialtyStart DateEnd Date Gris Valdes MD [address] [place] [address] PCP - GeneralFamily Medicine10/26/22 MemberRelationshipSpecialtyStart DateEnd Date Gris Valdes MD [address] [place] [address] PCP - GeneralFamily Medicine10/26/22 MemberRelationshipSpecialtyStart DateEnd Date Gris Valdes MD [address] [place] [address] PCP - Generalmily Medicine10/26/22 MemberRelationshipSpecialtyStart DateEnd Date Gris Valdes MD [address] [place] [address] PCP - GeneralFamily Medicine10/26/22 MemberRelationshipSpecialtyStart DateEnd Date Gris Valdes MD [address] [place] [address] PCP - GeneralFamily Medicine10/26/22Team MemberRelationshipSpecialtyStart DateEnd Date Gris Valdes MD [address] [place] [address] PCP - GeneralFamily Medicine10/26/22Team MemberRelationshipSpecialtyStart DateEnd Date Gris Valdes MD [address] [place] [address] PCP - GeneralFami Medicine10/26/22Te MemberRelationshipSpecialtyStart DateEnd Gris Valdes MD [address] [place] [address] PCP - [facility]10/26/22Te MemberRelationshipSpecialtyStstryker DateEnd Date Gris Valdes MD [address] [place] [address] [facility] - [facility]10/26/22Te MemberRelationshipSpecialtyStstryker DateEnd Gris Valdes MD [address] [place] [address] [facility] - [facility]10/26/22 Goals (unrecognized [...] PRIMARY CLINICAL RECORDS. [facility] [employer] [facility]. provides no warranty or guarantee of the accuracy or completeness of information in this document.
--- OUTSIDE RECORDS SUMMARY | 2025-04-21 05:38 | XMS_ITS | Encounter Summary ---
Author Organization [facility] Address [address] [place] [address] Care Team Providers Care Asbestos Abatement Technician Name Role Phone Gris Dean MD Primary Care Provider [phone] Encounter Details DateTypeDepartmentCare Team (Latest Contact Info)Bkohfrccosd40/17/2025linisync Result Encounter [facility] External Department Unsolicited Delaney Larsen, CNM [address] [place] [address] Social History Tobacco UseTypesPacks/DayYears UsedDateSmoking Tobacco: NeverSmokeless Tobacco: NeverAlcohol UseStandard Drinks/WeekCommentsNever0 (1 standard drink = 0.6 oz pure alcohol)caffeine: none; drinks herbal teasPHQ-2AnswerDate RecordedPatient Health Questionnaire-2 Haket730Edinburgh Depression Scale AnswerDate RecordedEdinburgh Depression Scale Oanmr64107/24/2022The thought of harming myself has occurred to me.Never3Estimated Date of SpkjgamsAbjsjkvzBko70/30/2025Based on last menstrual period of 07/20/2024 (Exact Date)Sex and Gender InformationValueDate RecordedSex Assigned at Wwyhtn1309/15/2023 11:02 PM EDTLegal QwdPutwcj68/15/2023 9:44 PM EDTGender HmgzthluZmyptx89/20/2024 11:02 PM EDTSexual ZlgrxclktkbIzgefnqa68/20/2024 11:02 PM EDTdocumented as of this encounter Plan of Treatment DateTypeDepartmentCare Team (Latest Contact Info)Crcgmqredqu52/01/2025 1:00 PM ESTOffice Visit [facility]Ash[facility] [address] [place] [address] Delaney Larsen, MG [address] [place] [facility] [address] documented as of this encounter Goals GoalPatient Goal TypeAssociated ProblemsRecent ProgressPatient-Stated?Author Reminders Care PlanOB RemindersNoOpen Scheduling, Backgrounddocumented as of this encounter Procedures Procedure NamePriorityDate/TimeAssociated DiagnosisCommentsURINE CULTURE - [facility] Izvkupp6804/13/2025 3:50 PM EST [facility] UA (CLEAN/CATCH) SECRET SERVICE AGENT/MICRO IF IND.Wtnuihc6204/13/2025 3:50 PM EST documented in this encounter Results * URINE CULTURE - [facility] (04/13/2025 3:50 PM EST)ComponentValueRef RangeTest MethodAnalysis TimePerformed AtPathologist SignatureURINE CULTURE - [facility] ??Urine Culture - [facility] SEEFRMC [facility] RESULT^[facility] RESULT TBHURINE CULTURE - FRMCSEEN SEE SCANNED REPORT, NORMAL^SEE SCANNED REPORT, NORMALTBHSpecimen (Source)Anatomical Location / LateralityCollection Method / VolumeCollection TimeReceived Time04/13/2025 3:50 PM EST04/13/2025 4:11 PM EST Narrative [facility] - 04/16/2025 2:09 PM EST Authorizing ProviderResult TypeResult StatusValerie Joseph Larsen CNMLAB BLOOD ORDERABLESFinal ResultPerforming OrganizationAddressCity/State/ZIP CodePhone Number CL[facility]IS[facility]NC [facility] * (ABNORMAL) [facility] UA (CLEAN/CATCH) SECRET SERVICE AGENT/MICRO IF IND. (04/13/2025 3:50 PM EST) ComponentValueRef RangeTest MethodAnalysis TimePerformed AtPathologist SignatureCOLOR URINELT. YELLOWYELLOWTBHCLARITY URINESLIGHTLY CLOUDY(A)CLEARTBH SPECIFIC GRAVITY URINE<=1.005(A)1.005 - 1.025TBHPH URINE6.55.0 - 9.0TBHPROTEIN URINENEGATIVENEG/TRACE mg/dLTBHGLUCOSE URINE UANEGATIVENEGATIVE mg/dLTBH BILIRUBIN URINENEGATIVENEGATIVETBHKETONES URINENEGATIVENEGATIVE mg/dLTBHBLOOD URINENEGATIVENEGATIVETBHNITRITE URINENEGATIVENEGATIVETBHUROBILINOGEN URINE0.2 0.2 - 1.0 EU/dLTBHLEUKOCYTE ESTERASE URINELARGE(A)NEGATIVETBHURINE MICROSCOPIC INDICATEDYESTBHSpecimen (Source)Anatomical Location / LateralityCollection Method / VolumeCollection TimeReceived Time04/13/2025 3:50 PM EST04/13/2025 4:11 PM EST Narrative [facility] - 04/13/2025 4:14 PM EST Authorizing ProviderResult TypeResult StatusValerie Joseph Larsen [facility]IONLINISYNCFinal ResultPerforming OrganizationAddressCity/State/ZIP CodePhone Number [facility] TB documented in this encounter Visit Diagnoses Not on filedocumented in this encounter Additional Health Concerns Active ProblemsNoted DateDiagnosed DateOB Ehfohmywr04/17/2025 documented as of this encounter Care Teams Team MemberRelationshipSpecialtyStart DateEnd Date Gris Dean MD [address] [place] [address] PCP - GeneralFamily Medicine10/26/22documented as of this encounter
--- OUTSIDE RECORDS SUMMARY | 2025-04-21 05:38 | XMS_ITS | Encounter Summary ---
Author Organization [facility] Address [address] [place] [address] Care Team Providers Care Cafeteria Associate Name Role Phone Gris Dean MD Primary Care Provider [phone] Encounter Details DateTypeDepartmentCare Team (Latest Contact Info)Blveijoycdy00/13/2025amboo flowsheet [facility] [address] [place] [address] Delaney Larsen, CNM [address] [place], [place] [id number] Social History Tobacco UseTypesPacks/DayYears UsedDateSmoking Tobacco: NeverSmokeless Tobacco: NeverAlcohol UseStandard Drinks/WeekCommentsNever0 (1 standard drink = 0.6 oz pure alcohol)caffeine: none; drinks herbal teasPHQ-2AnswerDate RecordedPatient Health Questionnaire-2 Nsagu509Edinburgh Depression Scale AnswerDate RecordedEdinburgh Depression Scale Ncdlt97407/24/2022The thought of harming myself has occurred to me.Never3Estimated Date of RihmvrxlUnscubvlJes92/30/2025Based on last menstrual period of 07/20/2024 (Exact Date)Sex and Gender InformationValueDate RecordedSex Assigned at Zmvvql7709/15/2023 11:02 PM EDTLegal CbnMjubnq91/15/2023 9:44 PM EDTGender LpdfcwsfFaqysg17/20/2024 11:02 PM EDTSexual GwbzyoczqibWdtvdrlm35/20/2024 11:02 PM EDTdocumented as of this encounter Plan of Treatment DateTypeDepartmentCare Team (Latest Contact Info)Fybivfkxpdj75/01/2025 1:00 PM ESTOffice Visit [facility] [address] [place] [address] Delaney Larsen, MG [address] [place], [place] [id number] documented as of this encounter Goals GoalPatient Goal TypeAssociated ProblemsRecent ProgressPatient-Stated?Author Reminders Care PlanOB RemindersNoOpen Scheduling, Backgrounddocumented as of this encounter Visit Diagnoses Not on filedocumented in this encounter Additional Health Concerns Active ProblemsNoted DateDiagnosed DateOB Jlacihwun67/17/2025 documented as of this encounter Care Teams Team MemberRelationshipSpecialtyStart DateEnd Date Gris Dean MD [address] [facility] [place], [place] [id number] PCP - GeneralFamily Medicine10/26/22documented as of this encounter
--- OUTSIDE RECORDS SUMMARY | 2025-04-21 05:38 | XMS_ITS ---
Author Organization [facility] Source Produ ction (ClinicalSummary Clone) Address Unknown Care Team Providers Care Lead Oracle Developer Name Role Phone Unavailable Primary Care Physician Unavailab le Results * [UNITY] ANEUPLOIDY NIPT Performed by: [employer] Component Value Range Date Fraction 9.9% 10/10/2024 09:06 pm UTCSex Chromosome AneuploidyNOT HUIYPCSI06/16/2025 09:06 pm UTCMonosomy XLOW RISK <1 in , 09:06 pm UTCTrisomy 13LOW RISK <1 in , 09:06 pm UTCTrisomy 18LOW RISK <1 in , 09:06 pm UTCTrisomy 21LOW RISK <1 in , 09:06 pm UTCFetal SexMALE 10/10/2024 09:06 pm UTCPregnancy KolirxvcsSGMPPIIXS48/16/2025 09:06 pm UTCFor detailed report, see PDFSee PDF10/10/2024 09:06 pm UTC10/10/2024 09:06 pm UTC Social History Observation Value Start Date End Date
--- OUTSIDE RECORDS SUMMARY | 2025-04-21 05:39 | XMS_ITS | Clinical Summary ---
Author Organization [facility] Address [address] [place] [address] Care Team Providers Care Inspector Fibrous Wallboard Name Role Phone Gris Dean MD Primary Care Provider [phone] Allergies Active AllergyReactionsCriticalityNoted DateCommentsSulfa AntibioticsUnknown 01/01/2017Sulfamethoxazole-Fgqruzrtlacb04/07/2017 Medications MedicationSigDispense QuantityRefillsLast FilledStart DateEnd DateStatus Sftzmxrb-Nww-Ou-FA ( 1 + IRON PO) Take by mouthActive Active Problems ProblemNoted DateDiagnosed DateAbnormal menstrual /30/2024Acute bilateral low back pain with right-sided sxxuirng46/30/0235Fumzodmbsu88/30/2024 Efsaajt6109/25/2023Gastroesophageal reflux reikoyx8109/25/2023Gestational diabetes ([facility])09/25/20236531Abgneltfwmad83/30/2024Left sided lnilkori94/30/2024Nausea and vomiting during ([facility])09/25/20232794Ajjtokwms29/30/2024Term ([facility])09/25/2023Tuberculosis of vertebral blpfdd1609/25/2023ostural orthostatic tachycardia esbdphts57/10/2023isorder of pdfydp8901/20/2021 Overview (09/25/2023): Added automatically from request for surgery [id number] Estimated Date of VtbrglhlLuhqjuvnRgd20/30/2025Based on last menstrual period of 07/20/2024 (Exact Date) Encounters DateTypeDepartmentCare XxspPbsuyprvatp35/19/2025 8:30 AM ESTRoutine CECI TRANMarielle [address] [place] [phone] Delaney Larsen CNM POTS (postural orthostatic tachycardia syndrome) (Primary Dx); Encounter for supervision of other normal , third trimester ([facility]); History of mugfyng3704/15/2025[facility] BAUMANNGYN [address] [place] [address] Delaney Larsen CNM 04/14/2025Results Follow-Up CECI Pandeymont PASTORDAMIAN [facility] [place] [address] Delaney Larsen CNM TB UA (CLEAN/CATCH) VISITOR SERVICES ASSOCIATE/MICRO IF IND.04/13/2025linisync Result Encounter [facility] External Department Unsolicited Delaney Larsen CNM 04/09/2025 9:30 AM ESTRoutine CECI Pandeymont PASTORGYN [address] [place] [address] Delaney Larsen CNM POTS (postural orthostatic tachycardia syndrome) (Primary Dx); Encounter for supervision of other normal , third trimester ([facility]); History of ovjlymv2504/09/2025[facility] flowsheet CECI Elizondo OBGYN [address] [place] [address] Delaney Larsen CNM 04/02/2025 9:30 AM ESTRoutine NOMAshly BAUMANNBECKN [address] [place] [address] Delaney Larsen CNM Encounter for supervision of other normal , third trimester ([facility]) (Primary Dx); screening for streptococcus B ([facility]); History of section; POTS (postural orthostatic tachycardia syndrome)04/02/2025[facility] flowsheet CECI TRANN [address] [place], [place] [address], [place] [address] Delaney Larsen CNM 03/23/2025 1:45 PM EDTRoutine CECI Elizondo OBGYN [address] [place] [address] Delaney Larsen CNM Encounter for supervision of other normal , third trimester ([facility]) (Primary Dx); History of section; POTS (postural orthostatic tachycardia syndrome)03/23/2025amboo [facility] [address] [place] [address] Delaney Larsen CNM 03/10/2025 9:45 AM EDTRoutine [facility] [address] [place] [address] Delaney Larsen CNM Encounter for supervision of other normal , third trimester ([facility]) (Primary Dx); History of section; POTS (postural orthostatic tachycardia syndrome); Elevated glucose tolerance test03/10/2025[facility] flowsheet [facility] [address] [place] [address] Delaney Larsen CNM 02/18/2025 11:45 AM EDTAncillary Procedure [facility] Raet [facility] [address] [address] related condition in third trimester ([facility])02/18/2025 11:15 AM EDT [facility]ine [facility] [address] [place] [address] Delaney Larsen CNM Encounter for routine care ([facility]) (Primary Dx); Encounter for supervision of other normal , third trimester ([facility]) 02/18/2025amboo flowsheet [facility] [place] [facility] [address] [place] [address] Delaney Larsen CNM 02/18/20258231Bjefgc26/11/2025Results Follow-Up [facility] [address] [place] [address] Gris Benedict MA CBC, GLUCOSE, GESTATIONAL SCREEN (50G)-135 CWGZAJ5701/29/2025 1:30 PM EDTRoutine [facility] [address] [place] [address] Delaney Larsen CNM Screening for iron deficiency anemia; Screening for diabetes mellitus (DM); related condition in third trimester ([facility])01/29/2025amb flowsheet [facility] OBDAMIAN [address] [place] [address] Delaney Larsen CNM 01/20/2025 6:30 PM EDTOffice Visit [facility] [address] [place] [phone] Belinda Garcia NP Acute cough (Primary Dx); Acute bronchitis, unspecified /26/2025amb flowsheet [address] [phone] Belinda Garcia NP 01/20/2025Travelfrom Last 3 Months Family History Medical HistoryRelationNameCommentsArthritisFatherArthritisMotherArthritisOther grandparentsRelationNameStatusCommentsFatherAliveMotherAliveOthergrandparents Social History Tobacco UseTypesPacks/DayYears UsedDateSmoking Tobacco: NeverSmokeless Tobacco: Never Tobacco Cessation:Counseling Given: Not Answered Alcohol UseStandard Drinks/WeekCommentsNever0 (1 standard drink = 0.6 oz pure alcohol)caffeine: none; drinks herbal teasPHQ-2AnswerDate RecordedPatient Health Questionnaire-2 Fkhpj783Edinburgh Depression ScaleAnswerDate RecordedEdinburgh Depression Scale Juwsm08207/24/2022The thought of harming myself has occurred to me.Never05/23/2023Estimated Date of GsghduggQmnlerbyWhu60/30/2025Based on last menstrual period of 07/20/2024 (Exact Date)Sex and Gender InformationValueDate RecordedSex Assigned at BirthFemale 09/15/2023 11:02 PM EDTLegal WilKoecap52/15/2023 9:44 PM EDTGender Identity Hvbtac4209/15/2023 11:02 PM EDTSexual WcfqeqzhfifTcmotslx87/20/2024 11:02 PM EDT Last Filed Vital Signs Vital SignReadingTime TakenCommentsBlood Wdwtmgzh453/7004/15/2025 8:38 AM EST Alsqg676301/20/2025 6:15 PM TMGEllbtcupfhr51.6 ??C (97.8 ??F)01/20/2025 6:15 PM EDTRespiratory Rate--Oxygen Lftrhuatas92%01/20/2025 6:15 PM EDTInhaled Oxygen Concentration--Ygzull25.2 kg (168 lb)04/15/2025 8:38 AM CRHRjgkib614 cm (5' 3 ) 09/25/2023 10:27 AM EDTBody Mass Index29.76009/25/2023 10:27 AM EDT Plan of Treatment DateTypeDepartmentCare Team (Latest Contact Info)Tcxzuyicsib64/01/2025 1:00 PM ESTOffice Visit CECI BAHENA [address] [place] [address] Delaney Larsen, MG [address] [place] [address] Health MaintenanceDue DateLast DoneCommentsCOVID-19 Vaccine ( season) 2025Influenza Vaccine (#1)2025Pneumococcal Vaccine: Pediatrics (0 to 5 Years) and At-Risk Patients (6 to 64 Years)Aged OutNo longer eligible based on patient's age to complete this topic Goals GoalPatient Goal TypeAssociated ProblemsRecent ProgressPatient-Stated?Author Reminders Care PlanOB RemindersNoOpen Scheduling, Background Procedures Procedure NamePriorityDate/TimeAssociated DiagnosisCommentsURINE CULTURE - [facility] Pgxsoik7104/13/2025 3:50 PM EST [facility] UA (CLEAN/CATCH) VISITOR SERVICES ASSOCIATE/MICRO IF IND.Lycssgq0604/13/2025 3:50 PM EST STREPTOCCOUS, GROUP B YWMKOJFThspjaf35/06/2025 10:02 AM EST screening for streptococcus B ([facility]) US OB FOLLOW UP TRANSABDOMINAL TCMLEBCWAbmpvsy63/24/2025 12:10 PM EDT related condition in third trimester ([facility]) GLUCOSE, GESTATIONAL SCREEN (50G)-135 TYZESEDbulpar37/04/2025 2:07 PM EDT Screening for diabetes mellitus (DM) DMQGkrcixe20/04/2025 2:07 PM EDT Screening for iron deficiency anemia STATUS COVID-19/WTUAazoiec16/26/2025 7:36 PM EDT Acute cough from Last 3 Months Results * URINE CULTURE - [facility] (04/13/2025 [...] CLINISYNC [facility] * (ABNORMAL) [facility] UA (CLEAN/CATCH) VISITOR SERVICES ASSOCIATE/MICRO IF IND. (04/13/2025 3:50 PM EST) ComponentValueRef [...] 04/13/2025 4:14 PM EST Authorizing ProviderResult TypeResult StatusValekevin CHOLINISYNCFinal ResultPerforming OrganizationAddressCity/State/ZIP CodePhone Number [facility] * STREPTOCCOUS, GROUP B CULTURE (04/02/2025 10:02 AM EST)ComponentValueRef Range Test MethodAnalysis TimePerformed AtPathologist SignatureMICRO [id number] QUESTSPECIMEN QUALITYAdequateQUESTSOURCEVAGINAL/ANORECTALQUESTSTATUSFINALQUEST RESULTSEE NOTEQUESTComment: No group B Streptococcus isolated COMMENTSEE NOTEQUESTComment: Note per CDC guidelines optimal recovery is achieved by swabbing both the lower vagina and rectum (through the anal sphincter). Specimen (Source)Anatomical Location / LateralityCollection Method / Volume Collection TimeReceived Time04/02/2025 10:02 AM EST04/02/2025 10:02 AM EST Narrative Resulting Agency Comment Performing Organization Information ?Site ID: QPT ?Name: [facility] ?Address: [address] [place] [phone] ?Director: Kurt Cardona MD Authorizing ProviderResult TypeResult StatusDelaney Larsen CNMLAB BODY FLUIDS AND STOOLS ORDERABLESFinal ResultPerforming OrganizationAddressCity/State/ZIP CodePhone Number [facility] * US OB follow up transabdominal approach (02/18/2025 12:10 PM EDT)Anatomical RegionLateralityModalityBodyUltrasoundSpecimen (Source)Anatomical Location / LateralityCollection Method / VolumeCollection TimeReceived Time02/19/2025 1:04 PM EDT Impressions 02/19/2025 1:50 PM EDT Single, live intrauterine , current sonographic age of 30 weeks and 5 days, with an estimated date of delivery of April 24, 2025. * ??Estimated Weight (g) by Percentile is based upon an accurate estimated age based onlast menstrual period. ?? TRANSCRIBED BY: ? ELECTRONICALLY SIGNED BY: Maksim Shukla MD Narrative 02/19/2025 1:50 PM EDT FINDINGS: A single, live intrauterine is present with normal cardiac rate of 174 ??beats per minute. Normal activity and amniotic fluid volume. Amniotic fluid index is ??14 cm. ??Morphology is grossly normal. The cervix is long and closed, 7.0 ??cm. ??The placenta is anterior, Grade 1 not associated with the cervical os. ??The current sonographic age is ??30 weeks and 5 days, based onthe following measurements: BPD ? 7.7 ??cm (30 weeks, 5 days) Head Circumference ?28.2cm ( 30 weeks,6 ??days) Abdominal Circumference ?36.5cm ( 30weeks, 5 days) Femur Length ? 5.8cm ( 30weeks, ??3days) Presentation ? Cephalic ? Placenta ?Grade 1 ? Weight (g) by Percentile ? 39.0% * These measurements result in an estimated date of delivery of ??April 24, 2025 ??The current estimated weight is ??1607 ??grams ( 3 pound, 9 ??ounces). ?? Prior examination of December 10, 2024 had a delivery date of April 28, 2025. Procedure Note Maksim Shukla MD - 02/19/2025 FINDINGS: A single, live intrauterine is present with normal cardiacrate of 174 beats per minute. Normal activity and amniotic fluidvolume. Amniotic fluid index is 14 cm. Morphology is grossly normal. Thecervix is long and closed, 7.0 cm. The placenta is anterior, Grade 1 notassociated with the cervical os. The current sonographic age is 30 weeksand 5 days, based on the following measurements: BPD 7.7 cm (30 weeks, 5 days) Head Circumference 28.2cm ( 30 weeks,6 days) Abdominal Circumference 36.5cm ( 30weeks, 5 days) Femur Length 5.8cm ( 30weeks, 3days) Presentation Cephalic Placenta Grade 1 Weight (g) by Percentile 39.0% * These measurements result in an estimated date of delivery of 2024 The current estimated weight is 1607 grams ( 3 pound, 9ounces). Prior examination of December 10, 2024 had a delivery date of April. IMPRESSION: Single, live intrauterine , current sonographic age of 30 weeksand 5 days, with an estimated date of delivery of April 24, 2025. * Estimated Weight (g) by Percentile is based upon an accurateestimated age based on last menstrual period. TRANSCRIBED BY: ELECTRONICALLY SIGNED BY: Maksim Shukla MD Authorizing ProviderResult TypeResult StatusValericharity Ruiz [facility] US PROCEDURESFinal Result * (ABNORMAL) GLUCOSE, GESTATIONAL SCREEN (50G)-135 CUTOFF (01/29/2025 2:07 PM EDT)ComponentValueRef RangeTest MethodAnalysis TimePerformed AtPathologist SignatureGLUCOSE, GESTATIONAL SCREEN (50G)-135 BPQQRK802(H)<135 mg/dLQUEST Comment: One hour value of > or = 135 mg/dL indicates the need for a diagnostic 75 g dose 2-hour or 100 g dose 3-hour oral glucose tolerance test; patient fasting is required. Specimen (Source)Anatomical Location / LateralityCollection Method / Volume Collection TimeReceived Time01/29/2025 2:07 PM EDT01/29/2025 2:07 PM EDT Narrative Resulting Agency Comment Performing Organization Information ?Site ID: QPT ?Name: [facility] ?Address: [address] [place] [address], [address] [place] [phone] ?Director: Kurt Cardona MD Authorizing ProviderResult TypeResult StatusValekevin Larsen CNSAINT [facility] BLOOD ORDERABLESFinal ResultPerforming OrganizationAddressCity/State/ZIP CodePhone Number [facility] * CBC (01/29/2025 2:07 PM EDT)ComponentValueRef RangeTest MethodAnalysis Time Performed AtPathologist SignatureWHITE BLOOD CELL COUNT9.03.8 - 10.8 Thousand/uLQUESTRED BLOOD CELL COUNT3.833.80 - 5.10 Million/uLQUESTHEMOGLOBIN 11.811.7 - 15.5 g/hBXSXBBUWUGOKXPST93.835.0 - 45.0 %SKVYQLOD36.580.0 - 100.0 hPIRFNAXSC15.827.0 - 33.0 rrXVLNXYEBM56.032.0 - 36.0 g/dLQUESTComment: For adults, a slight decrease in the calculated MCHC value (in the range of 30 to 32 g/dL) is most likely not clinically significant; however, it should be interpreted with caution in correlation with other red cell parameters and the patient's clinical condition. RDW12.011.0 - 15.0 %QUESTPLATELET LFKZF921031 - 400 Thousand/uLQUESTMPV9.87.5 - 12.5 fLQUESTSpecimen (Source)Anatomical Location / LateralityCollection Method / VolumeCollection TimeReceived TimeBloodVenous blood specimen / Hfduizl3701/29/2025 2:07 PM EDT01/29/2025 2:07 PM EDT Narrative Resulting Agency Comment Performing Organization Information ?Site ID: QPT ?Name: [facility] ?Address: [address] [place] [address], [address] [place] [phone] ?Director: Kurt Cardona MD Authorizing ProviderResult TypeResult StatusValekevin Larsen CNMLAB BLOOD ORDERABLESFinal ResultPerforming OrganizationAddressCity/State/ZIP CodePhone Number [facility] * STATUS COVID-19/FLU (01/20/2025 7:36 PM EDT)ComponentValueRef RangeTest Method Analysis TimePerformed AtPathologist SignatureFLU A-FLU B-SARS COV 2 RNA- Specimen (Source)Anatomical Location / LateralityCollection Method / Volume Collection TimeReceived FxliDdike2025 7:36 PM EDT Narrative Authorizing ProviderResult TypeResult StatusBelinda Garcia NPPOINT OF CARE TEST ENTER/EDIT ORDERABLESFinal Result from Last 3 Months Additional Health Concerns Active ProblemsNoted DateDiagnosed DateOB Zvrqoetfm26/17/2025 Insurance Care Teams Team MemberRelationshipSpecialtyStart DateEnd Gris Dean MD [address] [place] [address] PCP - GeneralFamily Medicine10/26/22
--- OUTSIDE RECORDS SUMMARY | 2025-04-21 05:39 | XMS_ITS | Encounter Summary ---
Author Organization [facility] Address [address] [place] [address] Care Team Providers Care Certified Registered Nurse Anesthetist Name Role Phone Gris Dean MD Primary Care Provider Encounter Details DateTypeDepartmentCare Team (Latest Contact Info)Ehksntiekdp33/18/2025Results Follow-Up [facility] [address] [place] [address] Delaney Larsen, CNM [address] [place], [place] [phone] [facility] UA (CLEAN/CATCH) CONTROL OFFICER/MICRO IF IND. Social History Tobacco UseTypesPacks/DayYears UsedDateSmoking Tobacco: NeverSmokeless Tobacco: NeverAlcohol UseStandard Drinks/WeekCommentsNever0 (1 standard drink = 0.6 oz pure alcohol)caffeine: none; drinks herbal teasPHQ-2AnswerDate RecordedPatient Health Questionnaire-2 Lcefm518Edinburgh Depression Scale AnswerDate RecordedEdinburgh Depression Scale Niqpd77107/24/2022The thought of harming myself has occurred to me.Never05/23/2023Estimated Date of AkvrnlvbBwbvwhcxIaa75/30/2025ased on last menstrual period of 07/20/2024 (Exact Date)Sex and Gender InformationValueDate RecordedSex Assigned at Pqubam6309/15/2023 11:02 PM EDTLegal SciQtnozc91/15/2023 9:44 PM EDTGender XqpmeotgTmtzty37/20/2024 11:02 PM EDTSexual ErbjrjbvevxTbykkdbp82/20/2024 11:02 PM EDTdocumented as of this encounter Plan of Treatment DateTypeDepartmentCare Team (Latest Contact Info)Bnjfiejeoyq64/01/2025 1:00 PM ESTOffice Visit NOMAshly Elizondo SHRUTI [address] [place] [address] Delaney Larsen, MG [address] [place], [place] [phone] documented as of this encounter Goals GoalPatient Goal TypeAssociated ProblemsRecent ProgressPatient-Stated?Author Reminders Care PlanOB RemindersNoOpen Scheduling, Backgrounddocumented as of this encounter Visit Diagnoses Not on filedocumented in this encounter Additional Health Concerns Active ProblemsNoted DateDiagnosed DateOB Wtihedivh87/17/2025 documented as of this encounter Care Teams Team MemberRelationshipSpecialtyStart DateEnd Gris Dean MD [address] [place], [place] [phone] PCP - GeneralFamily Medicine10/26/22documented as of this encounter
--- OUTSIDE RECORDS SUMMARY | 2025-04-21 05:39 | XMS_ITS | Encounter Summary ---
Author Organization [facility] Address [address] [place] [address] Care Team Providers Care Garbage Collector Name Role Phone Gris Dean MD Primary Care Provider [phone] Encounter Details DateTypeDepartmentCare Team (Latest Contact Info)Ffwchehjgdq87/19/2025amboo flowsheet [facility] OBGYN [address] [place] [address] Delaney Larsen, CNM [address] [place], [place] [phone] Social History Tobacco UseTypesPacks/DayYears UsedDateSmoking Tobacco: NeverSmokeless Tobacco: NeverAlcohol UseStandard Drinks/WeekCommentsNever0 (1 standard drink = 0.6 oz pure alcohol)caffeine: none; drinks herbal teasPHQ-2AnswerDate RecordedPatient Health Questionnaire-2 Lddtq815Edinburgh Depression Scale AnswerDate RecordedEdinburgh Depression Scale Jyyom75507/24/2022The thought of harming myself has occurred to me.Never3Estimated Date of TrybbucoDrkiznbaNhm46/30/2025ased on last menstrual period of 07/20/2024 (Exact Date)Sex and Gender InformationValueDate RecordedSex Assigned at Eylduk7709/15/2023 11:02 PM EDTLegal YonAwghij97/15/2023 9:44 PM EDTGender WbpocgnaAwjbno54/20/2024 11:02 PM EDTSexual YycjiwrslhhKecaekex21/20/2024 11:02 PM EDTdocumented as of this encounter Plan of Treatment DateTypeDepartmentCare Team (Latest Contact Info)Sljsvixwmnl62/01/2025 1:00 PM ESTOffice Visit [facility] [address] [place] [address] Delaney Larsen, MG [address] [place], [place] [phone] documented as of this encounter Goals GoalPatient Goal TypeAssociated ProblemsRecent ProgressPatient-Stated?Author Reminders Care PlanOB RemindersNoOpen Scheduling, Backgrounddocumented as of this encounter Visit Diagnoses Not on filedocumented in this encounter Additional Health Concerns Active ProblemsNoted DateDiagnosed DateOB Tavxujcpz27/17/2025 documented as of this encounter Care Teams Team MemberRelationshipSpecialtyStart DateEnd Date Gris Dean MD [address] [facility] [place], [place] [address] PCP - GeneralFamily Medicine10/26/22documented as of this encounter
--- OUTSIDE RECORDS SUMMARY | 2025-04-21 05:39 | XMS_ITS ---
Author Organization [facility] [facility] Source Produ ction (ClinicalSummary Clone) Address Unknown Care Team Providers Care Analysis Engineer Name Role Phone Unavailable Primary Care Physician Unavailab le Results * [UNITY] CARRIER SCREEN Performed by: Certeon Component Value Range Date Sickle Cell Disease/Beta-Thalassemia/Hemoglobino pathies carrier screen NEGATIVE 10/15/2024 06:56 am UTCAlpha-Thalassemia carrier ckxqqpOOKNJEDE86/21/2025 06:56 am UTCCystic Fibrosis carrier kzypvtINRBVCOB84/21/2025 06:56 am UTCSpinal Muscular Atrophy carrier screenNEGATIVE 2 SMN1 copies, SNP not xbrfliu0210/15/2024 06:56 am UTCFor detailed report, see PDFSee PDF10/15/2024 06:56 am UTC 10/15/2024 06:56 am UTC Social History Observation Value Start Date End Date
--- OUTSIDE RECORDS SUMMARY | 2025-04-21 05:39 | XMS_ITS | Clinical Summary ---
Author Organization [employer] Address [id number] [address] [place] [address] Care Team Providers Care Statement Clerks Manager Name Role Phone Gris Dean MD Primary Care Provider [phone] Allergies Active AllergyReactionsCriticalityNoted DateComments Sulfamethoxazole-Kipfzmbwzivk37/07/2017Iodine And Iodide Containing Products 01/01/2017 Only topical iodine Ok w/ ivp dye Sulfa (Sulfonamide Antibiotics)01/01/2017 Medications MedicationSigDispense QuantityRefillsLast FilledStart DateEnd DateStatus norgestimate-ethinyl estradioL (ORTHO TRI-CYCLEN,TRINESSA) 0.18/0.215/0.25 mg-35 mcg (28) per tablet Take 1 tablet by mouth daily.01/07/2021ctive cyclobenzaprine (FLEXERIL) 10 mg tablet Take 1 tablet (10 mg total) by mouth 3 (three) times a day as needed for muscle spasms.Active PNV 3-IRON FUM,GLUC-FOLIC ACID ORAL Take 1 tablet by mouth in the morning.Active Active Problems ProblemNoted DateDiagnosed DatePostural orthostatic tachycardia syndrome (POTS) 3Disorder of mpzenk8201/20/2021 Overview (01/20/2021): Added automatically from request for surgery [id number] Family History Medical HistoryRelationNameCommentsArthritisFatherHyperlipidemiaFatherArthritis MotherRelationNameStatusCommentsFatherAliveMotherAlive Social History Tobacco UseTypesPacks/DayYears UsedDateSmoking Tobacco: NeverSmokeless Tobacco: Never Tobacco Cessation:Counseling Given: Not Answered Alcohol UseStandard Drinks/WeekCommentsNot Currently0 (1 standard drink = 0.6 oz pure alcohol)ChildcareAnswerDate OcvzswxpClzplnabkPgxnxvv54/13/2019Employment AnswerDate ZsyqpzieRzqzypvdzbZlhbqhb31/13/2019Hunger ScreeningAnswerDate RecordedWithin the past 12 months we worried whether our food would run out before we got money to buy more.Never True01/04/2023Within the past 12 months the food we bought just didn't last and we didn't have money to get more.Never True3Purpose - LifeAnswerDate RecordedPurpose and direction in life Ciejxla8807/08/2020CommentsNoSex and Gender InformationValueDate Recorded Sex Assigned at BirthNot on fileLegal HtaBsguzq15/07/2017 11:02 AM EDTGender IdentityNot on fileSexual OrientationNot on file Last Filed Vital Signs Vital SignReadingTime TakenCommentsBlood Fnhbxokx905/7008 8:41 AM EDT Mrric484701/04/2023 8:41 AM WDVOswhrsuvkqo38.8 ??C (98.2 ??F)01/01/2017 11:24 AM EDTRespiratory Hdzm194601/20/2021 10:07 AM EDTOxygen Ecxjriizet592%01/01/2017 1:33 PM EDTInhaled Oxygen Concentration--Aywvok39.8 kg (149 lb 6.4 oz)01/04/2023 8:41 AM BZOEoftvh200.5 cm (5' 2 )01/20/2021 10:07 AM EDTBody Mass Index27.33 01/20/2021 10:07 AM EDT Plan of Treatment Health MaintenanceDue DateLast DoneCommentsDTaP,Tdap and Td Vaccines (6 - Tdap) , 11/30/1999, 1998, Additional history exists Depression Ltdkzvfud10/30/2010Tobacco Qxyeuoaie23/30/2010Pap Smear2019 Adult BMI Wcphfcdgg76/02/2023Influenza Umpanfm5701/26/2025 Medical Devices Not on file Insurance Care Teams Team MemberRelationshipSpecialtyStart DateEnd Gris Dean MD [address] [place] [address] PCP - GeneralFamily Medicine02/23/21
[2025-04-21 06:16] LABS: Hematocrit 37.7 % (36.0-48.0); Hemoglobin 12.7 g/dL (12.0-16.0); Immature Granulocytes Abs Auto 0.02 10^3/uL (0.00-0.03); Immature Granulocytes Pct Auto 0.3 % (0.0-0.5); Lymphocytes Absolute Auto 2.1 10^3/uL (1.2-3.8); Mean Corpuscular HGB Conc 33.7 g/dL (29.9-35.2); Mean Corpuscular Hemoglobin 30.6 pg (26.7-34.0); Mean Corpuscular Volume 90.8 fL (81.0-99.0); Platelet Count 182 10^3/uL (150-450); Red Blood Count 4.15 10^6/uL (4.20-5.40); White Blood Count 7.8 10^3/uL (4.0-11.0)
[2025-04-21 06:23] LABS: Glucose Urine UA NEGATIVE (NEGATIVE)
[2025-04-21 06:28] LABS: Cannabinoid Screen Urine NEGATIVE (NEGATIVE); Methamphetamines Screen Urine NEGATIVE (NEGATIVE); Tricyclic Antidepressant Urine NEGATIVE (NEGATIVE)
[2025-04-21 06:31] LABS: Cast Seen? NONE SEEN #/LPF (NONE SEEN); Crystals Seen? None Seen #/HPF (None Seen)
[2025-04-21 06:32] LABS: Urine Culture Indicated YES-FRMC
[2025-04-21] MEDS: CEFAZOLIN SODIUM/DEXTROSE,ISO 2 GM/50 ML PIGGYBACK IV ×2 (06:50→13:27)
[2025-04-21] MEDS: FAMOTIDINE/PF 20 MG/2 ML VIAL IV (06:52)
[2025-04-21] MEDS: METOCLOPRAMIDE HCL 10 MG/2 ML VIAL IVP (06:53)
[2025-04-21] MEDS: CITRIC ACID/SODIUM CITRATE 30 ML SOLUTION ORACIT SHOHL'S SOLN PO (06:58)
--- NOTE | 2025-04-21 07:04 | P.OBHP_ITS ---
OB - H&P: HPI History of Present Illness Chief complaint: SCHEDULED : 3 Para: 1 Gestational age based on last menstrual period: 39.2 Comments: repeat section with bilateral salpingectomy History of Present Dating criteria: LMP confirmed by 1st trimester US care: good care Ultrasounds: normal 1st trimester US and normal mid trimester US complications: gestational diabetes complications comment: POTS , failed 1 hr glucose, refused 3 hour, blood sugars at home normal Medical complications OB: none Labs Blood type: O (+) positive Rubella: immune RPR/VDLR: nonreactive GBS status: negative HBsAG: negative Review of Systems ROS Status of ROS: 10 or more systems reviewed and unremarkable except as noted in history and below PFSH [facility] Medical History Seizure ?R56.9 - Unspecified convulsions (ICD-10) POTS (postural orthostatic tachycardia syndrome) ?G90.A - Postural orthostatic tachycardia syndrome [POTS] (ICD-10) Surgical History History of section ?Z98.891 - History of uterine scar from previous surgery (ICD-10) History of removal of cyst ?Z98.890 - Other specified postprocedural states (ICD-10) [place] teeth extracted ?K08.409 - Partial loss of teeth, unspecified cause, unspecified class (ICD- 10) Family History Grandmother Family history of CHF (congestive heart failure) Family history of COPD (chronic obstructive pulmonary disease) Grandfather Family history of cancer Family history of CHF (congestive heart failure) Family history of COPD (chronic obstructive pulmonary disease) Other Family history of MS (multiple sclerosis) Family history of brain cancer Family history of hypertension Family history of myocardial infarction Family history of stroke Social History Within the past year, how often did you have a drink containing alcohol: monthly or less Within the past year, how many standard drinks containing alcohol did you have on a typical day: 1 or 2 Within the past year, how often did you have six or more drinks on one occasion: never Total score: 0 Score interpretation: A score less than 3 is consistent with normal alcohol consumption. Smoking status: Never smoker Non-prescribed substance use: denies use Previous occupational history: [employer] Highest level of school completed/degree received: Associate degree: academic program Are you now , , , , never or living with a partner: In a typical week, how many times do you talk on the telephone with family, friends, or neighbors: 3 or more times per week How often do you get together with friends or relatives: 3 or more times per week Little interest or pleasure in doing things: not at all Feeling down, depressed, or hopeless: not at all Feel stressed/tense/nervous/anxious/difficulty sleeping: not at all Do you think of yourself as: straight/heterosexual Gender Identity: female Meds Home Medications and Allergies Home Medications ?Medication ?Instructions ?Recorded ?Confirmed ?Type doxycycline hyclate 100 mg capsule 100 mg PO BID 7 day s #14 caps 06/20/24 06/24/24 Rx ibuprofen 800 mg tablet 800 mg PO Q8H PRN pain 14 da ys #40 06/20/24 06/24/24 Rx tabs Allergies Allergy/AdvReac Type Severity Reaction Status Date / Time Sulfa (Sulfonamide Allergy Severe Anaphylaxis Verified 04/21/25 05:43 Antibiotics) Exam Constitutional Vital Signs, click to edit/add: Last Vital Signs Temp 96.9 F L 04/21/25 06:05 Pulse 61 04/21/25 06:05 Resp 15 04/21/25 06:05 BP 104/67 04/21/25 06:05 O2 Del Method Room Air 04/21/25 06:05 Documenting provider has reviewed patient's vital signs: yes Common normals: no apparent distress, average body habitus and oriented x3 General appearance: cooperative, comfortable, well kempt and well developed Orientation/consciousness: Yes awake, Yes oriented to person, Yes oriented to place and Yes oriented to time HENMT Common normals: normocephalic Eye Common normals: EOMs intact bilaterally Neck & C-Spine Common normals: full ROM General: normal visual inspection Lymph Lymphatic: no lymphadenopathy noted Chest Common normals: inspection of chest normal Respiratory Common normals: normal respiratory effort, no retractions, no use of accessory muscles and clear to auscultation bilaterally Effort & inspection: able to speak in complete sentences Auscultation: clear to auscultation bilaterally Cardio Common normals: regular rate Rate: regular rate Rhythm: regular rhythm GI Common normals: Normal to inspection, nondistended, normoactive bowel sounds present Inspection: normal to inspection Palpation: soft Common normals: no CVA tenderness Back & Pelvis Common normals: no CVA tenderness Extremity Common normals: normal to inspection Neuro Common normals: oriented x3 Sensorium/orientation: awake, alert, oriented to person, oriented to place and oriented to time Psych Common normals: mental status grossly normal, thought process normal, cooperative, affect normal, speech normal, activity/motor behavior normal, denies hallucinations, denies homicidal ideation and denies suicidal ideation Appearance: grossly normal Attitude: calm Results Labs Labs: Short CBC 04/21/25 Range/Units 05:52 WBC 7.8 (4.0-11.0) 10^3/uL Hgb 12.7 (12.0-16.0) g/dL Hct 37.7 (36.0-48.0) % Plt Count 182 (150-450) 10^3/uL Urine 04/21/25 Range/Units 05:45 Urine Color Lt. yellow (YELLOW) Urine Clarity Clear (CLEAR) Urine pH 6.5 (5.0-9.0) Ur Specific [place] 1.010 (1.005-1.025) Urine Protein Negative (NEG/TRACE) mg/dL Urine Glucose (UA) Negative (NEGATIVE) mg/dL OB - A/P Assessment and Plan (1) Term : Plan admit for repeat section with bilateral salpingectomy
--- NOTE | 2025-04-21 08:46 | P.ON_ITS ---
Brief Operative Note Date of procedure: 04/21/25 Pre-op diagnosis general: iup at 39wks, previous c/s Post-op diagnosis: same as pre-op Procedure: NAME OF PROCEDURE: [ section with bilateral salpingectomy ] PROCEDURE: Patient was taken back to the Operating Room where she was given a spinal anesthesia with Duramorph without difficulty. She was prepped and draped in the normal sterile fashion. A Pfannenstiel skin incision was then made 2?cm above the symphysis pubis and carried down to underlying rectus fascia using a Bovie. The fascia was incised in the midline and extended laterally using Ruiz scissors. Two [place] clamps were placed on the superior aspect of the fascia and dissected off the underlying rectus muscles. The same was performed on the inferior aspect as well. The muscles were then in the midline. Peritoneum was identified and entered bluntly. The peritoneum was then extended superiorly and inferiorly with good visualization of the bladder. The bladder blade was inserted. Vesicouterine peritoneum was identified, tented up, and entered with Metzenbaum scissors. A bladder flap was then created digitally. The bladder blade was reinserted. A low transverse incision was made on the patient's uterus and extended laterally digitally. The infant was then delivered atraumatically after the bladder blade was removed in the cephalic position. The cord was clamped and cut. Cord blood was obtained. The infant was handed off to awaiting team. The patient's placenta was spontaneously delivered. The uterus was then exteriorized. The uterus was cleared of all clots and debris. The bladder blade was reinserted. The patient's uterine incision was closed using #0 Vicryl in a running lock fashion. Excellent hemostasis was assured.? The rt tube was identified and grasped with babock, the ligasure was used to transect and ligate the tube in its entirity, this was done on the contralateral side as well. The uterus was then returned to the patient's abdomen. The patient's abdomen was copiously irrigated using warm saline. Peritoneal gutters were cleared of all clots and debris. Again excellent hemostasis was assured. The patient's fascia was closed using #0 Vicryl in a running fashion. The patient's skin was closed using 4-0 Vicryl subcuticularly. The patient tolerated the procedure well. Sponge, lap, and needle counts were correct x2. The patient was taken to the Recovery Room in stable condition. Anesthesia: spinal Surgeon: John Garcia Agricultural Equipment Sales Engineer: BRYSON OCLVIN Estimated blood loss (mL): 575 Pathology: other (tubes) Condition: stable Disposition: floor Urinary Catheter Management Urinary Catheter Management Urethral: Cath placed during this visit: no
--- NOTE | 2025-04-21 08:48 | P.OBPRC_ITS ---
Procedure Pre-op/Post-op diagnoses: Pre-Op/Post-Op Diagnoses Operation Date: 04/21/25 07:30 <No data on this case meets the specified criteria> Procedure: Procedures Operation Date: 04/21/25 07:30 Actual Procedure Side Surgeon p Repeat with bilateral salpingectomy ([place] patient) Bilateral John Garcia DO School Vocational Educator: BRYSON COLVIN Estimated blood loss (mL): 575 Disposition: floor Anesthesia type: Spinal
--- NOTE | 2025-04-21 09:37 | P.EN_ITS ---
Event Note Event Note: Hardboard Panel Printer Note: I first assisted Dr Garcia with a repeat section with bilateral salpingectomy. I assisted Dr Garcia as directed. I independently closed the SQ layer without difficulty with a 3-0 vicryl. I then independently closed the incision with 4-0 vicryl on a severino needle without dificulty. Hem ostasis noted at completion of the case. Patient tolerated the procedure well.
[2025-04-21] MEDS: ACETAMINOPHEN 500 MG TABLET 1000 MG PO ×2 (10:30→22:51)
[2025-04-21] MEDS: KETOROLAC TROMETHAMINE 30 MG/ML VIAL IVP ×2 (14:02→21:15)
[2025-04-21] MEDS: SIMETHICONE 80 MG TAB.CHEW PO (20:54)
[2025-04-21] MEDS: ENOXAPARIN SODIUM 40 MG/0.4 ML SYRINGE SUBQ (22:51)
[2025-04-22 04:22] VITALS: BP 106/60; PULSE 64; TEMP 36.5
[2025-04-22 04:30] VITALS: PULSE 64
[2025-04-22] MEDS: KETOROLAC TROMETHAMINE 30 MG/ML VIAL IVP ×4 (04:30→21:55)
[2025-04-22] MEDS: ACETAMINOPHEN 500 MG TABLET 1000 MG PO ×3 (06:04→21:56)
[2025-04-22 06:05] LABS: Hematocrit 29.0 % (36.0-48.0); Hemoglobin 9.9 g/dL (12.0-16.0); Immature Granulocytes Abs Auto 0.05 10^3/uL (0.00-0.03); Immature Granulocytes Pct Auto 0.4 % (0.0-0.5); Lymphocytes Absolute Auto 2.5 10^3/uL (1.2-3.8); Mean Corpuscular HGB Conc 34.1 g/dL (29.9-35.2); Mean Corpuscular Hemoglobin 31.3 pg (26.7-34.0); Mean Corpuscular Volume 91.8 fL (81.0-99.0); Platelet Count 161 10^3/uL (150-450); Red Blood Count 3.16 10^6/uL (4.20-5.40); White Blood Count 13.4 10^3/uL (4.0-11.0)
[2025-04-22] MEDS: SIMETHICONE 80 MG TAB.CHEW PO ×2 (06:07→21:56)
--- NOTE | 2025-04-22 07:42 | P.OBPN_ITS ---
OB - PN: Subj Subjective Patient comments: no complaints and pain well controlled [place] status: doing well Exam Constitutional Vital Signs, click to edit/add: Last Vital Signs Temp 97.7 F 04/22/25 04:22 Pulse 64 04/22/25 04:30 Resp 16 04/22/25 04:30 BP 106/60 04/22/25 04:22 Pulse Ox 96 04/21/25 11:00 O2 Del Method Room Air 04/22/25 04:30 Documenting provider has reviewed patient's vital signs: yes Common normals: no apparent distress Respiratory Common normals: normal respiratory effort and clear to auscultation bilaterally Cardio Common normals: regular rate and regular rhythm GI Common normals: Normal to inspection, nondistended, normoactive bowel sounds present Extremity Common normals: no clubbing, cyanosis or edema and no calf tenderness Results Labs Labs: Short CBC 04/22/25 Range/Units 05:55 WBC 13.4 H (4.0-11.0) 10^3/uL Hgb 9.9 L (12.0-16.0) g/dL Hct 29.0 L (36.0-48.0) % Plt Count 161 (150-450) 10^3/uL Urinary Catheter Management Urinary Catheter Management Urethral: Cath placed during this visit: yes, but has since been removed by the elaina se Insertion date: 04/21/25 Insertion time: 07:50 Removal date: 04/21/25 Removal time: 14:00 OB - PN: A/P Assessment and Plan (1) Term : Plan - day: 1 Plan: routine postop care Time Spent with Patient Time: Total time spent is greater than 50% in coordination of care (as documented) at patient's floor/unit and/or counseling patient: Total time spent with greater than 50% in coordination of care (as documented) at patient's floor/unit and/or counseling patient: less than 15 minutes
[2025-04-22] MEDS: DOCUSATE SODIUM 100 MG CAPSULE PO ×2 (09:03→21:57)
[2025-04-22 09:05] VITALS: BP 106/60; PULSE 87; TEMP 36.7
[2025-04-22 16:20] VITALS: TEMP 36.6
--- NOTE | 2025-04-22 16:20 | PC.NURSE ---
Old blood noted on steri strips from when patient removed bandage and out of shower. No active bleeding noted.
[2025-04-22 16:25] VITALS: BP 114/62; PULSE 67
[2025-04-22] MEDS: ENOXAPARIN SODIUM 40 MG/0.4 ML SYRINGE SUBQ (21:56)
[2025-04-23 00:32] VITALS: BP 112/65; PULSE 80
[2025-04-23] MEDS: ACETAMINOPHEN 500 MG TABLET 1000 MG PO (06:36)
[2025-04-23] MEDS: KETOROLAC TROMETHAMINE 30 MG/ML VIAL IVP (06:36)
[2025-04-23 08:48] VITALS: BP 112/74; PULSE 83
[2025-04-23] MEDS: DOCUSATE SODIUM 100 MG CAPSULE PO (08:49)
[2025-04-23 09:41] VITALS: TEMP 36.7
--- NOTE | 2025-04-23 12:02 | P.OBPN_ITS ---
OB - PN: Subj Subjective Patient comments: no complaints, pain well controlled, tolerating diet and flatus present [place] infant status: doing well and well [place] feeding status: exclusively Exam Constitutional Vital Signs, click to edit/add: Last Vital Signs Temp 98.1 F 04/23/25 09:41 Pulse 83 04/23/25 08:48 Resp 14 04/23/25 09:41 BP 112/74 04/23/25 08:48 Pulse Ox 96 04/21/25 11:00 O2 Del Method Room Air 04/23/25 00:30 Common normals: no apparent distress Orientation/consciousness: Yes awake, Yes oriented to person and Yes oriented to place Chest Nipple/areola: nipples/areola normal Respiratory Common normals: normal respiratory effort Cardio Common normals: regular rate and regular rhythm GI Common normals: Normal to inspection, nondistended, normoactive bowel sounds present and soft to palpation Auscultation: normoactive bowel sounds Palpation: soft Bimanual exam- vagina & uterus: uterine consistency normal and uterus non-tender (below umbilicus) OB/external & speculum: deferred Manual OB Exam: deferred Uterus palpation: other (incision clean and dry steri-strips intact) Urinary Catheter Management Urinary Catheter Management Urethral: Cath placed during this visit: yes, but has since been removed by the nurse Insertion date: 04/21/25 Insertion time: 07:50 Removal date: 04/21/25 Removal time: 14:00 OB - PN: A/P Assessment and Plan (1) Term : Assessment and Plan: doing well on POD 2 and ready for discharge home Plan - day: 2 Plan: discharge home Time Spent with Patient Time: Total time spent is greater than 50% in coordination of care (as documented) at patient's floor/unit and/or counseling patient: Total time spent with greater than 50% in coordination of care (as documented) at patient's floor/unit and/or counseling patient: less than 15 minutes
--- NOTE | 2025-04-23 12:11 | PM.OBDS ---
DS: Providers Provider Date of admission: 04/21/25 05:35 Primary care physician: EVELYN VALDES Consults: 04/21/25 Consult to Anesthesiology Routine Consulting Provider: John Garcia Reason for consultation: with spinal Attending physician on discharge: HARRISON WATERS Discharging clinician: HARRISON WATERS Anticipated date of discharge: 04/23/25 DS: Diagnosis Discharge Diagnosis (1) Term : Assessment and plan: term delivered, repeat c/s OB - DS: Summary Peripartum Data - Procedures: Procedures Operation Date: 04/21/25 07:30 Actual Procedure Side Surgeon p Repeat with bilateral salpingectomy Bilateral John Garcia DO Peripartum Data - Vaginal Delivery Procedures: Procedures Operation Date: 04/21/25 07:30 Actual Procedure Side Surgeon p Repeat with bilateral salpingectomy Bilateral John Garcia DO Complications complications: none Delivery method: elective section Gender: male Discharge plan: home Status at Discharge Functional status at discharge: independent ambulation Overall status at discharge: patient is progressing back to baseline Time Spent with Patient Time attestation: Total time spent providing and/or coordinating discharge services: Time spent: less than 30 minutes Exam Constitutional Vital Signs, click to edit/add: Last Vital Signs Temp 98.1 F 04/23/25 09:41 Pulse 83 04/23/25 08:48 Resp 14 04/23/25 09:41 BP 112/74 04/23/25 08:48 Pulse Ox 96 04/21/25 11:00 O2 Del Method Room Air 04/23/25 00:30 DS: Data Data Completed and Pending Labs on day of discharge: Preliminary micro results at discharge 04/21/25 05:45 Urine Culture - Preliminary Urine,Clean Catch Pending - Specimen sent to Counts Include [facility] Discharge Plan Discharge Disposition: Home, Self-Care Discharge Medications: New ibuprofen 800 mg tablet 800 mg PO Q8H PRN (Reason: pain) 14 Days Qty: 40 0RF oxycodone-acetaminophen [Percocet] 5-325 mg tablet 1 tab PO Q6H PRN (Reason: pain) 5 Days Qty: 20 0RF Rx Instructions: g89.18 Continued doxycycline hyclate 100 mg capsule 100 mg PO BID 7 Days Qty: 14 0RF ibuprofen 800 mg tablet 800 mg PO Q8H PRN (Reason: pain) 14 Days Qty: 40 0RF Print Language: Ivorian Forms: Delivery - Discharge, Portal Instructions
== END 2025-04-23 12:40 | disposition home or self-care (01) | DRG 785 ==
PROVIDERS: Admitting Provider Midwife; PCP Family Medicine; Visit Provider Obstetrics & Gynecology
PROC: 10D00Z1 Extraction of Products of Conception, Low, Open Approach (ICD-10-PCS; CPT 59514; principal; 2025-04-21 07:30)
DX: O34.211 Maternal care for low transverse scar from previous cesarean delivery (principal); O24.429 Gestational diabetes mellitus in childbirth, unspecified control; Z3A.39 39 weeks gestation of pregnancy; Z37.0 Single live birth; Z30.2 Encounter for sterilization
CPT/HCPCS: 36415; 51702; 64488; 80307; 81001; 85025; 86850; 86900; 86901; 87086; 87088; 88302; 94667; J0665; J0690; J1100; J1650; J1885; J2274; J2371; J2405; J2590; J2765; J3490